=== PATIENT | male | born 1990 | race Caucasian/White ===

== ENCOUNTER 2019-09-30 13:40 | Emergency (ER) | payer MEDICAID, SELFPAY ==
[2019-09-30 13:42] VITALS: BP 130/82; PULSE 57; RESP 15; TEMP 37; O2SAT 100
--- NOTE | 2019-09-30 13:57 | ED.GENADUL_ITS ---
Discharge Plan Disposition Patient Disposition: HOME Condition: Improving Discharge Details Chief Complaint: Sorethroat Clinical Impression: Acute viral pharyngitis Primary Care Provider: Fay Bonilla ED Provider: Gokul Horton Home Meds and New Rx's Prescriptions: Continued methadone 10 MG/5 ML solution 155 mg PO DAILY Qty: 0 RF: 0 albuterol sulfate [ProAir HFA] 90 mcg/actuation HFA aerosol inhaler 1 - 2 puff Inhalation Q6H PRN Qty: 2 RF: 3 gabapentin 600 mg tablet 600 mg PO TID PRN (Reason: CHRONIC PAIN) Qty: 90 RF: 1 Discharge Instructions Instructions: Upper Respiratory Infection (ED) Additional Instructions: Small, frequent sips of fluids to maintain hydration. Tylenol and/or ibuprofen as needed for pain. Return to ER for drooling, worsening discomfort, shortness of breath, or any other acute concern. Medical Decision Making 28-year-old male presents with sore throat for 4 days. He is afebrile. Exam reveals an erythematous oropharynx. Rapid strep test obtained and negative. Consistent with a viral pharyngitis. Patient offered single dose dexamethasone for its anti-inflammatory properties. He will continue conservative management at home. Discussed with him return precautions to the ER. HPI General Mode of arrival: ambulatory . Date/Time Provider Initiated Documentation: 09/30/19 13:43 . Limitations to Documentation: no limitations . Information obtained by: patient . History of Present Illness 28 year old M presents to the emergency department with the chief complaint of Sore throat for 4 days, described as moderate, Quality is described as dull and constant, and is localized to the mouth. Patient reports no radiation. Patient started experiencing this day(s) and it has been constant. No relieving factors improve symptom(s), No exacerbating factors reported . Patient notes other (No drooling or voice change); denies fever/chills and shortness of breath. Patient did receive the following treatments prior to arrival, none Related Data Home Medications Medication Instructions Recorded Confirmed methadone 155 mg PO DAILY #0 tab-cap 06/26/18 09/30/19 albuterol sulfate 90 mcg/actuation 1 - 2 puff INHALATION Q6H PRN #2 12/25/18 09/30/19 aerosol inhaler inhaler gabapentin 600 mg tablet 600 mg PO TID PRN #90 tab-cap 09/11/19 09/30/19 Previous Rx's Medication Instructions Recorded albuterol sulfate 90 mcg/actuation 1 - 2 puff INHALATION Q6H PRN #2 12/25/18 aerosol inhaler inhaler gabapentin 600 mg tablet 600 mg PO TID PRN #90 tab-cap 09/11/19 Allergies Allergy/AdvReac Type Severity Reaction Status Date / Time No Known Allergies Allergy Unverified 09/30/19 13:49 General Stated Complaint: Sorethroat JENNIFER: 3 Review of Systems Narrative: 6 systems reviewed and otherwise negative. PFSH Social History Smoking/Tobacco Use Status: Current every day Alcohol Intake: current Drug use: Socially Substance use type: marijuana Do you feel safe at home: Yes Do you feel safe in your relationship?: Yes Exam Narrative Exam Narrative: GEN: awake, alert, oriented 3. Pleasant, well groomed, interactive. HEAD: Normocephalic, atraumatic ENT: Mucous membranes moist, oropharynx erythematous, right tonsillar swelling but no significant exudate, the uvula is midline., External ear exam unremarkable EYES: PERRL, EOMI NECK: Full ROM, no KHOA, no menigismus CHEST/RESP: Nontender, clear to auscultation bilateral, no wheeze/rhonchi/rales CARDIOVASCULAR: RRR, no murmur, rub reji. 2+ Rad pulse bilateral ABDOMEN: Soft, nontender, no mass. +Bowel sounds EXT: Full ROM, no edema, no rash Neuro: Grossly normal neurologic exam, conversant, interactive. Psych: Speech fluent, thoughts congruent, affect normal Course Vital Signs Vital signs: Vital Signs Temperature 37 C 09/30/19 13:42 Pulse 57 L 09/30/19 13:42 Respiratory Rate 15 09/30/19 13:42 Blood Pressure 130/82 09/30/19 13:42 Pulse Oximetry 100 09/30/19 13:42 Temperature 37 C 09/30/19 13:42 Temperature Source Temporal Artery Scan 09/30/19 13:42 Pulse 57 L 09/30/19 13:42 Respiratory Rate 15 09/30/19 13:42 Respiratory Effort Non-Labored 09/30/19 13:48 Blood Pressure 130/82 09/30/19 13:42 Blood Pressure Position Sitting 09/30/19 13:42 Pulse Oximetry 100 09/30/19 13:42 Oxygen Delivery Method Room Air 09/30/19 13:42 Oxygen Flow Rate 0 09/30/19 13:42 Pain Level 4 09/30/19 13:42
[2019-09-30] MEDS: Dexamethasone 4 MG TAB 8 MG PO (14:09)
== END 2019-09-30 14:15 | disposition home or self-care (01) ==
LOC: ER 14:15
PROVIDERS: Emergency Provider Emergency Medicine; PCP Family Medicine
DX: J02.9 Acute pharyngitis, unspecified (principal); F17.210 Nicotine dependence, cigarettes, uncomplicated
CPT/HCPCS: 87880; 99282; 87081; J8540

== ENCOUNTER 2022-01-13 17:43 | Outpatient (REF) | payer MEDICAID, SELFPAY ==
[2022-01-15 13:22] LABS: COVID-19 RT-PCR UVMMC Result Negative (Negative)
== END 2022-01-13 17:44 | disposition home or self-care (01) ==
LOC: LBN 17:43
PROVIDERS: PCP Family Medicine; Visit Provider Family Medicine
DX: R09.81 Nasal congestion (principal); Z20.822 Contact with and (suspected) exposure to COVID-19
CPT/HCPCS: U0003

== ENCOUNTER 2022-03-17 22:23 | Emergency (ER) | payer MEDICAID, SELFPAY ==
[2022-03-17 22:22] VITALS: BP 148/95; PULSE 78; RESP 18; TEMP 36.7; O2SAT 98
--- NOTE | 2022-03-17 22:24 | W.ED.GENAD ---
Discharge Plan Disposition Patient Disposition: STILL A PATIENT Discharge Details Chief Complaint: OD/Poison Primary Care Provider: Reggie Espinal ED Provider: David Francis Home Meds and New Rx's Prescriptions: No Action gabapentin 800 mg tablet 800 mg PO TID Qty: 90 5RF amoxicillin-pot clavulanate 875-125 mg tablet 1 tab PO BID Qty: 20 0RF methadone 10 MG/5 ML solution 155 mg PO DAILY Qty: 0 0RF Rx Instructions: BAART RX/ albuterol sulfate [ProAir HFA] 90 mcg/actuation HFA aerosol inhaler 1 - 2 puff Inhalation Q6H PRN Qty: 2 6RF Medical Decision Making 31-year-old gentleman presents reporting he has not taken his methadone since yesterday, thought he was injecting methadone but instead believes he injected approximately 3 mg of buprenorphine, now feels like he is going into withdrawal. He appears anxious, restless, slightly diaphoretic, reports vomiting prior to arrival. Plan is to obtain IV access, routine screening laboratory values, tox screen, alcohol level, etc. He denies this act as an attempt to self-harm. I would like to obtain a EKG to review his QT if appropriate then likely medicate with Zofran and a half dose of his methadone. Medical Records Medical records reviewed: Yes I reviewed the patient's medical records. HPI General Mode of arrival: EMS. Date/Time Provider Initiated Documentation: 03/17/22 22:24. Limitations to Documentation: no limitations. Information obtained by: patient and EMS. HPI Narrative: This is a 31-year-old gentleman, past medical history of depression, opiate abuse, smoker, reports methadone dependent at 890 mg daily, goes to the [facility] program but did not go today, presenting for opiate withdrawal. He states that his last dose of methadone was yesterday morning. Just prior to arrival he was shooting up what he thought was methadone but instead he believes it was approximately 3 mg of buprenorphine. He now reports feeling sweaty, nausea, vomiting, anxious, agitated, feeling like he is going through withdrawals. He denies recent illness or trauma. Denies any alcohol use or any other drug use. He states that he is scheduled to be seen at the [facility] program tomorrow morning. Apparently he was at home and after injecting the buprenorphine, his mother called EMS as there was concern for overdose. Patient denies any intentional overdose in an attempt to harm himself. No medications were given by EMS prior to arrival Related Data Home Medications Medication Instructions Recorded Confirmed methadone 10 mg/5 mL oral solution 155 mg PO DAILY #0 tab-cap 06/26/18 01/13/22 albuterol sulfate 90 mcg/actuation 1 - 2 puff INHALATION Q6H PRN #2 02/26/20 01/13/22 aerosol inhaler (ProAir HFA) inhaler gabapentin 800 mg tablet 800 mg PO TID #90 tab 12/01/21 01/13/22 amoxicillin 875 mg-potassium 1 tab PO BID #20 tab 01/13/22 01/13/22 clavulanate 125 mg tablet Previous Rx's Medication Instructions Recorded albuterol sulfate 90 mcg/actuation 1 - 2 puff INHALATION Q6H PRN #2 02/26/20 aerosol inhaler (ProAir HFA) inhaler gabapentin 800 mg tablet 800 mg PO TID #90 tab 12/01/21 amoxicillin 875 mg-potassium 1 tab PO BID #20 tab 01/13/22 clavulanate 125 mg tablet Allergies Allergy/AdvReac Type Severity Reaction Status Date / Time No Known Allergies Allergy Unverified 03/17/22 22:31 General JENNIFER: 3 Review of Systems Constitutional Constitutional: Denies fever(s), Denies headache(s) and Denies weakness ENT Ears, Nose, Mouth, and Throat: Denies headache(s) and Denies neck pain Cardiovascular Cardiovascular: Denies chest pain and Denies dyspnea Respiratory Respiratory: Denies cough and Denies dyspnea Gastrointestinal Gastrointestinal: Reports abdominal pain, Reports nausea and Reports vomiting Musculoskeletal Musculoskeletal: Denies back pain, Denies neck pain, Denies numbness and Denies tingling Integumentary/Breasts Skin/Breast: Denies rash Neurologic Neurologic: Denies headache(s), Denies numbness, Denies tingling and Denies weakness Psychiatric Psychiatric: Reports anxiety and Denies suicidal ideation PFSH All Active Problems Tachycardia (Acute) 12/2021, heart rate 150-patient made informed decision and declined evaluation Mouth pain (Acute) 12/2021 Leg pain, bilateral (Acute) 2020- chronic bilat leg pain s/p injury-on gabapentin Fracture of tibia (Acute) History of bone graft (Acute) Opioid abuse (Acute) followed by [facility] since 2011, on methadone Smoker (Acute) 10/2022-1 ppd, about 15 pk yr Idiopathic scoliosis (Acute) Wingspan/height difference; height 72/wingspan 73 Gastroesophageal reflux disease (Acute 04/03/14) gastroscopy 2011: negative [facility] [place] Depressive disorder (Acute) Chronic pain of left knee (Acute 01/13/16) : patellar tendonitis Surgical History H/O arthroscopic knee surgery Social History Smoking/Tobacco Use Status: Current every day Smoking risk assessment performed?: Yes Alcohol Intake: current Alcohol Intake frequency: 0-2 drinks per day Drug use: Socially Substance use type: marijuana Do you feel safe at home: Yes Do you feel safe in your relationship?: Yes Exam Const General: cooperative, comfortable, anxious and diaphoretic (Slightly) Orientation: alert, awake and oriented x3 HENMT Head: normal to inspection, normocephalic and atraumatic Mouth: moist mucous membranes abnormal (Slightly dry) Eyes General: appearance normal, both eyes and all related structures Conjunctivae: conjunctivae normal Neck Neck: normal visual inspection, full ROM, no meningeal signs, trachea midline, supple and nontender Resp Effort & Inspection: normal respiratory effort and able to speak in complete sentences Auscultation: clear to auscultation bilaterally Cardio Rate: regular rate Rhythm: regular rhythm GI Palpation: soft and nontender Back/Spine/Pelvis Back: No back tenderness Skin Rashes: no rashes Neuro General: patient alert, patient awake, patient oriented x3, moves all extremities and no focal motor deficits Cognition: normal cognition Speech: speech normal Gait: normal gait Motor: muscle tone normal throughout Sensory Exam: no sensory deficits noted Psych Appearance: grossly normal Mental Status: mental status grossly normal
--- NOTE | 2022-03-17 22:30 | RT.EKG_ITS ---
APPROVED REPORT Exam: Resting ECG Reason for Exam: OD Patient Location: E HR:74 bpm ECG Measurements Heart Rate 74 AXIS VT 166 P 52 QRSd 130 QRS 64 QT 557 T 43 QTc 617 Conclusion Sinus rhythm...normal P axis, V-rate 60- 99 Nonspecific intraventricular conduction delay...QRSd >115mS, not LBBB/RBBB ST elev, probable normal early repol pattern...ST elevation, age<55 Prolonged QT interval...QTc >488mS significant motion artifact limiting interpretation, no visible stemi
[2022-03-17] MEDS: Normal Saline 1,000 ML 1000 ML IV (22:47)
[2022-03-17 23:04] LABS: Abs Immature Grans 0.01 10^3/uL (0.0-0.06); Absolute Basophil Count 0.01 10^3/uL (0.0-0.2); Absolute Eosinophil Count 0.04 10^3/uL (0.0-0.7); Absolute Neutrophil Count 3.44 10^3/uL (1.2-6.7); Basophils % 0.2; Eosinophils % 0.6; HCT 34.8 % (40.0-50.0); HGB 12.3 g/dL (13.5-17.5); Immature Grans % 0.2; Lymphocytes % 37.9; MCH 29.1 pg (27.0-33.0); MCHC 35.3 % (32.0-36.0); MCV 82.3 fL (80-95); MPV 10.7 fL (8.0-11.0); Monocytes % 9.1; Platelet Count 135 10^3/uL (130-400); RBC 4.23 10^6/uL (4.36-5.78); RDW 14.2 % (11.8-14.1); RDW-SD 42.2 fL
[2022-03-17 23:15] LABS: ALT 25 U/L (16-63); AST 21 U/L (15-37); Albumin 3.5 g/dL (3.4-5.0); Alkaline Phosphatase 93 U/L (46-116); Anion Gap 11.3 mmol/L (3-11); BUN 13 mg/dL (7-18); Bilirubin, Total 0.5 mg/dL (0.2-1.0); CO2 22.7 mmol/L (21.0-32.0); Calcium 8.6 mg/dL (8.5-10.1); Chloride 102 mmol/L (98-107); Glucose 98 mg/dL (74-106); Sodium 136 mmol/L (136-145)
[2022-03-17 23:22] LABS: ETHANOL BLOOD < 3.0 mg/dL (<10)
[2022-03-17 23:23] LABS: Potassium 2.4 mmol/L (3.5-5.1)
[2022-03-17 23:38] LABS: Salicylate 4.6 mg/dL (<2.8)
[2022-03-17 23:39] LABS: Acetaminophen < 2 ug/mL (10-30)
[2022-03-17] MEDS: LORazepam 2 MG/ML VIAL 1 MG IVP (23:50)
[2022-03-17] MEDS: Potassium Chloride 20 MEQ TABCR 40 MEQ PO (23:52)
--- NOTE | 2022-03-17 23:54 | W.EDPROG ---
Date of service: 03/17/22 Time of Service: 23:30 Medical Decision Making Patient's labs unremarkable than K of 2.4. His ekg was difficult to interpret due to motion artifact as he would not lay still long enough for a good ekg but no stemi and in v4-v6 qtc appears to be less than 500. He is stable and states his methadone dose he missed is 190mg and family confirms with him. Discussed with him and will provide 90mg here to help with his symptoms and he will go to [facility] later today for further dosing and was advised to let them know of the dose he received here. He has capacity to make his own decisions and doesn't want to wait for a repeat K, he is tolerating po and has no n/v so feel this is reasonable given he was able to swallow oral potassium. Will start him on oral supplements and advised to have it rechecked within a week with his pcp, return precautions given Lab Data Lab results reviewed: Yes I reviewed the patient's lab results. ECG Data Attestation: I personally reviewed and interpreted this ECG (s) as follows: Prior ECG tracings: not available for review Interpretation: significant motion artifact limits interpretation but is sinus, rate of 74, no stemi Sign Out Sign Out Data: Sign Out Comment: Typically on methadone, did not get his dose this morning. Was injecting what he thought was methadone but instead was likely roughly 3 mg of Suboxone, now in withdrawal. Obtaining routine screening laboratory values, IV fluid to be given. Once EKG obtained can give half dose methadone, Zofran, and that he can [facility]. Patient denies any suicidal or homicidal ideations. Last updated by David Francis PA at 03/17/22 23:03 Discharge Plan Disposition Patient Disposition: STILL A PATIENT Condition: Stable Discharge Details Clinical Impression: Drug abuse, Hypokalemia Primary Care Provider: Reggie Espinal ED Provider: Brenton [place] Meds and New Rx's Prescriptions: New potassium chloride 20 mEq tablet extended release 20 meq PO BID Qty: 30 0RF Continued gabapentin 800 mg tablet 800 mg PO TID Qty: 90 5RF amoxicillin-pot clavulanate 875-125 mg tablet 1 tab PO BID Qty: 20 0RF methadone 10 MG/5 ML solution 155 mg PO DAILY Qty: 0 0RF Rx Instructions: BAART RX/ albuterol sulfate [ProAir HFA] 90 mcg/actuation HFA aerosol inhaler 1 - 2 puff Inhalation Q6H PRN Qty: 2 6RF Discharge Instructions Instructions: Hypokalemia (ED) Additional Instructions: follow up with [facility] today and advise them of the dose of 90mg methadone you received here at midnight your potassium was low, take the supplements prescribed to you and have it rechecked within a week with your primary care provider if you feel more ill, have difficulty breathing or persistent vomit return to the emergency department
[2022-03-18] MEDS: Methadone 10 MG TAB 90 MG PO (00:24)
== END 2022-03-18 00:37 | disposition still patient (30) ==
PROVIDERS: Physician Assistant; Emergency Provider Emergency Medicine; PCP Family Medicine
DX: F11.20 Opioid dependence, uncomplicated (principal); E87.6 Hypokalemia
CPT/HCPCS: 36415; 80053; 93005; 96361; 96374; 99284; 80320; 80329; 85025; 93010; J2060

== ENCOUNTER 2022-04-26 04:48 | Emergency (ER) | payer OTHER, SELFPAY ==
--- NOTE | 2022-04-26 04:45 | DI.RAD_ITS ---
Exam(s) XR CLAVICLE RT EXAM: XR CLAVICLE RT CLINICAL HISTORY: suspect right clavicle fracture TECHNIQUE: 2D digital imaging was performed of the right clavicle. Two images were obtained. AP and axial views were obtained. COMPARISON: No exams were available for comparison FINDINGS: BONES: There is an acute comminuted fracture of the midshaft of the right clavicle. There is moderat e overriding of the fracture fragments. The fracture is mildly angulated with the apex directed supe riorly. No bony destructive lesion is seen. JOINTS: No dislocation present. SOFT TISSUE: Normal IMPRESSION: Comminuted, overriding and angulated fracture of the midshaft of the right clavicle. DATA REPOSITORY: RADIATION DOSE DELIVERED:
[2022-04-26 04:53] VITALS: BP 108/81; PULSE 55; RESP 16; TEMP 36.2; O2SAT 100
--- NOTE | 2022-04-26 04:55 | ED.GENADUL_ITS ---
Discharge Plan Disposition Patient Disposition: HOME Condition: Good Discharge Details Clinical Impression: Closed fracture of right clavicle Primary Care Provider: Reggie Espinal ED Provider: Yrn Palumbo Home Meds and New Rx's Prescriptions: No Action gabapentin 800 mg tablet 800 mg PO TID Qty: 90 5RF methadone 10 MG/5 ML solution 155 mg PO DAILY Qty: 0 Rx Instructions: BAART RX/ albuterol sulfate [ProAir HFA] 90 mcg/actuation HFA aerosol inhaler 1 - 2 puff Inhalation Q6H PRN Qty: 2 6RF potassium chloride 20 mEq tablet extended release 20 meq PO BID Qty: 30 0RF Discharge Instructions Instructions: Clavicle Fracture (ED) Additional Instructions: At this time the fractured clavicle will unfortunately need surgical intervention. Thankfully it does not need it immediately. Please use the sling for comfort. The orthopedic office will contact you for prompt follow-up. Please take Tylenol and Motrin as needed for pain. If you notice any worsening of your symptoms, or any new symptoms such as vomiting, diarrhea, fever, chills, shortness of breath, chest pain, numbness, weakness, or fainting , please return immediately to the emergency department for reevaluation. Please follow up with your primary care provider as soon as possible for reassessment and reevaluation. As always, it was a pleasure participating in your medical care today. Referrals: Reggie Espinal MD [Primary Care Provider] - Medical Decision Making This is a 31-year-old male who presents today from the half-way for evaluation of right clavicle pain. Patient states that he fell out of the top bunk this evening and landed on his right clavicle. He denies hitting his head, or any pain in his shoulders, chest, head neck, back, abdomen. He denies any numbness tingling or weakness. No other complaints at this time. Pain is made worse with movement and palpation. Improved by nothing. Exam demonstrates a mild right clavicle deformity. patient is neurovascularly intact. No pain in the shoulder head neck chest or back. We will get an x-ray to further evaluate the clavicle fracture. Will monitor closely and reassess. 6:30 AM X-ray results show evidence of mild right clavicular fracture, there is 3.7 cm of overlap, and it is comminuted. The skin itself although minimally tented is easily movable over the fracture. There is no evidence of pinching, or cutaneous compromise whatsoever. It moves easily over the fracture. Did discuss the case with Dr. Sanchez, he does recommend surgery but states that it can be done on an outpatient basis. We will schedule close outpatient follow- up. Patient will be given a sling for home use. Patient remains neurovascularly intact on reassessment prior to discharge. I have extensively reviewed the treatment plan and discharge instructions with the patient. I have addressed all patient concerns at this time. The patient was made aware of what symptoms to monitor for that would warrant a return to the emergency department. Discussed the plan with the patient, they demonstrate verbal understanding and agreement with our assessment and plan at this time. The documentation in this chart was dictated using [employer] dictation software. Please excuse any dictation errors. Addendum created by Terence Millan MD on 04/26/2022 6:08 AM Eastern Time ([place] & [place]): 3.7 cm overlap of fragments Initial Report created on 04/26/2022 5:24 AM Eastern Time ([place] & [place]): PROCEDURE INFORMATION: Exam: XR Right Clavicle, Complete Exam date and time: 04/26/2022 5:08 AM Age: 31 years old Clinical indication: Injury or trauma; Blunt trauma (contusions or hematomas); Shoulder; Injury date: 04/26/22; Injury details: Fall from top bunk, suspect right clavicle FX TECHNIQUE: Imaging protocol: XR Right clavicle complete. Views: Any number of views. COMPARISON: No relevant prior studies available. FINDINGS: Bones/joints: Comminuted angulated and mildly depressed mid clavicular fracture. The visualized right acromioclavicular and glenohumeral joints are grossly intact Soft tissues: Swelling in the supraclavicular fossa IMPRESSION: Mid right clavicular fracture as noted Thank you for allowing us to participate in the care of your patient. Dictated and Authenticated by: Terence Millan MD 04/26/2022 5:24 AM Eastern Time ([place] & [place]) HPI General Date/Time Provider Initiated Documentation: 04/26/22 04:49 . HPI Narrative: This is a 31-year-old male who presents today from the half-way for evaluation of right clavicle pain. Patient states that he fell out of the top bunk this evening and landed on his right clavicle. He denies hitting his head, or any pain in his shoulders, chest, head neck, back, abdomen. He denies any numbness tingling or weakness. No other complaints at this time. Pain is made worse with movement and palpation. Improved by nothing. Related Data Home Medications Medication Instructions Recorded Confirmed methadone 10 mg/5 mL oral solution 155 mg PO DAILY #0 tab-caps 06/26/18 04/26/22 albuterol sulfate 90 mcg/actuation 1 - 2 puff inhalation Q6H PRN ##2 02/26/20 04/26/22 aerosol inhaler (ProAir HFA) gabapentin 800 mg tablet 800 mg PO TID #90 tabs 12/01/21 04/26/22 potassium chloride 20 mEq 20 meq PO BID #30 tabs 03/18/22 tablet,extended release Previous Rx's Medication Instructions Recorded albuterol sulfate 90 mcg/actuation 1 - 2 puff inhalation Q6H PRN ##2 02/26/20 aerosol inhaler (ProAir HFA) gabapentin 800 mg tablet 800 mg PO TID #90 tabs 12/01/21 potassium chloride 20 mEq 20 meq PO BID #30 tabs 03/18/22 tablet,extended release Allergies Allergy/AdvReac Type Severity Reaction Status Date / Time No Known Allergies Allergy Unverified 04/26/22 04:55 General Stated Complaint: Orthopedic JENNIFER: 4 Review of Systems All systems reviewed & are unremarkable except as noted in HPI and below PFSH All Active Problems (Updated 04/26/22 @ 05:50 by Yrn Palumbo DO) Closed fracture of right clavicle (Acute) Tachycardia (Acute) 12/2021, heart rate 150-patient made informed decision and declined evaluation Mouth pain (Acute) 12/2021 Leg pain, bilateral (Acute) 2020- chronic bilat leg pain s/p injury-on gabapentin Fracture of tibia (Acute) History of bone graft (Acute) Opioid abuse (Acute) followed by [facility] since 2011, on methadone Smoker (Acute) 10/2022-1 ppd, about 15 pk yr Idiopathic scoliosis (Acute) Wingspan/height difference; height 72/wingspan 73 Gastroesophageal reflux disease (Acute 04/03/14) [place]rosc[place] [facility] [place]ressive disorder (Acute) Chronic pain of left knee (Acute 01/13/16) : patellar tendonitis Surgical History H/O arthroscopic knee surgery Social History Smoking/Tobacco Use Status: Former Tobacco Use Smoking risk assessment performed?: Yes Alcohol Intake: former Drug use: Current Sobriety Substance use type: marijuana Details: pt is in group home; not allowed any cigarettes, alcohol or marijuana Do you feel safe at home: Yes Do you feel safe in your relationship?: Yes Exam Narrative Exam Narrative: 1.Const: Well-nourished, Well-developed, appearing stated age 2.Eyes: PERRL, no conjunctival injection, and symmetrical lids. 3.ENT: Atraumatic external nose and ears. Moist MM. Neck: Symmetric, trachea midline, No thyromegaly. 4.CVS: +S1/S2, No murmurs or gallops. Peripheral pulses 2+ and equal in all extremities. Brisk capillary refill in all extremities. 5.RESP: Unlabored respiratory effort. Clear to auscultation bilaterally. No wheezes rales or rhonchi 6.GI: Soft, Nontender/Nondistended, No hepatosplenomegaly. No guarding or rebound. 7.MSK: Normocephalic, no pain in the shoulders, no pain in the upper extremities. Patient does have mild deformity of the midshaft of the clavicle on the right. Radial pulse +2 bilaterally. Sensation and vascular exam normal distal to site of injury. 8.Skin: Warm, Dry. No rashes or lesions. 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 Sensation grossly intact, no focal ari rologic deficits. 10.Psych: (AAO) x3. Appropriate mood and affect Course Vital Signs Vital signs: Vital Signs Temperature 36.2 C L 04/26/22 04:53 Pulse 55 L 04/26/22 04:53 Respiratory Rate 16 04/26/22 04:53 Blood Pressure 108/81 04/26/22 04:53 Pulse Oximetry 100 04/26/22 04:53 Temperature 36.2 C L 04/26/22 04:53 Temperature Source Skin 04/26/22 04:53 Pulse 55 L 04/26/22 04:53 Respiratory Rate 16 04/26/22 04:53 Blood Pressure 108/81 04/26/22 04:53 Pulse Oximetry 100 04/26/22 04:53 Pain Level 7 04/26/22 04:53
[2022-04-26] MEDS: Ibuprofen 800 MG TAB PO (05:02)
--- NOTE | 2022-04-26 05:25 | DI.VRAD_ITS ---
Addendum created by Terence Millan MD on 04/26/2022 6:08:21 AM EDT: 3.7 cm overlap of fragments Initial report created on 04/26/2022 5:24:46 AM EDT: PROCEDURE INFORMATION: Exam: XR Right Clavicle, Complete Exam date and time: 04/26/2022 5:08 AM Age: 31 years old Clinical indication: Injury or trauma; Blunt trauma (contusions or hematomas); Shoulder; Injury date: 04/26/22; Injury details: Fall from top bunk, suspect right clavicle FX TECHNIQUE: Imaging protocol: XR Right clavicle complete. Views: Any number of views. COMPARISON: No relevant prior studies available. FINDINGS: Bones/joints: Comminuted angulated and mildly depressed mid clavicular fracture. The visualized right acromioclavicular and glenohumeral joints are grossly intact Soft tissues: Swelling in the supraclavicular fossa IMPRESSION: Mid right clavicular fracture as noted Dictated and Authenticated by: Terence Millan MD. Ordering:EMELIA Pool MD
== END 2022-04-26 06:32 | disposition home or self-care (01) ==
PROVIDERS: Emergency Provider Student in an Organized Health Care Education/Training Program; PCP Family Medicine
DX: S42.021A Displaced fracture of shaft of right clavicle, initial encounter for closed fracture (principal); W06.XXXA Fall from bed, initial encounter
CPT/HCPCS: 99283; 73000

== ENCOUNTER 2022-04-28 11:30 | Outpatient (CLI) | payer MEDICAID, SELFPAY ==
[2022-04-28 12:44] LABS: Source Nasal/Nares
[2022-04-28 16:34] LABS: COVID-19 PCR Negative (Negative)
== END 2022-04-28 11:31 | disposition home or self-care (01) ==
LOC: LBO 11:30
PROVIDERS: PCP Family Medicine; Referring Provider Family Medicine; Visit Provider Student in an Organized Health Care Education/Training Program
DX: Z20.822 Contact with and (suspected) exposure to COVID-19 (principal); Z01.818 Encounter for other preprocedural examination
CPT/HCPCS: 87635

== ENCOUNTER 2022-04-30 10:59 | Day surgery (SDC) | payer MEDICAID, SELFPAY ==
[2022-04-30] VITALS (8 sets, daily range): BP systolic 107–144; BP diastolic 63–113; PULSE 60–78; RESP 10–18; TEMP 36.3–36.9; O2SAT 93–100; BMI 19.1
[2022-04-30 10:03] LABS: Source Nasal/Nares
[2022-04-30 10:52] LABS: COVID-19 PCR Negative (Negative)
--- NOTE | 2022-04-30 11:39 | ANES.PREOP_ITS ---
General Info Date of Service Date Performed: 04/30/22 Height: 6 ft 1 in Weight: 65.6 kg Body Mass Index (BMI): 19.1 Surgical Procedure: Operation Date: 04/30/22 13:10 Proposed Procedure Side Surgeon p Shoulder ORIF Clavicle Right Richard Newman MD Meds Allergies and Home Medications Allergies Allergy/AdvReac Type Severity Reaction Status Date / Time No Known Allergies Allergy Unverified 04/30/22 11:09 Home Medication Medication Instructions Recorded methadone 10 mg/5 mL oral solution 190 mg PO DAILY #0 tab-caps 06/26/18 albuterol sulfate 90 mcg/actuation 1 - 2 puff inhalation Q6H PRN ##2 02/26/20 aerosol inhaler (ProAir HFA) potassium chloride 20 mEq 20 meq PO BID #30 tabs 03/18/22 tablet,extended release acetaminophen 500 mg tablet 500 mg PO TID PRN 04/28/22 gabapentin 800 mg tablet 800 mg PO TID 04/28/22 Current Visit Medications: Current Medications Generic Name Dose Route Start Last Admin Trade Name Freq PRN Reason Stop Dose Admin Ringer's Solution 1,000 mls @ 30 mls/hr 04/30/22 06:00 IV 05/27/22 23:59 INFUSION ANDREAS Cefazolin Sodium/Dextrose 2 gm in 50 mls @ 100 mls/hr 04/30/22 06:00 Ancef Duplex IVPB 04/30/22 23:59 PREOP ANDREAS IV Miscellaneous Supplies 1 each 04/30/22 06:00 Iv Access IV 05/27/22 23:59 DIRECTED ANDREAS Naproxen 250 - 500 mg 04/30/22 10:10 Naproxen 500 Mg Tab PO BID PRN PRN Oxycodone HCl 5 - 10 mg 04/30/22 10:10 Oxycodone 5 Mg Tab PO Q4H PRN PRN Sodium Chloride 0 ml 04/30/22 06:00 Normal Saline Flush 10 Ml Syr IV 05/27/22 23:59 PRN PRN Sodium Chloride 0 ml 04/30/22 06:00 Normal Saline 10 Ml Vial IJ 05/27/22 23:59 DIRECTED PRN Sterile Water 0 ml 04/30/22 06:00 Water,Injection,Sterile 10 Ml Vial IJ 05/27/22 23:59 DIRECTED PRN PFSH Active Problems Active Problems: Problem Status Onset Code Chronic pain of left knee 01/13/16 M25.562, G89.29 Depressive disorder F32.9 Gastroesophageal reflux disease 04/03/14 K21.9 Idiopathic scoliosis M41.20 Smoker F17.200 Opioid abuse F11.10 History of bone graft Z98.890 Fracture of tibia S82.209A Leg pain, bilateral M79.604, M79.605 Mouth pain K13.79 Tachycardia R00.0 Closed fracture of right clavicle 04/25/22 S42.001A Medical History Medical History Comments:: pt denies complications; pt admits to having one cigarette today at 9am and outside of corrections uses marijauana daily (abt March 28 last time); bilateral ankle monitoring cuffs Surgical History Surgical History (Updated 04/30/22 @ 11:08 by Angie Arredondo) H/O arthroscopic knee surgery Hx of wisdom tooth extraction Tobacco Smoking/Tobacco Use Status: Current every day Tobacco Type: cigarettes Smoking cigarettes per day: 10 Years smoked: 15 Alcohol Alcohol Intake: former Substance Use Substance use: Current Sobriety Substance use type: marijuana Details: pt is in residential; not allowed any cigarettes, alcohol or marijuana Vital Signs and Lab Results Vital Signs Most Recent Vital Signs in EMR: Most Recent Vital Signs Temp Pulse Resp BP Pulse Ox 36.5 C 69 16 115/68 97 04/30/22 11:10 04/30/22 11:10 04/30/22 11:10 04/30/22 11:10 04/30/22 11:10 Lab Results Blood Type / Crossmatch: No Data to Display Complete Blood Count: No Data to Display Complete Metabolic Panel: No Data to Display Liver Function Panel: No Data to Display Coagulation Panel: No Data to Display Cardiac Panel: No Data to Display Arterial Blood Gas: No Data to Display Venous Blood Gas: No Data to Display Pancreas Panel: No Data to Display Thyroid Panel: No Data to Display Infectious Disease: 2 Coronavirus (COVID-19)(PCR) Negative (Negative) 04/30/22 09:50 Coronavirus 2019 Source Nasal/Nares 04/30/22 09:50 Blood Cultures: 2 No Data to Display Toxicology Panel: No Data to Display Imaging and Studies Imaging and Studies Study information below may be from another EMR and interpreted by another provider. Please see original notes in EMR for more complete details. EKG Summary: Conclusion Sinus rhythm...normal P axis, V-rate 60- 99 Nonspecific intraventricular conduction delay...QRSd >115mS, not LBBB/RBBB ST elev, probable normal early repol pattern...ST elevation, age<55 Prolonged QT interval...QTc >488mS significant motion artifact limiting interpretation, no visible stemi Anesthesia Assessment and Plan Anesthesia History Personal History: No History of Anesthesia Complications Family History: Family History Unknown Exercise Tolerance Exercise Tolerance: Metabolic Equivalents>4 Pertinent Negatives Pertinent Negatives: No Symptoms of GERD, No Major Cardiovascular Symptoms or Complaints, No Major Pulmonary Symptoms or Complaints and No History of CVA/TIA Cardiac & Pulmonary Exam Cardiac Exam: Normal S1/S2 Heart Sounds Pulmonary Exam: Clear Bilateral Breath Sounds Implantable Cardiac Device Does patient have a Pacemaker or an ICD?: No Airway Exam Known Difficult Airway: No Mallampati Class: 3 Mouth Opening: Normal (> 3cm) Thyromental Distance: Greater than 3 cm Neck Range of Motion: Limited ROM Neck Circumference: Normal Teeth Condition: Generalized Poor Dentition and Loose or Chipped Airway Comments: Front teeth chipped almost completely 11 12; 13 ASA Classification ASA Score: ASA 2 Emergency Case?: No NPO Status NPO Status: NPO Clears >2 hours, Solids >8 hours Anesthesia Plan Resuscitation Status: Full Code Anesthesia Technique: General Anesthesia Airway Planned: Endotracheal Tube Pain Management: Surgeon and patient request nerve block Monitors Used: Standard Monitors
[2022-04-30] MEDS: Lactated Ringers 1,000 ML 30 ML IV (11:45)
--- NOTE | 2022-04-30 11:48 | W.ANESNERVE ---
Nerve Block Single Injection Procedure Date and Time Date Performed: 04/30/22 Procedure Start: 13:40 Location Where Procedure Performed Procedure Location: Day Surgery Unit Reason Performed: Postoperative Analgesia Requesting Provider: Richard Newman Timeout Performed Timeout Performed: Yes Monitoring Used ECG, Blood Pressure, SpO2 and See EMR for corresponding vital signs Sterility Sterility: Hand Hygiene, Surgical Cap, Surgical Mask, Sterile Gloves, Eye Protection and Chlorhexidine Sedation Given During Procedure Sedation Given (Indicate Dose Given): Versed IV Dose:: 2 mg Patient Mental Status Patient Mental Status: Awake Nerve Block 1st Nerve Block: Laterality: Right Block Type: Interscalene Needle / Catheter Used: 100mm SonoPlex II Local Anesthetic Bolus (Indicate Dose Given): Lidocaine used for local infiltration of skin, Injected in 3-5ml increments after negative blood aspiration and Ropivacaine 0.5% Dose:: 15 mL Additives (Indicate Dose Given): None Ultrasound: Sterile probe cover and gel used Ultrasound Image Saved?: Yes Nerve Stimulator: Not Used Paresthesia: None Procedure Tolerated: No Complications and Patient tolerated well Procedure Outcome: Successful Performed By: Lucie Hoyt 2nd Nerve Block: Laterality: Right Block Type: Superficial Cervical Plexus Needle / Catheter Used: 100mm SonoPlex II Local Anesthetic Bolus (Indicate Dose Given): None Additives (Indicate Dose Given): None Ultrasound: Sterile probe cover and gel used Ultrasound Image Saved?: Yes Nerve Stimulator: Not Used Paresthesia: None Procedure Tolerated: Patient tolerated well Procedure Outcome: Successful Performed By: Lucie Hoyt
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
[2022-04-30] MEDS: ceFAZolin 2 GM/50 ML BAG IVPB (14:09)
[2022-04-30] MEDS: Lidocaine 1% Multi-Dose W/EPI 1/100,000 50 ML VIAL (14:48)
[2022-04-30] MEDS: Bupivacaine 0.25% Pres-Free 10 ML VIAL (14:48)
--- NOTE | 2022-04-30 16:35 | PDOC.DSDIS_ITS ---
Discharge Plan Disposition Patient Disposition: HOME Condition: Stable Discharge Details Reason For Visit: Right clavicle fracture Attending Provider: Richard Newman Primary Care Provider: Reggie Espinal Home Meds and New Rx's Prescriptions: New oxycodone 5 mg tablet 5 - 10 mg PO Q4H MDD 30 mg PRN (Reason: moderate to severe pain) Qty: 18 0RF naproxen 250 mg tablet 250 - 500 mg PO BID PRNQty: 40 0RF Rx Instructions: take with a meal Continued methadone 10 MG/5 ML solution 190 mg PO DAILY Qty: 0 Rx Instructions: BAART RX/ albuterol sulfate [ProAir HFA] 90 mcg/actuation HFA aerosol inhaler 1 - 2 puff Inhalation Q6H PRN Qty: 2 6RF potassium chloride 20 mEq tablet extended release 20 meq PO BID Qty: 30 0RF acetaminophen 500 mg Tablet 500 mg PO TID PRN gabapentin 800 mg tablet 800 mg PO TID Discontinued ibuprofen 400 mg Tablet 400 mg PO TID PRN Discharge Instructions Additional Instructions: Surgery: Right clavicle open reduction internal fixation Activity: For 6 weeks, use sling whenever you are up and about or out of the home. Minimal weightbearing, carrying, or lifting with your right upper extremity. Prescriptions: Resume home medications Naproxen 250 mg take 1-2 every 12 hours with a meal as needed for moderate pain Oxycodone 5 mg take 1-2 every 4-6 hours as needed for severe pain You may use [id number] Tylenol (acetaminophen) as needed for mild pain. These pain medications may be taken all at once or in different combinations as needed. Also, recommend Colace (docusate) as a stool softener as surgery and pain medicine cause constipation. You may try tcad-tge-[id number] diphenhydramine (Benadryl) 25-50 mg nightly as a sleep aid Dressings: Leave dressing in place until follow-up. Keep clean and dry at all times. Follow-up: 10-[address] Newman Let us know right away if you develop any redness, drainage, fevers, chest pain, or trouble breathing. Do not drink alcohol or drive for at least 24 hours after anesthesia. Please call the office during business hours with any questions or concerns. Referrals: Richard Newman MD [ [facility] STAFF PHYSICIAN] - Discharge Orders Discharge Orders: Discharge Order (Routine); Ordered 04/30/22 Ordered By: Richard Newman DS: Diagnosis Discharge Diagnosis (1) Closed fracture of right clavicle: Status: Acute
--- NOTE | 2022-04-30 16:38 | ROE_ITS ---
Operative Note Operative Note DATE OF PROCEDURE: 04/30/22 PRE-OP DIAGNOSIS: Right displaced clavicle fracture PROCEDURE: Right clavicle open reduction internal fixation, CPT #66211 SURGEON: Richard Newman MANUFACTURING QUALITY TECHNICIAN: Daya Weiss ANESTHESIA TYPE: Local By Surgeon, General LMA/ETT and Primary Nerve Block Refer to Anesthesia Record ESTIMATED BLOOD LOSS: 10 COMPLICATIONS: None Patient was transported to: PACU Implants: Synthes 2.7mm VA LCP clavicle plate system LC1 plate with 1x cortex screws and 3x locking screws medially & laterally Indications: Please see complete medical record for details. Procedure Description: In the operating room, general anesthesia was induced. The patient was positioned supine on the operating room table. All bony prominences were well- padded. Preoperative antibiotics were administered. The clavicle was prepped and draped in the usual sterile fashion. The correct patient, procedure, and side of the procedure were all verified prior to incision. The planned incision was pre-injected with 40 cc of a 50:50 mixture of bupivacaine and lidocaine containing epinephrine. The fracture site was approached raising full-thickness flaps down to bone. The incision was extended medially laterally as necessary. Care was taken to preserve soft tissue attachments. The fracture ends were identified. Bone forceps were used to provisionally obtain reduction. Suture tape cerclage x2 was used to maintain reduction incorporating the segmental pieces medially and the combined medial pieces to the intact lateral clavicle. An appropriate precontoured superior plate was applied. It was compressed to bone with a cortex screw on each side followed by sequentially placing an additional 3 locking screws medially and laterally. The plate and fractures were all inspected and demonstrated excellent stability and fixation strength. AP, cephalic tilt, and [id number] fluoroscopy confirmed appropriate fracture reduction and hardware placement. The wound was copiously irrigated with normal saline. Deep and subcutaneous tissue was closed in a full-thickness watertight fashion with buried interrupted 2-0 Monocryl. Subcuticular layer was closed using running 3-0 Monocryl. Skin glue was applied over the incision followed by a Mepilex Band-Aid. The patient awoke from anesthesia without complication and was transferred to the recovery room in a stable condition.
--- NOTE | 2022-04-30 16:59 | W.ANESPOSTOP ---
Postoperative Evaluation Date, Time and Location Date Performed: 04/30/22 Time Performed: 15:59 Patient Location: Day Surgery Unit Vital Signs Most Recent Imported Vital Signs: Most Recent Vital Signs Temp Pulse Resp BP Pulse Ox 36.3 C L 63 18 133/93 H 99 04/30/22 16:57 04/30/22 16:57 04/30/22 16:57 04/30/22 16:57 04/30/22 16:57 Pain Score Most Recent Pain Score: Most Recent Pain Score Pain Level 0 04/30/22 16:57 Assessment Mental Status: Awake (Alert & Oriented to Patient Baseline) Airway and Respiratory Function: Patent airway with normal (patient baseline) respiratory exam Cardiovascular Function: Hemodynamically Stable Hydration Status: Adequately Hydrated Nausea & Vomiting: No Nausea or Vomiting Pain: Pt. Denies Any Pain Peripheral Nerve Block: Regional nerve block not resolved at time of post operative discharge
== END 2022-04-30 17:20 | disposition home or self-care (01) ==
PROVIDERS: PCP Family Medicine; Visit Provider Student in an Organized Health Care Education/Training Program
PROC: (CPT 23515; principal; 2022-04-30 13:00)
DX: S42.021A Displaced fracture of shaft of right clavicle, initial encounter for closed fracture (principal); X58.XXXA Exposure to other specified factors, initial encounter; F11.10 Opioid abuse, uncomplicated; F17.210 Nicotine dependence, cigarettes, uncomplicated; K21.9 Gastro-esophageal reflux disease without esophagitis; F32.A Depression, unspecified
CPT/HCPCS: 23515; 76942; 87635; 73000; J0690; J1100; J1885; J2250; J2405

== ENCOUNTER 2022-05-11 11:04 | Outpatient (CLI) | payer MEDICAID, SELFPAY ==
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
== END 2022-05-11 11:05 | disposition home or self-care (01) ==
LOC: DIORS 11:04
PROVIDERS: PCP Family Medicine; Visit Provider Physician Assistant Surgical
DX: S42.021D Displaced fracture of shaft of right clavicle, subsequent encounter for fracture with routine healing (principal); X58.XXXD Exposure to other specified factors, subsequent encounter
CPT/HCPCS: 73000

== ENCOUNTER 2022-06-12 00:13 | Inpatient (IN) | payer MEDICAID, SELFPAY ==
[2022-06-12] VITALS (126 sets, daily range): BP systolic 102–176; BP diastolic 57–138; PULSE 57–142; RESP 13–26; TEMP 36.6–37; O2SAT 90–100
--- NOTE | 2022-06-12 | DI.RAD_ITS ---
Exam(s) XR PORTABLE CHEST AP EXAM: XR PORTABLE CHEST AP CLINICAL HISTORY: pneumothorax. TECHNIQUE: 2D digital imaging was performed. COMPARISON: CR,XR XR PORTABLE CHEST AP from 06/12/2022 FINDINGS: Single AP portable view. Heart size is upper normal. The mediastinum is not widened. There is a thin left-sided chest tube in place and the left lung is re-expanded. There is less than 5 percent remaining left pneumothorax. No infiltrates. No contusions. No pleural effusions. No sh ift of midline structures. Dorsal fixation plate across right clavicular fracture again noted. Left clavicle intact. No scapular fracture. No obvious left rib fractures. Fracture of the right 3rd r ib noted, age indeterminate. IMPRESSION: Left lung re-expansion.Less than 5 percent remaining pneumothorax. DATA REPOSITORY: RADIATION DOSE DELIVERED: All CT scans at this facility use at least one of these dose optimization techniques: automated exposure control; mA and/or kV adjustment per patient size (includes targeted e xams where dose is matched to clinical indication); or iterative reconstruction.
--- NOTE | 2022-06-12 00:15 | RT.EKG_ITS ---
APPROVED REPORT Exam: Resting ECG Reason for Exam: chest pain Patient Location: E HR:100 bpm ECG Measurements Heart Rate 100 AXIS DC 176 P 50 QRSd 115 QRS 55 QT 389 T 17 QTc 502 Conclusion Sinus tachycardia...rate> 99 Nonspecific intraventricular conduction delay...QRSd >115mS, not LBBB/RBBB Prolonged QT interval...QTc >488mS I have reviewed and interpreted ECG and agree with software generated interpretation.
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
[2022-06-12] MEDS: MORPHine 4 MG/ML SYR IVP ×6 (00:50→22:39)
[2022-06-12] MEDS: Normal Saline 1,000 ML 1000 ML IV (00:50)
[2022-06-12] MEDS: HYDROmorphone 2 MG/ML VIAL 1 MG IVP (01:00)
[2022-06-12 01:13] LABS: Abs Immature Grans 0.05 10^3/uL (0.0-0.06); Absolute Basophil Count 0.02 10^3/uL (0.0-0.2); Absolute Eosinophil Count 0.01 10^3/uL (0.0-0.7); Absolute Monocyte Count 0.49 10^3/uL (0.1-0.8); Absolute Neutrophil Count 7.27 10^3/uL (1.2-6.7); Basophils % 0.2; Eosinophils % 0.1; HCT 42.9 % (40.0-50.0); HGB 15.3 g/dL (13.5-17.5); Immature Grans % 0.6; Lymphocytes % 10.3; MCH 28.6 pg (27.0-33.0); MCHC 35.7 % (32.0-36.0); MCV 80 fL (80-95); Monocytes % 5.6; Neutrophils % 83.2; RBC 5.35 10^6/uL (4.36-5.78); RDW 11.9 % (11.8-14.1); RDW-SD 34.5 fL; WBC 8.74 10^3/uL (4.4-10.8)
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
[2022-06-12] MEDS: Ketamine 500 MG/10 ML VIAL (01:23)
[2022-06-12 01:26] LABS: ALT 34 U/L (16-63); AST 29 U/L (15-37); Alkaline Phosphatase 122 U/L (46-116); Anion Gap 13.3 mmol/L (3-11); BUN 17 mg/dL (7-18); Bilirubin, Total 0.5 mg/dL (0.2-1.0); CO2 26.7 mmol/L (21.0-32.0); CREATININE 1.6 mg/dL (0.70-1.30); Calcium 9.2 mg/dL (8.5-10.1); Chloride 99 mmol/L (98-107); Estimated GFR 50.34 (mL/min/1.73m2); Glucose 92 mg/dL (74-106); Potassium 3.1 mmol/L (3.5-5.1); Sodium 139 mmol/L (136-145); Total Protein 9.2 g/dL (6.4-8.2)
[2022-06-12 01:28] LABS: Platelet Count 92 10^3/uL (130-400)
--- OUTSIDE RECORDS SUMMARY | 2022-06-12 01:44 | XMS_ITS | Encounter Summary ---
:1990 Author Organization [place] [address] Care Team Providers Name Role Phone Fay Bonilla MD Primary Care Provider Reason for Visit Reason Onset Date Comments Other 08/21/2012 returned call Encounter Details Date Type Department Care Team Description 08/21/2012 Telephone [place] [facility] Mary Gaviria Other (returned call) [place] [address] Social History Tobacco Use Types Packs/Day Years Used Date Current Every Day Smoker 0.5 Smokeless Tobacco: Never Used Alcohol Use Standard Drinks/Week Comments No 0 (1 standard drink = 0.6 oz pure alcoho l) Sex Assigned at Date Recorded Not on file documented as of this encounter Miscellaneous Notes Telephone Encounter - Mary Abdi - 08/21/2012 3:55 PM EDT Pt returned your call while you were with patient. He can be reached at home. Thank you documented in this encounter Plan of Treatment Not on filedocumented as of this encounter Visit Diagnoses Not on filedocumented in this encounter Care Teams Hop Weigher Relationship Specialty Start Date End Date Fay Bonilla MD PCP - General 08/21/[address] [place] [address] documented as of this encounter
--- OUTSIDE RECORDS SUMMARY | 2022-06-12 01:44 | XMS_ITS | Encounter Summary ---
:1990 Author Organization [facility] Address [address] [place] [address] Care Team Providers Name Role Phone Khris Lama MD Primary Care Provider Reason for Visit Reason Comments Knee Pain Left knee pain Encounter Details Date Type Department Care Team Description 02/24/2010 Office Visit [facility] Mustapha Hannon osteo arth Sports Medicine Burak Nieto MD NOS-l/leg (Primary Dx) Program - [address] [place] [phone] Social History Tobacco Use Types Packs/Day Years Used Date Never Assessed Sex Assigned at Date Recorded Not on file documented as of this encounter Last Filed Vital Signs Vital Sign Reading Time Taken Comments Blood Pressure - - Pulse - - Temperature - - Respiratory Rate - - Oxygen Saturation - - Inhaled Oxygen Concentration - - Weight 79.4 kg (175 lb) 02/24/2010 1312 EDT Height 185.4 cm (6' 1) 02/24/2010 1312 EDT Body Mass Index 23.09 02/24/2010 1312 EDT documented in this encounter Patient Instructions Patient InstructionsParIndiana kearney LPN - 02/24/2010 13:46 EDT Stop smoking. Blood work hg test to be done pre op. WHAT TO EXPECT AN OUTPATIENT SURGICAL PATIENT [facility]'s Outpatient Surgery program is a service offered to those patients in the community who require minor surgical treatment which can be safely completed in one day's time, therefore not requiring overnight hospitalization. The service permits the patient to have surgery and to go home the same day. In order to make your stay as short and as comfortable as possible, this instruction sheet has been prepared for your convenience. The instructions contained in this document are important to ensure a safe surgical procedure and early discharge home. Preparing at home for surgery Follow the eating or drinking guidelines given to you by your physician. Shower or bathe the night before and again on the morning of your surgery with an antibacterial soap, since this practice can decrease your risk of an infection. Wear casual, comfortable, loose clothing such as sweat suits, easy button shirts or blouses. Remove all makeup and nail faroese. Bring an eyeglass case or contact lens case if you wear corrective lenses. Please leave all valuables, money and jewelry at home. Remove all rings Please call your surgeon's office or pre-op services at [phone] with any questions. Notify yourdoctor if you become ill before surgery, or develop a blemish, cut, rash or abrasion on or around your Single patients under the age of 18 MUST have a parent or legal guardian in the hospital at ALL times on the day of surgery, from the time of admission until discharge either home or to an inpatient bed. Bring any special items needed (crutches, pillows for ride home). In order to coordinate your care, please ensure your ride arrives a half hour before your expected discharge time. Arrange for a responsible adult to go home with you and to stay with you overnight. When you arrive for surgery Please arrive at [facility] per the time specified by your physician's office. This will allow us adequate time to prepare you for your surgery. Your surgery will be scheduled either [facility] or on the [facility]. After registering in Admitting, you will be sent to the Surgical Admission area where you will be prepared for your surgery. You will change into a hospital gown or [facility]. Your health status will be updated and an IV (intravenous fluid) will be started. If an intravenous is needed on a child, it will be started in the operating room after the child is asleep. You will meet one of the anesthesia staff who will be with you during your surgery. They will ask you some questions and finalize your anesthesia plan of care. You will be moved into the operating room on a stretcher. A designated family waiting area at each [place] is staffed by a medical records receptionist who will take your family's name as they enter. Your surgeon will speak with them after your surgery. Please note that thereis limited waiting area and we recommend only one or two family members accompany the patient. After your surgery ??? recovery You will be transferred to the Post Anesthesia Care Unit (PACU). When having outpatient surgery, most of the time you can go home between 1-4 hours after your surgery. Total recovery time varies from procedure to procedure. If you require extended recovery time, you can expect to be moved to the Post Procedure Recovery Unit (PPR) until your physician and nurse have determined that it is safe for you to go home. If your physician determines that you require additional observation or a longer time to recover, you will be admitted and moved to an inpatient unit overnight. When this occurs, depending on the type of surgery you have, the hospital will bill your insurance as an outpatient subject to the benefits in your insurance plan. Adult parents or significant others are appropriate visitors in that PACU as visitation is limited to ensure safe quality care. Please try and make suitable arrangements for children under the age of 18 during the post operative waiting period for their safety and comfort. All patients must leave the hospital accompanied by a responsible adult mobile lounge driver or operator after anesthesia or sedation. For the first 24 hour period after receiving sedation or anesthesia, you should NOT make important decisions, drive, operate machinery, or drink alcohol. Note: In some cases you may be sent home but directed to follow up in the doctor's office within a day or two. If you live locally, this should not be a problem. However, if you live further away, you may be asked to make arrangements for motel/hotel accommodations in the [facility]. You can find lodging information on [email or web address] under the Patients and Visitors tab/Visitor's guide/Community Information/Hotel, Motel & Lodging. Instructions for Fasting Before Surgery It is very important that ALL surgical patients fast (no eating, no drinking) for a period of time before surgery. Children under the age of 12: ?? Stop solid food and milk 6 hours prior to surgery Stop breast milk 4 hours prior to surgery Stop clear liquids 3 hours prior to surgery Adults and children over the age of 12 having surgery BEFORE 12:00 noon: ?? Nothing to eat or drink after midnight prior to surgery Adults and children over the age of 12 having surgery AFTER 12:00 noon: ?? Stop solid food and milk products at midnight Stop clear liquids 4 hours prior to surgery Clear liquids include Water, apple or cranberry juice, popsicles, Jell-O, lucy miguel, Fat Free broth, black or sweetened coffee or tea. Following these instructions will help prevent nausea, vomiting, and aspiration (breathing in of stomach contents) during and after surgery. Your surgery may be cancelled or postponed if these guidelines are not followed. Medications and medical conditions can sometimes affect these guidelines. Take your medications as directed with small sips of water at any time prior to your procedure. (If a medication must be taken with something other than fat free liquids or sips of water, please refer to the Preoperative Center at for guidance.) If you have questions, please call the Pre-op Center at [facility] [phone] between the hours of 7:30am - 5:30pm Tuesday - Tuesday Patient Education items provided at today's visit: - Dr. Hannon things to do sheet with pertinent dates, times, and contact numbers. - Pre-op Physical Packet - Patient Worksheet for pre-op phone call - Pre-op Advice - Dept. Of Anesthesia Consent Form (copy) - Visitation Policy (re: H1N1 & Seasonal Influenza) - Surgery specific post-op information sheet Indiana Carson LPN 1:51 PM 3.30.10 documented in this encounter Progress Notes Indiana Carson LPN - 02/24/2010 1404 EDT Patient Education items provided at today's visit: - Dr. Hannon things to do sheet with pertinent dates, times, and contact numbers. - Pre-op Physical Packet - Patient Worksheet for pre-op phone call - Pre-op Advice - Dept. Of Anesthesia Consent Form (copy) - Visitation Policy (re: H1N1 & Seasonal Influenza) - Surgery specific post-op information sheet - ACL expectations sheet for CPM information Patient Education Topic: Pre-op Left Knee Scope Microfracture Lateral Femoral Condyle. Method: Handout and Verbal Taught to: Patient and Family Barriers: None Outcomes: verbalized understanding Signature: Indiana Carson LPN 2:04 PM 02/24/2010 Burak Hannon MD - 02/24/2010 5625 EDT SUBJECTIVE: He is a young gentleman who had injured his knee in 2006. He jumped over 3 foot embankment and landed, had a medial tibial plateau fracture, had been treated in a long leg hinged brace and nonweightbearing for about six weeks and gradually got back to activities. Since that period of time,his knee has become painful on the medial side of his knee, worse with activities, decreased with rest. He continues to have significant knee pain. He has swelling. PAST HISTORY: Good general medical health. REVIEW OF SYSTEMS: Looking at his review of systems, he has marked everything as negative with the exception of arthritis in his knee, shortness of breath, depression and tobacco use. PAST MEDICAL HISTORY: Good general medical health. He does smoke. FAMILY HISTORY: Grandmother with cancer. Her bowels and lungs. Grandfather had asthma, shortness of breath. He has not had any prior surgeries. SOCIAL HISTORY: He is on some medications, they are listed in the chart. OBJECTIVE: 1. Constitutional: He is well groomed. 2. Eyes: Reactive. 3. Respiratory: No labored breathing. 4. Psychiatric: Responsive to exam. 5. Skin: Normal skin color. 6. Neurologic: Sensation to soft touch is intact. 7. Cardiovascular: Brisk capillary refill. Musculoskeletal exam observation he has a small effusion. He has got some medial and lateral joint line tenderness significantly greater on the lateral side today.Palpation shows tenderness on the lateral side. He has some tenderness on his patella tendon and increased with resistance. Range of motionof the knee is 0 to full flexion equal to the other side. Strength is excellent with a mild antalgicgait. Malgorzata exam varus and valgus exams, PCL exam all symmetrically tested side to side with good solid endpoints. Review of the record was performed. X-rays were ordered today. I do not see any specific signs of any major arthritis in his knee. He does have maybe an evidence of a small medial tibial plateau fracture that was nondisplaced and has healed nicely. MRI deminstrates a lateral femoral condyle cyst and cartilage defect. He has a small medial cyst also ASSESSMENT AND PLAN: He has medial and lateral knee pain and mild patella tendonitis. The medial andlateal pain is potentially related to articular cartilage. MRI confirms injury to his articular cartilage. The procedure, risks, and benefits were explained and understood to have a knee scope and micro fracture of lateral femoral condyle vs debridement. He will take anti- inflammatories as needed, [id number] Tylenol and activities will be limited to no running. I will see him back right after his MRI and will make further treatment plans which could involve surgery or not. He will stop smoking pre op and will do so for 8 weeks. documented in this encounter Plan of Treatment Not on filedocumented as of this encounter Visit Diagnoses Diagnosis Localized osteoarthrosis not specified w hether primary or secondary, lower leg - Primary documented in this encounter Care Teams Mine Geologist Relationship Specialty Start Date End Date Khris Lama MD PCP - General 02/23/10 [address] [place] [address] documented as of this encounter
--- OUTSIDE RECORDS SUMMARY | 2022-06-12 01:44 | XMS_ITS | Encounter Summary ---
:1990 Author Organization [facility] Address [address] [place] [id number] Care Team Providers Name Role Phone Khris Lama MD Primary Care Provider Encounter Details Date Type Department Care Team Description 06/06/2012 Hospital Encounter [facility] MD [place] [address] [address] [facility] [address] [place] [address] Social History Tobacco Use Types Packs/Day Years Used Date Never Assessed Sex Assigned at Date Recorded Not on file documented as of this encounter Medications at Time of Discharge Medication Sig Dispensed Refills Start Date End Date citalopram (CELEXA) 10 mg Take 10 mg by mouth 0 tablet daily. meloxicam (MOBIC) 7.5 mg Take 1 Tab by mouth 30 Tab 2 tablet daily. nabumetone (RELAFEN) 500 Take 500 mg by mouth 0 mg tablet 2 times daily. documented as of this encounter Discharge Disposition Disposition Code Departure Means Destination Auto Discharge Home documented in this encounter Plan of Treatment Not on filedocumented as of this encounter Visit Diagnoses Not on filedocumented in this encounter Care Teams Manager Treasury Relationship Specialty Start Date End Date Khris Lama MD PCP - General 02/23/[address] [place] [address] documented as of this encounter
--- OUTSIDE RECORDS SUMMARY | 2022-06-12 01:44 | XMS_ITS | Encounter Summary ---
:1990 Author Organization [facility] Address [address] [place] [address] Care Team Providers Name Role Phone Khris Lama MD Primary Care Provider Encounter Details Date Type Department Care Team Description 12/15/2009 Orders Only [facility] [place], Medicine Program - T jin [address] [place], [place] [address] [address] [place] [address] Social History Tobacco Use Types Packs/Day Years Used Date Never Assessed Sex Assigned at Date Recorded Not on file documented as of this encounter Plan of Treatment Not on filedocumented as of this encounter Procedures Procedure Name Priority Date/Time Associated Diagnosis Comme nts MR EXTREMITY KNEE 12/15/2009 11:33 Result s for this WO CONTRAST EST procedure are i n the results section. documented in this encounter Results MR EXTREMITY KNEE WO CONTRAST (12/15/2009 11:33 EST) Anatomical Region Laterality Modality Other Specimen Narrative PIERRE MRI - 12/15/2009 16:42 EST MR EXTREMITY KNEE WO CONTRAST ??Dec 15, 2009 11:33:00 AM Signs and Symptoms/Comments: ??Left knee pain Technique: ??Routine multiplanar sagitta l, coronal, axial conventional MR images with long and short TR sequenc es of the left knee were obtained without contrast administration . Findings: The medial and lateral menisci are intac t as are its anterior and posterior root ligament attachments. The anterior and posterior cruciate liga ments are intact. The medial supporting structures of the knee are intact. ??The popliteus shows mild tendinosis at its p roximal femoral attachment. The lateral collateral complex is intact . ?? There is mild tendinosis of the proximal patellar tendon. The distal quadriceps tendon is intact. The posterior weight-bearing surface of the lateral femoral condyle shows focal irregularity and mild depres una of the subchondral bone plate with underlying subcortical curvil inear low signal focus. The overlying articular cartilage shows thic kening and heterogeneous decreased as well as chondral fraying an d mild chondral surface irregularity with a couple thin partial- thickness chondral fissures (sagittal image 7). This may reflect seq uela from remote osteochondral injury. No persistent high T2 signal osteochondral fracture defect or bone marrow edema is seen in this area.. Also noted is a curvilinear focus of int ramedullary low signal within the posterior portion of the patella. Th e overlying subchondral bone plate and articular cartilage appears in tact. No joint effusion is identified. Impression: 1. No meniscal tear or ligamentous disru ption is identified. 2. The posterior weight-bearing portion of the lateral femoral condyle shows features suggesting residu al sequela from remote osteochondral injury including chondral fraying and mild articular cartilage surface irregularity with a co uple thin partial-thickness chondral fissures in this area. See abov e description. This could be correlated clinically. 3. Popliteus shows mild tendinosis at it s proximal femoral attachment. 4. Mild proximal patellar tendinosis. 5. See above for details and additional findings. I have personally reviewed the images an d the above interpretation and agree with the findings. Procedure Note Elvis Benedict MD / Petros Benedict MD / Elvis Benedict MD - 12/15/2009 MR EXTREMITY KNEE WO CONTRAST Dec 15 11:33:00 AM Signs and Symptoms/Comments: Left knee p ain Technique: Routine multiplanar sagittal, coronal, axial conventional MR images with long and short TR sequenc es of the left knee were obtained without contrast administration . Findings: The medial and lateral menisci are intac t as are its anterior and posterior root ligament attachments. The anterior and posterior cruciate liga ments are intact. The medial supporting structures of the knee are intact. The popliteus shows mild tendinosis at its p roximal femoral attachment. The lateral collateral complex is intact . There is mild tendinosis of the proximal patellar tendon. The distal quadriceps tendon is intact. The posterior weight-bearing surface of the lateral femoral condyle shows focal irregularity and mild depres una of the subchondral bone plate with underlying subcortical curvil inear low signal focus. The overlying articular cartilage shows thic kening and heterogeneous decreased as well as chondral fraying an d mild chondral surface irregularity with a couple thin partial- thickness chondral fissures (sagittal image 7). This may reflect seq uela from remote osteochondral injury. No persistent high T2 signal osteochondral fracture defect or bone marrow edema is seen in this area.. Also noted is a curvilinear focus of int ramedullary low signal within the posterior portion of the patella. Th e overlying subchondral bone plate and articular cartilage appears in tact. No joint effusion is identified. Impression: 1. No meniscal tear or ligamentous disru ption is identified. 2. The posterior weight-bearing portion of the lateral femoral condyle shows features suggesting residu al sequela from remote osteochondral injury including chondral fraying and mild articular cartilage surface irregularity with a co uple thin partial-thickness chondral fissures in this area. See abov e description. This could be correlated clinically. 3. Popliteus shows mild tendinosis at it s proximal femoral attachment. 4. Mild proximal patellar tendinosis. 5. See above for details and additional findings. I have personally reviewed the images an d the above interpretation and agree with the findings. Performing Organization Address City/State/ZIP Code Phon e Number [facility] MRI [facility] MRI documented in this encounter Visit Diagnoses Not on filedocumented in this encounter Care Teams Lead Manufacturing Engineer Relationship Specialty Start Date End Date Khris Lama MD PCP - General 12/12/09 02/22/[address] [place] [address] documented as of this encounter
--- OUTSIDE RECORDS SUMMARY | 2022-06-12 01:44 | XMS_ITS | Encounter Summary ---
:1990 Author Organization [facility] Address [address] [place] [address] Care Team Providers Name Role Phone Khris Lama MD Primary Care Provider Encounter Details Date Type Department Care Team Description 01/13/2022 Lab Requisition [facility] Outr Resulting Lab, Pathology & Laboratory Provider [facility] [address] [place], [place] [id number] Social History Tobacco Use Types Packs/Day Years Used Date Never Assessed Sex Assigned at Date Recorded Not on file documented as of this encounter Plan of Treatment Not on filedocumented as of this encounter Procedures Procedure Name Priority Date/Time Associated Diagnosis Comme nts COVID-19 TEST [facility] Today 01/13/2022 10:50 LAB PCR EST COVID-19 TESTING Routine 01/13/2022 10:50 Results for this EST procedure are i n the results section. documented in this encounter Results COVID-19 TEST [facility] LAB PCR (01/13/2022 10:50 EST) Specimen Swab Performing Organization Address City/State/ZIP Code Phon e Number [facility] [address] [place] [address] SERVICES COVID-19 TESTING (01/13/2022 10:50 EST) COVID-19 rt-PCR Negative Negative [facility] [[email or web address]] MEDICAL Result Comment: [facility] This test has not been FDA c leared or approved. This test has been authorized by FDA under an EUA for use by authorized laboratories. This test has been authorized only for detection of nucleic acid fro SERVICES m 2018-nCoV, not for any oth er viruses or pathogens. This test is only authorized for the duration of the declaration that circumstances exist justifying the authorization of emergency use of in vitro d iagnostic tests for detectio n and/or diagnosis of 2019-nCoV under section 564(b)(1) of Act, 21 U.S.C ?? 360bbb-3(b) (1), unless the authorization is terminated or revoked sooner. Negative results do not prec lude 2019-nCoV infection and should not be used as the sole basis for treatment or other patient management decisions. Negative results must be combined with clinical observa tions, patient history, and epidemiological informatio n. Testing was performed using the [place] SARS-CoV-2 assay ([employer] on the [place] [address] System Performing Lab [place] [address] [facility] Lab [facility] SERVICES Specimen Swab Performing Organization Address City/State/ZIP Code Phon e Number [facility] [address] [place] [address] SERVICES documented in this encounter Visit Diagnoses Not on filedocumented in this encounter Care Teams Geospatial Developer Relationship Specialty Start Date End Date Khris Lama MD PCP - General 02/23/[address] [place] [address] documented as of this encounter
--- OUTSIDE RECORDS SUMMARY | 2022-06-12 01:44 | XMS_ITS | Encounter Summary ---
:1990 Author Organization [facility] Address [address] [place] [address] Care Team Providers Name Role Phone Khris Lama MD Primary Care Provider Reason for Visit Reason Comments Knee Pain left knee pain DOS 4.21.10 Encounter Details Date Type Department Care Team Description 04/30/2010 Office Visit [facility] Drewjostinbeck, Left knee pain Sports Medicine Burak Nieto MD (Primary Dx) Program - [address] [place] [phone] Social History Tobacco Use Types Packs/Day Years Used Date Never Assessed Sex Assigned at Date Recorded Not on file documented as of this encounter Last Filed Vital Signs Vital Sign Reading Time Taken Comments Blood Pressure - - Pulse - - Temperature - - Respiratory Rate - - Oxygen Saturation - - Inhaled Oxygen Concentration - - Weight 74.8 kg (165 lb) 04/30/2010 1421 EDT Height 185.4 cm (6' 1) 04/30/2010 1421 EDT Body Mass Index 21.77 04/30/2010 1421 EDT documented in this encounter Ordered Prescriptions Prescription Sig Dispensed Refills Start Date End Date oxaprozin (DAYPRO) 600 mg Take 1 Tab by mouth 30 Tab 2 0 04/30/2010 06/06/2012 tablet daily. documented in this encounter Progress Notes Tahir Sutherland MD - 09/28/2010 0856 EDT Patient was seen and examined by Dr. Burak Hannon MD. He agrees with assessment and plan as above. 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 S: Rio continues to have fairly intense pain in his left knee, localized to his anteromedial and anterolateral joint lines. His pain is worse with extension of the knee. Incisions have been clean dry and intact without any fevers. 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 He has been prolifically taking ibuprofen and aleve, but note that these medications aren't helping decrease his pain to any significant degree. O: NAD. L knee: Portal sites clean dry and intact. No erythema. Minimal swelling anteriorly. Pain at extremes of flexion and extension with ROM. Tenderness along anterior joint line and patellar tendon. A: L knee pain with synovitis and likely early osteoarthritis. Satisfactory course post-operatively. P: Physical therapy. Daypro, 2 refills. Recommended and provided information regarding glucosamine therapy. Return PRN. documented in this encounter Plan of Treatment Not on filedocumented as of this encounter Visit Diagnoses Diagnosis Left knee pain - Primary Pain in joint, lower leg documented in this encounter Care Teams Workforce Development Vice President Relationship Specialty Start Date End Date Khris Lama MD PCP - General 02/23/[address] [place] [address] documented as of this encounter
--- OUTSIDE RECORDS SUMMARY | 2022-06-12 01:44 | XMS_ITS | Encounter Summary ---
:1990 Author Organization [facility] Address [address] [place] [address] Care Team Providers Name Role Phone Khris Lama MD Primary Care Provider Reason for Visit Reason Onset Date Comments Pre-op Exam 02/24/2010 Left Knee Scope Micr ofracture Lateral Femoral Condyle DOS 4.21.10 Encounter Details Date Type Department Care Team Description 02/24/2010 Pre-Procedure Orders [facility] Katharine golden, Encounter Sports Medicine [facility] Program - [id number] [place] [address] Social History Tobacco Use Types Packs/Day Years Used Date Never Assessed Sex Assigned at Date Recorded Not on file documented as of this encounter Plan of Treatment Not on filedocumented as of this encounter Visit Diagnoses Not on filedocumented in this encounter Care Teams Database Administration Associate Relationship Specialty Start Date End Date Khris Lama MD PCP - General 02/23/10 [facility] [address] [place], [place] [id number] documented as of this encounter
--- OUTSIDE RECORDS SUMMARY | 2022-06-12 01:44 | XMS_ITS | Encounter Summary ---
:1990 Author Organization [facility] [place] [address] Care Team Providers Name Role Phone Fay Bonilla MD Primary Care Provider Encounter Details Date Type Department Care Team Description 08/21/2012 Telephone [place] [facility] [place] Mcgrath APRN [facility] [place] [address] [place] [phone] (Wo rk) Social History Tobacco Use Types Packs/Day Years Used Date Current Every Day Smoker 0.5 Smokeless Tobacco: Never Used Alcohol Use Standard Drinks/Week Comments No 0 (1 standard drink = 0.6 oz pure alcoho l) Sex Assigned at Date Recorded Not on file documented as of this encounter Miscellaneous Notes Telephone Encounter - Gloria Mcgrath APRN - 08/21/2012 2:18 PM EDT Attempted to call patient to discuss the results of his tests but no answer. Left message with call back number. documented in this encounter Plan of Treatment Not on filedocumented as of this encounter Visit Diagnoses Not on filedocumented in this encounter Care Teams Icing Machine Operator Relationship Specialty Start Date End Date Fay Bonilla MD PCP - General 08/21/[address] [place] [address] documented as of this encounter
--- OUTSIDE RECORDS SUMMARY | 2022-06-12 01:44 | XMS_ITS | Encounter Summary ---
:1990 Author Organization [facility] Address [address] [place] [address] Care Team Providers Name Role Phone Khris Lama MD Primary Care Provider Reason for Referral Consult, Test and Treat (Routine) - Closed Specialty Diagnoses / Procedures Referred By Contact Refer red To Contact Diagnoses Left knee pain Elvis Ching MD [address] [place] [address] Referral ID Status Reason Start Date Expiration Date Visits V isits Requested Authorized [id number] Closed Specialty 03/26/2010 1 1 Services Required Question Answer Reason for Request: Left knee pain Surgery (and Date): 03/18/10 (knee arthroscopy, s ynovectomy) Comments WBAT. Please work on ROM and strengtheni ng as tolerated. Reason for Visit Reason Comments Knee Pain left knee dos 03/18/10 arthos cope Encounter Details Date Type Department Care Team Description 03/26/2010 Office Visit [facility] Riddhi, Left knee pain Sports Medicine Burak Nieto MD (Primary Dx) Program - [address] [place] [address] [place] [phone] Social History Tobacco Use Types [...] - - Weight 74.8 kg (165 lb) 03/26/2010 1147 EDT Height 185.4 cm (6' 1) 03/26/2010 1147 EDT Body Mass Index 21.77 03/26/2010 1147 EDT documented in this encounter Patient Instructions Patient InstructionsThiagocamElvis - 03/26/2010 12:09 EDT Activity as tolerated. Wean off of narcotics. Use tylenol/alleve instead. Start physical therapy forrange of motion and strengthening. documented in this encounter Ordered Prescriptions Prescription Sig Dispensed Refills Start Date End Date oxycodone (ROXICODONE) 5 Take 1-2 Tabs by 30 Tab 0 03/2606/06/2012 mg immediate release mouth every 4 hours tablet as needed for Pain. documented in this encounter Progress Notes Elvis Ching - 04/02/2010 1456 EDT Sports Medicine [facility] [address] [place] [phone] PROGRESS/FOLLOWUP NOTE - 03/26/2010 REASON FOR VISIT: The patient is status post left knee arthroscopy and synovectomy. Date of surgery 03/18/2010. SUBJECTIVE: The patient presents today for followup approximately one week postop. He reports he still having a moderate amount of pain. He continues to take oxycodone on the order of 15 mg q.4h. Day of surgery he received a prescription for, 50, 5 mg tablets of oxycodone. He received a refill of 40 ta blets on 03/20 and a subsequent refill of 40 tablets on 03/24. The patient reports at this point in time that he is down to three tablets and is requesting another prescription. He denies fevers or chills. He reports he has not been involved in any physical therapy to this point in time. OBJECTIVE: On physical exam, the patient is in no apparent distress. He has an obvious large knee effusion. His surgical incisions are well healed with no erythema or drainage. Range of motion about his knee is from 5 to 45 degrees. ASSESSMENT AND PLAN: The patient is one week status post left knee arthroscopy and synovectomy with persistent pain and swelling. Plan at this time would be to have the patient begin physical therapy for range of motion and strengthening. The patient was counseled that he should try to wean himself off narcotics and use nonnarcotic analgesics instead. He is encouraged to take Aleve two tablets p.o. b.i.d. in addition to Tylenol 1000 mg p.o. q.6 h. The patient is given another prescription for oxycodone 5 mg, 30, and counseled that this would be his last prescription. Last, the patient is given a prescription for physical therapy and will begin therapy closer to his home in [facility]. Plan willbe to have the patient follow back up in this office in one month's time. The patient was in agreement with this plan. All his questions were answered. The patient was seen with Dr. Hannon. I saw and examined the patient with the resident/fellow. I agree with the findings and plan of care documented in the resident's/fellow's note. Electronically Signed by Burak Hannon MD 04/02/2010 14:56 Elvis Ching MD Burak Hannon MD - Elvis Ching MD - JPD Job ID: SM Doc ID: [id number] Ext Doc ID: [id number] cc: Khris Lama MD Elvis hough - 03/26/2010 1205 EDT This office note has been dictated. Sutures were removed. documented in this encounter Plan of Treatment Scheduled Referrals Name Type Priority Associated Diagnoses Order S chedule AMB CONSULT Outpatient Referral Routine Left knee pain Ordere d: PHYSICAL THERAPY 03/26/2010 documented as of this encounter Visit Diagnoses Diagnosis Left knee pain - Primary Pain in joint, lower leg documented in this encounter Care Teams Sales And Service Engineer Relationship Specialty Start Date End Date Khris Lama MD PCP - General 02/23/10 [address] [place] [address] documented as of this encounter
--- OUTSIDE RECORDS SUMMARY | 2022-06-12 01:44 | XMS_ITS | Encounter Summary ---
:1990 Author Organization [facility] Address [address] [place] [address] Care Team Providers Name Role Phone Khris Lama MD Primary Care Provider Reason for Visit Reason Comments Knee Pain left Encounter Details Date Type Department Care Team Description 06/06/2012 Office Visit [facility] Sports [place] Pal, Knee pain; Medicine Program - Ashlie abdi MD Wrist pain; [address] Back pain [place], [place] [address] [address] [place] [address] Social History Tobacco Use Types Packs/Day Years Used Date Never Assessed Sex Assigned at Date Recorded Not on file documented as of this encounter Last Filed Vital Signs Vital Sign Reading Time Taken Comments Blood Pressure - - Pulse - - Temperature - - Respiratory Rate - - Oxygen Saturation - - Inhaled Oxygen Concentration - - Weight 70.3 kg (155 lb) 06/06/2012 1505 EDT Height 185.4 cm (6' 1) 06/06/2012 1505 EDT Body Mass Index 20.45 06/06/2012 1505 EDT documented in this encounter Ordered Prescriptions Prescription Sig Dispensed Refills Start Date End Date meloxicam (MOBIC) 7.5 mg Take 1 Tab by mouth 30 Tab 2 tablet daily. documented in this encounter Discharge Disposition Disposition Code Departure Means Destination Auto Discharge documented in this encounter Progress Notes Emmy Pal MD - 06/06/2012 1604 EDT Addended by: EMMY PAL on: 06/06/2012 16:04 Modules accepted: Orders Emym Pal MD - 06/06/2012 1548 EDT SUBJECTIVE: Rio is an established patient to see me. He is coming in today with significant pain. He said that he has been seen many doctors, no one seems to listen to him. He has left knee pain, right knee pain, left ankle pain, left back pain, left mid back pain, right hand pain across the metacarpophalangeal joint, once in awhile left hand pain across the metacarpophalangeal joint. The pain is worse with activities, decreased with rest. He has been taking occasional anti-inflammatories without much help. He has noticed decreased breathing ability also. He does not describe any fevers in the past. REVIEW OF SYSTEMS: No other orthopaedic concerns. PAST MEDICAL HISTORY: Good general medical health. OBJECTIVE: Constitutional: No apparent distress. Cardiovascular: Brisk capillary refill. Psychiatric: Responsive to exam. Skin: Normal skin color. Musculoskeletal exam observation: He has got multiple tattoos. Palpation: He has got global tenderness; the knee hurts to global palpation on the left side. The right side his ankle hurts. His back hurts all to general light kind of touch. Strength, he walks with a normal gait. I checked his lung expansion and it was significantly less, by placing my hands on his chest and asking him to breathe, my thumbs barely moved apart. As far as his knee goes, there was no effusion. There is no joint line tenderness. He does not appear to have any increased skin warmth. His left ankle, his skin was intact. There was no increased warmth that I could see today. Hismotion appeared to be mostly normal. Right knee had normal skin temperature, no obvious areas of tenderness. His back was not tender to touch today; he had good flexion, extension and rotation of his spine. 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 I am worried about ankylosing spondylitis with decreased breathing capacity and multiple joints that are painful. I am going to get a set of labs, CBC, sed rate, rheumatoid factor and HLA-B27, see if any of those are positive. If those are positive, we will treat him from a rheumatologic point of view. I would like to start him on Mobic, see if this helps him as an antiinflammatory. I will see him back as needed and will call him by telephone. documented in this encounter Plan of Treatment Not on filedocumented as of this encounter Results HLA B27 (06/06/2012 16:53 EDT) Pathologist Sig nature HLA B27 HLA B27 not [facility] identifiedComment: Testing performed by Complement Dependent Cytotoxicity Technique (CDC) Specimen Blood specimen (specimen) Performing Organization Address City/[facility]/ZIP [facility] Phon e Number [facility] [address] [place] [address] SERVICES [facility] [address] [place] [address] RHEUMATOID FACTOR (06/06/2012 16:53 EDT) Pathologist Sig formerly [facility] Rheumatoid Factor <20 <20 IU/ml [facility] Specimen Blood specimen (specimen) Performing Organization Address City/[facility]/ZIP [facility] Phon e Number [facility] [address] [place] [address] SERVICES [facility] [address] [place] [address] SED. RATE:WESTERGREN (06/06/2012 16:53 EDT) Pathologist Sig nature Sed. Rate Westergren 1 0 - 15 mm/hr [facility] Specimen Blood specimen (specimen) Performing Organization Address City/[facility]/ZIP [facility] Phon e Number [facility] [address] [place] [address] SERVICES [facility] [address] [place] [address] (ABNORMAL) HEMAGRAM AND DIFFERENTIAL (06/06/2012 16:53 EDT) Pathologist Sig nature WBC 10.36 4.0 - 10.4 K/cmm [facility] RBC 5.58 4.36 - 5.78 M/cmm [facility] Hemoglobin 17.4 (H) 13.8 - 17.3 gm/dl [facility] HCT 48.7 39.5 - 50.2 % [facility] MCV 87 81 - 95 fl [facility] MCH 31.1 27.6 - 33.0 pg [facility] MCHC 35.6 32.8 - 36.4 gm/dl [facility] PLT 194 141 - 320 K/cmm [facility] RDW-CV 13.3 11.8 - 14.1 % [facility] Neutrophils 72.9 45.5 - 79.7 % [facility] Lymphocytes 20.7 15.0 - 46.8 % [facility] Monocytes 5.4 1.8 - 12.0 % [facility] Eosinophils 0.7 0.6 - 6.9 % [facility] Basophils 0.3 0.2 - 1.4 % [facility] ABS Neutrophils 7.55 2.20 - 8.85 K/cmm [facility] ABS Lymphs 2.15 1.09 - 3.30 K/cmm [facility] ABS Monocytes 0.55 0.1 - 0.8 K/cmm [facility] ABS Eosinophils 0.08 0.03 - 0.61 K/cmm [facility] ABS Basophils 0.03 0.01 - 0.11 K/cmm [facility] Type of Diff: Automated [facility] Specimen Blood specimen (specimen) Performing Organization Address City/State/[facility] Code Phon e Number [facility] [address] [place] [address] SERVICES [facility] [address] [place] [address] documented in this encounter Visit Diagnoses Diagnosis Knee pain Pain in joint, lower leg Wrist pain Pain in joint, forearm Back pain Backache, unspecified documented in this encounter Discontinued Medications Medication Sig Discontinue Reason Start Date End Date BUPRENORPHINE HCL/NALOXONE Place under the 06/06/2012 HCL (SUBOXONE SL) tongue daily. FLUOXETINE HCL (PROZAC Take 60 mg by 05/28 ORAL) mouth daily. hydrocodone-acetaminophen Take 1 Tab by 0 06/06/2012 (LORTAB;VICODIN) 5-500 mg mouth every 4 per tablet hours. 1-2 tabs. Takes 1 tab daily/pt MIRTAZAPINE (REMERON ORAL) Take 30 mg by 06/06/2012 mouth daily. Takes 3-4 times/week oxaprozin (DAYPRO) 600 mg Take 1 Tab by 04/30/2010 0 06/06/2012 tablet mouth daily. oxycodone (ROXICODONE) 5 Take by mouth. 1-2 03/24/2010 06/06/2012 mg immediate release po q 4-6 prn pain tablet oxycodone (ROXICODONE) 5 Take 1-2 Tabs by 03/26/2010 06/06/2012 mg immediate release mouth every 4 tablet hours as needed for Pain. TRAZODONE HCL (TRAZODONE Take by mouth ORAL) daily. documented as of this encounter Historical Medications This list may reflect changes made after this encounter. Medication Sig Dispensed Refills Start Date End Date citalopram (CELEXA) 10 mg Take 10 mg by mouth 0 tablet daily. nabumetone (RELAFEN) 500 Take 500 mg by mouth 0 mg tablet 2 times daily. added in this encounter Orders Lab Orders Without Results Count Last Ordered Date st Ordered Date ANTI NUCLEAR ANTIBODY 1 06/06/2012 documented in this encounter Care Teams Frontend Engineer Relationship Specialty Start Date End Date Khris Lama MD PCP - General 02/23/10 [address] [place] [address] documented as of this encounter
--- OUTSIDE RECORDS SUMMARY | 2022-06-12 01:44 | XMS_ITS | Encounter Summary ---
:1990 Author Organization [facility] Address [address] [place] [address] Care Team Providers Name Role Phone Khris Lama MD Primary Care Provider Encounter Details Date Type Department Care Team Description 03/18/2010 Hospital Encounter [facility] Cody Hannon Perioperative Services - R, [address] [address] [place], [place] [phone] Social History Tobacco Use Types Packs/Day Years Used Date Never Assessed Sex Assigned at Date Recorded Not on file documented as of this encounter Last Filed Vital Signs Vital Sign Reading Time Taken Comments Blood Pressure - - Pulse - - Temperature - - Respiratory Rate - - Oxygen Saturation - - Inhaled Oxygen Concentration - - Weight 74.8 kg (165 lb) 03/11/2010 1000 EDT Height 185.4 cm (6' 1) 03/11/2010 1000 EDT Body Mass Index 21.77 03/11/2010 1000 EDT documented in this encounter Medications at Time of Discharge Medication Sig Dispensed Refills Start Date End Date BUPRENORPHINE HCL/NALOXONE Place under the 0 06/06/2012 HCL (SUBOXONE SL) tongue daily. FLUOXETINE HCL (PROZAC Take 60 mg by mouth 0 06/06/2012 ORAL) daily. hydrocodone-acetaminophen Take 1 Tab by mouth 0 06/06/2012 (LORTAB;VICODIN) 5-500 mg every 4 hours. 1-2 per tablet tabs. Takes 1 tab daily/pt MIRTAZAPINE (REMERON ORAL) Take 30 mg by mouth 0 06/06/2012 daily. Takes 3-4 times/week TRAZODONE HCL (TRAZODONE Take by mouth 0 06/06/2012 ORAL) daily. documented as of this encounter Discharge Disposition Disposition Code Departure Means Destination Home or Self Care documented in this encounter Progress Notes Angelia Martin - 03/11/2010 0958 EDT [place] has been instructed as follows regarding medication administration for the day of the scheduled procedure. Date of Surgery: 03/18/10 Instructions for Taking Medications Day of Surgery Medication Last Dose Hold DOS Take DOS hydrocodone-acetaminophen (LORTAB;VICODIN) 5-500 mg per tablet Yes MIRTAZAPINE (REMERON ORAL) yes FLUOXETINE HCL (PROZAC ORAL) yes documented in this encounter H&P Notes Physician Pickett MD - 03/22/2010 0752 EDT documented in this encounter Procedure Notes Physician Pickett MD - 03/22/2010 0752 EDTAssociated Order(s): ORDERS - SCANNED; ORDERS - SCANNED documented in this encounter OR Notes OR PreOp - Physician Pickett MD - 03/22/2010 0754 EDT Anesthesia Procedure Notes - Physician Pickett MD - 03/22/2010 0752 EDT Anesthesia Preprocedure Evaluation - Physician Pickett MD - 03/22/2010 0752 EDT R PreOp - Physician Pickett MD - 03/22/2010 0752 EDT Anesthesia Procedure Notes - Physician Pickett MD - 03/18/2010 0853 EDT R Surgeon - Elvis Ching - 03/18/2010 0000 EDT OPERATIVE REPORT SERVICE DATE: 03/18/2010 SURGEON: Burak Hannon MD STEMHOLE BORER AND TOPPER: Elvis Ching MD 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 POSTOPERATIVE DIAGNOSIS: Left lateral femoral condyle cartilage thinning, synovitis. PROCEDURE: Left knee arthroscopy, synovectomy. ANESTHESIA: General. ESTIMATED BLOOD LOSS: Minimal. FLUIDS: 700 mL lactated Ringer's. URINE OUTPUT: Not recorded. SPECIMENS: None sent. CULTURES: None sent. DRAINS, PACKS, FOREIGN MATERIALS RETAINED: None. COMPLICATIONS: None. DISPOSITION: Stable to PACU. INDICATIONS: The patient is a 19-year-old male with left knee pain. He was diagnosed with a left femoral condyle OCD. The relative risks and benefits of surgical arthroscopy and possible microfracture were discussed with the patient and he opted to proceed with surgery. NARRATIVE: The patient was greeted in preoperative hold. All of his questions were answered. The patient was brought to the operating room. General anesthetic was administered by anesthesia staff. A well-padded thigh tourniquet was placed. One gram of IV cefazolin was administered by anesthesia staff.The patient was then prepped and draped in normal sterile fashion. Standard medial and lateral knee arthroscopy portals were created. Diagnostic knee arthroscopy was performed. In a standard fashion, medial gutter was evaluated and found to have no loose bodies, intact-appearing meniscocapsular junction. The lateral gutter was evaluated and found to have no loose bodies. Popliteus tendon was found derrick intact. The chondral surface of the patella was found to be intact. The patellar tracking within the trochlea was appropriate. There were no cartilage defects within the trochlea. The medial compartment was entered and there was noted to be a fissure on the medial tibial plateau consistent with thepatient's prior history of fracture. There was some articular cartilage softening, average grade 1, in the region of this fissure, which was approximately 1 cm in width. The femoral articular cartilagewas within normal limits. The medial meniscus was probed and found to be intact. The notch was subsequently evaluated and felt to be narrow; however, both the ACL and PCL were found to be intact. Therewas marked synovitis in the anterior knee. Lateral compartment was entered. The tibial articular cartilage was felt to be intact. The lateral meniscus was probed and no tears were found. The lateral femoral cartilage was found to have an area of softening on the order of grade 1 changes at approximately 45 degrees of flexion in a region that was 1 x 1.5 cm. There was also noted to be a dimple within this region. It was found to be approximately 3 mm deep. Because the articular cartilage was intact, it was felt that microfracture was not indicated at this time for the patient. Attention was turned to the synovitis within the region of the notch. A synovectomy was performed. The knee was subsequently copiously irrigated with normal saline. It was injected with 0.25% Marcaine with epinephrine following this irrigation. The portals were closed using Prolene suture, portal stitch. Wounds were then dressed using Adaptic, 4 x 4s, Webril and a ANGI stocking. At the conclusion of the case, all counts were correct. Dr Hannon was present and scrubbed for the entire case. Unless otherwise noted, there were no complications, no blood loss, no cultures obtained, no specimens removed, and no drains retained. Dictated by: Elvis Ching MD Burak Hannon MD 08 44 AM / ss Confirmation: [id number] Dictation ID: [id number] cc:Elvis Hannon MD documented in this encounter Miscellaneous Notes Scanned Note-Null - Physician Pickett MD - 03/22/2010 075 EDT canned Note-Null - Physician Pickett MD - 03/22/2010 075 EDT canned Note-Null - Physician Pickett MD - 03/22/2010 075 EDT canned Note-Null - Physician Pickett MD - 03/22/2010 075 EDT canned Note-Null - Physician Pickett MD - 03/22/2010 075 EDT lan of Care - Physician Pickett MD - 03/22/2010751 EDT rief Op Note - Physician Pickett MD - 03/22/2010751 EDT documented in this encounter Plan of Treatment Not on filedocumented as of this encounter Procedures Procedure Name Priority Date/Time Associated Diagnosis Comme nts ORDERS - SCANNED 03/22/2010 7:52 EDT Resu lts for this procedure are i n the results section. documented in this encounter Results ORDERS - SCANNED (03/22/2010 7:52 EDT) Specimen Narrative This result has an attachment that is no t available. Procedure Note Physician Pickett MD - 03/22/2010 7: 52 EDT documented in this encounter Visit Diagnoses Not on filedocumented in this encounter Historical Medications This list may reflect changes made after this encounter. Medication Sig Dispensed Refills Start Date End Date hydrocodone-acetaminophen Take 1 Tab by mouth 0 06/06/2012 (LORTAB;VICODIN) 5-500 mg every 4 hours. 1-2 per tablet tabs. Takes 1 tab daily/pt added in this encounter Care Teams Film Editor Relationship Specialty Start Date End Date Khris Lama MD PCP - General 02/23/10 [facility] [place] [address] documented as of this encounter
--- OUTSIDE RECORDS SUMMARY | 2022-06-12 01:44 | XMS_ITS | Encounter Summary ---
:1990 Author Organization [facility] Address [address] [place] [id number] Care Team Providers Name Role Phone Khris Lama MD Primary Care Provider Reason for Visit Reason Onset Date Comments Medications Refill 03/20/2010 s/p Left Knee Scope 03.18.10 Encounter Details Date Type Department Care Team Description 03/20/2010 Refill [facility] Zelalem Lancaster Refill (s/p Sports Medicine [facility] Left Knee Scope Program - [address] 03.18.10) [address] [place] [address] [place], [place] [id number] [place] [id number] Social History Tobacco Use Types Packs/Day Years Used Date Never Assessed Sex Assigned at Date Recorded Not on file documented as of this encounter Ordered Prescriptions Prescription Sig Dispensed Refills Start Date End Date oxycodone (ROXICODONE) Take 1 Tab by mouth. 40 Tab 0 03/24/2010 5 mg immediate release 1-2 tabs q 3-4 hours tablet PO PRN Pain - Emergency 5 day Prescription s/p Left knee surgery on 03/18/10. documented in this encounter Miscellaneous Notes Telephone Encounter - Indiana Carson, MARQUITA - 03/20/2010 6506 EDT Patient called requesting refill of oxycodone, states he is going to run out tomorrow. He is s/p Left Knee scope on 03.18.10. He was given #50 on 03/18/10 and as per the patient he was told to take 1-2 tabs q 3 hours when he called the on- call doctor last night with break through pain. [facility] us call in an emergency 5 day supply because patient called at 3:45 today and won't be able to get here before we close to pick-up the refill as he lives 2 [place]. Patient will be provided with prescription for #40 oxycodone. 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 Prescription will be faxed to pharmacy today at [phone] and hard copy mailed to them today at: [facility] [address] [place] [phone], attn: Argelia. Indiana Carson LPN 03.20.10 3:56 PM documented in this encounter Plan of Treatment Not on filedocumented as of this encounter Visit Diagnoses Not on filedocumented in this encounter Care Teams Housekeeping Attendant Relationship Specialty Start Date End Date Khris Lama MD PCP - General 02/23/[address] [place] [id number] documented as of this encounter
--- OUTSIDE RECORDS SUMMARY | 2022-06-12 01:44 | XMS_ITS | Encounter Summary ---
:1990 Author Organization [facility] Address [address] [place] [address] Care Team Providers Name Role Phone Khris Lama MD Primary Care Provider Encounter Details Date Type Department Care Team Description 02/18/2010 Abstract [facility] Burak Hannon, Left knee pain Orthopedics & Rehabilitation MD [address] [place] [address] [address] [place] [address] Social History Tobacco Use Types Packs/Day Years Used Date Never Assessed Sex Assigned at Date Recorded Not on file documented as of this encounter Plan of Treatment Not on filedocumented as of this encounter Visit Diagnoses Diagnosis Left knee pain Pain in joint, lower leg documented in this encounter Historical Medications This list may reflect changes made after this encounter. Medication Sig Dispensed Refills Start Date End Date FLUOXETINE HCL (PROZAC Take 60 mg by mouth 0 06/06/2012 ORAL) daily. TRAZODONE HCL (TRAZODONE Take by mouth 0 06/06/2012 ORAL) daily. BUPRENORPHINE HCL/NALOXONE Place under the 0 06/06/2012 HCL (SUBOXONE SL) tongue daily. MIRTAZAPINE (REMERON ORAL) Take 30 mg by mouth 0 06/06/2012 daily. Takes 3-4 times/week added in this encounter Care Teams Career Services Manager Relationship Specialty Start Date End Date Khris Lama MD PCP - General 12/12/09 02/22/[address] [place] [address] documented as of this encounter
--- OUTSIDE RECORDS SUMMARY | 2022-06-12 01:44 | XMS_ITS | Encounter Summary ---
:1990 Author Organization [facility] [place] [address] Care Team Providers Name Role Phone Larry Espinosa MD Primary Care Provider [phone] Encounter Details Date Type Department Care Team Description 08/17/2012 Surgery Gastroenterology at [facility] Ventura Aguiar, COLONOSCOPY FLEXIBLE, [facility] Susie grey MD WITH BX (WRVU 3.66) [place] [address] [facility] [phone] GASTROENTEROLOGY DEPT. [place], [place] [address] Social History Tobacco Use Types Packs/Day Years Used Date Current Every Day Smoker 0.5 Smokeless Tobacco: Never Used Tobacco Cessation: Ready to Quit: No Alcohol Use Standard Drinks/Week Comments No 0 (1 standard drink = 0.6 oz pure alcoho l) Sex Assigned at Date Recorded Not on file documented as of this encounter Last Filed Vital Signs Vital Sign Reading Time Taken Comments Blood Pressure 113/56 08/17/2012 4:42 PM EDT Pulse 42 08/17/2012 4:42 PM EDT Temperature 36.4 ??C (97.5 ??F) 08/17/2012 2:20 PM EDT Respiratory Rate 16 08/17/2012 4:42 PM EDT Oxygen Saturation 100% 08/17/2012 4:42 PM EDT Inhaled Oxygen Concentration - - Weight 64.4 kg (142 lb) 08/17/2012 2:20 PM EDT Height 185.4 cm (6' 1) 08/17/2012 2:20 PM EDT Body Mass Index 18.73 08/17/2012 2:20 PM EDT documented in this encounter Discharge Instructions Discharge InstructionsAngelina Minor RN - 08/17/2012 4:05 PM EDT If questions or concerns please call [phone], after 5 PM call [phone] and 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 You may have received medication before and/or during your procedure which effects judgement and reaction time. Do not drive, operate machinery, drink alcoholic beverages, or make important decisions for 24 hours. Be careful on stairs, as you may be unsteady on your feet. You may eat a regular diet as tolerated. Do not smoke if you are alone. IV site-- slight redness or tenderness is normal. You may use a warm compress. If tenderness and redness increases or foul drainage occurs please contact your M.D. Discharge instructions reviewed with patient who expresses understanding. Patient InstructionsVentura Aguiar MD - 08/17/2012 4:13 PM EDT Please see Recommendations in the Provation procedure report which is documented in the procedural note in E-DH. AttachmentsThe following attachments cannot be sent through Care Everywhere. COLONOSCOPY: WHAT TO EXPECT AT HOME (ARABIC)UPPER GI ENDOSCOPY: WHAT TO EXPECT AT HOME (ARABIC)documented in this encounter Medications at Time of Discharge Medication Sig Dispensed Refills Start Date End Date meloxicam (MOBIC) 7.5 mg Take 7.5 mg by mouth 0 tablet daily. zolpidem (AMBIEN) 5 mg Take 5 mg by mouth 0 tablet nightly as needed. omeprazole (PRILOSEC) 40 Take 1 capsule by 30 capsule 07/2908/14/2013 mg capsuleIndications: mouth daily. GERD (gastroesophageal reflux disease), Gastritis documented as of this encounter H&P Notes Ventura Aguiar MD - 08/17/2012 3:04 PM EDT Gastroenterology and Hepatology Pre-Procedure History and Physical Exam Procedure: EGD: /Colonoscopy Indication: Abdominal pain, change in bowel habits. See OPD notes. Patient Active Problem List Diagnoses Code ??? Lumbago 724.2 ??? Scoliosis 737.30D ??? Depression 311L ??? Insomnia 780.52A ??? Fractured tibia 823.80W EXAM: HEENT: Airway examined, oropharynx clear LUNGS: Clear to auscultation HEART: Regular rate and rhythm, normal S1, S2 ABDOMEN: Normal bowel sounds, soft, non tender, non distended, A/P Proceed with the planned endoscopic procedure. Risks and benefits of the procedure explained to the patient. Consent signed. documented in this encounter Miscellaneous Notes Miscellaneous - ProviderLorenzo - 08/18/2012 6:29 AM EDT Op Note - Ventura Aguiar MD - 08/17/2012 4:02 PM EDT [facility] Operative Note Patient Name: Chay Wheat : [id number] MR#: [id number] Case Date: 08/17/2012 Surgeon: Surgeon(s) and Role: * VENTURA AGUIAR MD - Primary Preoperative diagnosis: Diarrhea with up 4-5 loose to watery stools per day, weight loss~13 lbs since 02/2012. R/o colitis-GERD, LUQ abdominal pain chronic use of NSAIDs and ?gastritis, ?PUD. r/o eosinophilic esophagitis, H. Pylori Postoperative diagnosis: * No post-op diagnosis entered * Procedure(s): COLONOSCOPY, DIAGNOSTIC UPPER GI ENDOSCOPY Full procedure note is documented under the Procedure section of eDH. Miscellaneous - ProviderLorenzo - 08/17/2012 1:28 PM EDT documented in this encounter Plan of Treatment Not on filedocumented as of this encounter Procedures Procedure Name Priority Date/Time Associated Comments Diagnosis COLONOSCOPY Routine 08/18/2012 7:20 Diarrhea [facility] UPPER GASTROINTESTINAL Routine 08/18/2012 7:20 Diarrhea ENDOSCOPY,WITH BIOPSY AM EDT SINGLE OR MULTIPLE SURGICAL PATHOLOGY Routine 08/17/2012 4:31 Result s for this REPORT PM EDT procedure are i n the results section. CRYPTOSPORIDIUM OOCYST Routine 08/17/2012 4:07 Re sults for this ANTIGEN ([facility]/CGP/APD) PM EDT proce dure are in the results section. GIARDIA/CRYPTOSPORIDIUM Routine 08/17/2012 4:07 ANTIGENS PM EDT ([facility]/APD/[facility]) GIARDIA ANTIGEN Routine 08/17/2012 4:07 Results f or this ([facility]/CGP/APD/[place]) PM EDT procedure are in the results section. SPECIMEN TO PATHOLOGY Routine 08/17/2012 4:02 Res ults for this PM EDT procedure are i n the results section. SPECIMEN TO PATHOLOGY Routine 08/17/2012 4:02 Res ults for this PM EDT procedure are i n the results section. SPECIMEN TO PATHOLOGY Routine 08/17/2012 4:02 Res ults for this PM EDT procedure are i n the results section. COLONOSCOPY Routine 08/17/2012 3:02 Results for this PM EDT procedure are i n the results section. UPPER GASTROINTESTINAL 08/17/2012 3:02 Diarrhea ENDOSCOPY,WITH BIOPSY PM EDT SINGLE OR MULTIPLE (WRVU 2.49) COLONOSCOPY FLEXIBLE, 08/17/2012 3:02 Diarrhea WITH BX (WRVU 3.66) PM EDT UPPER GI ENDOSCOPY Routine 08/17/2012 3:02 Result s for this PM EDT procedure are i n the results section. documented in this encounter Results SURGICAL PATHOLOGY REPORT (08/17/2012 4:31 PM EDT) [facility] Method Time Signature Surgical CERNER Pathology ? [facility] Report ? Provider: ?? VENTURA AGUIAR ?Pt. Name: ?? CHAY SINGLETON ? Acc #: ?[id number] ?Pt. MRN: ?[id number] ? Col Date: ?? 2 ? /Sex: ?1990,(21 years),Male ? Rec Date: ?? 08/17/2012 ? LOC: ?4T ? SURGICAL PATHOLOGY ? ---Pathologic Diagnosis--- ? A - Random colon, biopsies: ? Colonic mucosa within normal limits. ? B - Duodenum, biopsies: ? Duodenal mucosa within normal limits. ? C - Stomach, biopsies: ? Body/fundic gland and antral mucosa within norm al limits. ? CR-0 ? 08/18/12 ? AAS ? 08/18/12 Verified by: ? Galileo Jay MD ? Pathologist ? (Electronic Si gnature) ? The attending pathologist whose signature appears o n this report has ? reviewed all diagnostic slides and has edited the luisa ss and/or ? microscopic portion of the report in rendering the fi nal pathologic ? diagnosis. ? ---Microscopic Description--- ? Slides reviewed, microscopic description not recorded . ? ---Gross Description--- ? A - Labeled/Fixative: Random Bx colon, formalin. ? Qty/Size/Weight: ?Multiple, ranging from 0.2 c m to 0.4 cm in ? greatest dimension. ? Tissue Description: ?? Soft, qiu tissues. ? Sections/Processing: ??(T2) ? B - Labeled/Fixative: Bx duodenum, formalin. ? Qty/Size/Weight: ?Four, ranging from 0.2 cm to 0.6 cm in ? greatest dimension. ? Tissue Description: ?? Soft, qiu tissues. ? Sections/Processing: ??(T1) ? C - Labeled/Fixative: Bx stomach, formalin. ? Qty/Size/Weight: ?Three, ranging from 0.2 cm t o 0.4 cm in ? greatest dimension. ? Tissue Description: ?? Soft, qiu tissues. ? Sections/Processing: ??(T1) ??bjm/SHB ? [facility] ? Provider: ?? VENTURA AGUIAR ?Pt. Name: ?? JAYNA PEARCE, CHAY Nieto ? Acc #: ?[id number] ?Pt. MRN: ?[id number] ? Col Date: ?? 2 ? /Sex: ?1990,(21 years),Male ? Rec Date: ?? 08/17/2012 ? LOC: ?4T ? SURGICAL PATHOLOGY ? ---Clinical Information--- ? Specimen Submitted: ? A - Random bx colon ? B - Bx duodenum ? C - Bx stomach ? Clinical History/Diagnosis: ? Chronic diarrhea; r/o microscopic colitis, villous at [facility] Specimen (Source) Anatomical Collection Method Collection Time Re ceived Time Location / / Volume Laterality 08/17/2012 4:31 PM EDT Ventura Aguiar MD PATHOLOGY/CYTOLOGY ORDERABLE S Performing Organization Address City/State/[place] [address] CERNER [facility] CRYPTOSPORIDIUM OOCYST ANTIGEN (08/17/2012 4:07 PM EDT) Patholo gist Method Time Signature Cryptosporidium Negative Negative CERNER Screen [facility] Specimen Anatomical Collection Method Collection Time Receive d Time (Source) Location / / Volume Laterality Stool specimen 08/17/2012 4:07 PM 012 5:20 (specimen) EDT PM EDT Resulting Agency Comment Spec In Lab Ventura Aguiar MD MICROBIOLOGY - GENERAL ORDER CHIQUITA Performing Organization Address City/State/ZIP Code Phon e Number [address] [facility] GI[facility] ANTIGEN (08/17/2012 4:07 PM EDT) Analysis Performed At Patho logist Time Signature Giardia Screen Negative Negative [facility] Comment: Examination for other intestina l parasites requires foreign travel history. Specimen Anatomical Collection Method Collection Time Receive d Time (Source) Location / / Volume Laterality Stool specimen 08/17/2012 4:07 PM 012 5:20 (specimen) EDT PM EDT Resulting Agency Comment Spec In Lab Ventura Aguiar MD MICROBIOLOGY - GENERAL ORDER CHIQUITA Performing Organization Address City/State/ZIP Code Phon e Number [address] [facility] Specimen to Pathology (surgical or derm) (08/17/2012 4:02 PM EDT) Specimen Anatomical Collection Method Collection Time Receive d Time (Source) Location / / Volume Laterality AP Specimen 08/17/2012 4:02 PM 2 4:02 EDT PM EDT Narrative CERNER MILLENNIUM - 08/17/2012 4:02 PM E DT Specimen requisition ordered. ??Separate Pathology report to follow Ventura Aguiar MD PATHOLOGY/CYTOLOGY ORDERABLE S Performing Organization Address City/[facility]/[place] [address] [facility]ERNER [facility]ILLEN[facility] Specimen to Pathology (surgical or derm) (08/17/2012 4:02 PM EDT) Specimen Anatomical Collection Method Collection Time Receive d Time (Source) Location / / Volume Laterality AP Specimen 08/17/2012 4:02 PM 2 4:02 EDT PM EDT Narrative CERNER MILLENNIUM - 08/17/2012 4:02 PM E DT Specimen requisition ordered. ??Separate Pathology report to follow Ventura Aguiar MD PATHOLOGY/CYTOLOGY ORDERABLE S Performing Organization Address City/State/[place] [address] [facility] Specimen to Pathology (surgical or derm) (08/17/2012 4:02 PM EDT) Specimen Anatomical Collection Method Collection Time Receive d Time (Source) Location / / Volume Laterality AP Specimen 08/17/2012 4:02 PM 2 4:02 EDT PM EDT Narrative CERNER MILLENNIUM - 08/17/2012 4:02 PM E DT Specimen requisition ordered. ??Separate Pathology report to follow Ventura Aguiar MD PATHOLOGY/CYTOLOGY ORDERABLE S Performing Organization Address City/[facility]/[place] [address] CERNER MILLENNIUM COLONOSCOPY (08/17/2012 3:02 PM EDT) Component Value Ref Test Analysis Performed At [facility] gist Range Method Time Signature COLONOSCOPY [facility]ATION Endoscopy Patient Name: Chay Wheat ? Procedure Date: 08/17/2012 3:02 PM ? Date of : 1990 ? Age: 21 ? Order #: [id number] ? Procedure: ? Colonoscopy Indications: ? Abdominal pain, Clinically ? significant diarrhea of unexp lained ? origin Providers: ? Ventura Aguiar MD, Patricia Oconnor , ? RN, Brandy Acuña, Anca Chan MD: ?Larry Espinosa MD, Gloria Montanez ? Alcides MANAGER OF COMMUNITY RELATIONS Medicines: ? Midazolam 6 mg IV, Fentanyl 300 ? micrograms IV, Diphenhydramin e 50 mg ? IV Complications: ? No immediate complications. Procedure: ? Pre-Anesthesia Assessment: ? - Prior to the procedure, a H istory ? and Physical was performed, a nd ? patient medications, allergie s and ? sensitivities have been revie wed. The ? patient's tolerance of previo us ? anesthesia has been reviewed. ? - The risks and benefits of t he ? procedure and the sedation op tions ? and risks were discussed with the ? patient. All questions were a nswered ? and informed consent was obta ined. ? - ASA Grade Assessment: II - A ? patient with mild systemic di sease. ? The procedure, indications, b enefits, ? risks and alternatives were e xplained ? to the patient. Specifically ? discussed were potential ? complications including, but not ? limited to, bleeding, perfora tion, ? infection, missing a cancer, and ? adverse medication reactions. The ? patient was placed in the lef t ? lateral decubitus position, a nd a ? digital rectal exam was perfo rmed. ? The New Lease 2011 was insert ed in ? the anus and under direct ? visualization, advanced to th e ? terminal ileum. Careful inspe ction ? was made as the colonoscope w as ? withdrawn. The patient tolera merna the ? procedure fairly well. The qu ality of ? the bowel preparation was abdirizak r. The ? total duration of the procedu re was ? 20 minutes. ? Findings: ? The perianal and digital rectal examinations were ? normal. The terminal ileum appeared normal. The ? entire examined colon appeared normal. Random ? biopsies were taken with a cold forceps from the ? entire colon for evaluation of microscopic colitis. ? The retroflexed view of the distal rectum and anal ? verge was normal and showed no anal or rectal ? abnormalities. ? Impression: ?- Preparation of the colon was abdirizak r. ? - The examined portion of the ileum ? was normal. ? - The entire examined colon i s normal. ? - The distal rectum and anal verge ? are normal on retroflexion vi ew. ? - Biopsies were taken with a cold ? forceps from the entire colon for ? evaluation of microscopic col itis. Recommendation: ?- Await pathology results. ? Ventura Gerson Aguiar MD 08/17/2012 3:38 PM ? Number of Addenda: 0 Note Initiated On: 08/17/2012 3:02 PM Specimen (Source) Anatomical Collection Method Collection Time Re ceived Time Location / / Volume Laterality 08/17/2012 3:02 PM EDT Larry Espinosa MD GENERAL SURGICAL ORDERABLES Performing Organization Address City/State/ZIP Code Phon e Number [facility] UPPER GI ENDOSCOPY (08/17/2012 3:02 PM EDT) [facility] Method Time Signature UPPER GI [facility] ENDOSCOPY Endoscopy Patient Name: Chay Wheat ? Procedure Date: 08/17/2012 3:02 PM ? Date of : 1990 ? Age: 21 ? Order #: [id number] ? Procedure: ? Upper GI endoscopy Indications: ? Epigastric abdominal pain Providers: ? Ventura Aguiar MD, Patricia Oconnor , ? RN, Brandy Acuña, Anca Chan MD: ?Larry Espinosa MD, Gloria Gaston. ? Alcides MANAGER OF COMMUNITY RELATIONS Medicines: ? Midazolam 1 mg IV, Fentanyl 50 ? micrograms IV Complications: ? No immediate complications. Procedure: ? Pre-Anesthesia Assessment: ? - Prior to the procedure, a H istory ? and Physical was performed, a nd ? patient medications, allergie s and ? sensitivities have been revie wed. The ? patient's tolerance of previo us ? anesthesia has been reviewed. ? - The risks and benefits of t he ? procedure and the sedation op tions ? and risks were discussed with the ? patient. All questions were a nswered ? and informed consent was obta ined. ? - ASA Grade Assessment: II - A ? patient with mild systemic di sease. ? The procedure, indications, b enefits, ? risks and alternatives were e xplained ? to the patient. Specifically ? discussed were potential ? complications including, but not ? limited to, bleeding, perfora tion, ? infection, missing a cancer, and ? adverse medication reactions. The New ? Lease 2011 was introduced thr ough the ? mouth, and advanced to the se cond ? part of duodenum. The patient ? tolerated the procedure well. The ? patient tolerated the procedu re well. ? Findings: ? Benign 1 cm inlet patch proximal esophagus. The ? examined esophagus was otherwise normal. Normal ? Z-line.The entire examined stomach was normal. ? Biopsies were taken with a cold forceps for ? histology. The duodenal bulb and 2nd part of the ? duodenum were normal. Biopsies were taken with a cold ? forceps for evaluation of celiac disease. ? Impression: ?- Benign inlet patch. Otherwise ? normal esophagus. ? - Normal stomach. This was bi opsied ? to r/o H. pylori. ? - Normal duodenal bulb and 2n d part ? of the duodenum. Biopsy was p erformed ? to exclude celiac disease. Recommendation: ?- Await pathology results. ? Ventura Aguiar MD 08/17/2012 4:11 PM ? Number of Addenda: 0 Note Initiated On: 08/17/2012 3:02 PM Specimen (Source) Anatomical Collection Method Collection Time Re ceived Time Location / / Volume Laterality 08/17/2012 3:02 PM EDT Larry Espinosa MD GENERAL SURGICAL ORDERABLES Performing Organization Address City/State/ZIP Code Phon e Number [facility] documented in this encounter Visit Diagnoses Diagnosis Diarrhea Diarrhea documented in this encounter Administered Medications Inactive Administered Medications - up to 3 most recent administrations Medication Order MAR Action Action Date Dose Rate Site diphenhydrAMINE (BENADRYL) Given 08/17/2012 3:20 PM EDT 25 mg injection ONCE PRN, Starting on Pat 08/17/12 at 1516, Until Pat 08/17/12 at 2016, Itching, Intra-Operative (Intra-Procedure), Routine Given 08/17/2012 3:16 PM EDT 25 mg fentaNYL 50mcg/mL injection Given 08/17/2012 3:38 PM EDT 50 mcg ONCE PRN, Starting on Pat 08/17/12 at 1509, Until Pat 08/17/12 at 2016, Pain, Intra-Operative (Intra-Procedure), Routine Given 08/17/2012 3:25 PM EDT 50 mcg Given 08/17/2012 3:20 PM EDT 50 mcg midazolam (VERSED) injection Given 08/17/2012 3:39 PM EDT 1 mg ONCE PRN, Starting on Pat 08/17/12 at 1509, Until Pat 08/17/12 at 2016, Sleep, Intra-Operative (Intra-Procedure), Routine Given 08/17/2012 3:25 PM EDT 1 mg Given 08/17/2012 3:21 PM EDT 1 mg documented in this encounter Active and Recently Administered Medications Times are shown in EDT. PRN Medication Order 08/15/2012 08/16/2012 08/17/2012 diphenhydrAMINE (BENADRYL) injection (CANCELED) 1516 (Given - Provider: Patricia Oconnor RN - Comment: med for sedation)1520 (Given - Provider: Patricia Oconnor RN - Comment: med for sedation) ONCE PRN, Starting Pat 08/17/12 at 1516, Until Pat 08/17/12 at 2016, Itching, Intra-Operative (Intra-Procedure), Routine fentaNYL 50mcg/mL injection (CANCELED) 1509 (Given - Provider: Patricia Oconnor RN - Comment: first dose of moderate sedation)1514 (Given - Provider: Patricia Oconnor RN - Comment: med ofr sedation)1516 (Given - Provider: Patricia Oconnor RN - Comment: med for sedation) ONCE PRN, Starting Pat 08/17/12 at 1509, Until Pat 08/17/12 at 2016, Pain, Intra- Operative (Intra-Procedure), Routine 152 0 (Given - Provider: Patricia Oconnor RN - Comment: med for sedation)1525 (Given - Provider: Patricia Oconnor RN - Comment: med for sedation)1538 (Given - Provider: Patricia Oconnor RN - Comment: med for egd) midazolam (VERSED) injection (CANCELED) 1509 (Given - Provider: Patricia Oconnor RN - Comment: first dose of moderate sedation)1514 (Given - Provider: Patricia Oconnor RN - Comment: med for sedation)1516 (Given - Provider: Patricia Oconnor RN - Comment: med for sedation) ONCE PRN, Starting Pat 08/17/12 at 1509, Until Pat 08/17/12 at 2016, Sleep, Intra- Operative (Intra-Procedure), Routine 152 1 (Given - Provider: Patricia Oconnor RN - Comment: med for sedation)1525 (Given - Provider: Patricia Oconnor RN - Comment: med for sedsation)1539 (Given - Provider: Patricia Oconnor RN - Comment: med for egd) documented in this encounter Care Teams Circuit Design Engineer Relationship Specialty Start Date End Date Larry Espinosa MD PCP - General 08/14/12 08/20/12 [address] [place] [address] documented as of this encounter
--- OUTSIDE RECORDS SUMMARY | 2022-06-12 01:44 | XMS_ITS | Encounter Summary ---
:1990 Author Organization [facility] [place] [address] Care Team Providers Name Role Phone Fay Bonilla MD Primary Care Provider Reason for Visit Reason Comments Skin Lesion Encounter Details Date Type Department Care Team Description 08/25/2012 Office Visit Dermatology Fernandez Whittaker, Dermatofibroma (Primary Dx); [address] [facility] Acne vulgaris [address] [place] [address] [place] [address] DERMATOLOGY [phone] [place] [address] Social History Tobacco Use Types Packs/Day Years Used Date Current Every Day Smoker 0.5 Smokeless Tobacco: Never Used Alcohol Use Standard Drinks/Week Comments No 0 (1 standard drink = 0.6 oz pure alcoho l) Sex Assigned at Date Recorded Not on file documented as of this encounter Progress Notes Fernandez Whittaker MD - 08/25/2012 3:10 PM EDT Dictated documented in this encounter Miscellaneous Notes Miscellaneous - Franki Norris - 08/30/2012 4:34 PM EDT documented in this encounter Plan of Treatment Not on filedocumented as of this encounter Visit Diagnoses Diagnosis Dermatofibroma - Primary Benign neoplasm of skin, site unspecifie d Acne vulgaris Other acne documented in this encounter Care Teams Professor Of Sport Management Relationship Specialty Start Date End Date Fay Bonilla MD PCP - General 08/21/12 [address] [place] [address] documented as of this encounter
--- OUTSIDE RECORDS SUMMARY | 2022-06-12 01:44 | XMS_ITS | Encounter Summary ---
:1990 Author Organization [facility] Address [address] [place] [address] Care Team Providers Name Role Phone Khris Lama MD Primary Care Provider Reason for Visit Reason Onset Date Comments Other 06/06/2012 Encounter Details Date Type Department Care Team Description 06/06/2012 Orders Only [facility] Sports King Hannon R, Knee pain; Medicine Program - Ashlie abdi MD Back pain [address] [place], [place] [address] [address] [place] [phone] Social History Tobacco Use Types Packs/Day Years Used Date Never Assessed Sex Assigned at Date Recorded Not on file documented as of this encounter Plan of Treatment Not on filedocumented as of this encounter Results ANTI NUCLEAR ANTIBODY (06/06/2012 16:53 EDT) Pathologist Sig nature Anti Nuclear Ab <40 0 - 40 Dils [facility] Specimen Blood specimen (specimen) Performing Organization Address City/State/ZIP Code Phon e Number [facility] [address] [place] [address] SERVICES [facility] [address] [place] [address] documented in this encounter Visit Diagnoses Diagnosis Knee pain Pain in joint, lower leg Back pain Backache, unspecified documented in this encounter Care Teams Roll Line Operator Relationship Specialty Start Date End Date Khris Lama MD PCP - General 02/23/10 [address] [place], [place] [id number] documented as of this encounter
--- OUTSIDE RECORDS SUMMARY | 2022-06-12 01:44 | XMS_ITS | Encounter Summary ---
:1990 Author Organization [facility] [place] [address] Care Team Providers Name Role Phone Larry Espinosa MD Primary Care Provider [phone] Encounter Details Date Type Department Care Team Description 08/17/2012 Hospital Encounter Gastroenterology at [facility] Baljit Franklin MD [facility] [address] [place] [address] Diarrhea [facility] Kan Jamison MD [facility] [place] [address] [place] [address] Ventura Aguiar MD [facility] DR [place] [address] [phone] Social History Tobacco Use Types Packs/Day Years [...] EDT If questions or concerns please call [phone], after 5 PM call [phone] and ask for the GI Doc ibm websphere commerce consultant. You may have received medication before and/or [...] Everywhere. COLONOSCOPY: WHAT TO EXPECT AT HOME (SYRIAC)UPPER GI ENDOSCOPY: WHAT TO EXPECT AT HOME (SYRIAC)documented in this encounter Medications at Time of Discharge Medication Sig Dispensed Refills Start Date End Date meloxicam (MOBIC) 7.5 mg Take 7.5 mg by mouth 0 tablet daily. zolpidem (AMBIEN) 5 mg Take 5 mg by mouth 0 tablet nightly as needed. omeprazole (PRILOSEC) 40 Take 1 capsule by 30 capsule 12 07/2908/14/2013 mg capsuleIndications: mouth daily. GERD (gastroesophageal [...] in this encounter Miscellaneous Notes Miscellaneous - Provider, Scanning - 08/18/2012 6:29 AM EDT Op Note - Ventura Aguiar MD - 08/17/2012 4:02 PM EDT [facility] Operative Note Patient Name: Chay Wheat : [id number] MR#: [id number] Case Date: 08/17/2012 Surgeon: Surgeon(s) and Role: [...] the Procedure section of eDH. Miscellaneous - Provider, Scanning - 08/17/2012 1:28 PM EDT documented in this encounter Plan of Treatment Not on filedocumented as of this encounter Procedures Procedure Name Priority Date/Time Associated Comments Diagnosis COLONOSCOPY Routine 08/18/2012 7:20 Diarrhea FLEXIBLE-WITH BX AM EDT ([facility]) UPPER GASTROINTESTINAL Routine 08/18/2012 7:20 Diarrhea ENDOSCOPY,WITH BIOPSY AM EDT SINGLE OR MULTIPLE SURGICAL PATHOLOGY Routine 08/17/2012 4:31 Result s for this REPORT PM EDT procedure are i n the results section. CRYPTOSPORIDIUM OOCYST Routine 08/17/2012 4:07 Re sults for this ANTIGEN ([facility]/CGP/APD) PM EDT proce dure are in the results section. GIARDIA/CRYPTOSPORIDIUM Routine 08/17/2012 4:07 ANTIGENS PM EDT ([facility]/CGP/APD/NL) GIARDIA ANTIGEN Routine 08/17/2012 4:07 Results f or this ([facility]/CGP/APD/[facility]) PM EDT procedure are in the results [...] SURGICAL PATHOLOGY REPORT (08/17/2012 4:31 PM EDT) [facility] Method Time Signature Surgical CERNER Pathology ? [facility] Report ? Provider: ?? VENTURA AGUIAR ?Pt. Name: ?? CHAY SINGLETON ? Acc #: ?[id number] ?Pt. MRN: ?[id number] ? Col Date: ?? 2 ? /Sex: [...] qiu tissues. ? Sections/Processing: ??(T1) ??bjm/SHB ? [facility] ? Provider: ?? VENTURA AGUIAR ?Pt. Name: ?? CHAY SINGLETON ? Acc #: ?[id number] ?Pt. MRN: ?[id number] ? Col Date: ?? 2 ? /Sex: ?1990,(21 years),Male ? Rec Date: ?? 08/17/2012 ? LOC: ?4T ? SURGICAL PATHOLOGY ? ---Clinical Information--- ? Specimen Submitted: ? A - Random bx colon ? B - Bx duodenum ? C - Bx stomach ? Clinical History/Diagnosis: ? Chronic diarrhea; r/o microscopic colitis, villous at rophy Specimen (Source) Anatomical Collection Method Collection Time Re ceived Time Location / / Volume Laterality 08/17/2012 4:31 PM EDT Ventura Aguiar MD PATHOLOGY/CYTOLOGY ORDERABLE S Performing Organization Address City/[facility]/[place] [address] CERNER MILLENNIUM CRYPTOSPORIDIUM OOCYST [...] - GENERAL ORDER CHIQUITA Performing Organization Address [facility] [place] [address] CERNER MILLENNIUM GIARDIA ANTIGEN (08/17/2012 4:07 PM EDT) Analysis Performed At Patho logist Time Signature Giardia Screen Negative Negative CERNER MILLENNIUM Comment: Examination for other intestina l parasites requires foreign travel history. Specimen Anatomical Collection Method Collection Time Receive d Time (Source) Location / / Volume Laterality Stool specimen 08/17/2012 4:07 PM 012 5:20 (specimen) EDT PM EDT Resulting Agency Comment Spec In Lab Ventura Aguiar MD MICROBIOLOGY - GENERAL ORDER CHIQUITA Performing Organization Address City/[facility]/[place] [address] CERNER MILLENNIUM Specimen to [...] Organization Address City/State/[place] [address] CERNER MILLENNIUM Specimen to [...] Organization Address City/State/[place] [address] CERNER MILLENNIUM Specimen to [...] MD PATHOLOGY/CYTOLOGY ORDERABLE S Performing Organization Address City/[facility]/[place] [address] CERNER MILLENNIUM COLONOSCOPY (08/17/2012 3:02 PM EDT) Component Value Ref Test Analysis Performed At [facility] Range Method Time Signature COLONOSCOPY [facility] PROVATION Endoscopy Patient Name: Chay Wheat ? Procedure Date: 08/17/2012 3:02 PM ? Date of : 1990 ? Age: 21 ? Order #: [id number] ? Procedure: ? Colonoscopy Indications: ? Abdominal pain, Clinically ? significant diarrhea of unexp lained ? origin Providers: ? Ventura Aguiar MD, Patricia Oconnor , ? RN, Brandy Acuña, Anca Chan MD: ?Larry Espinosa MD, Gloria Montanez ? Alcides TRAFFIC ROUTING ENGINEER Medicines: ? Midazolam 6 mg IV, Fentanyl [...] pathology results. ? Ventura Aguiar MD 08/17/2012 3:38 PM ? Number of Addenda: 0 Note Initiated On: 08/17/2012 3:02 PM Specimen (Source) Anatomical Collection Method Collection Time Re ceived Time Location / / Volume Laterality 08/17/2012 3:02 PM EDT Larry Espinosa MD GENERAL SURGICAL ORDERABLES Performing Organization Address City/State/ZIP Code Phon e Number [facility]ATION UPPER GI ENDOSCOPY (08/17/2012 3:02 PM EDT) [facility] gist Method Time Signature UPPER GI [facility] PR[facility]ATION ENDOSCOPY Endoscopy Patient Name: Chay Wheat ? Procedure Date: 08/17/2012 3:02 PM ? N: [id number] ? Date of : 1990 ? Age: 21 ? Order #: [id number] ? Procedure: ? Upper GI endoscopy Indications: ? Epigastric abdominal pain Providers: ? Ventura Aguiar MD, Patricia Oconnor , ? RN, Brandy Acuña, Anca Chan MD: ?Larry Espinosa MD, Gloria Montanez ? Alcides TRAFFIC ROUTING ENGINEER Medicines: ? Midazolam 1 mg IV, Fentanyl [...] adverse medication reactions. The New ? Lease 2012 was introduced thr yennygh the ? mouth, and advanced to the [...] in this encounter Visit Diagnoses Diagnosis Diarrhea documented in this encounter Active and Recently [...] egd) documented in this encounter Care Teams Deputy Sheriff Court Services Relationship Specialty Start Date End Date Larry Espinosa MD PCP - General 08/14/12 08/20/12 [address] [place] [address] documented as of this encounter
--- OUTSIDE RECORDS SUMMARY | 2022-06-12 01:44 | XMS_ITS | Clinical Summary ---
:1990 Author Organization [facility] Address [address] [place] [address] Care Team Providers Name Role Phone Khris Lama MD Primary Care Provider Allergies No known active allergies Medications Medication Sig Dispensed Refills Start Date End Date Status nabumetone (RELAFEN) Take 500 mg by 0 Active 500 mg tablet mouth 2 times daily. citalopram (CELEXA) 10 Take 10 mg by 0 Active mg tablet mouth daily. meloxicam (MOBIC) 7.5 Take 1 Tab by 30 Tab 2 06/06/2012 Active mg tablet mouth daily. Active Problems Problem Noted Date Left knee pain 11/28/2009 Surgical History Surgery Date Site/Laterality Comments KNEE SURGERY 03/18/10 left knee arthro scopy, synovectomy Social History Tobacco Use Types Packs/Day Years Used Date Never Assessed Sex Assigned at Date Recorded Not on file Last Filed Vital Signs Vital Sign Reading Time Taken Comments Blood Pressure - - Pulse - - Temperature - - Respiratory Rate - - Oxygen Saturation - - Inhaled Oxygen Concentration - - Weight 70.3 kg (155 lb) 06/06/2012 1505 EDT Height 185.4 cm (6' 1) 06/06/2012 1505 EDT Body Mass Index 20.45 06/06/2012 1505 EDT Plan of Treatment Not on file Insurance Payer Benefit Plan Subscriber ID Effective Phone Address Typ e / Group Dates MEDICAID ACO MEDICAID ACO [id number] 2019-Pres [phone] [address] [place] [address] [place], [place] [address] Advance Directives For more information, please contact: [phone] Documents on File Type Date Recorded Patient Box Hinge And Lock Attacher Explanati on Advance Directives and Living Will Care Teams Full Time Babysitter Relationship Specialty Start Date End Date Khris Lama MD PCP - General 02/23/[address] [place] [address]
--- OUTSIDE RECORDS SUMMARY | 2022-06-12 01:44 | XMS_ITS | Encounter Summary ---
:1990 Author Organization [facility] Address [address] [place] [address] Care Team Providers Name Role Phone Khris Lama MD Primary Care Provider Encounter Details Date Type Department Care Team Description 12/15/2009 Hospital Encounter [facility] Hannon MD [address] [place], [place] [address] [facility] [address] [place] [address] Social History Tobacco Use Types Packs/Day Years Used Date Never Assessed Sex Assigned at Date Recorded Not on file documented as of this encounter Discharge Disposition Disposition Code Departure Means Destination Home or Self Prison documented in this encounter Plan of Treatment Not on filedocumented as of this encounter Procedures Procedure Name Priority Date/Time Associated Diagnosis Comme nts ORBITS FOR FOREIGN 12/15/2009 10:43 Resul ts for this BODY EST procedure are i n the results section. documented in this encounter Results ORBITS FOR FOREIGN BODY (12/15/2009 10:43 EST) Anatomical Region Laterality Modality Other Specimen Narrative [facility] - 11/28 14:04 EST ORBITS FOR FOREIGN BODY ??Dec 15, 2009 1 0:43:00 AM Signs and Symptoms/Comments: ??left knee pain 4 views of the orbits reveal no metallic foreign bodies within the orbits to preclude MRI scanning. Procedure Note 12/15/2009 ORBITS FOR FOREIGN BODY Dec 15, 2009 10: 43:00 AM Signs and Symptoms/Comments: left knee p ain 4 views of the orbits reveal no metallic foreign bodies within the orbits to preclude MRI scanning. Performing Organization Address City/State/ZIP Code Phon e Number [facility] documented in this encounter Visit Diagnoses Not on filedocumented in this encounter Care Teams Optician Apprentice Relationship Specialty Start Date End Date Khris Lama MD PCP - General 12/12/09 02/22/[address] [place] [address] documented as of this encounter
--- OUTSIDE RECORDS SUMMARY | 2022-06-12 01:44 | XMS_ITS | Encounter Summary ---
:1990 Author Organization [facility] Address [address] [place] [address] Care Team Providers Name Role Phone Khris Lama MD Primary Care Provider Encounter Details Date Type Department Care Team Description 06/06/2012 Phlebotomy Only [facility] - Automotive TeacherSkylar; [facility] Outpatient Wrist pain; [address] [facility] [place] [address] Social History Tobacco Use Types Packs/Day Years Used Date Never Assessed Sex Assigned at Date Recorded Not on file documented as of this encounter Plan of Treatment Not on filedocumented as of this encounter Procedures Procedure Name Priority Date/Time Associated Comments Diagnosis HLA B27 SCREEN, DNA Routine 06/06/2012 16:53 Wrist pain Results for this EDT Knee pain procedure are in Back pain the results section. SED RATE Routine 06/06/2012 16:53 Knee pain Results for this EDT Wrist pain procedure are in Back pain the results section. COMPLETE BLOOD COUNT Routine 06/06/2012 16:53 Knee pain Results for this AND DIFFERENTIAL EDT Wrist pain procedure are in Back pain the results section. RHEUMATOID FACTOR Routine 06/06/2012 16:53 Wrist pain Results for this EDT Knee pain procedure are in Back pain the results section. ANTI NUCLEAR AB Routine 06/06/2012 16:53 Knee pain Results for this (VÍCTOR), IFA EDT Back pain procedure are i n the results section. documented in this encounter Results ANTI NUCLEAR ANTIBODY (06/06/2012 16:53 EDT) Pathologist Sig nature Anti Nuclear Ab <40 0 - 40 [place] [facility] Specimen Blood specimen (specimen) Performing Organization Address City/State/ZIP Code Phon e Number [facility] [address] [place] [address] [facility] [address] [place] [address] HLA B27 (06/06/2012 16:53 EDT) Pathologist Sig nature HLA B27 HLA B27 not [facility] identifiedComment: Testing performed by Complement Dependent Cytotoxicity Technique (CDC) Specimen Blood specimen (specimen) Performing Organization Address City/[facility] Phon e Number [facility] [address] [place] [address] [facility] [address] [place] [address] RHEUMATOID FACTOR (06/06/2012 16:53 EDT) Pathologist Sig nature Rheumatoid Factor <20 <20 IU/ml [facility] Specimen Blood specimen (specimen) Performing Organization Address [facility] Phon e Number [facility] [address] [place] [address] [facility] [address] [place] [address] SED. RATE:MILADERGREN (06/06/2012 16:53 EDT) Pathologist Sig nature Sed. Rate Westergren 1 0 - 15 mm/hr [facility] Specimen Blood specimen (specimen) Performing Organization Address [facility]/ZIP [facility] Phon e Number [facility] [address] [place] [address] [facility] [address] [place] [address] (ABNORMAL) HEMAGRAM AND DIFFERENTIAL (06/06/2012 16:53 EDT) Pathologist Sig nature WBC 10.36 4.0 - 10.4 K/cmm [facility] RBC 5.58 4.36 - 5.78 [...] Organization Address City/State/ZIP Code Phon e Number [facility] [address] [place] [address] [facility] [address] [place] [address] documented in this encounter Visit Diagnoses Diagnosis Knee pain Pain in joint, lower leg Wrist pain Pain in joint, forearm Back pain Backache, unspecified documented in this encounter Care Teams Bill Cutter Relationship Specialty Start Date End Date Khris Lama MD PCP - General 02/23/[address] [place] [id number] documented as of this encounter
--- OUTSIDE RECORDS SUMMARY | 2022-06-12 01:44 | XMS_ITS | Encounter Summary ---
:1990 Author Organization [facility] [place] [address] Care Team Providers Name Role Phone Larry Espinosa MD Primary Care Provider [phone] Reason for Visit Reason Comments GI Problem Encounter Details Date Type Department Care Team Description 08/14/2012 Office Visit Gastroenterology at [facility] Gloria Mcgrath, GI problem (Primary Dx); [facility] Susie Howell; [place] [address] [facility] Scoliosis; [phone] Twyla ovalle; [place], [place] GERD (gastroeso phageal reflux disease); [address] Gastritis; [phone] Diarrhea (Work) Social History Tobacco Use Types Packs/Day Years Used Date Current Every Day Smoker Smokeless Tobacco: Never Used Sex Assigned at Date Recorded Not on file documented as of this encounter Last Filed Vital Signs Vital Sign Reading Time Taken Comments Blood Pressure 124/76 08/14/2012 3:22 PM EDT Pulse 74 08/14/2012 3:22 PM EDT Temperature - - Respiratory Rate - - Oxygen Saturation - - Inhaled Oxygen Concentration - - Weight 64.4 kg (142 lb) 08/14/2012 3:22 PM EDT Height 185.4 cm (6' 1) 08/14/2012 3:22 PM EDT Body Mass Index 18.73 08/14/2012 3:22 PM EDT documented in this encounter Progress Notes Gloria Mcgrath APRN - 08/14/2012 2:03 PM EDT Subjective: Patient ID: Rio Wheat is a 21 y.o. man who presents for further evaluation of his gastrointestinal disorder at the request of Fatmata Bonilla. . HPI Comments: Mr. Wheat is a pleasant 21 year old man who presents for further evaluation of his abdominal pain that began around then end of April, which he initially attributed to pulling a muscle inhis stomach vs hernia, was examined by his PCP and symptoms resolved. About 3 weeks later, he noted left upper abdominal discomfort described as a burning sensation with intermittent radiation to right or left upper chest, intermittent nausea but no vomiting or hematemesis. On 07/27/2012, he presented to [facility] for evaluation of his abdominal and chest pain that had been present for a month and had worsen over the last two weeks. The week prior, he had been assessed Dr. Kamara at the [facility] who ordered a chest x-ray, labs and CT scan. He was also examined at [facility] for c/o LUQ discomfort. There was a question of pericarditis but EKG and echocardiogram were negative. Labs were normal, chest x-ray negative, CT scan of abdomen showed pericholecystic fluid but no biliary ductal dilatation and ultrasound of abdomen negative~no pericholecystic fluid, liver or gallbladderabnormality noted. Has unintentionally lost 25 lbs over the last 6 months per notes reviewed from Dr. Bonilla. Mr. Wheat reports that the LUQ pain has increased intensity and frequency over the last month, continues to describe it as burning sensation intermittently associated with a stabbing pain andradiation to upper chest. Nothing seems to make it better. Eating does not provide relief of symptoms nor does it worsen symptoms. Reports a good appetite and always hungry despite eating. Denies earlysatiety or post prandial fullness. Has been taking Pepcid AC for almost 1.5 years for his daily heartburn symptoms with relief. Also experiences belching, gas, and bloating on a daily basis that is sometimes relieved with defecation but most times it persists. Intermittent regurgitation that is worse with laying flat and acid taste. Reports awakening 2-3 times per night secondary to LUQ and lower abdominal discomfort. Denies fevers or chills but has been experiencing night sweats in the last few weeks. Denies dysphagia, odynphagia, ENT concerns, chest pain or vomiting. No foreign travel, recent antibiotics, or contact with sick individual. Nausea remains intermittent. Denies food allergies or intolerances and no h/o celiac disease. Admits that he has been taking Ibuprofen 800 mg every 4-6 hours for almost a year on and off but had been taking it consistently from 01/2012 until 2 months ago. Was prescribed Relafen and Mobic over the summer, which have been discontinued. He reports diarrhea that began almost 3-4 years ago but has increased in frequency over the last month. Normally would have 1-2 loose to soft brown stools but now reports 3-4 episodes of loose to watery diarrhea. Bowel movements have been associated with urgency, gas, bloating and abdominal cramping that is relieved with defecation. At times stools are explosive. Denies blood in stool or rectal bleeding. No incontinence and does not awaken during the night.with urge to move bowels or incontinence. Some clear to light yellow mucus. Unable to identify potential food triggers. Denies any food allergies or intolerances. No h/o celiac disease. Patient Active Problem List Diagnoses Code ??? Lumbago 724.2 ??? Scoliosis 737.30D ??? Depression 311L ??? Insomnia 780.52A ??? Fractured tibia 823.80W Allergies: NKDA Medications: Ambien 5 mg qhs prn Citalopram Hydrobromide (Celexa) 20 mg po qd Mobic 7.5 mg qd PMHx: Insomnia Left Knee pain 2009 Lumbago; low back pain H/o Fractured tibia~NOS-closed Scoliosis, idiopathic Depression Insomnia Opioid abuse~unspecified Surgical Hx: S/p arthroscopy of left knee Social Hx: Marital Status: single Occupation: unemployed Children: 1 girl Tobacco Use: 1/2 ppd; 4-5 year h/o smoking Alcohol Use: None Illicit Drugs: None; h/o drug abuse in past. FMHx: Mother (45): healthy Father: age at 33, unknown; quadriplegic s/p snowmobile accident. Paternal GM (60's): h/o colon cancer Sister (14): healthy Recent Tests: Review of Systems Constitutional: Positive for unexpected weight change. Unintentional weight loss of almost 25 lbs since 02/2012. HENT: Negative. Respiratory: Negative. Cardiovascular: Negative. Gastrointestinal: See HPI Musculoskeletal: Negative. Skin: Negative. Neurological: Negative. Hematological: Negative. Psychiatric/Behavioral: Negative. Vital Signs: BP124/76;P74;Wt 142 lbs;Ht 6'1 Objective: Physical Exam Vitals reviewed. Constitutional: He is oriented to person, place, and time. He appears well- developed and well-nourished. No distress. Slim Eyes: Conjunctivae and EOM are normal. Pupils are equal, round, and reactive to light. Right eye exhibits no discharge. Left eye exhibits no discharge. No scleral icterus. Neck: Normal range of motion. Neck supple. No JVD present. No tracheal deviation present. No thyromegaly present. Cardiovascular: Normal rate, regular rhythm, normal heart sounds and intact distal pulses. Exam reveals no gallop and no friction rub. No murmur heard. Pulmonary/Chest: Effort normal and breath sounds normal. No stridor. No respiratory distress. He hasno wheezes. He has no rales. He exhibits no tenderness. Abdominal: Soft. Bowel sounds are normal. He exhibits no distension and no mass. Tenderness is present. He has no rebound and no guarding. Mild epigastric tenderness on palpation. Lymphadenopathy: He has no cervical adenopathy. Neurological: He is alert and oriented to person, place, and time. No cranial nerve deficit. Skin: Skin is warm and dry. No rash noted. He is not diaphoretic. No erythema. No pallor. Psychiatric: He has a normal mood and affect. His behavior is normal. Judgment and thought content normal. Assessment and Plan: 21 year old man who presents for further evaluation of his abdominal pain and weight loss. Symptoms~LUQ and epigastric pain, intermittent nausea, belching, bloating and distention, waking up during thenight d/t pain and chronic use of NSAIDs are suggestive of an ulcer or gastritis. Regarding his diarrhea, ?IBS-D predominantly, ?crohn's or colitis. Discussed the pathophysiology of GERD, PUD, gastritis and diarrhea. The following plan was formulated. Plan: 1. Omeprazole 40 mg po on an empty stomach 30 minutes before breakfast. 2. EGD r/o gastritis, H. Pylori, eosinophilic esophagitis. Order placed. Await results for further management. 3. Colonoscopy r/o colitis, crohn's and order placed. Await results for further management. 4. Stool studies ordered. 5. FODMAP diet reviewed and copy provided. 6. GERD diet and lifestyle modifications reviewed. Copy provided. 7. Consider probiotic such as Align, Culturelle, or broad spectrum probiotic. Take one tablet per day and can take up to 12 weeks before effects noted. 8. Will call patient with results of his tests and consider follow up after testing. Patient understands and is agreeable to the above plan. Written instruction provided. I spent a total of 60 minutes face to face with this patient; 45 minutes were spent counseling the patient in the medical problems described above. Thank you for the referral, Gloria Mcgrath APRN Section of Gastroenterology and Hepatology [place] [id number] documented in this encounter Plan of Treatment Not on filedocumented as of this encounter Visit Diagnoses Diagnosis GI problem - Primary Other symptoms involving digestive syste m Lumbago Scoliosis Scoliosis (and kyphoscoliosis), idiopath ic Fractured tibia Closed fracture of unspecified part of t ibia GERD (gastroesophageal reflux disease) Esophageal reflux Gastritis Unspecified gastritis and gastroduodenit is without mention of hemorrhage Diarrhea documented in this encounter Care Teams Fashion Designer Relationship Specialty Start Date End Date Larry Espinosa MD PCP - General 08/14/12 08/20/[address] [place] [address] documented as of this encounter
[2022-06-12] MEDS: Omnipaque 350 MG/ML 100 ML BTL IJ (01:54)
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
[2022-06-12 02:27] LABS: Bilirubin Negative (Negative); Blood Negative (Negative); Clarity Sl Cloudy (Clear); Glucose Negative (Negative); Ketones Negative (Negative); Leukocyte Esterase Negative (Negative); Nitrite Negative (Negative)
[2022-06-12 02:31] LABS: Bacteria Rare HPF (Negative); C & S Indicated? No; Casts 0-2 Hyaline LPF (Negative); Crystals Negative HPF (Negative); Epithelial Cells Negative HPF (Negative); Mucus Negative (Negative); RBC Negative HPF (0-2); WBC Negative HPF (0-5)
[2022-06-12 02:42] LABS: Source Nasal/Nares
[2022-06-12] MEDS: Ketorolac 15 MG/ML VIAL IVP (02:45)
[2022-06-12] MEDS: ACETAMINOPHEN 1,000 MG/100 ML BTL 400 MG IVPB (02:57)
[2022-06-12] MEDS: Potassium Chloride 20 MEQ TABCR 40 MEQ PO (03:10)
[2022-06-12 03:37] LABS: COVID-19 PCR Negative (Negative)
[2022-06-12] MEDS: MORPHine 2 MG/ML SYR 4 MG IVP (05:58)
[2022-06-12] MEDS: Methadone Liquid 10 MG/ML 190 MG PO (09:07)
--- NOTE | 2022-06-12 09:22 | NUR.NOTE ---
RN orders scrambled eggs and branham for patient. Same arrives very quickly to patient's delight.Nursing Note:
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
[2022-06-12] MEDS: Normal Saline Flush 10 ML SYR IVP ×2 (13:16→16:35)
--- NOTE | 2022-06-12 16:59 | DI.VRAD_ITS ---
PROCEDURE INFORMATION: Exam: XR Chest Exam date and time: 06/12/2022 4:10 PM Age: 31 years old Clinical indication: Other: Left pneumo on watercele evaluate TECHNIQUE: Imaging protocol: Radiologic exam of the chest. Views: 1 view. COMPARISON: CT CHEST/ABD/PEL W 06/12/2022 1:49 AM FINDINGS: Tubes, catheters and devices: A small caliber chest tube remains in place via a left lateral approach. Lungs: Unremarkable. No consolidation. Pleural spaces: No significant sized residual pneumothorax is noted. Heart/Mediastinum: Unremarkable. No cardiomegaly. Bones/joints: Status post ORIF of the right clavicle. IMPRESSION: No residual pneumothorax is noted. A small caliber left pleural drainage catheter remains in place. Dictated and Authenticated by: Burak Zazueta MD. Ordering:OSMANY Smiley MD
[2022-06-13] MEDS: MORPHine 4 MG/ML SYR IVP ×5 (02:11→13:21)
[2022-06-13] MEDS: Normal Saline Flush 10 ML SYR IVP ×4 (02:12→13:22)
[2022-06-13 05:54] VITALS: BP 143/90; PULSE 51; RESP 16; TEMP 36.8; O2SAT 100
[2022-06-13 07:30] VITALS: BP 140/85; PULSE 47; RESP 18; TEMP 36.9; O2SAT 100
[2022-06-13] MEDS: Methadone Liquid 10 MG/ML 190 MG PO (07:54)
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
[2022-06-13 11:45] VITALS: TEMP 36.6
--- NOTE | 2022-06-13 12:00 | DI.RAD_ITS ---
Exam(s) XR PORTABLE CHEST AP EXAM: XR PORTABLE CHEST AP CLINICAL HISTORY: ches tube removal. TECHNIQUE: 2D digital imaging was performed. COMPARISON: CR,XR XR PORTABLE CHEST AP from 06/12/2022 FINDINGS: Single AP portable view. Heart size is upper normal. The mediastinum is not widened. Left hemidiaphragm is somewhat elevated. Left chest tube is been removed. There is no recurrence of pneumothorax. Left lung remains re-expanded. Both lungs are clear. No pleural effusions. Right clavicle plate again noted. Healing right 3rd rib fracture again evident. Also appears to be fractures of the right 7th and 8th ribs. IMPRESSION: Left lung remains re-expanded following removal of the chest tube. However, there is some elevation left hemidiaphragm noted. Right-sided rib fractures as described above. DATA REPOSITORY: RADIATION DOSE DELIVERED: All CT scans at this facility use at least one of these dose optimization techniques: automated exposure control; mA and/or kV adjustment per patient size (includes targeted e xams where dose is matched to clinical indication); or iterative reconstruction.
--- NOTE | 2022-06-13 12:41 | DI.VRAD_ITS ---
PROCEDURE INFORMATION: Exam: XR Chest Exam date and time: 06/13/2022 12:12 PM Age: 31 years old Clinical indication: Device placement; Other: S/P chest tube removal TECHNIQUE: Imaging protocol: Radiologic exam of the chest. Views: 1 view. COMPARISON: XR PORTABLE CHEST AP 06/12/2022 4:10 PM FINDINGS: Lungs: Ill-defined opacity seen along the periphery of the right lung. Suspected to represent atelectasis given short interval time of development. Pleural spaces: no pneumothorax. No sizable pleural effusion. Heart/Mediastinum: cardiomediastinal silhouette within normal limits. Bones/joints: redemonstrated right lateral 3rd rib fracture. Right clavicular hardware. IMPRESSION: Ill-defined opacity seen along the periphery of the right lung suspected to represent atelectasis given short interval time of development. Dictated and Authenticated by: Pravin Espinoza MD. Ordering:OSMANY Smiley MD
--- NOTE | 2022-06-13 16:17 | PDOC.CMDIS ---
- If Service Date Differs Date of service: 06/13/22 Time of Service: 13:00 LACE Index Scoring Tool - Questions: Length of Stay (in days): 2 Acuity (Admit via E.D.?): Yes E.D. Visits: 3 - Answers: Total Score: 8 Risk of Readmission: Low Risk Care Management Discharge Reason for Hospitalization: Closed traumatic fracture of ribs of left side with pneumothorax Discharge Plan: Rio is discharged home via private vehicle with family. Rio will follow discharge plan of care as prescribed. Pt will call [facility] on Tuesday to schedule a follow up appointment with his PCP. Patient/Family Education Needs: Review discharge instructions, limitations and plan to follow up with community providers. ask me three. Review how to contact the surgeon on-call for any new shortness of breath or difficulty breathing.
== END 2022-06-13 14:12 | disposition home or self-care (01) | DRG 200 ==
LOC: ER 02:32 → ICU 05:01 → MS 22:26
PROVIDERS: Admitting Provider Surgery; Emergency Provider Student in an Organized Health Care Education/Training Program; Visit Provider Surgery
DX: S22.42XA Multiple fractures of ribs, left side, initial encounter for closed fracture (principal); S27.0XXA Traumatic pneumothorax, initial encounter; F11.20 Opioid dependence, uncomplicated; E87.6 Hypokalemia; M76.52 Patellar tendinitis, left knee; F32.A Depression, unspecified; K21.9 Gastro-esophageal reflux disease without esophagitis; M41.20 Other idiopathic scoliosis, site unspecified; F17.210 Nicotine dependence, cigarettes, uncomplicated; G89.29 Other chronic pain; V49.88XA Car occupant (driver) (passenger) injured in other specified transport accidents, initial encounter; Z79.899 Other long term (current) drug therapy
CPT/HCPCS: 32551; 36415; 74177; 80053; 87635; 93005; 96361; 96365; 96366; 96375; 99285; 70450; 71045; 71260; 72125; 81003; 81015; 85025; 93010; G0378; J0131; J1885; J2270; J3490

== ENCOUNTER 2022-07-06 11:03 | Outpatient (CLI) | payer MEDICAID, SELFPAY ==
--- NOTE | 2022-07-06 10:30 | DI.RAD_ITS ---
Exam(s) XR CLAVICLE RT EXAM: XR CLAVICLE RT INDICATION: CLAVICLE FX F/U. COMPARISON: CR XR CLAVICLE RT from 05/11/2022 CR,XR XR PORTABLE CHEST AP from 06/13/2022 TECHNIQUE: 2D digital imaging was performed. Two views. FINDINGS: There has been no change in the hardware or fracture alignment. There is some increased healing of t he fracture when compared with the prior exam. A right lateral 3rd rib fracture is again noted. DATA REPOSITORY: RADIATION DOSE DELIVERED:
== END 2022-07-06 11:04 | disposition home or self-care (01) ==
LOC: DIORS 11:03
PROVIDERS: Visit Provider Student in an Organized Health Care Education/Training Program
DX: S42.021D Displaced fracture of shaft of right clavicle, subsequent encounter for fracture with routine healing (principal); X58.XXXD Exposure to other specified factors, subsequent encounter
CPT/HCPCS: 73000

== ENCOUNTER 2023-01-09 10:24 | Emergency (ER) | payer MEDICAID, SELFPAY ==
[2023-01-09] VITALS (21 sets, daily range): BP systolic 115–132; BP diastolic 66–87; PULSE 67–89; RESP 0–23; TEMP 36.7; O2SAT 96–100
--- NOTE | 2023-01-09 10:15 | DI.CT_ITS ---
Exam(s) CT HEAD WO EXAM: CT HEAD WO CLINICAL HISTORY: seizure, r/o mass lesion or trauma. TECHNIQUE: Imaging Protocol: Axial computed tomography images with coronal and sagittal reformatted images were created and reviewed COMPARISON: CT CT HEAD CERVICAL SPINE WO from 06/12/2022 FINDINGS: No new skull fractures identified. There is no fluid in the visualized paranasal sinuses. There is no evidence of intracranial hemorrhage, new mass effect, or shift of midline structures. Th ere are no extra-axial fluid collections. The ventricles are not enlarged or shifted and there is no blood within the ventricular system nor within the basal cisterns. Previously described abnormal area of encephalomalacia in the right frontal lobe-right anterior crani al fossa remains unchanged. No new areas of abnormal hypodensity. IMPRESSION: Unchanged area of abnormal hypodensity in the right frontal lobe-encephalomalacia. No new abnormal a reas in the brain. No evidence of intracranial hemorrhage, intra or extra-axial. RADIATION DOSE DELIVERED: 751.24mGy.cm Total DLP DATA REPOSITORY: All CT scans at this facility are submitted to the National Radiology Data Registry (NRDR) Dose Index Registry (DIR) with the [employer] (ACR). RADIATION OPTIMIZATION: All CT scans at this facility use at least one of these dose optimization te chniques: automated exposure control; mA and/or kV adjustment per patient size (includes targeted exa ms where dose is matched to clinical indication); or iterative reconstruction.
--- NOTE | 2023-01-09 10:15 | RT.EKG_ITS ---
APPROVED REPORT Exam: Resting ECG Reason for Exam: seizure Patient Location: E HR:76 bpm ECG Measurements Heart Rate 76 AXIS WI 172 P 48 QRSd 113 QRS 66 QT 393 T 42 QTc 443 Conclusion Sinus rhythm...normal P axis, V-rate 60- 99 ST elev, probable normal early repol pattern...ST elevation, age<55 Physician: no stemi, early repol
[2023-01-09] MEDS: Normal Saline 1,000 ML 1000 ML IV (10:30)
[2023-01-09 10:42] LABS: Absolute Eosinophil Count 0.01 10^3/uL (0.0-0.7); Absolute Lymphocyte Count 1.09 10^3/uL (1.2-3.4); Absolute Monocyte Count 0.24 10^3/uL (0.1-0.8); Absolute Neutrophil Count 2.06 10^3/uL (1.2-6.7); Eosinophils % 0.3; HCT 40.9 % (40.0-50.0); HGB 14.1 g/dL (13.5-17.5); Lymphocytes % 32.1; MCH 28.1 pg (27.0-33.0); MCHC 34.5 % (32.0-36.0); MCV 82 fL (80-95); MPV 11.1 fL (8.0-11.0); Monocytes % 7.1; Neutrophils % 60.5; RBC 5.01 10^6/uL (4.36-5.78); RDW 13.6 % (11.8-14.1); RDW-SD 40.3 fL
[2023-01-09 11:02] LABS: ALT 24 U/L (16-63); AST 26 U/L (15-37); Albumin 3.7 g/dL (3.4-5.0); Alkaline Phosphatase 113 U/L (46-116); BUN 10 mg/dL (7-18); Bilirubin, Total 0.6 mg/dL (0.2-1.0); Chloride 103 mmol/L (98-107); ETHANOL BLOOD 4.3 mg/dL (<10); Estimated GFR 101.92 (mL/min/1.73m2); Glucose 110 mg/dL (74-106); Potassium 3.8 mmol/L (3.5-5.1); Sodium 140 mmol/L (136-145); Total Protein 8.7 g/dL (6.4-8.2); Troponin I < 50 ng/L (<or=60)
[2023-01-09 11:04] LABS: *AMPHETAMINES SCREEN URINE Negative (Negative); *BARBITURATES SCREEN URINE Negative (Negative); *BENZODIAZEPINES SCREEN URINE Negative (Negative); Cannabinoids THC Positive (Negative); Cocaine Screen,Urine Positive (Negative); METHADONE URINE SCREEN Positive (Negative); OPIATES URINE SCREEN Negative (Negative)
[2023-01-09 11:05] LABS: Tricyclic Antidepressants Negative (Negative)
[2023-01-09 11:07] LABS: Diff Comment Diff Reviewed; Platelet Count 91 10^3/uL (130-400); RBC Morphology Normal
--- NOTE | 2023-01-09 11:17 | ED.GENADUL_ITS ---
Discharge Plan Disposition Patient Disposition: Home Condition: Good Discharge Details Clinical Impression: Seizure Primary Care Provider: Wallace Max ED Provider: Yrn Palumbo Home Meds and New Rx's Prescriptions: New levetiracetam [Keppra] 500 mg tablet 500 mg PO BID 90 Days Qty: 180 0RF Continued gabapentin 800 mg tablet 800 mg PO TID Qty: 270 3RF albuterol sulfate [ProAir HFA] 90 mcg/actuation HFA aerosol inhaler 1 - 2 puff Inhalation Q6H PRN Qty: 2 6RF methadone 10 MG/5 ML solution 190 mg PO DAILY Qty: 0 Rx Instructions: BAART RX/ acetaminophen 500 mg Tablet 500 mg PO TID PRN naproxen 250 mg tablet 250 - 500 mg PO BID PRNQty: 40 0RF Rx Instructions: take with a meal Discharge Instructions Instructions: Recurrent Seizures in Adults (ED) Additional Instructions: At this time your symptoms may have been secondary to a seizure. You do have a chronic lesion in your brain that is stable and unchanged which certainly may preclude you to potential seizures. We did contact neurology and discussed the case with [facility] neurology. They recommend that you take Keppra, 500 mg twice daily. We will place a referral for outpatient neurology follow-up with our neurologist here at [facility], as well as placed a referral with your primary care provider for assessment for discussion of MRI. You should not drive, operate machinery, climb heights (such as a ladder), swim, or bathe alone or do anything else which could be dangerous if you would have another seizure. Please abide by this for the next 6 months or until cleared by a physician. If you notice any worsening of your symptoms, or any new symptoms such as vomiting, diarrhea, fever, chills, shortness of breath, chest pain, numbness, weakness, or fainting , please return immediately to the emergency department for reevaluation. Please follow up with your primary care provider as soon as possible for reassessment and reevaluation. As always, it was a pleasure participating in your medical care today. Referrals: Wallace Max, MP [Primary Care Provider] - Marika Vivas MD [ [facility] STAFF PHYSICIAN] - Medical Decision Making 32-year-old male with a past medical history of methadone use, notable alcohol use, presents today for evaluation of potential seizure-like episode. Patient presents via EMS. Per patient and EMS the patient was sitting in a chair when he had a jerking like episode where he became unresponsive for about 2 to 5 minutes. He was foaming at the mouth per family's report. He had about a 2 to 4-minute postictal phase, but when EMS arrived he was ANO x3, acting normally with normal vital signs normal blood sugar. Patient does take gabapentin, and methadone, does drink alcohol and drank a sixpack last night with a few twisted teas which she states is his normal baseline. He is unsure if he has had a seizure in the past but thinks he may have had one a few years ago with no further work-up. He denies any complaints of headache. He denies any make duration during the episode. He denies any tongue biting. He is missing his top teeth though. He has no headache, chest pain, limb pain or shortness of breath otherwise. He denies any other drug use. No other complaints at this time. No other modifying factors. Exam demonstrates a well-appearing male, no signs of tongue biting lesions, bowel or bladder incontinence, neurologic deficit, meningeal signs, or other abnormality. No signs of trauma. Uncertain as to what the exact cause of the patient's symptoms was. May have been an episode of syncope, it certainly could be drug or alcohol related as well. We will get a CT scan of the head to rule out acute process, rehydrate, check labs for electrolyte abnormalities, monitor closely and reassess. Of note EKG is stable and unremarkable at this time. 12:[address] scan has returned, there is a delineated low-attenuation lesion in the right frontal region. This is stable and consistent with encephalomalacia from a previous etiology. No acute changes otherwise. Laboratory work-up is unremarkable aside for evidence of a positive cocaine on the patient's UDS, positive methadone and positive THC. Alcohol level has normalized. On reassessment, patient continues to look well. Normal neurologic exam on reassessment. No signs of focal neurologic deficits. I did reach out to [facility] and discussed the case with Dr. Garcia of neurology. He does recommend starting the patient on Keppra, loading with 1000 mg now, transitioning to 500 twice daily outpatient, and having neurology follow-up and outpatient MRI as well. We will place neurology referral. Recommend close PCP follow-up which we will place a referral for also. Patient otherwise appears stable for discharge at this time. Discussed seizure safety precautions. I have extensively reviewed the treatment plan and discharge instructions with the patient. I have addressed all patient concerns at this time. The patient was made aware of what symptoms to monitor for that would warrant a return to the emergency department. Discussed the plan with the patient, they demonstrate verbal understanding and agreement with our assessment and plan at this time. The documentation in this chart was dictated using [employer] dictation software. Please excuse any dictation errors. FINDINGS: Brain: Again demonstrated is well delineated low-attenuation in the right frontal region. This was present in May. Findings consistent with encephalomalacia.. No acute intracranial hemorrhage.. There is no new area edema or mass effect Cerebral ventricles: No ventriculomegaly. Paranasal sinuses: Visualized sinuses are unremarkable. No fluid levels. Mastoid air cells: Visualized mastoid air cells are well aerated. Bones/joints: Unremarkable. No acute fracture. Soft tissues: Unremarkable. IMPRESSION: 1. Again demonstrated is well delineated low-attenuation in the right frontal region. This was present in May. Findings consistent with encephalomalacia.. 2. There is no new area edema or mass effect.. 3. No acute intracranial hemorrhage.. HPI General Date/Time Provider Initiated Documentation: 01/09/23 10:26 . HPI Narrative: 32-year-old male with a past medical history of methadone use, notable alcohol use, presents today for evaluation of potential seizure-like episode. Patient presents via EMS. Per patient and EMS the patient was sitting in a chair when he had a jerking like episode where he became unresponsive for about 2 to 5 minutes. He was foaming at the mouth per family's report. He had about a 2 to 4-minute postictal phase, but when EMS arrived he was ANO x3, acting normally with normal vital signs normal blood sugar. Patient does take gabapentin, and methadone, does drink alcohol and drank a sixpack last night with a few twisted teas which she states is his normal baseline. He is unsure if he has had a seizure in the past but thinks he may have had one a few years ago with no further work-up. He denies any complaints of headache. He denies any make duration during the episode. He denies any tongue biting. He is missing his top teeth though. He has no headache, chest pain, limb pain or shortness of breath otherwise. He denies any other drug use. No other complaints at this time. No other modifying factors. Related Data Home Medications Medication Instructions Recorded Confirmed methadone 10 mg/5 mL oral solution 190 mg PO DAILY #0 tab-caps 06/26/18 12/06/22 acetaminophen 500 mg tablet 500 mg PO TID PRN 04/28/22 12/06/22 naproxen 250 mg tablet 250 - 500 mg PO BID PRN #40 tabs 04/30/22 12/06/22 albuterol sulfate 90 mcg/actuation 1 - 2 puff inhalation Q6H PRN ##2 12/06/22 12/06/22 aerosol inhaler (ProAir HFA) gabapentin 800 mg tablet 800 mg PO TID #270 tabs 12/06/22 12/06/22 levetiracetam 500 mg tablet 500 mg PO BID 90 days #180 tabs 01/09/23 (Keppra) Previous Rx's Medication Instructions Recorded naproxen 250 mg tablet 250 - 500 mg PO BID PRN #40 tabs 04/30/22 albuterol sulfate 90 mcg/actuation 1 - 2 puff inhalation Q6H PRN ##2 12/06/22 aerosol inhaler (ProAir HFA) gabapentin 800 mg tablet 800 mg PO TID #270 tabs 12/06/22 levetiracetam 500 mg tablet 500 mg PO BID 90 days #180 tabs 01/09/23 (Keppra) Allergies Allergy/AdvReac Type Severity Reaction Status Date / Time No Known Allergies Allergy Unverified 12/06/22 12:54 General Stated Complaint: Seizure JENNIFER: 2 Review of Systems All systems reviewed & are unremarkable except as noted in HPI and below PFSH All Active Problems (Updated 01/09/23 @ 11:39 by Yrn Palumbo DO) Seizure (Acute) Chronic pain of left knee (Acute 01/13/16) : patellar tendonitis Depressive disorder (Acute) Gastroesophageal reflux disease (Acute 04/03/14) gastroscopy 2011: negative [facility] Idiopathic scoliosis (Acute) Wingspan/height difference; height 72/wingspan 73 Smoker (Acute) 10/2022-1 ppd, about 15 pk yr Opioid abuse (Acute) followed by [facility] since 2011, on methadone History of bone graft (Acute) Fracture of tibia (Acute) Leg pain, bilateral (Acute) 2020- chronic bilat leg pain s/p injury-on gabapentin Mouth pain (Acute) 12/2021 Tachycardia (Acute) 12/2021, heart rate 150-patient made informed decision and declined evaluation Medical History Closed right clavicular fracture Closed traumatic fracture of ribs of left side with pneumothorax Surgical History H/O arthroscopic knee surgery Hx of wisdom tooth extraction Social History Smoking/Tobacco Use Status: Current every day Tobacco Type: cigarettes Years smoked: 15 Smoking risk assessment performed?: Yes Alcohol Intake: current Alcohol Intake frequency: a few times a week Alcohol type: beer Drug use: Occasionally Substance use type: marijuana and crack/cocaine Current gender identity: male Do you feel safe at home: Yes Do you feel safe in your relationship?: Yes Exam Narrative Exam Narrative: 1.Const: Well-nourished, Well-developed, appearing stated age 2.Eyes: PERRL, no conjunctival injection, and symmetrical lids. 3.ENT: Atraumatic external nose and ears. Moist MM. Neck: Symmetric, trachea midline, No thyromegaly. There is no evidence of raccoon eyes, herbert sign, CSF rhinorrhea, mastoid tenderness, cranial crepitus, hemotympanum, exophthalmos, or hyphema. Patient demonstrates intact dentition with no signs of tooth avulsion or fracture, no signs of jaw deformity, no evidence of a LeFort's fracture, with an intact palate, nose and orbital region. He is missing his upper teeth. No evidence of tongue biting lesions. There is no evidence of a nasal septal hematoma. No proptosis. Jaw closes symmetrically. Airway is clear. 4.CVS: +S1/S2, No murmurs or gallops. Peripheral pulses 2+ and equal in all extremities. Brisk capillary refill in all extremities. 5.RESP: Unlabored respiratory effort. Clear to auscultation bilaterally. No wheezes rales or rhonchi 6.GI: Soft, Nontender/Nondistended, No hepatosplenomegaly. No guarding or rebound. 7.MSK: Normocephalic/Atraumatic, Extremities w/o deformity or ttp No cyanosis or clubbing, Normal movement of all extremities. No evidence of musculoskeletal trauma. No muscular or bony tenderness. 8.Skin: Warm, Dry. No rashes or lesions. 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 Sensation grossly intact, no focal neurologic deficits. All 6 cardinal planes of vision are fully intact. No evidence of rotatory or vertical nystagmus. The patient demonstrated a normal zkryei-pldt-ymodjo, good dexterity. There was no evidence of dysdiadochokinesia. Patient was able to ambulate without difficulty. There was no wide-based gait. Romberg testing was normal. Klfg-sh-moph testing was normal. Sensation was intact bilaterally as well as muscle strength bilaterally for all extremities. Patient was able to verbalize butter cup with no slurring, or miss pronunciation. 10.Psych: (AAO) x3. Appropriate mood and affect Course Vital Signs Vital signs: Vital Signs Temperature 36.7 C 01/09/23 10:22 Pulse 87 01/09/23 10:22 Respiratory Rate 17 01/09/23 10:22 Blood Pressure 119/70 01/09/23 10:22 Pulse Oximetry 99 01/09/23 10:22 Temperature 36.7 C 01/09/23 10:22 Temperature Source Temporal Artery Scan 01/09/23 10:22 Pulse 83 01/09/23 10:30 Pulse 83 01/09/23 10:31 Respiratory Rate 14 01/09/23 10:31 Respiratory Effort Normal 01/09/23 10:30 Respiratory Pattern Normal 01/09/23 10:30 Blood Pressure 124/73 01/09/23 10:30 Blood Pressure Mean 83 01/09/23 10:30 Blood Pressure Position Sitting 01/09/23 10:22 Pulse Oximetry 99 01/09/23 10:31 Oxygen Delivery Method Room Air 01/09/23 10:22 Oxygen Flow Rate 0 01/09/23 10:22 Pain Level 0 01/09/23 10:22 Comment Chronic leg and collar bone discomfort from remote fx 01/09/23 10:22 Lab/Test Results Lab/Test Results: Laboratory Tests Range/Units 01/09/23 01/09/23 01/09/23 10:35 10:35 10:45 WBC (4.4-10.8) 10^3/uL 3.40 L RBC (4.36-5.78) 10^6/uL 5.01 Hgb (13.5-17.5) g/dL 14.1 Hct (40.0-50.0) % 40.9 MCV (80-95) fL 82 MCH (27.0-33.0) pg 28.1 MCHC (32.0-36.0) % 34.5 RDW (11.8-14.1) % 13.6 Plt Count (130-400) 10^3/uL 91 L MPV (8.0-11.0) fL 11.1 H Immature Gran % 0.0 Neutrophils % 60.5 Lymphocytes % 32.1 Monocytes % 7.1 Eosinophils % 0.3 Basophils % 0.0 Nucleated RBC % (0.0-0.3) % 0.0 Absolute Neutrophils (1.2-6.7) 10^3/uL 2.06 Absolute Lymphocytes (1.2-3.4) 10^3/uL 1.09 L Absolute Monocytes (0.1-0.8) 10^3/uL 0.24 Absolute Eosinophils (0.0-0.7) 10^3/uL 0.01 Absolute Basophils (0.0-0.2) 10^3/uL 0.00 RBC Morphology Normal Sodium (136-145) mmol/L 140 Potassium (3.5-5.1) mmol/L 3.8 Chloride (98-107) mmol/L 103 Carbon Dioxide (21.0-32.0) mmol/L 28.0 Anion Gap (3-11) mmol/L 9.0 BUN (7-18) mg/dL 10 Creatinine (0.70-1.30) mg/dL 1.0 Est GFR (CKD-EPI 2020) (mL/min/1.73m2) 101.92 Glucose (74-106) mg/dL 110 H Calcium (8.5-10.1) mg/dL 9.0 Total Bilirubin (0.2-1.0) mg/dL 0.6 AST (15-37) U/L 26 ALT (16-63) U/L 24 Alkaline Phosphatase (46-116) U/L 113 Troponin I (<or=60) ng/L < 50 Total Protein (6.4-8.2) g/dL 8.7 H Albumin (3.4-5.0) g/dL 3.7 Urine Opiates Screen (Negative) Negative Urine Methadone Screen (Negative) Positive A Ur Barbiturates Screen (Negative) Negative Ur Tricyclics Screen (Negative) Negative Ur Amphetamines Screen (Negative) Negative U Benzodiazepines Scrn (Negative) Negative Urine Cocaine Screen (Negative) Positive A Ur THC Screen (Negative) Positive A Ethyl Alcohol (<10) mg/dL 4.3 PAWSS Have you Been Recently Intoxicated or Drunk Within the Last 30 days?: Yes Have you Ever Experienced Previous Episodes of Alcohol Withdrawal?: No Have you ever Experienced Withdrawal Seizures?: No Have you ever Experienced Delirium Tremens(DT)s?: No Have you ever undergone Alcohol Rehabilitation Treatment (i.e, inpt ot outpatient treatment programs)?: No Have you ever Experienced Blackouts?: No Have you ever Combined Alcohol with other Downers within the last 90 days?: No Have you ever Combined Alcohol with any other Substance of Abuse during the last 90 days?: No Positive Blood Alcohol level on Presentation? [PCS.BAL]: No Evidence of Increased Autonomic Activity (i.e. HR>120, tremor, sweating, agitation, nausea)?: No Result: 1
--- NOTE | 2023-01-09 11:29 | DI.VRAD_ITS ---
PROCEDURE INFORMATION: Exam: CT Head Without Contrast Exam date and time: 01/09/2023 11:14 AM Age: 32 years old Clinical indication: Other: Seizure, R/O mass lesion or trauma TECHNIQUE: Imaging protocol: Computed tomography of the head without contrast. Radiation optimization: All CT scans at this facility use at least one of these dose optimization techniques: automated exposure control; mA and/or kV adjustment per patient size (includes targeted exams where dose is matched to clinical indication); or iterative reconstruction. COMPARISON: CT HEAD CERVICAL SPINE WO 06/12/2022 1:43 AM FINDINGS: Brain: Again demonstrated is well delineated low-attenuation in the right frontal region. This was present in May. Findings consistent with encephalomalacia.. No acute intracranial hemorrhage.. There is no new area edema or mass effect Cerebral ventricles: No ventriculomegaly. Paranasal sinuses: Visualized sinuses are unremarkable. No fluid levels. Mastoid air cells: Visualized mastoid air cells are well aerated. Bones/joints: Unremarkable. No acute fracture. Soft tissues: Unremarkable. IMPRESSION: 1. Again demonstrated is well delineated low-attenuation in the right frontal region. This was present in May. Findings consistent with encephalomalacia.. 2. There is no new area edema or mass effect.. 3. No acute intracranial hemorrhage.. Dictated and Authenticated by: Donovan Holman MD. Ordering:EMELIA Pool MD
[2023-01-09] MEDS: levETIRAcetam 1,000 MG in Normal Saline 100 ML 400 MG IVPB (12:26)
--- NOTE | 2023-01-09 12:29 | NUR.NOTE ---
Referral made per Dr. Palumbo to PCP for follow up appt from ER and MRI scheduling. Referral also made to Neurology for next avail. Put the referral in the care manger's box for follow up assistance.Nursing Note:
[2023-01-09] MEDS: Ondansetron O.D.T. 4 MG TABEF (12:56)
== END 2023-01-09 13:37 | disposition home or self-care (01) ==
PROVIDERS: Emergency Provider Student in an Organized Health Care Education/Training Program; PCP Nurse Practitioner Family
DX: R56.9 Unspecified convulsions (principal)
CPT/HCPCS: 36415; 80053; 80307; 93005; 96361; 96365; 99284; 70450; 80320; 84484; 85025; 93010; 99285; J1953

== ENCOUNTER 2023-02-08 02:43 | Outpatient (CLI) | payer MEDICAID, SELFPAY ==
--- NOTE | 2023-02-11 23:26 | PDOC.EEG ---
Neurology EEG EEG: [facility] Department of Neurology LONG-TERM AMBULATORY EEG REPORT Date of Recordin02/08/23 at 10:36:05 to 02/10/23 at 15:39:44 Interpreting Physician: Dr. Marika Vivas PCP/Referring Provider: Wallace Hoyt NP Reason for study: Rio Wheat is a 32 year-old who had a first seizure. Current Medications: Home Medications Medication Instructions Recorded Confirmed Type methadone 10 mg/5 mL oral solution 190 mg PO DAILY #0 tab-caps 06/26/18 02/01/23 History acetaminophen 500 mg tablet 500 mg PO TID PRN 04/28/22 02/01/23 History naproxen 250 mg tablet 250 - 500 mg PO BID PRN #40 tabs 04/30/22 02/01/23 Rx albuterol sulfate 90 mcg/actuation 1 - 2 puff inhalation Q6H PRN ##2 12/06/22 02/01/23 Rx aerosol inhaler (ProAir HFA) gabapentin 800 mg tablet 800 mg PO TID #270 tabs 12/06/22 02/01/23 Rx sucralfate 1 gram tablet (Carafate) 1 g PO BID #60 tabs 01/09/23 02/01/23 Rx levetiracetam 500 mg tablet 500 mg PO BID 90 days #180 tabs 01/18/23 02/01/23 Rx (Keppra) METHODS: An 18-channel digitized electroencephalogram was recorded in the ambulatory setting with video. The 10/20 international system of electrode placement was used and bipolar and referential electrode montages were recorded. In addition to EEG the patient was monitored for EKG and by video. Activation procedures of photic stimulation and hyperventilation were performed if applicable. The duration of the recording was ~53 hours. DESCRIPTION OF EEG: Waking background activity: During maximal wakefulness a 9-Hz posterior background rhythm was present which was well-modulated, symmetrical, reactive to eye opening, and of moderate voltage. Faster frequencies were present in the bilateral anterior head regions. There was a normal anterior-posterior voltage gradient. Drowsy and sleeping background activity: During drowsiness, there was attenuation of the posterior dominant background rhythm and vertex waves. Normal stage II and III sleep was present with symmetrical sleep spindles, K-complexes, and vertex waves with slowing of the background rhythm to delta/theta frequencies. REM sleep manifested by rapid lateral eye movements and faster background rhythms was recorded. Arousal was unremarkable. Interictal abnormalities: none. Ictal findings: No events recorded. Activating Procedures: Photic stimulation was performed which produced a symmetrical posterior driving response at various flash frequencies. Hyperventilation was performed with moderate effort and produced no physiological slowing of the background. EKG: EKG revealed normal sinus rhythm/sinus bradycardia. INTERPRETATION: This long-term EEG is normal during the awake and sleep states as well as during the activation procedures. PRIOR EEG: none CLINICAL CORRELATION: No focal regions of cerebral dysfunction or epileptiform activity was present. Epilepsy remains a clinical diagnosis and a normal EEG does not rule out epilepsy. Clinical correlation is advised. Marika Vivas MD
== END 2023-02-08 02:44 | disposition home or self-care (01) ==
LOC: RT 02:43
PROVIDERS: PCP Nurse Practitioner Family; Visit Provider Psychiatry & Neurology Neurology
DX: R68.89 Other general symptoms and signs (principal); R56.9 Unspecified convulsions
CPT/HCPCS: 95714

== ENCOUNTER 2023-02-11 00:13 | Outpatient (CLI) | payer MEDICAID, SELFPAY ==
--- NOTE | 2023-02-11 07:00 | DI.RAD_ITS ---
Exam(s) XR EYE FOREIGN BODY EXAM: XR EYE FOREIGN BODY INDICATION: ?metal in eyes, PRE MRI CLEARANCE,SEIZURE. COMPARISON: No exams were available for comparison TECHNIQUE: 2D digital imaging was performed. FINDINGS: No radiopaque foreign bodies are identified. IMPRESSION: No radiopaque foreign bodies are seen in the orbits. DATA REPOSITORY: RADIATION DOSE DELIVERED:
== END 2023-02-11 00:33 ==
LOC: DI 00:13
PROVIDERS: PCP Nurse Practitioner Family; Visit Provider Psychiatry & Neurology Neurology
DX: Z01.818 Encounter for other preprocedural examination (principal); R56.9 Unspecified convulsions; R90.89 Other abnormal findings on diagnostic imaging of central nervous system
CPT/HCPCS: 70030

== ENCOUNTER 2023-02-15 01:29 | Outpatient (CLI) | payer MEDICAID, SELFPAY ==
--- NOTE | 2023-02-15 07:15 | DI.MRI_ITS ---
Exam(s) MR BRAIN WO EXAM: MR BRAIN WO CLINICAL HISTORY: R frontal abnormality,seizure,r56.9 TECHNIQUE: Multiplanar multisequence MRI of the brain was performed. COMPARISON: CT CT HEAD WO from 01/09/2023 FINDINGS: VENTRICLES AND EXTRA AXIAL SPACES: Normal in size and morphology for the patient's age. MIDLINE SHIFT: None. CEREBRAL PARENCHYMA: No focus of restricted diffusion to suggest acute infarct. No space-occupying le una identified. The temporal lobes appear symmetric. There is an area of encephalomalacia involving the right frontal lobe which appears stable. HEMORRHAGE: None. BRAINSTEM/CEREBELLUM: Normal. CALVARIUM: Normal. VISUALIZED PARANASAL SINUSES/MASTOIDS:Clear. [place]: Normal flow void. [place]: Unremarkable. OTHER FINDINGS: None. IMPRESSION: 1. Stable right frontal lobe encephalomalacia. 2. No acute abnormality. No evidence of an acute infarct or intracranial mass. DATA REPOSITORY:
== END 2023-02-15 01:49 ==
LOC: DI 01:29
PROVIDERS: PCP Nurse Practitioner Family; Visit Provider Psychiatry & Neurology Neurology
DX: R56.9 Unspecified convulsions (principal); G93.89 Other specified disorders of brain
CPT/HCPCS: 70551

== ENCOUNTER 2023-04-07 18:40 | Inpatient (IN) | payer MEDICAID, SELFPAY ==
[2023-04-07] VITALS (68 sets, daily range): BP systolic 99–157; BP diastolic 59–110; PULSE 65–105; RESP 0–27; TEMP 36.7–36.9; O2SAT 98–100
--- NOTE | 2023-04-07 18:30 | RT.EKG_ITS ---
APPROVED REPORT Exam: Resting ECG Reason for Exam: unresponsive Patient Location: E HR:94 bpm ECG Measurements Heart Rate 94 AXIS KS 141 P 81 QRSd 114 QRS 86 QT 453 T -13 QTc 566 Conclusion Sinus rhythm...normal P axis, V-rate 60- 99 Prolonged QT interval...QTc >488mS. Sinus. Normal axis. No STEMI. I have reviewed and interpreted ECG and agree with software generated interpretation.
--- NOTE | 2023-04-07 18:30 | DI.RAD_ITS ---
Exam(s) XR PORTABLE CHEST AP EXAM: XR PORTABLE CHEST AP CLINICAL HISTORY: ETT placement. TECHNIQUE: 2D digital imaging was performed. COMPARISON: Chest x-ray May 2022. FINDINGS: Single AP portable view. Patient is intubated. Distal tip of the endotracheal tube is in good position above the arthur. Heart size is upper normal. The mediastinum is not widened. Lungs are clear. No infiltrates nor obvious pleural effusions. No pneumothorax. No fractures. Fusion plate across healed fracture midshaft right clavicle noted. IMPRESSION: No acute pulmonary findings on this single AP portable view of the chest. ETT is in good position. DATA REPOSITORY: RADIATION DOSE DELIVERED:
--- NOTE | 2023-04-07 18:36 | W.ED.GENAD ---
Discharge Plan Disposition Patient Disposition: Admit to [facility] Condition: Serious Discharge Details Clinical Impression: Drug overdose, Seizure Admit Date/Time: 04/07/23 22:08 Admit Provider: Tyler Vega Attending Provider: Tyler Vega Primary Care Provider: Wallace Max ED Provider: Flash Martinez Discharge Data Discharge Date/Time-TO BE ENTERED AT DEPARTURE: 04/07/23 23:02 Discharge Physician: Tyler Holder Medical Decision Making <Cami Arteaga DO - Last Filed: 04/13/23 01:26> Dr. Arteaga 1910 -- 32-year-old male with history of seizures, polysubstance abuse and GERD presents from home for multiple seizures over the last few days with a reported 40-minute seizure on scene for which patient was given multiple doses of Versed, Ativan, ketamine and fentanyl. He was noted to have gurgling respirations and intubated on scene for airway protection. He was reported to be snorting fentanyl and cocaine today. EMS had requested a paralytic just prior to arrival to the ED due to patient agitation and movement. On arrival to the ED patient appears more calm. He then started to move around and a 50 mg dose of propofol IV was given. A portable chest x-ray confirmed appropriate placement of the ET tube. He has no obvious evidence of trauma on exam. PERRLA. He is moving all extremities. For patient cooperation and to prevent removal of the tube as he was writhing around, an additional 50 mg dose of propofol IV was administered in addition to propofol drip. We were able to then obtain a stat EKG and his QTc is prolonged at 566. In combination with methadone concern for potential arrhythmia so propofol drip stopped. We will start fentanyl and Versed drip. As there was report of a fall, will refer for CT head through pelvis imaging. ABG obtained which notes a pH of 7.4, PCO2 41, PO2 83. 2g Keppra IV and 1g Fosphenytoin IV ordered for seizure prophylaxis. 1929 --patient has been quite agitated and difficult to achieve sedation. He does not appear to be responding to max doses of fentanyl and Versed drip in addition to push bolus doses of both. He was given a bolus dose of ketamine IV and will start a ketamine drip and stop the fentanyl drip. 1999 --continual difficulty achieving sedation. Increasing versed and ketamine to max dosage. 50mg Mayra IV dose given to achieve sedation in order to obtain imaging. May consider mayra drip. Mother updated in waiting room. She reports the patient does have a history of seizures but she reports he was told he did not need seizure medication. Case endorsed to Dr. Martinez to follow-up on imaging and final disposition. Dr. Martinez 21: 57 patient currently sedated on ketamine and midazolam. Had received rocuronium bolus prior to start of shift. Has not required any more paralytic. Patient to be admitted to ICU Medical Records Medical records reviewed: Yes I reviewed the patient's medical records. Imaging Data Radiologic Study: Radiologist's impression: XR Chest Exam date and time: 04/07/2023 6:47 PM Age: 32 years old Clinical indication: Device placement; Ett placement (vent status) TECHNIQUE: Imaging protocol: Radiologic exam of the chest. Views: 1 view. COMPARISON: CR XR PORTABLE CHEST AP 06/13/2022 12:12 PM FINDINGS: Tubes, catheters and devices: Endotracheal tube is in good position with the tip 3.9 cm above the arthur. Lungs: Unremarkable. No consolidation. Pleural spaces: Unremarkable. No pleural effusion. No pneumothorax. Heart/Mediastinum: Unremarkable. No cardiomegaly. Bones/joints: Orthopedic plate remains in the right clavicle. IMPRESSION: Appropriate position of endotracheal tube ECG Data Attestation: I personally reviewed and interpreted this ECG (s) as follows: Interpretation: Rate of 94, sinus, normal axis, T wave inversion in lead II, 3, V3. Prolonged QTc at 566. No STEMI. <Flash Martinez MD - Last Filed: 04/07/23 22:00> 1911 -- 32-year-old male with history of seizures, polysubstance abuse and GERD presents from home for multiple seizures over the last few days with a reported 40-minute seizure on scene for which patient was given multiple doses of Versed, Ativan, ketamine and fentanyl. He was noted to have gurgling respirations and intubated on scene for airway protection. He was reported to be snorting fentanyl and cocaine today. EMS had requested a paralytic just prior to arrival to the ED due to patient agitation and movement. On arrival to the ED patient appears more calm. He then started to move around and a 50 mg dose of propofol IV was given. A portable chest x-ray confirmed appropriate placement of the ET tube. He has no obvious evidence of trauma on exam. PERRLA. He is moving all extremities. For patient cooperation and to prevent removal of the tube as he was writhing around, an additional 50 mg dose of propofol IV was administered in addition to propofol drip. We were able to then obtain a stat EKG and his QTc is prolonged at 566. In combination with methadone concern for potential arrhythmia so propofol drip stopped. We will start fentanyl and Versed drip. As there was report of a fall, will refer for CT head through pelvis imaging. ABG obtained which notes a pH of 7.4, PCO2 41, PO2 83. 2g Keppra IV and 1g Fosphenytoin IV ordered for seizure prophylaxis. 1929 --patient has been quite agitated and difficult to achieve sedation. He does not appear to be responding to max doses of fentanyl and Versed drip in addition to push bolus doses of both. He was given a bolus dose of ketamine IV and will start a ketamine drip and stop the fentanyl drip. 1999 --continual difficulty achieving sedation. Increasing versed and ketamine to max dosage. 50mg Mayra IV dose given. May consider mayra drip. Mother updated in waiting room. She reports the patient does have a history of seizures but she reports he was told he did not need seizure medication. Case endorsed to Dr. Martinez to follow-up on imaging and final disposition. 21: 57 patient currently sedated on ketamine and midazolam. Had received rocuronium bolus prior to start of shift. Has not required any more paralytic. Patient to be admitted to ICU HPI <Cami Arteaga DO - Last Filed: 04/13/23 01:26> General Mode of arrival: ambulatory. Date/Time Provider Initiated Documentation: 04/07/23 18:43. Limitations to Documentation: altered mental status. Information obtained by: EMS. HPI Narrative: Patient is a 32-year-old male with a history of seizures, polysubstance abuse, GERD, smoker who presents per EMS for report of multiple seizures given multiple doses of Versed, Ativan, ketamine and fentanyl with seizure activity continued for more than 40 minutes on scene and intubated for airway protection. It was reported that patient snorted cocaine and heroin today. Girlfriend on scene reported that patient has had 3 seizures in the last 2 days and 2 seizures today. EMS reported that there was one seizure where patient had a fall to the ground. They reported that patient was unresponsive on arrival and unable to provide any history. Related Data Home Medications Medication Instructions Recorded Confirmed methadone 10 mg/5 mL oral solution 190 mg PO DAILY #0 tab-caps 06/26/18 04/12/23 acetaminophen 500 mg tablet 500 mg PO TID PRN 04/28/22 04/12/23 albuterol sulfate 90 mcg/actuation 1 - 2 puff inhalation Q6H PRN ##2 12/06/22 04/12/23 aerosol inhaler (ProAir HFA) gabapentin 800 mg tablet 800 mg PO TID #270 tabs 12/06/22 04/12/23 Previous Rx's Medication Instructions Recorded albuterol sulfate 90 mcg/actuation 1 - 2 puff inhalation Q6H PRN ##2 12/06/22 aerosol inhaler (ProAir HFA) gabapentin 800 mg tablet 800 mg PO TID #270 tabs 12/06/22 Allergies Allergy/AdvReac Type Severity Reaction Status Date / Time No Known Allergies Allergy Unverified 03/14/23 08:08 General Stated Complaint: Seizure JENNIFER: 1 Review of Systems <Cami Arteaga DO - Last Filed: 04/13/23 01:26> Unobtainable due to mental status [facility] <Cami Arteaga DO - Last Filed: 04/13/23 01:26> All Active Problems Chronic pain of left knee (Acute 01/13/16) -2015: patellar tendonitis Depressive disorder (Acute) Gastroesophageal reflux disease (Acute 04/03/14) gastrosc[place] 2011: [place] [facility] [place]iopathic scoliosis (Acute) Wingspan/height difference; height 72/wingspan 73 Smoker (Acute) 10/2022-1 ppd, about 15 pk yr Opioid abuse (Chronic) followed by [facility] since 2011, on methadone History of bone graft (Acute) Fracture of tibia (Acute) Leg pain, bilateral (Acute) 2020- chronic bilat leg pain s/p injury-on gabapentin Mouth pain (Acute) 12/2021 Tachycardia (Acute) 12/2021, heart rate 150-patient made informed decision and declined evaluation Abnormal brain MRI (Acute) Seizure (Acute) Aspiration pneumonia (Acute) Anemia (Chronic) Thrombocytopenia (Chronic) Encephalomalacia (Acute) Aspiration into airway (Acute) Discharge planning issues (Acute) Fever (Acute) Medical History Closed right clavicular fracture Closed traumatic fracture of ribs of left side with pneumothorax Surgical History H/O arthroscopic knee surgery Hx of wisdom tooth extraction Social History Smoking/Tobacco Use Status: Current every day Tobacco Type: cigarettes Years smoked: 15 Smoking risk assessment performed?: Yes Alcohol Intake: current Alcohol Intake frequency: a few times a week Alcohol type: beer Drug use: Occasionally Substance use type: marijuana and crack/cocaine Current gender identity: male Do you feel safe at home: Yes Do you feel safe in your relationship?: Yes Exam <Cami Arteaga DO - Last Filed: 04/13/23 01:26> Const General: patient mechanically ventilated Nutritional Appearance: thin HENMT Head: normal to inspection Ears: external ears normal Face and sinus: normal facial exam Eyes General: appearance normal, both eyes and all related structures Pupils: PERRL Neck Neck: normal visual inspection and No submandibular swelling Chest Chest: normal inspection of the chest Resp Effort & Inspection: normal respiratory effort Auscultation: clear to auscultation bilaterally Cardio Rate: regular rate Rhythm: regular rhythm GI Inspection: normal to inspection, no abdominal wall ecchymosis and non-distended Palpation: soft, not firm and not rigid Auscultation: hypoactive bowel sounds Male General Exam: Yes normal external exam Back/Spine/Pelvis Thoracic/Lumbar Spine: thoracic and lumbar spine normal to inspection Skin General skin exam: no rashes or lesions noted Neuro General: moves all extremities (noted while attempting to achieve sedation) Extrem General: normal to inspection and no edema Psych Appearance: grossly normal Sign Out <DO Jonny Jimenez Last Filed: 04/13/23 01:26> Sign Out Data: Sign Out Comment: Multiple seizures yesterday and today. Intubated per EMS for airway protection. Difficult to achieve sedation. Currently on Versed and ketamine drips. Able to achieve brief sedation with bolus dose of rocuronium. Follow-up on imaging and final disposition. May consider rocuronium drip if needed. Propofol drip discontinued due to prolonged QT on EKG and risk of arrhythmia as patient is on methadone. Last updated by Cami Arteaga DO at 04/07/23 20:30
--- NOTE | 2023-04-07 18:45 | DI.CT_ITS ---
Exam(s) CT HEAD CERVICAL SPINE WO EXAM: CT HEAD CERVICAL SPINE WO CLINICAL HISTORY: status epilepticus, fall, r/o fracture. TECHNIQUE: Imaging Protocol: Axial computed tomography images with coronal and sagittal reformatted images were created and reviewed COMPARISON: CT CT HEAD WO from 01/09/2023 FINDINGS: Head CT Ventricles and Extra axial spaces: Normal in size and morphology for the patient's age. Hemorrhage: None. Cerebral parenchyma: Right frontal encephalomalacia again noted. No new abnormality. Midline shift: None. Brainstem/Cerebellum: Normal. Calvarium: Normal. Visualized Paranasal sinuses/Mastoids: Minimal ethmoid mucosal thickening. Some fluid/mucous in the nasal cavity. Cervical Spine CT BONES: Vertebral body heights are maintained. Alignment is normal. There is no evidence of acute frac ture. Degenerative disc changes and facet degenerative changes are seen . SOFT TISSUES: No paraspinal hematoma. Endotracheal and nasogastric tubes noted.. No pneumothorax is seen at the lung apices. IMPRESSION: Head CT: Stable area of right frontal encephalomalacia. No acute abnormality. C-spine CT: Degenerative changes, no acute abnormality. RADIATION DOSE DELIVERED: 1,443.74mGy.cm Total DLP DATA REPOSITORY: All CT scans at this facility are submitted to the National Radiology Data Registry (NRDR) Dose Index Registry (DIR) with the [employer] (ACR). RADIATION OPTIMIZATION: All CT scans at this facility use at least one of these dose optimization te chniques: automated exposure control; mA and/or kV adjustment per patient size (includes targeted exa ms where dose is matched to clinical indication); or iterative reconstruction.
--- NOTE | 2023-04-07 18:45 | DI.CT_ITS ---
Exam(s) CT CHEST PE ABD PELVIS W CT THORACIC LUMBAR SPINE REC EXAM: CT CHEST PE ABD PELVIS W CLINICAL HISTORY: status epilepticus, unresponsive. TECHNIQUE: Imaging Protocol: Axial computed tomography images with coronal and sagittal reformatted images were created and reviewed CONTRAST MATERIAL: Intravenous: Omnipaque 350 Contrast volume:100 ml Oral: / no COMPARISON: CT CT CHEST/ABD/PEL W from 06/12/2022 CR XR CLAVICLE RT from 07/06/[address] THORACIC LUMBAR SPINE REC from 04/07/2023 CR,XR XR PORTABLE CHEST AP from 04/07/2023 FINDINGS: CHEST: Endotracheal tube with tip in upper trachea. Nasogastric tube projects in stomach. Tracheobronchial tree: Patent where visualized. Pulmonary parenchyma: Patchy mild infiltrates in the right upper and left lower lobes. No consolidati on or dominant measurable mass. Pleura: No effusion or pneumothorax. Lymph nodes: Within normal limits. Aorta: Thoracic portion non-dilated. Heart: Normal size. No pericardial effusion. Bones: Fixation plate in left clavicle. Fracture peers nonunited.. No lytic or blastic lesions.No com pression fractures. ABDOMEN: Liver: Normal density. Area of low density seen anteriorly in the left lobe of the liver near the fal ciform ligament. This is not seen on the previous exam. This could represent a focal liver contusion in the setting of trauma. No perihepatic fluid.. Gallbladder and biliary tract: No radiodense calculus or dilation. Pancreas: Normal density, no abnormal calcifications or inflammatory process. Spleen: Normal. Kidneys: Normal size, contour and axis. No radiodense stones or obstructive uropathy. No suspicious m asses seen. Adrenal glands: No masses seen. Aorta: Abdominal portion non-dilated. Lymph nodes: Within normal limits. Soft tissues: Unremarkable. PELVIS: Bladder: Lemus catheter in bladder, unremarkable. Bowel: Limited evaluation due to lack of intra-abdominal fat and lack of oral contrast. No obstructi on or bowel wall thickening. Peritoneal cavity: No ascites, collection or mesenteric inflammatory response. Bones: Unremarkable for age.. No lumbar spine or pelvic fractures. Reproductive organs: Within normal limits. IMPRESSION: Mild patchy infiltrates right upper and left lower lobes. No evidence of pneumothorax, pleural perica rdial effusion. No thoracic spine or rib fracture. Low-density area anterior left lobe of the liver. This could represent a liver contusion. Mass could also be considered. No abnormality was seen in this location on the previous exam. A follow-up MRI is recommended. RADIATION DOSE DELIVERED: 1015.4 mGy.cm Total DLP DATA REPOSITORY: All CT scans at this facility are submitted to the National Radiology Data Registry (NRDR) Dose Index Registry (DIR) with the [employer] (ACR). RADIATION OPTIMIZATION: All CT scans at this facility use at least one of these dose optimization te chniques: automated exposure control; mA and/or kV adjustment per patient size (includes targeted exa ms where dose is matched to clinical indication); or iterative reconstruction.
[2023-04-07] MEDS: PROPOFOL 1,000 MG/100 ML BTL 10 MG (19:00)
[2023-04-07 19:05] LABS: BE 1 mmol/L (-2-3); HCO3 25 mmol/L (22-26); pCO2 41 mmHg (35-45); pO2 83 mmHg (80-105); sO2 97 % (95-98); tCO2 23 mmol/L (23-27)
[2023-04-07 19:07] LABS: Site Right Radial
[2023-04-07 19:08] LABS: FIO2 24 %
--- NOTE | 2023-04-07 19:10 | DI.VRAD_ITS ---
PROCEDURE INFORMATION: Exam: XR Chest Exam date and time: 04/07/2023 6:47 PM Age: 32 years old Clinical indication: Device placement; Ett placement (vent status) TECHNIQUE: Imaging protocol: Radiologic exam of the chest. Views: 1 view. COMPARISON: CR XR PORTABLE CHEST AP 06/13/2022 12:12 PM FINDINGS: Tubes, catheters and devices: Endotracheal tube is in good position with the tip 3.9 cm above the arthur. Lungs: Unremarkable. No consolidation. Pleural spaces: Unremarkable. No pleural effusion. No pneumothorax. Heart/Mediastinum: Unremarkable. No cardiomegaly. Bones/joints: Orthopedic plate remains in the right clavicle. IMPRESSION: Appropriate position of endotracheal tube Dictated and Authenticated by: Tristan Merchant MD. Ordering:SHELBY Almanza MD
[2023-04-07] MEDS: Normal Saline 1,000 ML 1000 ML IV (19:30)
[2023-04-07 19:34] LABS: Abs Immature Grans 0.03 10^3/uL (0.0-0.06); Absolute Basophil Count 0.01 10^3/uL (0.0-0.2); Absolute Lymphocyte Count 0.83 10^3/uL (1.2-3.4); Absolute Monocyte Count 0.45 10^3/uL (0.1-0.8); Absolute Neutrophil Count 3.81 10^3/uL (1.2-6.7); Basophils % 0.2; HCT 35.7 % (40.0-50.0); HGB 12.6 g/dL (13.5-17.5); Immature Grans % 0.6; Lymphocytes % 16.2; MCH 28.1 pg (27.0-33.0); MCHC 35.3 % (32.0-36.0); MCV 80 fL (80-95); Monocytes % 8.8; Neutrophils % 74.2; Platelet Count 115 10^3/uL (130-400); RBC 4.48 10^6/uL (4.36-5.78); RDW 13.6 % (11.8-14.1); RDW-SD 39.2 fL; WBC 5.13 10^3/uL (4.4-10.8)
[2023-04-07] MEDS: Midazolam 10 MG/2 ML VIAL NS (19:34)
[2023-04-07 19:42] LABS: INR 1.1 (0.9-1.1); PTT Activated 24.8 sec (21.5-31.9); Prothrombin Time 10.7 sec (9.3-11.0)
[2023-04-07] MEDS: levETIRAcetam 2,000 MG in Normal Saline 100 ML 400 MG IVPB (19:42)
[2023-04-07 19:46] LABS: Salicylate 4.2 mg/dL (<2.8)
[2023-04-07 19:47] LABS: Acetaminophen < 2 ug/mL (10-30)
[2023-04-07 19:48] LABS: ETHANOL BLOOD < 3.0 mg/dL (<10)
[2023-04-07 19:55] LABS: ALT 42 U/L (16-63); AST 53 U/L (15-37); Albumin 3.6 g/dL (3.4-5.0); Alkaline Phosphatase 75 U/L (46-116); Anion Gap 7.6 mmol/L (3-11); BUN 23 mg/dL (7-18); Bilirubin, Total 0.7 mg/dL (0.2-1.0); CO2 25.4 mmol/L (21.0-32.0); Calcium 8.4 mg/dL (8.5-10.1); Chloride 107 mmol/L (98-107); Estimated GFR 101.92 (mL/min/1.73m2); Glucose 112 mg/dL (74-106); Magnesium 2.4 mg/dL (1.8-2.4); Potassium 3.2 mmol/L (3.5-5.1); Sodium 140 mmol/L (136-145); Total Protein 8.2 g/dL (6.4-8.2); Troponin I < 50 ng/L (<or=60)
[2023-04-07] MEDS: Rocuronium 50 MG/5 ML SYR 100 MG IVP (20:00)
[2023-04-07] MEDS: Omnipaque 350 MG/ML 100 ML BTL IJ (20:37)
[2023-04-07] MEDS: Normal Saline - Diluent 50 ML VIAL IJ (20:37)
[2023-04-07] MEDS: Normal Saline Flush 10 ML SYR IVP (20:37)
[2023-04-07] MEDS: MIDAZOLAM 50 MG in Normal Saline 90 ML 16 MG IV (20:58)
--- NOTE | 2023-04-07 21:01 | DI.VRAD_ITS ---
PROCEDURE INFORMATION: Exam: CT Head Without Contrast Exam date and time: 04/07/2023 8:38 PM Age: 32 years old Clinical indication: Injury or trauma; Other: Status epilepticus, fall, R/O fracture TECHNIQUE: Imaging protocol: Computed tomography of the head without contrast. COMPARISON: MR BRAIN WO 02/15/2023 11:43 AM FINDINGS: Brain: Areas of gliosis and volume loss again seen in right frontal lobe which appear chronic and unchanged compared to prior MRI from February 15, 2023. Cerebrum is otherwise unremarkable. Nevarez-white matter differentiation is intact and otherwise unremarkable. No mass lesion is seen. No mass effect or midline shift. Thalamus is unremarkable. Cerebellum is unremarkable. No posterior fossa mass lesion or mass effect. No pathologic edema. No evidence of cerebellar hemorrhage. Brainstem is unremarkable. No evidence of pontine hemorrhage. No mass effect on the brainstem. Cerebral ventricles: No ventriculomegaly. Paranasal sinuses: Visualized sinuses are unremarkable. No fluid levels. Mastoid air cells: Visualized mastoid air cells are well aerated. Bones/joints: Unremarkable. No acute fracture. Soft tissues: Unremarkable. IMPRESSION: 1. No evidence of acute pathology. 2. Areas of gliosis and volume loss again seen in right frontal lobe which appear chronic and unchanged compared to prior MRI from February 15, 2023. PROCEDURE INFORMATION: Exam: CT Cervical Spine Without Contrast Exam date and time: 04/07/2023 8:38 PM Age: 32 years old Clinical indication: Injury or trauma; Other: Status epilepticus, fall, R/O fracture TECHNIQUE: Imaging protocol: Computed tomography of the cervical spine without contrast. COMPARISON: CT HEAD CERVICAL SPINE WO 06/12/2022 1:43 AM FINDINGS: Bones/joints: Degenerative disc disease with osteophytosis at C3-C4, C4-C5, and C5-C6. 4 mm diffuse posterior bulge is seen at C5-C6 with moderate canal stenosis. No fracture or dislocation. Lungs: Lung apices are normal. Soft tissues: Unremarkable. IMPRESSION: 1. No fracture or dislocation. 2. 4 mm diffuse posterior bulge is seen at C5-C6 with moderate canal stenosis. This finding appears chronic. Dictated and Authenticated by: Jessenia Cooper MD. Ordering:SHELBY Almanza MD
--- NOTE | 2023-04-07 21:20 | DI.VRAD_ITS ---
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 No evidence of acute fracture. Initial report created on 04/07/2023 9:19:47 PM EDT: PROCEDURE INFORMATION: Exam: CTA Chest With Contrast CTA Abdomen With Contrast Exam date and time: 04/07/2023 8:41 PM Age: 32 years old Clinical indication: Other: Status epilepticus, unresponsive TECHNIQUE: Imaging protocol: Computed tomographic angiography of the chest with contrast. Computed tomographic angiography of the abdomen with contrast. 3D rendering (Not supervised by radiologist): MIP and/or 3D reconstructed images were created by the technologist. Radiation optimization: All CT scans at this facility use at least one of these dose optimization techniques: automated exposure control; mA and/or kV adjustment per patient size (includes targeted exams where dose is matched to clinical indication); or iterative reconstruction. Contrast material: OMNI 350; Contrast volume: 100 ml; Contrast route: INTRAVENOUS (IV); COMPARISON: CT CHEST/ABD/PEL W 06/12/2022 1:49 AM FINDINGS: Tubes, catheters and devices: ET tube in place with tip in upper trachea. Nasogastric tube in place with tip in the stomach and in good position. VASCULATURE: Pulmonary arteries: No evidence of pulmonary embolism. Aorta: Aorta is unremarkable. No evidence of dissection. No evidence of aneurysm. Celiac trunk and mesenteric arteries: No occlusion or significant stenosis. Renal arteries: No occlusion or significant stenosis. CHEST: Lungs: Small areas of patchy parenchymal disease is seen in posterior segments of left lower lobe and right upper lobe. Pleural spaces: Unremarkable. No pneumothorax. No pleural effusion. Heart: Unremarkable. No cardiomegaly. No pericardial effusion. ABDOMEN AND PELVIS: Liver: Approximately 2.7 x 2.2 cm ill-defined hypodense mass lesion is seen in left lobe of liver adjacent to falciform ligament. Gallbladder and bile ducts: Unremarkable. No calcified stones. No ductal dilation. Pancreas: Unremarkable. No mass. No ductal dilation. Spleen: Unremarkable. No splenomegaly. Adrenal glands: Unremarkable. No mass. Kidneys and ureters: Unremarkable. No solid mass. No hydronephrosis. Stomach and bowel: Fluid-filled cecum and ascending colon. No areas of wall thickening in the large bowel. No evidence of large bowel obstruction. No pericolonic inflammatory changes to suggest acute diverticulitis. No wall thickening in the small bowel. No evidence of small bowel obstruction. Intraperitoneal space: Unremarkable. No free air. No significant fluid collection. Urinary bladder: Lemus balloon within urinary bladder. Lymph nodes: Unremarkable. No enlarged lymph nodes. Bones/joints: Unremarkable. No acute fracture. Soft tissues: Unremarkable. IMPRESSION: 1. Small areas of patchy parenchymal disease is seen in posterior segments of left lower lobe and right upper lobe. Findings are consistent with patchy early infiltrates. 2. No evidence of pulmonary embolism. No evidence of aortic dissection or aneurysm. 3. Approximately 2.7 x 2.2 cm ill-defined hypodense mass lesion is seen in left lobe of liver adjacent to falciform ligament. This finding is new compared to prior study of June 12, 2022.In a low-risk patient, further evaluation with non-emergent liver MRI is recommended. In a high-risk patient, further evaluation with non-emergent liver MRI or biopsy is recommended. If biopsy is pursued, core biopsy is preferred over fine-needle aspiration. (Reference: Agnes) 4. Fluid-filled cecum and ascending colon. No bowel wall thickening. No evidence of obstruction. REFERENCES: Agnes LORENZO, et al. Management of Incidental Liver Lesions on CT: A White Paper of the ACR Incidental Findings Committee. J Am Hua Radiol. 2017;14(11):8068-0727. Dictated and Authenticated by: Jessenia Cooper MD. Ordering:SHELBY Almanza MD
--- NOTE | 2023-04-07 21:20 | NUR.NOTE ---
Nursing Note: Patient arrived to the ED @ 18:33. Pt intubated in the field for seizure activity. Patient used cocaine all day per EMS. Recieved 40mg Versed, 6mg ativan, 215 ketamine, 250 fentanyl prior to arrival. EMS intubated pt with versed and succ. Pt arrived with 18G R arm and 20g L arm. Patient was mildly agitated upon arrival. Propofol drip was started at 1900 and this was stopped after the results of the EKG due to contraindication of affecting QT intervals. Fentanyl drip was initiated as well. MD gave verbal order for 2mg versed. This did not affect the patient and he only got more agitated. at 1920 4 mg versed was given with no change in agitation. at 1933 8 mg of versed was given and this also showed no change and pt remained agitated. At 1943 pt recieved 120mg IVP ketmaine. This produced minimal change in agitation. Fentanul drip was stopped at 1944 due to lack of efficacy. At 1999 50mg of rocuronium was administered and this proved effective. at 2014 patient was taken to Diagnostic imaging with two RNs, RT and and LIV. Patient remained safe and free of injury during this time. MD and RN continuing to monitor patient.
[2023-04-07] MEDS: Ketamine 500 MG/10 ML VIAL 120 MG IVP (21:37)
[2023-04-07] MEDS: Ketamine 50 MG/5 ML SYRINGE 200 MG IV ×2 (21:37→22:48)
[2023-04-07 21:40] LABS: Bilirubin Negative (Negative); Blood Small (Negative); Clarity Sl Cloudy (Clear); Glucose Negative (Negative); Ketones Negative (Negative); Leukocyte Esterase Negative (Negative); Nitrite Negative (Negative); Specific Gravity >= 1.030 (1.005-1.025); Urobilinogen 0.2 mg/dL (Up to 0.2); pH 5.5 (5-8)
[2023-04-07] MEDS: fentaNYL 1,000 MCG/20 ML VIAL 1000 MCG (21:41)
--- NOTE | 2023-04-07 21:41 | DI.VRAD_ITS ---
PROCEDURE INFORMATION: Exam: CT Thoracic Spine Without Contrast Exam date and time: 04/07/2023 8:41 PM Age: 32 years old Clinical indication: Other: Status epilepticus, R/O FX TECHNIQUE: Imaging protocol: Computed tomography of the thoracic spine without contrast. Radiation optimization: All CT scans at this facility use at least one of these dose optimization techniques: automated exposure control; mA and/or kV adjustment per patient size (includes targeted exams where dose is matched to clinical indication); or iterative reconstruction. COMPARISON: CT HEAD CERVICAL SPINE WO 04/07/2023 8:38 PM FINDINGS: Bones/joints: Vertebral body heights are within normal limits. No evidence of compression fracture. No evidence of acute fracture. No disc protrusion or extrusion. Soft tissues: Unremarkable. IMPRESSION: Vertebral body heights are within normal limits. No evidence of compression fracture. No evidence of acute fracture. PROCEDURE INFORMATION: Exam: CT Lumbar Spine Without Contrast Exam date and time: 04/07/2023 8:41 PM Age: 32 years old Clinical indication: Other: Status epilepticus, R/O FX TECHNIQUE: Imaging protocol: Computed tomography of the lumbar spine without contrast. Radiation optimization: All CT scans at this facility use at least one of these dose optimization techniques: automated exposure control; mA and/or kV adjustment per patient size (includes targeted exams where dose is matched to clinical indication); or iterative reconstruction. COMPARISON: CT CHEST/ABD/PEL W 06/12/2022 1:49 AM FINDINGS: Bones/joints: Vertebral body heights are within normal limits. No evidence of compression fracture. No evidence of acute fracture. No disc protrusion or extrusion. L1-L2: No significant disc bulge or herniation. No severe spinal canal stenosis. No significant neural foraminal narrowing. L2-L3: No significant disc bulge or herniation. No severe spinal canal stenosis. No significant neural foraminal narrowing. L3-L4: No significant disc bulge or herniation. No severe spinal canal stenosis. No significant neural foraminal narrowing. L4-L5: No significant disc bulge or herniation. No severe spinal canal stenosis. No significant neural foraminal narrowing. L5-S1: No significant disc bulge or herniation. No severe spinal canal stenosis. No significant neural foraminal narrowing. Soft tissues: Unremarkable. IMPRESSION: Vertebral body heights are within normal limits. No evidence of compression fracture. No evidence of acute fracture. Dictated and Authenticated by: Jessenia Cooper MD. Ordering:SHELBY Almanza MD
[2023-04-07 21:44] LABS: Bacteria Rare HPF (Negative); Crystals Negative HPF (Negative); Epithelial Cells Negative HPF (Negative); Mucus Negative (Negative); WBC Negative HPF (0-5)
[2023-04-07 21:45] LABS: C & S Indicated? No; Casts 3-5 Hyaline LPF (Negative)
[2023-04-07 21:50] LABS: *AMPHETAMINES SCREEN URINE Negative (Negative); *BARBITURATES SCREEN URINE Negative (Negative); *BENZODIAZEPINES SCREEN URINE Positive (Negative); Cannabinoids THC Positive (Negative); Cocaine Screen,Urine Positive (Negative); METHADONE URINE SCREEN Positive (Negative); OPIATES URINE SCREEN Negative (Negative)
[2023-04-07 21:51] LABS: Tricyclic Antidepressants Negative (Negative)
--- NOTE | 2023-04-07 21:59 | HPE_ITS ---
Date of service: 04/07/23 Time of Service: 21:59 Assessment and Plan Assessment and plan (1) Acute hypoxemic respiratory failure: Start date: 04/07/23 Status: Acute Assessment and plan: Acute respiratory failure in a 32-year-old gentleman with polysubstance abuse on chronic high-dose methadone and Neurontin who was intubated at the scene because of gurgling respirations and overdose having recently snorted cocaine and fentanyl by history. He was stabilized in the ED and did have possible aspiration pneumonia which will be covered with clindamycin IV. He was requiring increased sedation because of seizures and agitation. Labs were stabilizing. Patient is a full code. Long-term assessment of polysubstance abuse and drug abuse will be a challenge. (2) Drug overdose: Start date: 04/07/23 Status: Acute Assessment and plan: Report was that patient was snorting cocaine with fentanyl and prior to his exacerbation of seizure disorder and respiratory failure at the scene. He now has airway protection and is intubated with mechanical ventilation. (3) Seizure: Start date: 04/07/23 Status: Acute Assessment and plan: Patient was having acute seizures recurrently days prior to admission and reviewing outpatient medication list he is not actively on a Keppra though this has been prescribed recently. Compliance may be an issue and drug abuse c ertainly complicates his seizure disorder. (4) Aspiration pneumonia: Start date: 04/07/23 Status: Acute Assessment and plan: Imaging reveals possible aspiration with patient started on clindamycin and this could be changed to Unasyn with review in the morning by day hospitalist and data processing auditor. Physical findings of minimal on exam of acute pneumonic process. He is oxygenating well. (5) Opioid abuse: Status: Chronic Assessment and plan: Patient is chronically on methadone and obviously continues to use street drugs by history. Long-term prognosis poor if he continues this behavior. Once stabilized patient should increase outpatient therapy and counseling. History of Present Illness History of Present Illness Chief Complaint: Respiratory arrest and seizure with multi drug overdose Narrative: This is a 32-year-old male patient who chronically has high-dose methadone 100 mg daily with high-dose gabapentin at 800 mg 3 times daily and history of seizure disorder who is still having polysubstance abuse and was brought in from home after multiple seizures over the last few days with reported 40-minute seizure on the scene when EMS picked up patient before admission. He was given multiple doses of Versed, Ativan, ketamine and fentanyl and was having gurgling respirations with respiratory failure at the scene prompting intubation. He was not breathing normally andneeded airway protection. He had no obvious acute trauma though he had multiple abrasions over his extremities from his seizures over the days. In the ED propofol was stopped because of QT prolongation and eventually he was stabilized on a Versed and ketamine infusion after 1 dose of MEGAN 50 mg with fentanyl infusion stopped also because of QT prolongation. QTc was prolonged up to 566. Patient's heart rhythm was regular and stable at transfer to the ICU. Extensive imaging revealed no acute injuries from his seizures and trauma. He was loaded with Cerebyx and Keppra. Patient was stable when brought to the ICU and is a full code. Patient was not able to offer further history. Review of Systems Narrative: Review of systems unobtainable with patient sedated and intubated. [facility] All Active Problems (Updated 04/08/23 @ 07:03 by Tyler Vega) Acute hypoxemic respiratory failure (Acute) Aspiration pneumonia (Acute) Chronic pain of left knee (Acute 01/13/16) : patellar tendonitis Depressive disorder (Acute) Gastroesophageal reflux disease (Acute 04/03/14) gastroscopy 2011: negative [facility] Idiopathic scoliosis (Acute) Wingspan/height difference; height 72/wingspan 73 Smoker (Acute) 10/2022-1 ppd, about 15 pk yr Opioid abuse (Chronic) followed by [facility] since 2011, on methadone History of bone graft (Acute) Fracture of tibia (Acute) Leg pain, bilateral (Acute) 2020- chronic bilat leg pain s/p injury-on gabapentin Mouth pain (Acute) 12/2021 Tachycardia (Acute) 12/2021, heart rate 150-patient made informed decision and declined evaluation Abnormal brain MRI (Acute) Drug overdose (Acute) Seizure (Acute) Medical History Closed right clavicular fracture Closed traumatic fracture of ribs of left side with pneumothorax Surgical History H/O arthroscopic knee surgery Hx of wisdom tooth extraction Social History Smoking/Tobacco Use Status: Current every day Tobacco Type: cigarettes Years smoked: 15 Smoking risk assessment performed?: Yes Alcohol Intake: current Alcohol Intake frequency: a few times a week Alcohol type: beer Drug use: Occasionally Substance use type: marijuana and crack/cocaine Current gender identity: male Do you feel safe at home: Yes Do you feel safe in your relationship?: Yes Meds Allergies and Home Medications Allergies Allergy/AdvReac Type Severity Reaction Status Date / Time No Known Allergies Allergy Unverified 03/14/23 08:08 Home Medications Medication Instructions Recorded Confirmed Type methadone 10 mg/5 mL oral solution 190 mg PO DAILY #0 tab-caps 06/26/18 03/14/23 History acetaminophen 500 mg tablet 500 mg PO TID PRN 04/28/22 03/14/23 History albuterol sulfate 90 mcg/actuation 1 - 2 puff inhalation Q6H PRN ##2 12/06/22 03/14/23 Rx aerosol inhaler (ProAir HFA) gabapentin 800 mg tablet 800 mg PO TID #270 tabs 12/06/22 03/14/23 Rx Exam Narrative Exam Narrative: General: Patient appears older than stated age, tall and thin, sedated and intubated but appears comfortable without seizure activity being paralyzed with rocuronium and now on Versed and ketamine drip. He appears traumatized over most of his body. HEENT, normocephalic, slightly traumatic face with abrasions which are superficial without swelling or bruising, eyes when opened head pupils equal and reactive to light symmetrically and normal size, extraocular movement appears to be grossly intact by head movement and sclera anicteric. Oropharynx with moist Koza and patient intubated. Neck: Supple without JVD. Back: Scoliotic by history. Lungs: Fair aeration and clear with ventilated inspiration, no focalizing rales or rhonchi. No increased expiratory phase or expiratory wheeze. Heart: Regular rate and rhythm but distant heart sounds and no murmurs or gallop appreciated. Abdomen: Scaphoid contour, soft and nontender to palpation with no palpable hepatosplenomegaly. Genitalia/rectal: External genitalia appear normal with Lemus catheter in place, rectal deferred. Skin: Normal color with extensive tattoos especially over left upper extremity, multiple abrasions which are variable ages over extremities with some bruising without induration over extremities and specifically an abrasion over his left second MCP dorsal knuckle without deformity of hand. Skin is warm and dry. Neuro: Patient is paralyzed. Current nerves II to XII not testable but appear grossly intact by history and what is testable. Patient did have seizure activity upon presentation without tremor presently being paralyzed. Psych: Sedated and paralyzed for intubation and mechanical ventilation. Mood, affect, thought processes and memory not testable. Results Imaging Imaging Studies: Exam: CT Head Without Contrast Exam date and time: 04/07/2023 8:38 PM Age: 32 years old Clinical indication: Injury or trauma; Other: Status epilepticus, fall, R/O fracture TECHNIQUE: Imaging protocol: Computed tomography of the head without contrast. COMPARISON: MR BRAIN WO 02/15/2023 11:43 AM FINDINGS: Brain: Areas of gliosis and volume loss again seen in right frontal lobe which appear chronic and unchanged compared to prior MRI from February 15, 2023. Cerebrum is otherwise unremarkable. Nevarez-white matter differentiation is intact and otherwise unremarkable. No mass lesion is seen. No mass effect or midline shift. Thalamus is unremarkable. Cerebellum is unremarkable. No posterior fossa mass lesion or mass effect. No pathologic edema. No evidence of cerebellar hemorrhage. Brainstem is unremarkable. No evidence of pontine hemorrhage. No mass effect on the brainstem. Cerebral ventricles: No ventriculomegaly. Paranasal sinuses: Visualized sinuses are unremarkable. No fluid levels. Mastoid air cells: Visualized mastoid air cells are well aerated. Bones/joints: Unremarkable. No acute fracture. Soft tissues: Unremarkable. IMPRESSION: 1. ? No evidence of acute pathology. 2. ? Areas of gliosis and volume loss again seen in right frontal lobe which appear chronic and unchanged compared to prior MRI from February 15, 2023. PROCEDURE INFORMATION: Exam: CT Cervical Spine Without Contrast Exam date and time: 04/07/2023 8:38 PM Age: 32 years old Clinical indication: Injury or trauma; Other: Status epilepticus, fall, R/O fracture TECHNIQUE: Imaging protocol: Computed tomography of the cervical spine without contrast. COMPARISON: CT HEAD CERVICAL SPINE WO 06/12/2022 1:43 AM FINDINGS: Bones/joints: Degenerative disc disease with osteophytosis at C3-C4, C4-C5, and C5-C6. 4 mm diffuse posterior bulge is seen at C5-C6 with moderate canal stenosis. No fracture or dislocation. Lungs: Lung apices are normal. Soft tissues: Unremarkable. IMPRESSION: 1. ? No fracture or dislocation. 2. ? 4 mm diffuse posterior bulge is seen at C5-C6 with moderate canal stenosis. This finding appears chronic. Exam(s) Addendum created by Jessenia Cooper MD on 04/07/2023 9:37:18 PM EDT: ADDENDUM:? Internal fixation plates and screws are seen in right clavicle with surgical nonunion. No evidence of acute fracture. Initial report created on 04/07/2023 9:19:47 PM EDT: PROCEDURE INFORMATION: Exam: CTA Chest With Contrast CTA Abdomen With Contrast Exam date and time: 04/07/2023 8:41 PM Age: 32 years old Clinical indication: Other: Status epilepticus, unresponsive TECHNIQUE: Imaging protocol: Computed tomographic angiography of the chest with contrast. Computed tomographic angiography of the abdomen with contrast. 3D rendering (Not supervised by radiologist): MIP and/or 3D reconstructed images were created by the technologist. Radiation optimization: All CT scans at this facility use at least one of these dose optimization techniques: automated exposure control; mA and/or kV adjustment per patient size (includes targeted exams where dose is matched to clinical indication); or iterative reconstruction. Contrast material: OMNI 350; Contrast volume: 100 ml; Contrast route: INTRAVENOUS (IV);? COMPARISON: CT CHEST/ABD/PEL W 06/12/2022 1:49 AM FINDINGS: Tubes, catheters and devices: ET tube in place with tip in upper trachea. Nasogastric tube in place with tip in the stomach and in good position. VASCULATURE: Pulmonary arteries: No evidence of pulmonary embolism. Aorta: Aorta is unremarkable. No evidence of dissection. No evidence of aneurysm. Celiac trunk and mesenteric arteries: No occlusion or significant stenosis. Renal arteries: No occlusion or significant stenosis. CHEST: Lungs: Small areas of patchy parenchymal disease is seen in posterior segments of left lower lobe and right upper lobe. Pleural spaces: Unremarkable. No pneumothorax. No pleural effusion. Heart: Unremarkable. No cardiomegaly. No pericardial effusion. ABDOMEN AND PELVIS: Liver: Approximately 2.7 x 2.2 cm ill-defined hypodense mass lesion is seen in left lobe of liver adjacent to falciform ligament. Gallbladder and bile ducts: Unremarkable. No calcified stones. No ductal dilation. Pancreas: Unremarkable. No mass. No ductal dilation. Spleen: Unremarkable. No splenomegaly. Adrenal glands: Unremarkable. No mass. Kidneys and ureters: Unremarkable. No solid mass. No hydronephrosis. Stomach and bowel: Fluid-filled cecum and ascending colon. No areas of wall thickening in the large bowel. No evidence of large bowel obstruction. No pericolonic inflammatory changes to suggest acute diverticulitis. No wall thickening in the small bowel. No evidence of small bowel obstruction. Intraperitoneal space: Unremarkable. No free air. No significant fluid collection. Urinary bladder: Lemus balloon within urinary bladder. Lymph nodes: Unremarkable. No enlarged lymph nodes. Bones/joints: Unremarkable. No acute fracture. Soft tissues: Unremarkable. IMPRESSION: 1. ? Small areas of patchy parenchymal disease is seen in posterior segments of left lower lobe and right upper lobe. Findings are consistent with patchy early infiltrates. 2. ? No evidence of pulmonary embolism.? No evidence of aortic dissection or aneurysm. 3. ? Approximately 2.7 x 2.2 cm ill-defined hypodense mass lesion is seen in left lobe of liver adjacent to falciform ligament. This finding is new compared to prior study of June 12, 2022.In a low-risk patient, further evaluation with non-emergent liver MRI is recommended. In a high-risk patient, further evaluation with non-emergent liver MRI or biopsy is recommended. If biopsy is pursued, core biopsy is preferred over fine-needle aspiration. (Reference: [place]) 4. ? Fluid-filled cecum and ascending colon.? No bowel wall thickening. No evidence of obstruction. Exam: CT Thoracic Spine Without Contrast Exam date and time: 04/07/2023 8:41 PM Age: 32 years old Clinical indication: Other: Status epilepticus, R/O FX TECHNIQUE: Imaging protocol: Computed tomography of the thoracic spine without contrast. Radiation optimization: All CT scans at this facility use at least one of these dose optimization techniques: automated exposure control; mA and/or kV adjustment per patient size (includes targeted exams where dose is matched to clinical indication); or iterative reconstruction. COMPARISON: CT HEAD CERVICAL SPINE WO 04/07/2023 8:38 PM FINDINGS: Bones/joints: Vertebral body heights are within normal limits. No evidence of compression fracture. No evidence of acute fracture. No disc protrusion or extrusion. Soft tissues: Unremarkable. IMPRESSION: Vertebral body heights are within normal limits. No evidence of compression fracture. No evidence of acute fracture. PROCEDURE INFORMATION: Exam: CT Lumbar Spine Without Contrast Exam date and time: 04/07/2023 8:41 PM Age: 32 years old Clinical indication: Other: Status epilepticus, R/O FX TECHNIQUE: Imaging protocol: Computed tomography of the lumbar spine without contrast. Radiation optimization: All CT scans at this facility use at least one of these dose optimization techniques: automated exposure control; mA and/or kV adjustment per patient size (includes targeted exams where dose is matched to clinical indication); or iterative reconstruction. COMPARISON: CT CHEST/ABD/PEL W 06/12/2022 1:49 AM FINDINGS: Bones/joints: Vertebral body heights are within normal limits. No evidence of compression fracture. No evidence of acute fracture. No disc protrusion or extrusion. L1-L2: No significant disc bulge or herniation. No severe spinal canal stenosis. No significant neural foraminal narrowing. L2-L3: No significant disc bulge or herniation. No severe spinal canal stenosis. No significant neural foraminal narrowing. L3-L4: No significant disc bulge or herniation. No severe spinal canal stenosis. No significant neural foraminal narrowing. L4-L5: No significant disc bulge or herniation. No severe spinal canal stenosis. No significant neural foraminal narrowing. L5-S1: No significant disc bulge or herniation. No severe spinal canal stenosis. No significant neural foraminal narrowing. Soft tissues: Unremarkable. IMPRESSION: Vertebral body heights are within normal limits. No evidence of compression fracture. No evidence of acute fracture. Labs 04/07/23 18:20 04/07/23 18:20 Labs: Laboratory Results - last 24 hr 04/07/23 04/07/23 04/07/23 18:20 18:20 18:20 WBC 5.13 RBC 4.48 Hgb 12.6 L Hct 35.7 L MCV 80 MCH 28.1 MCHC 35.3 RDW 13.6 Plt Count 115 L MPV 12.0 H Immature Gran % 0.6 Neutrophils % 74.2 Lymphocytes % 16.2 Monocytes % 8.8 Eosinophils % 0.0 Basophils % 0.2 Nucleated RBC % 0.0 Absolute Neutrophils 3.81 Absolute Lymphocytes 0.83 L Absolute Monocytes 0.45 Absolute Eosinophils 0.00 Absolute Basophils 0.01 PT 10.7 INR 1.1 APTT 24.8 ABG Sample Site ABG pH ABG pCO2 ABG pO2 ABG HCO3 ABG Total CO2 ABG O2 Saturation ABG Base Excess Oxygen Liter Flow FiO2 Sodium 140 Potassium 3.2 L Chloride 107 Carbon Dioxide 25.4 Anion Gap 7.6 BUN 23 H Creatinine 1.0 Est GFR (CKD-EPI 2020) 101.92 Glucose 112 H Calcium 8.4 L Magnesium 2.4 Total Bilirubin 0.7 AST 53 H ALT 42 Alkaline Phosphatase 75 Troponin I < 50 Total Protein 8.2 Albumin 3.6 Urine Color Urine Clarity Urine pH Ur Specific [place] Urine Protein Urine Ketones Urine Blood Urine Nitrite Urine Bilirubin Urine Urobilinogen Ur Leukocyte Esterase Urine RBC Urine WBC Ur Epithelial Cells Urine Crystals Urine Bacteria Urine Casts Urine Mucus Ur Culture Indicated? Urine Glucose Salicylates Urine Opiates Screen Urine Methadone Screen Acetaminophen Ur Barbiturates Screen Ur Tricyclics Screen Ur Amphetamines Screen U Benzodiazepines Scrn Urine Cocaine Screen Ur THC Screen Ethyl Alcohol 04/07/23 04/07/23 04/07/23 18:20 18:20 19:03 WBC RBC Hgb Hct MCV MCH MCHC RDW Plt Count MPV Immature Gran % Neutrophils % Lymphocytes % Monocytes % Eosinophils % Basophils % Nucleated RBC % Absolute Neutrophils Absolute Lymphocytes Absolute Monocytes Absolute Eosinophils Absolute Basophils PT INR APTT ABG Sample Site Right Radial ABG pH 7.40 ABG pCO2 41 ABG pO2 83 ABG HCO3 25 ABG Total CO2 23 ABG O2 Saturation 97 ABG Base Excess 1 Oxygen Liter Flow VT470/R12/P5 FiO2 24 Sodium Potassium Chloride Carbon Dioxide Anion Gap BUN Creatinine Est GFR (CKD-EPI 2020) Glucose Calcium Magnesium Total Bilirubin AST ALT Alkaline Phosphatase Troponin I Total Protein Albumin Urine Color Urine Clarity Urine pH Ur Specific [place] Urine Protein Urine Ketones Urine Blood Urine Nitrite Urine Bilirubin Urine Urobilinogen Ur Leukocyte Esterase Urine RBC Urine WBC Ur Epithelial Cells Urine Crystals Urine Bacteria Urine Casts Urine Mucus Ur Culture Indicated? Urine Glucose Salicylates 4.2 Urine Opiates Screen Urine Methadone Screen Acetaminophen < 2 Ur Barbiturates Screen Ur Tricyclics Screen Ur Amphetamines Screen U Benzodiazepines Scrn Urine Cocaine Screen Ur THC Screen Ethyl Alcohol < 3.0 04/07/23 04/07/23 20:55 20:55 WBC RBC Hgb Hct MCV MCH MCHC RDW Plt Count MPV Immature Gran % Neutrophils % Lymphocytes % Monocytes % Eosinophils % Basophils % Nucleated RBC % Absolute Neutrophils Absolute Lymphocytes Absolute Monocytes Absolute Eosinophils Absolute Basophils PT INR APTT ABG Sample Site ABG pH ABG pCO2 ABG pO2 ABG HCO3 ABG Total CO2 ABG O2 Saturation ABG Base Excess Oxygen Liter Flow FiO2 Sodium Potassium Chloride Carbon Dioxide Anion Gap BUN Creatinine Est GFR (CKD-EPI 2020) Glucose Calcium Magnesium Total Bilirubin AST ALT Alkaline Phosphatase Troponin I Total Protein Albumin Urine Color Yellow Urine Clarity Sl Cloudy Urine pH 5.5 Ur Specific [place] >= 1.030 H Urine Protein 100 H Urine Ketones Negative Urine Blood Small H Urine Nitrite Negative Urine Bilirubin Negative Urine Urobilinogen 0.2 Ur Leukocyte Esterase Negative Urine RBC 10-20 H Urine WBC Negative Ur Epithelial Cells Negative Urine Crystals Negative Urine Bacteria Rare Urine Casts 3-5 Hyaline Urine Mucus Negative Ur Culture Indicated? No Urine Glucose Negative Salicylates Urine Opiates Screen Negative Urine Methadone Screen Positive A Acetaminophen Ur Barbiturates Screen Negative Ur Tricyclics Screen Negative Ur Amphetamines Screen Negative U Benzodiazepines Scrn Positive A Urine Cocaine Screen Positive A Ur THC Screen Positive A Ethyl Alcohol Last Vital Signs Temp 36.9 C 04/07/23 18:37 Pulse 99 H 04/07/23 18:37 Resp 12 04/07/23 21:47 BP 132/82 04/07/23 19:10 Pulse Ox 98 04/07/23 19:10 Time Spent Time spent with Patient: >75 minutes Time was spent: preparing to see the patient(eg.review tests), obtaining and/or reviewing separately otained hiistory, ordering medications,tests, procedures, referring, communicating with other health veterinarian laboratory animal care, indepentently interpreting results and care coordination
[2023-04-07] MEDS: POTASSIUM CHLORIDE/0.9% NACL 1,000 ML 125 MEQ IV (23:30)
[2023-04-08] VITALS (50 sets, daily range): BP systolic 107–158; BP diastolic 51–99; PULSE 66–93; RESP 12–34; TEMP 36.8–38.3; O2SAT 87–100
[2023-04-08] MEDS: Heparin 5,000 UNITS/ML VIAL 5000 UNITS SC ×4 (00:04→23:31)
[2023-04-08] MEDS: CLINDAMYCIN 600 MG/50 ML BAG 100 MG IVPB (00:05)
[2023-04-08] MEDS: MIDAZOLAM 50 MG in Normal Saline 90 ML 12 MG IV (01:16)
[2023-04-08 07:03] LABS: HCT 34.5 % (40.0-50.0); HGB 12.2 g/dL (13.5-17.5); MCH 28.9 pg (27.0-33.0); MCHC 35.4 % (32.0-36.0); MCV 82 fL (80-95); MPV 13.2 fL (8.0-11.0); RBC 4.22 10^6/uL (4.36-5.78); RDW 14.4 % (11.8-14.1); RDW-SD 42.1 fL; WBC 5.99 10^3/uL (4.4-10.8)
[2023-04-08] MEDS: Normal Saline Flush 10 ML SYR IVP ×3 (07:09→20:14)
--- NOTE | 2023-04-08 07:14 | PDOC.ANES ---
Date of service: 04/07/23 Time of Service: 23:05 Anesthesia Note Report Anesthesia Note: Paged by hospitalist to discuss sedation of patient on high dose Ketamine. Reviewed medication administration chart and noted patient to be on Ketamine 2.5 mg/kg/hr. Verbalized to hospitalist that was highest dose of ED protocol and suggested use of other infusions to include Propofol and Precedex. Hospitalist declined my offer to come to bedside to assess and offer suggestions on sedation management.
[2023-04-08] MEDS: POTASSIUM CHLORIDE/0.9% NACL 1,000 ML 125 MEQ IV (07:30)
[2023-04-08 07:31] LABS: Lab Add On Test DONE
[2023-04-08 07:39] LABS: Platelet Count 97 10^3/uL (130-400)
--- NOTE | 2023-04-08 08:00 | W.PULMCC ---
General Date of Service Date of service: 04/08/23 Time of Service: 08:00 Reason for Admission to ICU: Seizure Drug Overdose Obtundation Assessment and Plan Assessment and plan (1) Acute hypoxemic respiratory failure: Status: Acute (2) Agitation: Status: Acute (3) Anemia: Status: Chronic (4) Thrombocytopenia: Status: Chronic (5) Hypokalemia: Status: Acute (6) Aspiration into airway: Status: Acute (7) Drug overdose: Status: Acute (8) Encephalomalacia: Status: Acute (9) Hypocalcemia: Status: Acute (10) Elevated creatine kinase: Status: Acute (11) Seizure: Status: Acute Assessment and plan: This is a 32 yo with history of multisubstance use disorder, right frontal lobe encephalomalacia and seizure on Keppra as an outpatient who was intubated for airway protection in the setting of drug overdose and seizure. He received an atypical sedation regimen overnight but I was able to stop all medications and extubate him this morning. I recommend continuing Keppra IV 1g bid until neurology weighs in. Recommendations Pulmonary: Hypoxic respiratory failure - s/p mechanical ventilation - extubated this morning - supplemental O2 for sats >90% Cardiac: Prolonged QTc - continue to monitor Renal: Elevated CPK - in setting of seizure and overdose with agitation Hypokalemia - replace to 4.0 I&O: Intake & Output 04/05/23 04/06/23 04/07/23 04/08/23 23:59 23:59 23:59 23:59 Intake Total 1506.124 / 1506.124 337.505 / 337.505 Output Total 600 / 600 1125 / 1125 Balance 906.124 / 906.124 -787.495 / -787.495 Weight 60 kg 60 kg Daily Fluid Goal:: even GI Nutrition: Ok for diet today Infectious Disease: Aspiration - recommend Unasyn/Augmentin for 3 days Hematologic: Thrombocytopenia - outpatient evaluation - continue to monitor Anemia - outpatient evalutaiton - conitnue to monitor Neurologic: Seizure - s/p 2g Keppra load - Keppra 1g bid for now - recommend neurology consultation - Keppra level ordered Encephalomalacia - chronic, sees neurology as outpt Drug overdose - extubated and stable Endocrine: No acute concerns Lines: Pantoja PIV ETT - removed this morning Prophylaxis: heparin Code Status: Resuscitation Status Full Code Subjective Critical and life-threatening events over the past 24 hours: This is a 32 yo with known right frontol lobe encephalomalacia and is followed by Dr. Vivas who has him on Keppra 500mg bid.He has had a recent EEG which was normal and his MR Brain recently done shows stability of the encephalomalacia area. Per report, he has multiple seizures in the setting of cocaine and fentanyl use. He required sedation and intubation for agitation per documentation, not for status epilepticus. He was discontinued from propofol for prolonged QTc, although any sedation will prolong the QTC by way of decreasing heart rate. He was also given exceedingly large doses of ketamine for 'sedation' and multiple doses of paralytics for 'agitation'. The details of all of this are not overly clear. Neurology was not called overnight. This morning he did fine on an SBT briefly and was following commands and was calm, so I extubated him. Exam Narrative Exam Narrative: Gen: NAD, intubated and sedated, thin HENT: PERRL, dried blood on cheek Chest: No respiratory distress, normal appearance of chest, clear to auscultation bilaterally, no crackles or wheezes, normal inspiratory effort Heart: regular rate and rhythym, no murmurs, rubs or gallops Abdomen: Non-distended, soft, non tender Extremities: No clubbing, edema, cyanosis, rashes Neuro: intubated and sedated Psych: intubated and sedated Most Recent VS/Results Last Vital Signs Temp 37.2 C 04/08/23 07:10 Pulse 74 04/08/23 07:00 Resp 20 04/08/23 07:10 BP 128/76 04/08/23 07:00 Pulse Ox 98 04/08/23 07:26 Laboratory Results - last 24 hr 04/07/23 04/07/23 04/07/23 18:20 18:20 18:20 WBC 5.13 RBC 4.48 Hgb 12.6 L Hct 35.7 L MCV 80 MCH 28.1 MCHC 35.3 RDW 13.6 Plt Count 115 L MPV 12.0 H Immature Gran % 0.6 Neutrophils % 74.2 Lymphocytes % 16.2 Monocytes % 8.8 Eosinophils % 0.0 Basophils % 0.2 Nucleated RBC % 0.0 Absolute Neutrophils 3.81 Absolute Lymphocytes 0.83 L Absolute Monocytes 0.45 Absolute Eosinophils 0.00 Absolute Basophils 0.01 PT 10.7 INR 1.1 APTT 24.8 ABG Sample Site ABG pH ABG pCO2 ABG pO2 ABG HCO3 ABG Total CO2 ABG O2 Saturation ABG Base Excess Oxygen Liter Flow FiO2 Sodium 140 Potassium 3.2 L Chloride 107 Carbon Dioxide 25.4 Anion Gap 7.6 BUN 23 H Creatinine 1.0 Est GFR (CKD-EPI 2020) 101.92 Glucose 112 H Calcium 8.4 L Magnesium 2.4 Total Bilirubin 0.7 AST 53 H ALT 42 Alkaline Phosphatase 75 Troponin I < 50 Total Protein 8.2 Albumin 3.6 Urine Color Urine Clarity Urine pH Ur Specific [place] Urine Protein Urine Ketones Urine Blood Urine Nitrite Urine Bilirubin Urine Urobilinogen Ur Leukocyte Esterase Urine RBC Urine WBC Ur Epithelial Cells Urine Crystals Urine Bacteria Urine Casts Urine Mucus Ur Culture Indicated? Urine Glucose Salicylates Urine Opiates Screen Urine Methadone Screen Acetaminophen Ur Barbiturates Screen Ur Tricyclics Screen Ur Amphetamines Screen U Benzodiazepines Scrn Urine Cocaine Screen Ur THC Screen Ethyl Alcohol Add-On Test Request 04/07/23 04/07/23 04/07/23 18:20 18:20 19:03 WBC RBC Hgb Hct MCV MCH MCHC RDW Plt Count MPV Immature Gran % Neutrophils % Lymphocytes % Monocytes % Eosinophils % Basophils % Nucleated RBC % Absolute Neutrophils Absolute Lymphocytes Absolute Monocytes Absolute Eosinophils Absolute Basophils PT INR APTT ABG Sample Site Right Radial ABG pH 7.40 ABG pCO2 41 ABG pO2 83 ABG HCO3 25 ABG Total CO2 23 ABG O2 Saturation 97 ABG Base Excess 1 Oxygen Liter Flow VT470/R12/P5 FiO2 24 Sodium Potassium Chloride Carbon Dioxide Anion Gap BUN Creatinine Est GFR (CKD-EPI 2020) Glucose Calcium Magnesium Total Bilirubin AST ALT Alkaline Phosphatase Troponin I Total Protein Albumin Urine Color Urine Clarity Urine pH Ur Specific [place] Urine Protein Urine Ketones Urine Blood Urine Nitrite Urine Bilirubin Urine Urobilinogen Ur Leukocyte Esterase Urine RBC Urine WBC Ur Epithelial Cells Urine Crystals Urine Bacteria Urine Casts Urine Mucus Ur Culture Indicated? Urine Glucose Salicylates 4.2 Urine Opiates Screen Urine Methadone Screen Acetaminophen < 2 Ur Barbiturates Screen Ur Tricyclics Screen Ur Amphetamines Screen U Benzodiazepines Scrn Urine Cocaine Screen Ur THC Screen Ethyl Alcohol < 3.0 Add-On Test Request 04/07/23 04/07/23 04/08/23 20:55 20:55 05:44 WBC RBC Hgb Hct MCV MCH MCHC RDW Plt Count MPV Immature Gran % Neutrophils % Lymphocytes % Monocytes % Eosinophils % Basophils % Nucleated RBC % Absolute Neutrophils Absolute Lymphocytes Absolute Monocytes Absolute Eosinophils Absolute Basophils PT INR APTT ABG Sample Site ABG pH ABG pCO2 ABG pO2 ABG HCO3 ABG Total CO2 ABG O2 Saturation ABG Base Excess Oxygen Liter Flow FiO2 Sodium Cancelled Potassium Cancelled Chloride Cancelled Carbon Dioxide Cancelled Anion Gap Cancelled BUN Cancelled Creatinine Cancelled Est GFR (CKD-EPI 2020) Cancelled Glucose Cancelled Calcium Cancelled Magnesium Total Bilirubin Cancelled AST Cancelled ALT Cancelled Alkaline Phosphatase Cancelled Troponin I Total Protein Cancelled Albumin Cancelled Urine Color Yellow Urine Clarity Sl Cloudy Urine pH 5.5 Ur Specific [place] >= 1.030 H Urine Protein 100 H Urine Ketones Negative Urine Blood Small H Urine Nitrite Negative Urine Bilirubin Negative Urine Urobilinogen 0.2 Ur Leukocyte Esterase Negative Urine RBC 10-20 H Urine WBC Negative Ur Epithelial Cells Negative Urine Crystals Negative Urine Bacteria Rare Urine Casts 3-5 Hyaline Urine Mucus Negative Ur Culture Indicated? No Urine Glucose Negative Salicylates Urine Opiates Screen Negative Urine Methadone Screen Positive A Acetaminophen Ur Barbiturates Screen Negative Ur Tricyclics Screen Negative Ur Amphetamines Screen Negative U Benzodiazepines Scrn Positive A Urine Cocaine Screen Positive A Ur THC Screen Positive A Ethyl Alcohol Add-On Test Request 04/08/23 04/08/23 05:44 07:30 WBC 5.99 RBC 4.22 L Hgb 12.2 L Hct 34.5 L MCV 82 MCH 28.9 MCHC 35.4 RDW 14.4 H Plt Count 97 L MPV 13.2 H Immature Gran % Neutrophils % Lymphocytes % Monocytes % Eosinophils % Basophils % Nucleated RBC % Absolute Neutrophils Absolute Lymphocytes Absolute Monocytes Absolute Eosinophils Absolute Basophils PT INR APTT ABG Sample Site ABG pH ABG pCO2 ABG pO2 ABG HCO3 ABG Total CO2 ABG O2 Saturation ABG Base Excess Oxygen Liter Flow FiO2 Sodium Potassium Chloride Carbon Dioxide Anion Gap BUN Creatinine Est GFR (CKD-EPI 2020) Glucose Calcium Magnesium Total Bilirubin AST ALT Alkaline Phosphatase Troponin I Total Protein Albumin Urine Color Urine Clarity Urine pH Ur Specific [place] Urine Protein Urine Ketones Urine Blood Urine Nitrite Urine Bilirubin Urine Urobilinogen Ur Leukocyte Esterase Urine RBC Urine WBC Ur Epithelial Cells Urine Crystals Urine Bacteria Urine Casts Urine Mucus Ur Culture Indicated? Urine Glucose Salicylates Urine Opiates Screen Urine Methadone Screen Acetaminophen Ur Barbiturates Screen Ur Tricyclics Screen Ur Amphetamines Screen U Benzodiazepines Scrn Urine Cocaine Screen Ur THC Screen Ethyl Alcohol Add-On Test Request DONE Review of Systems Unobtainable due to endotracheal tube Time spent with patient Time spent in Critical Care: 45 Time spent in Critical care included: Chart review, Documenting critically ill care, Time at immediate bedside and Discussing critically ill care with other medical staff Multi-Disciplinary Checklist Lines/Tubes CENTRAL LINE: no ARTERIAL LINE: no PANTOJA: yes, Pantoja Day#: 1 Note: can be discontinued today ENDOTRACHEAL TUBE: yes, Endotracheal Tube Day#: 0 (extubated this morning) Sedation: yes, Sedation Vacation: yes Head of Bed@30 degrees: yes Spontaneous Breathing Trial: yes ICU Maintenance GLUCOSE 140-180mg/dL: yes NUTRITION AT GOAL: no, Reason/Intervention: recommend diet today if safe PRESSURE ULCER: no RESTRAINTS: yes, Reviewed Necessity: Yes ANTIBIOTICS(if yes, consider Stewardship): Yes Social Issues FAMILY UPDATED: no, Reason/Intervention: defer to hospitalist team GOALS/DISPOSITION/DIRECTOR OF CRITICAL CARE: yes CODE STATUS: Full Prophylaxis DVT PROPHYLAXIS: yes GI PROPHYLAXIS: no
[2023-04-08 08:35] LABS: Lab Add On Test DONE
--- NOTE | 2023-04-08 08:45 | PDOC.CMIN ---
Date of service: 04/08/23 Time of Service: 08:46 Care Management Initial Assmt Initial Assessment REASON FOR HOSPITALIZATION:: Acute hypoxemic respiratory failure, Drug overdose, Seizure, Aspiration pneumonia PREVIOUS FUNCTIONAL STATUS/SOCIAL/FAMILY SUPPORTS:: Rio lives in [place] with his Mother Hilaria. He is independent at baseline and connected with [facility]. Hilaria provides his transportation. CURRENT FUNCTIONAL STATUS:: Rio is lying in bed when CM met with him. He is awake and engages in conversation, minimally. ADVANCE DIRECTIVES:: None on file. Has patient been provided with info about the portal/API?: Yes Did the patient sign up for the portal?: No CODE STATUS:: Full Code INSURANCE COVERAGE / FINANCIAL ISSUES:: Medicaid CURRENT HOME/COMMUNITY SERVICES/EQUIPMENT:: [facility], on [employer] PRIMARY CARE PHYSICIAN:: [facility] POTENTIAL DISCHARGE NEEDS:: increase outpatient therapy and counseling. PATIENT/FAMILY EDUCATION NEEDS:: Review discharge instructions, limitations and plan to follow up with community providers. Discuss ask me three and goals of self care. ANTICIPATED BARRIERS TO DISCHARGE:: None identified TRANSPORTATION:: Via private vehicle with Mother PLAN:: Anticipate, Rio will discharge home with close community follow up and resumption of [facility] services. CM will provide patient with a last dose letter. He will transport via private vehicle with family when medically ready. CM will continue to support pt and his discharge planning needs. PFSH All Active Problems (Updated 04/08/23 @ 11:03 by Yahaira Royal MD) Discharge planning issues (Acute) DVT prophylaxis (Acute) Aspiration into airway (Acute) Elevated creatine kinase (Acute) Hypocalcemia (Acute) Encephalomalacia (Acute) Hypokalemia (Acute) Thrombocytopenia (Chronic) Anemia (Chronic) Acute hypoxemic respiratory failure (Acute) Aspiration pneumonia (Acute) Chronic pain of left knee (Acute 01/13/16) -2015: patellar tendonitis Depressive disorder (Acute) Gastroesophageal reflux disease (Acute 04/03/14) gastroscopy 2011: [place] [facility] [place] Idiopathic scoliosis (Acute) Wingspan/height difference; height 72/wingspan 73 Smoker (Acute) 10/2022-1 ppd, about 15 pk yr Opioid abuse (Chronic) followed by [facility] clinic since 2011, on methadone History of bone graft (Acute) Fracture of tibia (Acute) Leg pain, bilateral (Acute) 2020- chronic bilat leg pain s/p injury-on gabapentin Mouth pain (Acute) 12/2021 Tachycardia (Acute) 12/2021, heart rate 150-patient made informed decision and declined evaluation Abnormal brain MRI (Acute) Drug overdose (Acute) Seizure (Acute) Medical History Closed right clavicular fracture Closed traumatic fracture of ribs of left side with pneumothorax Surgical History H/O arthroscopic knee surgery Hx of wisdom tooth extraction Social History Smoking/Tobacco Use Status: Current every day Tobacco Type: cigarettes Years smoked: 15 Smoking risk assessment performed?: Yes Alcohol Intake: current Alcohol Intake frequency: a few times a week Alcohol type: beer Drug use: Occasionally Substance use type: marijuana and crack/cocaine Current gender identity: male Do you feel safe at home: Yes Do you feel safe in your relationship?: Yes
[2023-04-08 08:49] LABS: ALT 37 U/L (16-63); AST 40 U/L (15-37); Albumin 3.1 g/dL (3.4-5.0); Alkaline Phosphatase 67 U/L (46-116); BUN 17 mg/dL (7-18); Bilirubin, Total 0.5 mg/dL (0.2-1.0); CREATININE 0.9 mg/dL (0.70-1.30); Calcium 7.6 mg/dL (8.5-10.1); Chloride 110 mmol/L (98-107); Estimated GFR 115.65 (mL/min/1.73m2); Glucose 103 mg/dL (74-106); Potassium 3.8 mmol/L (3.5-5.1); Sodium 144 mmol/L (136-145); Total Protein 7.4 g/dL (6.4-8.2)
[2023-04-08 08:51] LABS: Creatine Kinase 722 U/L (39-308)
[2023-04-08] MEDS: levETIRAcetam 1,000 MG in Normal Saline 100 ML 400 MG IVPB ×2 (08:55→20:14)
[2023-04-08] MEDS: AMPICILLIN/SULBACTAM 1.5 GM in Normal Saline 50 ML IVPB ×3 (09:03→23:29)
--- NOTE | 2023-04-08 10:15 | W.PM.PROGNOT ---
Date of Service Date of service: 04/08/23 Time of Service: 10:15 Assessment and Plan Assessment and plan (1) Seizure: Status: Acute Assessment and plan: Extubated. Somnolent now: either postictal or due to sedation wearing off. Breakthrough seizure in a patient with h/o seizure in setting of drug use previously. He was evaluated by Dr Vivas in February who at the time had recommended that keppra be stopped, but resumed if seizures recurred, which we did. Discussed with Dr Vivas: due to h/o encephalomalacia on prior MRI, she was considering an MRA of the brain/neck as outpatient if seizures recurred. We will obtain this. Keep in ICU for now. (2) Acute hypoxemic respiratory failure: Status: Acute Assessment and plan: Multifactorial: due to aspiration event as well as sedation. Extubated. On 2L of O2 by NC. Wean as tolerated. Treat PNA. NPO until speech therapy eval. (3) Aspiration pneumonia: Status: Acute Assessment and plan: Continue unasyn (4) QT prolongation: Status: Resolved Assessment and plan: Resolved. In setting of methadone use. (5) Opioid abuse: Status: Chronic Assessment and plan: Hold methadone due to QTc prolongation and mental status. (6) Agitation: Status: Resolved Assessment and plan: Monitor behaviors in the ICU. (7) Anemia: Status: Chronic Assessment and plan: Check anemia studies. (8) Thrombocytopenia: Status: Chronic Assessment and plan: Monitor while on chemical DVT ppx. Checking anemia studies. (9) Hypocalcemia: Status: Acute Assessment and plan: Replete (10) Elevated creatine kinase: Status: Acute Assessment and plan: Cr preserved. Will trend. Will hydrate intravenously. (11) Aspiration into airway: Status: Acute Assessment and plan: As above - on unasyn. Monitor respiratory status. (12) DVT prophylaxis: Status: Acute Assessment and plan: Sc heparin (13) Discharge planning issues: Status: Acute Assessment and plan: Full code Keep in ICU. Discussed with Dr Cornejo. Total Critical Care Time 40 minutes. Subjective Subjective Interval history since last seen: Extubated this morning. No seizure events. The patient is somnolent, but arousable on my visit. He shakes his head no to when I ask him if he is in pain. He knows he is in the hospital. He is not answering my other questions. Exam Narrative Exam Narrative: General: Somnolent male who wake up to verbal stimuli and follows commands, but falls right back to sleep HEENT: EOMI, MMM, crusted blood-tinged secreations on right cheek Heart: RRR, no m r/g Lungs: CTAB Abdomen: soft, nontender, nondistended Extremities: no edema BLEs, restraints to B ankles (not tied to the bed) Objective Last Vital Signs Temp 37.2 C 04/08/23 07:10 Pulse 74 04/08/23 07:00 Resp 20 04/08/23 07:10 BP 128/76 04/08/23 07:00 Pulse Ox 98 04/08/23 08:31 Laboratory Results - last 24 hr 04/07/23 04/07/23 04/07/23 18:20 18:20 18:20 WBC 5.13 RBC 4.48 Hgb 12.6 L Hct 35.7 L MCV 80 MCH 28.1 MCHC 35.3 RDW 13.6 Plt Count 115 L MPV 12.0 H Immature Gran % 0.6 Neutrophils % 74.2 Lymphocytes % 16.2 Monocytes % 8.8 Eosinophils % 0.0 Basophils % 0.2 Nucleated RBC % 0.0 Absolute Neutrophils 3.81 Absolute Lymphocytes 0.83 L Absolute Monocytes 0.45 Absolute Eosinophils 0.00 Absolute Basophils 0.01 PT 10.7 INR 1.1 APTT 24.8 ABG Sample Site ABG pH ABG pCO2 ABG pO2 ABG HCO3 ABG Total CO2 ABG O2 Saturation ABG Base Excess Oxygen Liter Flow FiO2 Sodium 140 Potassium 3.2 L Chloride 107 Carbon Dioxide 25.4 Anion Gap 7.6 BUN 23 H Creatinine 1.0 Est GFR (CKD-EPI 2020) 101.92 Glucose 112 H Calcium 8.4 L Magnesium 2.4 Total Bilirubin 0.7 AST 53 H ALT 42 Alkaline Phosphatase 75 Creatine Kinase Troponin I < 50 Total Protein 8.2 Albumin 3.6 Urine Color Urine Clarity Urine pH Ur Specific [place] Urine Protein Urine Ketones Urine Blood Urine Nitrite Urine Bilirubin Urine Urobilinogen Ur Leukocyte Esterase Urine RBC Urine WBC Ur Epithelial Cells Urine Crystals Urine Bacteria Urine Casts Urine Mucus Ur Culture Indicated? Urine Glucose Salicylates Urine Opiates Screen Urine Methadone Screen Acetaminophen Ur Barbiturates Screen Ur Tricyclics Screen Ur Amphetamines Screen U Benzodiazepines Scrn Urine Cocaine Screen Ur THC Screen Ethyl Alcohol Add-On Test Request 04/07/23 04/07/23 04/07/23 18:20 18:20 18:37 WBC RBC Hgb Hct MCV MCH MCHC RDW Plt Count MPV Immature Gran % Neutrophils % Lymphocytes % Monocytes % Eosinophils % Basophils % Nucleated RBC % Absolute Neutrophils Absolute Lymphocytes Absolute Monocytes Absolute Eosinophils Absolute Basophils PT INR APTT ABG Sample Site Cancelled ABG pH Cancelled ABG pCO2 Cancelled ABG pO2 Cancelled ABG HCO3 Cancelled ABG Total CO2 Cancelled ABG O2 Saturation Cancelled ABG Base Excess Cancelled Oxygen Liter Flow Cancelled FiO2 Cancelled Sodium Potassium Chloride Carbon Dioxide Anion Gap BUN Creatinine Est GFR (CKD-EPI 2020) Glucose Calcium Magnesium Total Bilirubin AST ALT Alkaline Phosphatase Creatine Kinase Troponin I Total Protein Albumin Urine Color Urine Clarity Urine pH Ur Specific [place] Urine Protein Urine Ketones Urine Blood Urine Nitrite Urine Bilirubin Urine Urobilinogen Ur Leukocyte Esterase Urine RBC Urine WBC Ur Epithelial Cells Urine Crystals Urine Bacteria Urine Casts Urine Mucus Ur Culture Indicated? Urine Glucose Salicylates 4.2 Urine Opiates Screen Urine Methadone Screen Acetaminophen < 2 Ur Barbiturates Screen Ur Tricyclics Screen Ur Amphetamines Screen U Benzodiazepines Scrn Urine Cocaine Screen Ur THC Screen Ethyl Alcohol < 3.0 Add-On Test Request 04/07/23 04/07/23 04/07/23 19:03 20:55 20:55 WBC RBC Hgb Hct MCV MCH MCHC RDW Plt Count MPV Immature Gran % Neutrophils % Lymphocytes % Monocytes % Eosinophils % Basophils % Nucleated RBC % Absolute Neutrophils Absolute Lymphocytes Absolute Monocytes Absolute Eosinophils Absolute Basophils PT INR APTT ABG Sample Site Right Radial ABG pH 7.40 ABG pCO2 41 ABG pO2 83 ABG HCO3 25 ABG Total CO2 23 ABG O2 Saturation 97 ABG Base Excess 1 Oxygen Liter Flow VT470/R12/P5 FiO2 24 Sodium Potassium Chloride Carbon Dioxide Anion Gap BUN Creatinine Est GFR (CKD-EPI 2020) Glucose Calcium Magnesium Total Bilirubin AST ALT Alkaline Phosphatase Creatine Kinase Troponin I Total Protein Albumin Urine Color Yellow Urine Clarity Sl Cloudy Urine pH 5.5 Ur Specific [place] >= 1.030 H Urine Protein 100 H Urine Ketones Negative Urine Blood Small H Urine Nitrite Negative Urine Bilirubin Negative Urine Urobilinogen 0.2 Ur Leukocyte Esterase Negative Urine RBC 10-20 H Urine WBC Negative Ur Epithelial Cells Negative Urine Crystals Negative Urine Bacteria Rare Urine Casts 3-5 Hyaline Urine Mucus Negative Ur Culture Indicated? No Urine Glucose Negative Salicylates Urine Opiates Screen Negative Urine Methadone Screen Positive A Acetaminophen Ur Barbiturates Screen Negative Ur Tricyclics Screen Negative Ur Amphetamines Screen Negative U Benzodiazepines Scrn Positive A Urine Cocaine Screen Positive A Ur THC Screen Positive A Ethyl Alcohol Add-On Test Request 04/08/23 04/08/23 04/08/23 05:44 05:44 07:30 WBC 5.99 RBC 4.22 L Hgb 12.2 L Hct 34.5 L MCV 82 MCH 28.9 MCHC 35.4 RDW 14.4 H Plt Count 97 L MPV 13.2 H Immature Gran % Neutrophils % Lymphocytes % Monocytes % Eosinophils % Basophils % Nucleated RBC % Absolute Neutrophils Absolute Lymphocytes Absolute Monocytes Absolute Eosinophils Absolute Basophils PT INR APTT ABG Sample Site ABG pH ABG pCO2 ABG pO2 ABG HCO3 ABG Total CO2 ABG O2 Saturation ABG Base Excess Oxygen Liter Flow FiO2 Sodium Cancelled Potassium Cancelled Chloride Cancelled Carbon Dioxide Cancelled Anion Gap Cancelled BUN Cancelled Creatinine Cancelled Est GFR (CKD-EPI 2020) Cancelled Glucose Cancelled Calcium Cancelled Magnesium Total Bilirubin Cancelled AST Cancelled ALT Cancelled Alkaline Phosphatase Cancelled Creatine Kinase Troponin I Total Protein Cancelled Albumin Cancelled Urine Color Urine Clarity Urine pH Ur Specific [place] Urine Protein Urine Ketones Urine Blood Urine Nitrite Urine Bilirubin Urine Urobilinogen Ur Leukocyte Esterase Urine RBC Urine WBC Ur Epithelial Cells Urine Crystals Urine Bacteria Urine Casts Urine Mucus Ur Culture Indicated? Urine Glucose Salicylates Urine Opiates Screen Urine Methadone Screen Acetaminophen Ur Barbiturates Screen Ur Tricyclics Screen Ur Amphetamines Screen U Benzodiazepines Scrn Urine Cocaine Screen Ur THC Screen Ethyl Alcohol Add-On Test Request DONE 04/08/23 04/08/23 04/08/23 08:05 08:15 08:34 WBC RBC Hgb Hct MCV MCH MCHC RDW Plt Count MPV Immature Gran % Neutrophils % Lymphocytes % Monocytes % Eosinophils % Basophils % Nucleated RBC % Absolute Neutrophils Absolute Lymphocytes Absolute Monocytes Absolute Eosinophils Absolute Basophils PT INR APTT ABG Sample Site ABG pH ABG pCO2 ABG pO2 ABG HCO3 ABG Total CO2 ABG O2 Saturation ABG Base Excess Oxygen Liter Flow FiO2 Sodium 144 Potassium 3.8 Chloride 110 H Carbon Dioxide 25.0 Anion Gap 9.0 BUN 17 Creatinine 0.9 Est GFR (CKD-EPI 2020) 115.65 Glucose 103 Calcium 7.6 L Magnesium Total Bilirubin 0.5 AST 40 H ALT 37 Alkaline Phosphatase 67 Creatine Kinase 722 H Troponin I Total Protein 7.4 Albumin 3.1 L Urine Color Urine Clarity Urine pH Ur Specific [place] Urine Protein Urine Ketones Urine Blood Urine Nitrite Urine Bilirubin Urine Urobilinogen Ur Leukocyte Esterase Urine RBC Urine WBC Ur Epithelial Cells Urine Crystals Urine Bacteria Urine Casts Urine Mucus Ur Culture Indicated? Urine Glucose Salicylates Urine Opiates Screen Urine Methadone Screen Acetaminophen Ur Barbiturates Screen Ur Tricyclics Screen Ur Amphetamines Screen U Benzodiazepines Scrn Urine Cocaine Screen Ur THC Screen Ethyl Alcohol Add-On Test Request DONE Time Spent with Patient Time Spent with Patient: 35-49 minutes Time was spent: preparing to see the patient(eg.review tests), obtaining and/or reviewing separately otained hiistory, ordering medications,tests, procedures, referring, communicating with other health direct care provider, indepentently interpreting results, counseling the patient and care coordination
[2023-04-08] MEDS: Pantoprazole 40 MG VIAL IVP (11:45)
--- NOTE | 2023-04-08 12:02 | DI.MRI_ITS ---
Exam(s) MR ANGIO BRAIN WO CLINICAL HISTORY: recurrent seizures, ?scarring on MRI. TECHNIQUE: 3D [id number] study was performed without contrast. COMPARISON: MRI brain 15 February 2023 FINDINGS: Carotid Arteries: Petrous: Normal. Cavernous: Normal. Cerebral: Normal. Middle Cerebral Arteries: Right: No aneurysm or significant stenosis. Left: No aneurysm or significant stenosis. Anterior Cerebral Arteries: Right: No aneurysm or significant stenosis. Left: No aneurysm or significant stenosis. Posterior cerebral arteries: Right: No aneurysm or significant stenosis Left: No aneurysm or significant stenosis Vertebral Arteries: Right: No aneurysm or significant stenosis. No dissection. Left: No aneurysm or significant stenosis. No dissection.. Basilar Artery: No aneurysm or significant stenosis. Small Vessels: No evidence of beading. IMPRESSION: Normal MRA examination of the [place]. DATA REPOSITORY:
--- NOTE | 2023-04-08 12:35 | DI.MRI_ITS ---
Exam(s) MR ANGIO NECK WO EXAM: MR ANGIO NECK WO CLINICAL HISTORY: recurrent seizures, brain lesions on MRI. TECHNIQUE: 2D and 3D [id number] MRA of the Neck was performed. COMPARISON: No exams were available for comparison FINDINGS: Common Carotid: Right: No dissection, occlusion or significant stenosis. Left: No dissection, occlusion or significant stenosis. External Carotid: Right: No evidence of occlusion or significant stenosis. Left: No evidence of occlusion or significant stenosis. Internal Carotid: Right: No dissection, occlusion or significant stenosis. Left: No dissection, occlusion or significant stenosis. Vertebral Artery: Right: No dissection, occlusion or significant stenosis. Left: No dissection, occlusion or significant stenosis. The visualized paraspinal soft tissues are unremarkable. IMPRESSION: No evidence of dissection, occlusion or significant stenosis. DATA REPOSITORY:
[2023-04-08] MEDS: Lactated Ringers 1,000 ML 100 ML IV ×2 (13:25→23:25)
[2023-04-08] MEDS: Calcium Gluconate 4.65 MEQ/10 ML VIAL 4.65 MG IVP (13:26)
[2023-04-08 15:03] LABS: Bilirubin Small (Negative); Blood Large (Negative); Clarity Cloudy (Clear); Glucose Negative (Negative); Ketones >=160 mg/dL (Negative); Leukocyte Esterase Negative (Negative); Nitrite Negative (Negative); Specific Gravity >= 1.030 (1.005-1.025); Urobilinogen 0.2 mg/dL (Up to 0.2); pH 5.5 (5-8)
[2023-04-08] MEDS: ACETAMINOPHEN 1,000 MG/100 ML BTL 400 MG IVPB (15:11)
[2023-04-08 15:17] LABS: Epithelial Cells Rare HPF (Negative); WBC 0-2 HPF (0-5)
[2023-04-08 15:18] LABS: Bacteria Rare HPF (Negative); C & S Indicated? C&S Done As Ordered; Casts 0-2 Hyaline LPF (Negative); Crystals Moderate Uric Acid HPF (Negative); Mucus Trace (Negative); Other Cells Few Yeast (Negative)
[2023-04-08 15:23] LABS: Lab Add On Test DONE
[2023-04-08 16:07] LABS: COVID-19 PCR Negative (Negative); Influenza A PCR Negative (Negative); Influenza B PCR Negative (Negative); RSV PCR Negative (Negative); Source Nasopharynx
--- NOTE | 2023-04-08 17:21 | SP_ITS ---
Date of service: 04/08/23 Time of Service: 16:45 Subjective Clinical (Bedside) Swallow Evaluation Speech Language Pathology Patient referred for Clinical Swallow Evaluation from Dr Royal given recent extubation placed for airway protection in setting of drug related seizures. Precautions: Standard, Full Code SUBJECTIVE: Patient received awake, alert, appears pained, endorses pain in legs but unable to assign value. Patient is kicking legs and his trunk is jerking around frequently in attempt to reduce pain and become more comfortable, appears able to calm movements a little when distracted by conversation or other tasks. Agreeable to evaluation, able to answer questions but does not spontaneously express wants/needs. HPI Pt is a 32 year old male with history of multisubstance use disorder, R frontal lobe encephalomalacia, and seizures on Keppra as an outpatient who was intubated for airway protection in setting of drug overdose and seizure. He was intubated at the scene because of gurgling respirations and overdose having recently snorted cocaine and fentanyl by history.? He was stabilized in the ED and did have possible aspiration pneumonia which will be covered with clindamycin IV.? He was requiring increased sedation because of seizures and agitation.?He was extubated by pulmonology this morning. Patient has been NPO awaiting PUMP ERECTOR HELPER evaluation today. ? IMPRESSIONS & PLAN: Suspect mild increased risk of aspiration at this time, patient's frequent significant extraneous movements appear quite distracting for him and likely make it difficult to coordinate respiration and swallowing. Only mild s/sx such as throat clear infrequently throughout evaluation likely in setting of impulsive drinking, patient drinking 2 full glasses of water with PUMP ERECTOR HELPER present without evidence desaturation or respiratory distress. He has no upper teeth and prefers minimally chewable food at this time which I think is for the best anyways given the above concerns with swallow/respiratory coordination. It is reasonable to expect that as his medical status, comfort, and extraneous movements improve he may be able to advance to baseline diet. Further PUMP ERECTOR HELPER services: inpatient / patient to be followed while on unit ? Instrumentation: N/A RECOMMENDATIONS: ? LEVEL OF SUPERVISION: 1:1 supervision for cueing and to monitor respiratory symptoms. If patient is able to demonstrate consistent independent use of safe swallow strategies, line of sight/distant supervision may be used. Diet Texture Modification(s): IDDSI Level(s) SOLIDS 5-Minced & Moist Solids LIQUIDS 0-Thin Liquids with risk management as outlined Medication Intake: Whole with 4-Extremely Thick Liquids/Puree RISK MANAGEMENT: HOB upright as tolerated; upright for all PO intake. Encourage physical mobility as tolerated. Oral hygiene q4h/every 4 hours vs before/after PO intake, whichever occurs sooner using friction with toothbrush on all oral structures as tolerated PO intake only when awake/alert Strategies/Adaptations/Assistive Equipment: Reduce auditory and/or visual distractions when eating Provide verbal and/or visual cues to use recommended strategies: Small sips and bites when eating One sip at a time Slow rate of intake Posture/Positioning Needs: Maintain upright position at least 30 minutes after meals PFSH All Active Problems?(Updated 04/08/23 @ 07:03 by Tyler Vega) Acute hypoxemic respiratory failure (Acute) Aspiration pneumonia (Acute) Chronic pain of left knee (Acute 01/13/16) -2015: patellar tendonitis Depressive disorder (Acute) Gastroesophageal reflux disease (Acute 04/03/14) gastroscopy 2011: negative? [facility] [place] Idiopathic scoliosis (Acute) Wingspan/height difference; height 72/wingspan 73 Smoker (Acute) 10/2022-1 ppd, about 15 pk yrOpioid abuse (Chronic) followed by [facility] since 2011, on methadoneHistory of bone graft (Acute) Fracture of tibia (Acute) Leg pain, bilateral (Acute) 2020- chronic bilat leg pain s/p injury-on gabapentinMouth pain (Acute) 12/2021Tachycardia (Acute) 12/2021, heart rate 150-patient made informed decision and declined evaluationAbnormal brain MRI (Acute) Drug overdose (Acute) Seizure (Acute) Medical History? Closed right clavicular fracture Closed traumatic fracture of ribs of left side with pneumothorax Surgical History? H/O arthroscopic knee surgery Hx of wisdom tooth extraction OBJECTIVE: Sp02: initially 84-90%, RT replaced sensory and improved immediately to upper 90's even throughout PO trials. Respiratory: room air, appears to tolerate well Language & Speech: Limited spontaneous verbal expression/fluency, naming, repetition, auditory comprehension appear intact. Responds with short/fast responses, mild reduced articulatory precision likely in setting of pain/agitation. Mental Status: Recall of current events intact, impaired Oral Motor Exam: ? Dentition ? Partially edentulous ? With partial dentures not present this date ? Oral Mucosa ?Dry ? Good oral care ? CN V - Trigeminal ? WFL ? CN VII ? Labial/Facial ? WFL ? CN IX ? Palate ? WFL ? CN X ? Laryngeal ?Vocal quality ? WFL ? Volitional cough ? Sharp & strong ? CN XII ? Lingual ? Symmetry, coordination intact, appears with reduced strength against lateral resistance imposed from L side ? Volitional Swallow ? Robust laryngeal elevation ? PO TRIALS Food items tested: ?? Ice: 5 ice chips IDDSI 0: Single and consecutive/large volume sips IDDSI 4: x5 bites Patient refuses further solid trials due to no dentures present. Oral phase: Difficulty chewing Pharyngeal phase: Cough after swallow - mild/intermittent vs throat clearing. Particularly with large volume/consecutive sips thin liquid. Provided education to: Patient, Nursing Topics Addressed: overt s/sx to monitor for re: potential aspiration of food / liquids, recommendations for improved oral care, relationship between respiratory function changes and deglutition, Rationale for recommendations as outlined belo Outcome: Patient Needs review/reinforcement Goals: Patient will tolerate safest/least restrictive diet without s/sx aspiration. Patient/caregiver will be independent with aspiration precautions, diet modifications, and safe swallowing strategies. PUMP ERECTOR HELPER CPT Code: 52045 Clinical Swallowing Evaluation Time spent: 25 minutes Coding Diagnoses
[2023-04-08] MEDS: Methadone Liquid 10 MG/ML 90 MG PO (17:37)
[2023-04-09] VITALS (37 sets, daily range): BP systolic 110–179; BP diastolic 63–114; PULSE 60–95; RESP 13–32; TEMP 37–38.6; O2SAT 85–100
--- NOTE | 2023-04-09 | DI.RAD_ITS ---
Exam(s) XR PORTABLE CHEST AP EXAM: XR PORTABLE CHEST AP CLINICAL HISTORY: Persistent fever TECHNIQUE: 2D digital imaging was performed. COMPARISON: CT CT CHEST PE ABD PELVIS W from 04/07/2023 FINDINGS: Leads overlie the chest. LUNGS: Clear. No pleural abnormality seen. HEART: Normal size. AORTA: Normal diameter. BONES: Fixation plate again noted in right clavicle. Soft tissues: Unremarkable. IMPRESSION: No acute findings. DATA REPOSITORY: RADIATION DOSE DELIVERED:
[2023-04-09] MEDS: cloNIDine 0.1 MG TAB 0.2 MG PO (02:48)
[2023-04-09 06:13] LABS: Abs Immature Grans 0.02 10^3/uL (0.0-0.06); Absolute Basophil Count 0.01 10^3/uL (0.0-0.2); Absolute Eosinophil Count 0.03 10^3/uL (0.0-0.7); Absolute Lymphocyte Count 0.91 10^3/uL (1.2-3.4); Absolute Monocyte Count 0.31 10^3/uL (0.1-0.8); Absolute Neutrophil Count 3.35 10^3/uL (1.2-6.7); Basophils % 0.2; Eosinophils % 0.6; Immature Grans % 0.4; Lymphocytes % 19.7; MCH 28.6 pg (27.0-33.0); MCHC 35.3 % (32.0-36.0); MCV 81 fL (80-95); MPV 11.7 fL (8.0-11.0); Monocytes % 6.7; Neutrophils % 72.4; Platelet Count 105 10^3/uL (130-400); RDW 14.5 % (11.8-14.1); RDW-SD 41.8 fL; WBC 4.63 10^3/uL (4.4-10.8)
[2023-04-09 06:30] LABS: Anion Gap 9.6 mmol/L (3-11); BUN 7 mg/dL (7-18); CO2 23.4 mmol/L (21.0-32.0); CREATININE 0.8 mg/dL (0.70-1.30); Chloride 106 mmol/L (98-107); Estimated GFR 119.84 (mL/min/1.73m2); Glucose 154 mg/dL (74-106); Magnesium 1.8 mg/dL (1.8-2.4); Potassium 3.1 mmol/L (3.5-5.1); Sodium 139 mmol/L (136-145)
[2023-04-09 06:44] LABS: Iron 71 ug/dL (65-175); Total Iron Binding Capacity 149 ug/dL (250-450); Transferrin Sat 48 % (20-55)
[2023-04-09 06:47] LABS: Creatine Kinase 497 U/L (39-308)
[2023-04-09 07:29] LABS: Ferritin 258 ng/mL (26-388); Vitamin B12 335 pg/mL (193-986)
[2023-04-09] MEDS: Methadone Liquid 10 MG/ML 190 MG PO (08:02)
[2023-04-09] MEDS: levETIRAcetam 500 MG TAB 1000 MG PO ×2 (08:33→20:49)
[2023-04-09] MEDS: Calcium Carbonate 1.5 GM TAB PO ×2 (08:33→20:49)
[2023-04-09] MEDS: Potassium Chloride 20 MEQ TABCR 40 MEQ PO (08:33)
[2023-04-09] MEDS: Cyanocobalamin 1000 MCG/ML VIAL IM/SC (08:36)
[2023-04-09] MEDS: Heparin 5,000 UNITS/ML VIAL 5000 UNITS SC ×2 (08:39→16:25)
[2023-04-09] MEDS: AMPICILLIN/SULBACTAM 1.5 GM in Normal Saline 50 ML IVPB ×2 (09:15→16:25)
[2023-04-09] MEDS: Gabapentin 400 MG CAP 800 MG PO ×3 (09:26→20:49)
--- NOTE | 2023-04-09 13:53 | NUR.NOTE ---
RN cleans shower of stool and urine. Environmental services will sanitize.Nursing Note:
--- NOTE | 2023-04-09 18:52 | W.PM.PROGNOT ---
Date of Service Date of service: 04/09/23 Time of Service: 10:45 Assessment and Plan Assessment and plan (1) Seizure: Status: Acute Assessment and plan: Continue keppra. MRA wnl. Continue monitoring for seizures. (2) Acute hypoxemic respiratory failure: Status: Resolved Assessment and plan: Multifactorial: due to aspiration event as well as sedation. Extubated and on room air now. Continue to treat PNA with unasyn. (3) Aspiration pneumonia: Status: Acute Assessment and plan: Continue unasyn (4) QT prolongation: Status: Resolved Assessment and plan: Resolved. In setting of methadone use. (5) Opioid abuse: Status: Chronic Assessment and plan: Methadone resumed. (6) Agitation: Status: Resolved Assessment and plan: Monitor behaviors (7) Anemia: Status: Chronic Assessment and plan: Evidence of B12 deficiency. Replete. (8) Thrombocytopenia: Status: Chronic Assessment and plan: Monitor while on chemical DVT ppx. Replete B12 (9) Hypocalcemia: Status: Acute Assessment and plan: Replete (10) Elevated creatine kinase: Status: Acute Assessment and plan: CPK better. D/c IVF. (11) Aspiration into airway: Status: Acute Assessment and plan: As above - on unasyn. Monitor respiratory status. Repeat CXR given a fever. (12) DVT prophylaxis: Status: Acute Assessment and plan: Sc heparin (13) Discharge planning issues: Status: Acute Assessment and plan: Full code Continues to require hospitalization. Subjective Subjective Interval history since last seen: Doing much better this morning as far as the level of alertness. Received his verified dose of methadone and became somnolent, though still arousable and answering questions, though promptly falling back asleep. He denied pain, dizziness, chest pain, shortness of breath, nausea. Febrile to 38.5 this morning. Exam Narrative Exam Narrative: General: Somnolent male who is arousable HEENT: EOMI, MMM Heart: RRR, no m r/g Lungs: CTAB Abdomen: soft, nontender, nondistended Extremities: no edema BLEs Objective Last Vital Signs Temp 37.7 C H 04/09/23 14:08 Pulse 73 04/09/23 14:08 Resp 16 04/09/23 14:08 BP 126/74 04/09/23 14:08 Pulse Ox 100 04/09/23 14:08 Laboratory Results - last 24 hr 04/09/23 04/09/23 04/09/23 05:40 05:40 05:40 WBC RBC Hgb Hct MCV MCH MCHC RDW Plt Count MPV Immature Gran % Neutrophils % Lymphocytes % Monocytes % Eosinophils % Basophils % Nucleated RBC % Absolute Neutrophils Absolute Lymphocytes Absolute Monocytes Absolute Eosinophils Absolute Basophils Sodium 139 Potassium 3.1 L Chloride 106 Carbon Dioxide 23.4 Anion Gap 9.6 BUN 7 Creatinine 0.8 Est GFR (CKD-EPI 2020) 119.84 Glucose 154 H Calcium 8.0 L Magnesium 1.8 Iron 71 TIBC 149 L Transferrin % Sat 48 Ferritin 258 Creatine Kinase 497 H Vitamin B12 335 Folate 9.0 04/09/23 05:40 WBC 4.63 RBC 4.20 L Hgb 12.0 L Hct 34.0 L MCV 81 MCH 28.6 MCHC 35.3 RDW 14.5 H Plt Count 105 L MPV 11.7 H Immature Gran % 0.4 Neutrophils % 72.4 Lymphocytes % 19.7 Monocytes % 6.7 Eosinophils % 0.6 Basophils % 0.2 Nucleated RBC % 0.0 Absolute Neutrophils 3.35 Absolute Lymphocytes 0.91 L Absolute Monocytes 0.31 Absolute Eosinophils 0.03 Absolute Basophils 0.01 Sodium Potassium Chloride Carbon Dioxide Anion Gap BUN Creatinine Est GFR (CKD-EPI 2020) Glucose Calcium Magnesium Iron TIBC Transferrin % Sat Ferritin Creatine Kinase Vitamin B12 Folate PAWSS Have you Been Recently Intoxicated or Drunk Within the Last 30 days?: Yes Result: 1 Time Spent with Patient Time Spent with Patient: 25-34 minutes Time was spent: preparing to see the patient(eg.review tests), obtaining and/or reviewing separately otained hiistory, ordering medications,tests, procedures, referring, communicating with other health home care companion, indepentently interpreting results, counseling the patient and care coordination
--- NOTE | 2023-04-09 19:33 | DI.VRAD_ITS ---
PROCEDURE INFORMATION: Exam: XR Chest Exam date and time: 04/09/2023 7:01 PM Age: 32 years old Clinical indication: Patient HX: Persistent fever TECHNIQUE: Imaging protocol: Radiologic exam of the chest. Views: 1 view. COMPARISON: CR XR PORTABLE CHEST AP 04/07/2023 6:47 PM FINDINGS: Lungs: Unremarkable. No consolidation. Pleural spaces: Unremarkable. No pleural effusion. No pneumothorax. Heart/Mediastinum: Unremarkable. No cardiomegaly. Bones/joints: Status post ORIF right clavicle. IMPRESSION: No evidence for acute abnormality in the chest. Dictated and Authenticated by: Patricia Caal MD. Ordering:BAYLEE Syed MD
[2023-04-09] MEDS: ACETAMINOPHEN 1,000 MG/100 ML BTL 400 MG IVPB (21:15)
[2023-04-10] VITALS (28 sets, daily range): BP systolic 114–169; BP diastolic 59–96; PULSE 44–89; RESP 10–39; TEMP 37.5–38.3; O2SAT 97–100
[2023-04-10] MEDS: AMPICILLIN/SULBACTAM 1.5 GM in Normal Saline 50 ML IVPB ×3 (00:11→15:26)
[2023-04-10] MEDS: Heparin 5,000 UNITS/ML VIAL 5000 UNITS SC ×3 (00:12→15:25)
[2023-04-10] MEDS: Normal Saline Flush 10 ML SYR IVP (01:06)
[2023-04-10] MEDS: cloNIDine 0.1 MG TAB 0.2 MG PO ×2 (01:44→15:25)
[2023-04-10 05:51] LABS: Abs Immature Grans 0.01 10^3/uL (0.0-0.06); Absolute Basophil Count 0.01 10^3/uL (0.0-0.2); Absolute Eosinophil Count 0.02 10^3/uL (0.0-0.7); Absolute Lymphocyte Count 1.05 10^3/uL (1.2-3.4); Absolute Monocyte Count 0.31 10^3/uL (0.1-0.8); Basophils % 0.3; Eosinophils % 0.6; HCT 37.4 % (40.0-50.0); HGB 13.2 g/dL (13.5-17.5); Immature Grans % 0.3; Lymphocytes % 29.7; MCH 28.6 pg (27.0-33.0); MCHC 35.3 % (32.0-36.0); MCV 81 fL (80-95); MPV 11.1 fL (8.0-11.0); Monocytes % 8.8; Neutrophils % 60.3; Platelet Count 153 10^3/uL (130-400); RBC 4.62 10^6/uL (4.36-5.78); RDW 14.3 % (11.8-14.1); RDW-SD 41.7 fL; WBC 3.54 10^3/uL (4.4-10.8)
[2023-04-10 05:53] LABS: Absolute Neutrophil Count 2.13 10^3/uL (1.2-6.7)
[2023-04-10 06:04] LABS: Anion Gap 8.7 mmol/L (3-11); BUN 8 mg/dL (7-18); CO2 24.3 mmol/L (21.0-32.0); CREATININE 0.7 mg/dL (0.70-1.30); Calcium 8.5 mg/dL (8.5-10.1); Chloride 108 mmol/L (98-107); Estimated GFR 124.77 (mL/min/1.73m2); Glucose 113 mg/dL (74-106); Magnesium 1.9 mg/dL (1.8-2.4); Potassium 3.9 mmol/L (3.5-5.1); Sodium 141 mmol/L (136-145)
[2023-04-10] MEDS: Gabapentin 400 MG CAP 800 MG PO ×2 (06:10→13:56)
[2023-04-10 07:29] LABS: Lab Add On Test COMPLETE
[2023-04-10] MEDS: Methadone Liquid 10 MG/ML 190 MG PO (07:42)
[2023-04-10] MEDS: levETIRAcetam 500 MG TAB 1000 MG PO (07:45)
[2023-04-10] MEDS: Calcium Carbonate 1.5 GM TAB PO (07:45)
[2023-04-10] MEDS: Acetaminophen 325 MG TAB 650 MG PO (07:48)
[2023-04-10] MEDS: Cyanocobalamin 500 MCG TAB 1000 MCG PO (08:14)
[2023-04-10 08:19] LABS: Procalcitonin 0.4 ng/mL
[2023-04-10] MEDS: guaiFENesin 600 MG TABCR PO (09:29)
--- NOTE | 2023-04-10 13:49 | W.PM.PROGNOT ---
Date of Service Date of service: 04/10/23 Time of Service: 10:00 Assessment and Plan Assessment and plan (1) Seizure: Status: Acute Assessment and plan: Continue keppra. MRA brain/neck wnl. Continue monitoring for seizures, but can transfer out of the ICU. (2) Fever: Status: Acute Assessment and plan: Sources: aspiration pneumonitis/pneumonia, dental infection, atelectasis, w/d from opioids. Continue empiric abx, treatment with methadone, encourage IS. Procalcitonin is 0.4. CXR 04/09: no acute findings. Blood cultures NGTD. (3) Acute hypoxemic respiratory failure: Status: Resolved Assessment and plan: Multifactorial: due to aspiration event as well as sedation. Extubated and on room air now. Continue to treat PNA with unasyn. (4) Aspiration into airway: Status: Acute Assessment and plan: As above - on unasyn. Monitor respiratory status. Repeat CXR given a fever. (5) Aspiration pneumonia: Status: Acute Assessment and plan: Continue unasyn (6) QT prolongation: Status: Resolved Assessment and plan: Resolved. In setting of methadone use. (7) Opioid abuse: Status: Chronic Assessment and plan: Methadone resumed. (8) Agitation: Status: Resolved Assessment and plan: Monitor behaviors (9) Anemia: Status: Chronic Assessment and plan: Evidence of B12 deficiency. Replete. (10) Thrombocytopenia: Status: Chronic Assessment and plan: Monitor while on chemical DVT ppx. Replete B12 (11) Hypocalcemia: Status: Resolved Assessment and plan: Recheck in am (12) Elevated creatine kinase: Status: Resolved Assessment and plan: Doing well off of IVF. (13) DVT prophylaxis: Status: Acute Assessment and plan: Sc heparin (14) Discharge planning issues: Status: Acute Assessment and plan: Full code Transfer out of the ICU. Continues to require hospitalization. Subjective Subjective Interval history since last seen: [place] states that both of his legs are aching below his knees - this is normal for him. We discussed re his B12 deficiency and how that can sometimes cause neuropathy. He denies a headache, chest pain, shortness of breath, nausea. He has had good appetite. He is very awake today. He was febrile to 38.3 this morning. He does endorse that his teeth are bothering him. Exam Narrative Exam Narrative: General: male who is awake, A&Ox3, NAD, appropriately interactive HEENT: EOMI, MMM Heart: RRR, no m r/g Lungs: CTAB Abdomen: soft, nontender, nondistended Extremities: no edema BLEs Objective Last Vital Signs Temp 37.5 C 04/10/23 12:51 Pulse 74 04/10/23 08:01 Resp 16 04/10/23 12:00 BP 169/85 H 04/10/23 08:01 Pulse Ox 100 04/10/23 08:02 Laboratory Results - last 24 hr 04/10/23 04/10/23 04/10/23 05:25 05:25 05:25 WBC 3.54 L RBC 4.62 Hgb 13.2 L Hct 37.4 L MCV 81 MCH 28.6 MCHC 35.3 RDW 14.3 H Plt Count 153 MPV 11.1 H Immature Gran % 0.3 Neutrophils % 60.3 Lymphocytes % 29.7 Monocytes % 8.8 Eosinophils % 0.6 Basophils % 0.3 Nucleated RBC % 0.0 Absolute Neutrophils 2.13 Absolute Lymphocytes 1.05 L Absolute Monocytes 0.31 Absolute Eosinophils 0.02 Absolute Basophils 0.01 Sodium 141 Potassium 3.9 Chloride 108 H Carbon Dioxide 24.3 Anion Gap 8.7 BUN 8 Creatinine 0.7 Est GFR (CKD-EPI 2020) 124.77 Glucose 113 H Calcium 8.5 Magnesium 1.9 Procalcitonin Add-On Test Request COMPLETE 04/10/23 05:25 WBC RBC Hgb Hct MCV MCH MCHC RDW Plt Count MPV Immature Gran % Neutrophils % Lymphocytes % Monocytes % Eosinophils % Basophils % Nucleated RBC % Absolute Neutrophils Absolute Lymphocytes Absolute Monocytes Absolute Eosinophils Absolute Basophils Sodium Potassium Chloride Carbon Dioxide Anion Gap BUN Creatinine Est GFR (CKD-EPI 2020) Glucose Calcium Magnesium Procalcitonin 0.4 Add-On Test Request PAWSS Have you Been Recently Intoxicated or Drunk Within the Last 30 days?: Yes Result: 1 Time Spent with Patient Time Spent with Patient: 25-34 minutes Time was spent: preparing to see the patient(eg.review tests), obtaining and/or reviewing separately otained hiistory, ordering medications,tests, procedures, referring, communicating with other health geriatric personal care aide, indepentently interpreting results, counseling the patient and care coordination
[2023-04-10] MEDS: Normal Saline 500 ML 10 ML IV (13:56)
[2023-04-10] MEDS: Nicotine 21 MG/24 HR PATCH TD (15:26)
--- NOTE | 2023-04-10 20:39 | DSE_ITS ---
Date of service: 04/10/23 Time of Service: 20:39 DS: Diagnosis Discharge Diagnosis (1) Seizure: Status: Acute (2) Fever: Status: Acute (3) Acute hypoxemic respiratory failure: Status: Resolved (4) Aspiration into airway: Status: Acute (5) Aspiration pneumonia: Status: Acute (6) QT prolongation: Status: Resolved (7) Opioid abuse: Status: Chronic (8) Agitation: Status: Resolved (9) Anemia: Status: Chronic (10) Thrombocytopenia: Status: Chronic (11) Hypocalcemia: Status: Resolved (12) Elevated creatine kinase: Status: Resolved (13) DVT prophylaxis: Status: Acute (14) Discharge planning issues: Status: Acute Discharge Plan Disposition Patient Disposition: Against Medical Advice Condition: Fair Discharge Details Reason For Visit: Respiratory Arrest,Drug Overdose,Seizure Disorder Admit Date/Time: 04/07/23 22:08 Admit Provider: Tyler Vega Attending Provider: Tyler Vega Primary Care Provider: Wallace Max Hospital Course Hospital Course: 38 male with h/o polysubstance abuse, seizure disorder possibly related to substance abuse -- admitted with seizure and acute respiratory failure prompting intubation. Due to concern for aspiration pneumonia he was also started on antibiotics -- at first Clindamycin, then switched over to Unasyn. He was also loaded with Keppra. Patient was extubated on hospital day 2. Antibiotics and Keppra were continued, and his usual outpatient dose of Methadone was resumed. Patient continued febrile through hospital day 3 -- and then left AMA. Home Meds and New Rx's Prescriptions: No Action gabapentin 800 mg tablet 800 mg PO TID Qty: 270 3RF albuterol sulfate [ProAir HFA] 90 mcg/actuation HFA aerosol inhaler 1 - 2 puff Inhalation Q6H PRN Qty: 2 6RF methadone 10 MG/5 ML solution 190 mg PO DAILY Qty: 0 Rx Instructions: BAART RX/ acetaminophen 500 mg Tablet 500 mg PO TID PRN Patient Comments: Patient stated that he is not taking Discharge Data Discharge Date/Time-TO BE ENTERED AT DEPARTURE: 04/10/23 19:26 Discharge Comment: md ALTHEA paged, pt leaving DS: Summary Time Spent with Patient providing and/or coordinating discharge services: Less than 30 minutes Status at Discharge Functional status at discharge: independent ambulation Overall status at discharge: patient is not back to baseline Mental Status: mental status grossly normal Speech and Movement: speech and movement normal Mood: congruent mood Affect: normal affect Exam Psych Mental Status: mental status grossly normal Speech and Movement: speech and movement normal Mood: congruent mood Affect: normal affect DS: Data Vitals/I&O Vitals and I&O: Vital Signs Temperature 37.5 C 04/10/23 15:51 Temperature Source Temporal Artery Scan 04/10/23 15:51 Pulse 65 04/10/23 15:40 Pulse 63 04/10/23 14:01 Respiratory Rate 10 L 04/10/23 14:01 Respiratory Effort Normal, Non-Labored 04/10/23 12:15 Respiratory Depth Normal 04/10/23 12:15 Respiratory Pattern Normal 04/10/23 12:15 Blood Pressure 124/93 H 04/10/23 15:40 Blood Pressure Mean 100 04/10/23 15:40 Blood Pressure Position Left Lateral 04/10/23 12:15 Pulse Oximetry 98 04/10/23 15:51 Respiratory End-tidal CO2 50 04/08/23 06:23 Oxygen Delivery Method Room Air 04/10/23 15:51 Oxygen Flow Rate 0 04/10/23 15:51 Fraction of Inspired Oxygen (FIO2) 24 04/08/23 07:10 Pain Level 5 04/10/23 12:52 Intake & Output 04/09/23 04/10/23 04/10/23 23:59 11:59 23:59 Intake Total 1870 / 4230 1620 / 2340 720 / 2340 Output Total 2600 / 4380 2730 / 3630 900 / 3630 Balance -730 / -150 -1110 / -1290 -180 / -1290 Intake: IV 150 / 1190 100 / 100 Oral 1720 / 3040 1520 / 2240 720 / 2240 Output: Urine 2600 / 4380 2030 / 2930 900 / 2930 Stool 700 / 700 Other: Urine Color Pale Yellow Pale Yellow Yellow Urine Appearance Clear Clear Clear Cloudy Urine Odor Normal None None Comment using urinal to void using urinal to void but spilled at times in bed Stool Occult Blood Negative Stool Size Large Moderate Stool Characteristics Soft Liquid Formed Brown Voiding Methods Urinal Bedside Commode Urinal Data Completed and Pending Labs on day of discharge: Labs from last 24 hours 05/14/23 05/14/23 05/14/23 05:25 05:25 05:25 WBC 3.54 L RBC 4.62 Hgb 13.2 L Hct 37.4 L MCV 81 MCH 28.6 MCHC 35.3 RDW 14.3 H Plt Count 153 MPV 11.1 H Immature Gran % 0.3 Neutrophils % 60.3 Lymphocytes % 29.7 Monocytes % 8.8 Eosinophils % 0.6 Basophils % 0.3 Nucleated RBC % 0.0 Absolute Neutrophils 2.13 Absolute Lymphocytes 1.05 L Absolute Monocytes 0.31 Absolute Eosinophils 0.02 Absolute Basophils 0.01 Sodium Potassium Chloride Carbon Dioxide Anion Gap BUN Creatinine Est GFR (CKD-EPI 2020) Glucose Calcium Magnesium Procalcitonin 0.4 Add-On Test Request COMPLETE 04/10/23 05:25 WBC RBC Hgb Hct MCV MCH MCHC RDW Plt Count MPV Immature Gran % Neutrophils % Lymphocytes % Monocytes % Eosinophils % Basophils % Nucleated RBC % Absolute Neutrophils Absolute Lymphocytes Absolute Monocytes Absolute Eosinophils Absolute Basophils Sodium 141 Potassium 3.9 Chloride 108 H Carbon Dioxide 24.3 Anion Gap 8.7 BUN 8 Creatinine 0.7 Est GFR (CKD-EPI 2020) 124.77 Glucose 113 H Calcium 8.5 Magnesium 1.9 Procalcitonin Add-On Test Request Preliminary micro results at discharge 04/08/23 14:35 Blood Culture - Preliminary Blood NO GROWTH 48 HOURS 04/09/23 05:40 Blood Culture - Preliminary Blood NO GROWTH 24 HOURS PFSH All Active Problems (Updated 04/10/23 @ 14:26 by Yahaira Royal MD) Fever (Acute) Discharge planning issues (Acute) DVT prophylaxis (Acute) Aspiration into airway (Acute) Encephalomalacia (Acute) Hypokalemia (Acute) Thrombocytopenia (Chronic) Anemia (Chronic) Aspiration pneumonia (Acute) Chronic pain of left knee (Acute 01/13/16) : patellar tendonitis Depressive disorder (Acute) Gastroesophageal reflux disease (Acute 04/03/14) [place]rosc[place] 2011[place] [facility] [place]iopathic scoliosis (Acute) Wingspan/height difference; height 72/wingspan 73 Smoker (Acute) 10/2022-1 ppd, about 15 pk yr Opioid abuse (Chronic) followed by [facility] since 2011, on methadone History of bone graft (Acute) Fracture of tibia (Acute) Leg pain, bilateral (Acute) 2020- chronic bilat leg pain s/p injury-on gabapentin Mouth pain (Acute) 12/2021 Tachycardia (Acute) 12/2021, heart rate 150-patient made informed decision and declined evaluation Abnormal brain MRI (Acute) Drug overdose (Acute) Seizure (Acute) Medical History Closed right clavicular fracture Closed traumatic fracture of ribs of left side with pneumothorax Surgical History H/O arthroscopic knee surgery Hx of wisdom tooth extraction Social History Smoking/Tobacco Use Status: Current every day Tobacco Type: cigarettes Years smoked: 15 Smoking risk assessment performed?: Yes Alcohol Intake: current Alcohol Intake frequency: a few times a week Alcohol type: beer Drug use: Occasionally Substance use type: marijuana and crack/cocaine Current gender identity: male Do you feel safe at home: Yes Do you feel safe in your relationship?: Yes Time Spent with Patient Time Spent with Patient: <45 minutes Time was spent: other
--- NOTE | 2023-04-10 22:36 | NUR.NOTE ---
Pt request AMA prior to 3pm. signs ama but then agrees to stay. more restless when at 1900 a man and woman come into room to visit. PT reports these are friends. friends pull curtain closed, RN enters room to see pt pulling sheet over hea. RN removes sheet - pt is holding something in rt hand. RN asked pt to show RN. vape PEN given to RN. RN explains that pt has nicotine patch already at 21g and additional nicotine may be dangerous. PT states he is ready to leave and jut needs a CIg now. Pt signs new ALTHEA, paged and pt leaves
[2023-04-11 10:45] LABS: HBs Antibody, Qual Positive (See Note); HBs Antibody, Quant 382.9 mIU/mL (See Note); Hepatitis B Core Antibody Negative (Negative); Hepatitis B surface Ag Negative (Negative); Hepatitis C Ab w Rflx HCV PCR Reactive (Negative)
[2023-04-11 11:43] LABS: HIV-1/2 Ag & Ab Screen Reactive (Negative)
[2023-04-11 12:56] LABS: Levetiracetam <2.0 mcg/mL
[2023-04-13 12:53] LABS: HCV RNA Qualitative Detected (Undetected)
[2023-04-18 10:49] LABS: HIV 1 Ab Diff Positive (Negative)
[2023-04-18 10:50] LABS: HIV 1 Band(s) See Comments; HIV 2 Ab Diff Negative (Negative)
== END 2023-04-10 19:26 | disposition left against medical advice (07) | DRG 208 ==
LOC: ER 22:00 → ICU 22:52
PROVIDERS: Internal Medicine; Physician Assistant; Admitting Provider Family Medicine; Emergency Provider Emergency Medicine; PCP Nurse Practitioner Family; Visit Provider Family Medicine
DX: J69.0 Pneumonitis due to inhalation of food and vomit (principal); J96.01 Acute respiratory failure with hypoxia; F11.20 Opioid dependence, uncomplicated; F19.10 Other psychoactive substance abuse, uncomplicated; G93.89 Other specified disorders of brain; M76.52 Patellar tendinitis, left knee; G40.909 Epilepsy, unspecified, not intractable, without status epilepticus; W19.XXXA Unspecified fall, initial encounter; G89.29 Other chronic pain; M41.20 Other idiopathic scoliosis, site unspecified; F12.90 Cannabis use, unspecified, uncomplicated; F14.90 Cocaine use, unspecified, uncomplicated; K21.9 Gastro-esophageal reflux disease without esophagitis; T40.411A Poisoning by fentanyl or fentanyl analogs, accidental (unintentional), initial encounter; T40.5X1A Poisoning by cocaine, accidental (unintentional), initial encounter; S80.812A Abrasion, left lower leg, initial encounter; F32.A Depression, unspecified; F17.210 Nicotine dependence, cigarettes, uncomplicated; S80.811A Abrasion, right lower leg, initial encounter; S40.812A Abrasion of left upper arm, initial encounter; S40.811A Abrasion of right upper arm, initial encounter; R94.31 Abnormal electrocardiogram [ECG] [EKG]; D69.6 Thrombocytopenia, unspecified; D64.9 Anemia, unspecified; E83.51 Hypocalcemia; R45.1 Restlessness and agitation; E87.6 Hypokalemia; R78.89 Finding of other specified substances, not normally found in blood; E53.8 Deficiency of other specified B group vitamins; S00.81XA Abrasion of other part of head, initial encounter
CPT/HCPCS: 36415; 70544; 70547; 71275; 74177; 80048; 80053; 80307; 82550; 82805; 84145; 85027; 86701; 86702; 86704; 86706; 86803; 87040; 87340; 87389; 87522; 87635; 87637; 92610; 93005; 96360; 96361; 96365; 96367; 96368; 96375; 96376; 99285; 36600; 70450; 71045; 72125; 80177; 80320; 80329; 81003; 81015; 82607; 82728; 82746; 83540; 83550; 83735; 84484; 85025; 85610; 85730; 87086; 93010; 94667; 99223; 99232; 99291; J0131; J0295; J0612; J1644; J1953; J3010; J3420; J3490

== ENCOUNTER 2023-06-12 11:00 | Emergency (ER) | payer MEDICAID, SELFPAY ==
[2023-06-12 11:53] VITALS: BP 108/66; PULSE 87; RESP 18; TEMP 36.7; O2SAT 98
--- NOTE | 2023-06-12 13:00 | DI.RAD_ITS ---
Exam(s) XR WRIST LT COMPLETE EXAM: XR WRIST LT COMPLETE CLINICAL HISTORY: trauma. TECHNIQUE: 2D digital imaging was performed. COMPARISON: No exams were available for comparison FINDINGS: 3 views No evidence of fracture nor dislocation. No significant ulnar variance. Scaphoid and scapholunate d istance normal. No osseous lesions nor erosions. Bone density normal. No degenerative changes. IMPRESSION: No significant osseous findings in the wrist. DATA REPOSITORY: RADIATION DOSE DELIVERED:
--- NOTE | 2023-06-12 13:00 | DI.RAD_ITS ---
Exam(s) XR HAND LT COMPLETE EXAM: XR HAND LT COMPLETE CLINICAL HISTORY: trauma. TECHNIQUE: 2D digital imaging was performed. COMPARISON: No exams were available for comparison FINDINGS: 3 views There is soft tissue swelling over the dorsal aspect of the hand. No obvious fracture evident. No r adiopaque foreign body. Bone density normal. No osseous lesions. No erosions. IMPRESSION: Soft tissue swelling but no fractures evident. No radiopaque foreign body. DATA REPOSITORY: RADIATION DOSE DELIVERED:
[2023-06-12] MEDS: Ketorolac 10 MG TAB PO (13:12)
--- NOTE | 2023-06-12 13:36 | ED.GENADUL_ITS ---
Discharge Plan Disposition Patient Disposition: Home Discharge Details Clinical Impression: Sprain and strain of left hand Primary Care Provider: Wallace Max ED Provider: Kin Mcelroy Home Meds and New Rx's Prescriptions: Continued gabapentin 800 mg tablet 1,200 mg PO TID Qty: 90 3RF albuterol sulfate [ProAir HFA] 90 mcg/actuation HFA aerosol inhaler 1 - 2 puff Inhalation Q6H PRN Qty: 2 6RF methadone 10 MG/5 ML solution 190 mg PO DAILY Qty: 0 Rx Instructions: BAART RX/ Discontinued doxycycline hyclate 100 mg tablet 200 mg PO ONCE Qty: 2 0RF acetaminophen 500 mg Tablet 500 mg PO TID PRN Patient Comments: Patient stated that he is not taking Discharge Instructions Instructions: Hand Sprain (ED), R.I.C.E. Treatment (ED) Additional Instructions: At this time your x-ray imaging was negative so I suspect contusion versus sprain. Please continue to use your normally prescribed medication along with [id number] medication as needed for your discomfort. You may apply ice as instructed on the handouts and if not improving please follow-up with your primary care provider for reassessment Referrals: Wallace Max, [employer] [Primary Care Provider] - (As needed for reassessment or if not improving) Medical Decision Making Patient presenting to the emergency department for chief complaint of left wrist injury. Patient states that he put pressure on his knuckles and hand yesterday and his wrist gave out when trying to stand up causing pain and discomfort. Patient denies any other injury or trauma and denies any other complaints. Physical exam shows erythema to the second and third knuckles, diffuse swelling to the dorsal hand and tenderness to the ulnar aspect of the wrist. I have high suspicion of blunt trauma injury to the hand but patient denies this. We will perform radiological imaging for evaluation of potential acute fracture. Pending results will give ketorolac Reviewed radiological imaging and I see no acute signs of fracture or dislocation. Patient's hand wrapped in an Ed wrap and recommended ice along with [id number] pain medication. Patient to follow-up with primary care provider return for new or worsening symptoms. After discussion of diagnosis and plan of care patient has no further needs, questions, or concerns and states clear understanding to return to the emergency department for any worsening symptoms. This documentation was generated using Dragon dictation system, please disregard any oddities of phrase or misspellings. Imaging Data Radiologic Study: Attestation: I personally reviewed and interpreted this imaging study as follows: Imaging: X-Ray My impression: Left hand and wrist. Soft tissue edema without acute fracture or dislocation HPI General Mode of arrival: ambulatory . Date/Time Provider Initiated Documentation: 06/12/23 12:08 . Limitations to Documentation: no limitations . Information obtained by: patient and RN notes reviewed . History of Present Illness 32 year old M presents to the emergency department with the chief complaint of Left hand injury, described as moderate, Quality is described as sharp, and is localized to the left and upper extremity. Patient reports no radiation. Patient started experiencing this day(s) (1) and it has been constant. No relieving factors improve symptom(s), Movement worsens symptoms . Patient notes no other symptoms.. Patient did receive the following treatments prior to arrival, none Related Data Home Medications Medication Instructions Recorded Confirmed methadone 10 mg/5 mL oral solution 190 mg PO DAILY #0 tab-caps 06/26/18 05/02/23 albuterol sulfate 90 mcg/actuation 1 - 2 puff inhalation Q6H PRN ##2 12/06/22 05/02/23 aerosol inhaler (ProAir HFA) gabapentin 800 mg tablet 1,200 mg PO TID #90 tabs 04/26/23 04/26/23 Previous Rx's Medication Instructions Recorded albuterol sulfate 90 mcg/actuation 1 - 2 puff inhalation Q6H PRN ##2 12/06/22 aerosol inhaler (ProAir HFA) gabapentin 800 mg tablet 1,200 mg PO TID #90 tabs 04/26/23 Allergies Allergy/AdvReac Type Severity Reaction Status Date / Time No Known Allergies Allergy Unverified 04/26/23 15:58 General Stated Complaint: Orthopedic JENNIFER: 4 Review of Systems Constitutional Constitutional: Denies chills and Denies fever(s) Cardiovascular Cardiovascular: Denies chest pain and Denies dyspnea Respiratory Respiratory: Denies dyspnea Gastrointestinal Gastrointestinal: Denies abdominal pain Musculoskeletal Musculoskeletal: Reports as per HPI, Reports arthralgias, Reports joint swelling, Reports limited range of motion and Denies tingling Neurologic Neurologic: Denies sensory deficit, Denies tingling and Denies paresthesias PFSH All Active Problems (Updated 06/12/23 @ 13:45 by Kin Mcelroy NP) Chronic pain of left knee (Acute 01/13/16) : patellar tendonitis Depressive disorder (Acute) Gastroesophageal reflux disease (Acute 04/03/14) [place] 2012[place] [facility] [place]iopathic scoliosis (Acute) Wingspan/height difference; height 72/wingspan 73 Smoker (Acute) 10/2022-1 ppd, about 15 pk yr Opioid abuse (Chronic) followed by [facility] since 2011, on methadone History of bone graft (Acute) Fracture of tibia (Acute) Leg pain, bilateral (Acute) 2020- chronic bilat leg pain s/p injury-on gabapentin Mouth pain (Acute) 12/2021 Tachycardia (Acute) 12/2021, heart rate 150-patient made informed decision and declined evaluation Abnormal brain MRI (Acute) Seizure (Acute) Aspiration pneumonia (Acute) Anemia (Chronic) Thrombocytopenia (Chronic) Encephalomalacia (Acute) Aspiration into airway (Acute) Discharge planning issues (Acute) Fever (Acute) Hepatitis C (Chronic) HIV antibody positive (Acute) Sprain and strain of left hand (Acute) Medical History Closed right clavicular fracture Closed traumatic fracture of ribs of left side with pneumothorax Surgical History H/O arthroscopic knee surgery Hx of wisdom tooth extraction Social History Smoking/Tobacco Use Status: Current every day Tobacco Type: cigarettes Years smoked: 15 Smoking risk assessment performed?: Yes Alcohol Intake: current Alcohol Intake frequency: a few times a week Alcohol type: beer Drug use: Occasionally Substance use type: marijuana and crack/cocaine Current gender identity: male Do you feel safe at home: Yes Do you feel safe in your relationship?: Yes Exam Const General: cooperative, no acute distress and not ill appearing Orientation: alert, awake and oriented x3 HENMT Mouth: moist mucous membranes Resp Effort & Inspection: normal respiratory effort, able to speak in complete sentences and no respiratory distress Cardio Rate: regular rate Rhythm: regular rhythm Pulses: normal peripheral pulses Skin General skin exam: no rashes or lesions noted Neuro General: patient alert, patient awake, patient oriented x3, moves all extremities and no focal motor deficits Sensory Exam: no sensory deficits noted Extrem General: normal exam except as noted Left upper extremity: wrist Details: tenderness Location: of the distal ulna and of the dorsal wrist; not of the anatomic snuffbox and normal ROM and hand Details: normal capillary refill, neurosensory exam normal, tenderness Location: of the dorsal hand, abnormal ROM of finger Details: pain with active ROM and pain with passive ROM; able to flex and able to extend and swelling Location: of the dorsal hand and of the palm Course Vital Signs Vital signs: Vital Signs Temperature 36.7 C 06/12/23 11:53 Pulse 87 06/12/23 11:53 Respiratory Rate 18 06/12/23 11:53 Blood Pressure 108/66 06/12/23 11:53 Pulse Oximetry 98 06/12/23 11:53 Temperature 36.7 C 06/12/23 11:53 Temperature Source Oral 06/12/23 11:53 Pulse 87 06/12/23 11:53 Respiratory Rate 18 06/12/23 11:53 Blood Pressure 108/66 06/12/23 11:53 Blood Pressure Position Standing 06/12/23 11:53 Pulse Oximetry 98 06/12/23 11:53 Oxygen Delivery Method Room Air 06/12/23 11:53 Oxygen Flow Rate 0 06/12/23 11:53 Pain Level 5 06/12/23 11:53
--- NOTE | 2023-06-12 13:46 | DI.VRAD_ITS ---
PROCEDURE INFORMATION: Exam: XR Left Hand Exam date and time: 06/12/2023 1:23 PM Age: 32 years old Clinical indication: Injury or trauma; Fall; Blunt trauma (contusions or hematomas); Hand; Left TECHNIQUE: Imaging protocol: Radiologic exam of the left hand. Views: 3 or more views. PA, oblique and lateral images. COMPARISON: No relevant prior studies available. FINDINGS: Bones/joints: The bones are well mineralized. The joint spaces are preserved. Examination negative for fracture or dislocation. No periostitis or osteolysis. Soft tissues: [id number] dorsal soft tissue edema. No soft tissue gas. IMPRESSION: Nonspecific soft tissue edema without osseous abnormality. Dictated and Authenticated by: Artem Rosales MD. Ordering:ANAMARIA Sanderson MD
--- NOTE | 2023-06-12 13:47 | DI.VRAD_ITS ---
PROCEDURE INFORMATION: Exam: XR Left Wrist Exam date and time: 06/12/2023 1:24 PM Age: 32 years old Clinical indication: Injury or trauma; Fall; Blunt trauma (contusions or hematomas); Wrist; Left TECHNIQUE: Imaging protocol: Radiologic exam of the left wrist. Views: 3 or more views. PA, oblique and lateral images. COMPARISON: CR XR HAND LT COMPLETE 06/12/2023 1:23 PM FINDINGS: Bones/joints: The bones are well mineralized. The joint spaces are preserved. Examination negative for fracture, dislocation periostitis or osteolysis. Soft tissues: Small amount of soft tissue edema. Most of the edema is overlying the hand. IMPRESSION: Soft tissue edema without evidence of fracture or dislocation Dictated and Authenticated by: Artem Rosales MD. Ordering:ANAMARIA Sanderson MD
== END 2023-06-12 13:52 | disposition home or self-care (01) ==
PROVIDERS: Emergency Provider Nurse Practitioner Family; PCP Nurse Practitioner Family
DX: S63.92XA Sprain of unspecified part of left wrist and hand, initial encounter (principal); X58.XXXA Exposure to other specified factors, initial encounter
CPT/HCPCS: 99284; 73110; 73130; 99283

== ENCOUNTER 2024-03-14 10:20 | Outpatient (CLI) | payer MEDICAID, SELFPAY ==
[2024-03-14 10:31] LABS: Abs Immature Grans 0.02 10^3/uL (0.0-0.06); Absolute Basophil Count 0.03 10^3/uL (0.0-0.2); Absolute Monocyte Count 0.43 10^3/uL (0.1-0.8); Absolute Neutrophil Count 4.08 10^3/uL (1.2-6.7); Basophils % 0.5; Eosinophils % 1.7; HCT 44.2 % (40.0-50.0); HGB 15.6 g/dL (13.5-17.5); Immature Grans % 0.3; Lymphocytes % 23.1; MCHC 35.3 % (32.0-36.0); MCV 88 fL (80-95); Monocytes % 7.1; Neutrophils % 67.3; Platelet Count 226 10^3/uL (130-400); RBC 5.03 10^6/uL (4.36-5.78); RDW 12.9 % (11.8-14.1); RDW-SD 41.5 fL; WBC 6.06 10^3/uL (4.4-10.8)
[2024-03-15 12:56] LABS: HCV RNA Qualitative Undetected (Undetected); HIV 1 RNA Qualitative Detected copies/mL (Undetected); HIV 1 RNA Quantitative 24 copies/mL (Undetected)
[2024-03-15 15:54] LABS: 4/8 Ratio 0.84 (>=0.90); Absolute CD3 888 Cells/uL (840-2669); Absolute CD8 468 Cells/uL (154-1097); CD3 71 % (56-84); CD4 31 % (31-64); CD8 38 % (9-39)
== END 2024-03-14 10:21 | disposition home or self-care (01) ==
LOC: LBO 10:21
PROVIDERS: PCP Nurse Practitioner Family; Visit Provider Internal Medicine Infectious Disease
DX: B20 Human immunodeficiency virus [HIV] disease (principal)
CPT/HCPCS: 36415; 87522; 87536; 85025; 86359; 86360

== ENCOUNTER 2024-10-19 10:04 | Outpatient (CLI) | payer MEDICAID, SELFPAY ==
--- NOTE | 2024-10-19 10:00 | RT.EKG_ITS ---
APPROVED REPORT Exam: Resting ECG Reason for Exam: HIGH RISK MEDICATION Patient Location: O HR:63 bpm ECG Measurements Heart Rate 63 AXIS MI 148 P 24 QRSd 98 QRS 76 QT 417 T 68 QTc 427 Conclusion Sinus rhythm...normal P axis, V-rate 50- 99 RSR' in V1 or V2, probably normal variant...small R' only Probable left ventricular hypertrophy...multiple LVH criteria
== END 2024-10-19 10:05 | disposition home or self-care (01) ==
PROVIDERS: PCP Nurse Practitioner Family; Visit Provider Family Medicine
DX: Z79.899 Other long term (current) drug therapy (principal)
CPT/HCPCS: 93005; 93010

== ENCOUNTER 2025-01-17 10:55 | Emergency (ER) | payer MEDICAID, SELFPAY ==
[2025-01-17 11:02] VITALS: BP 107/74; PULSE 85; RESP 16; TEMP 37.7; O2SAT 94
--- NOTE | 2025-01-17 11:15 | DI.RAD_ITS ---
Exam(s) XR CHEST 2V PA LATERAL EXAM: XR CHEST 2V PA LATERAL CLINICAL HISTORY: chest pain TECHNIQUE: 2D digital imaging was performed of the chest. Two images were obtained. PA and lateral views were obtained. COMPARISON: CR,XR XR PORTABLE CHEST AP from 04/09/2023 FINDINGS: MEDIASTINUM: Normal. HEART: Normal. PULMONARY VASCULATURE: Normal. LUNGS: There is an infiltrate in the right upper lobe. The left lung is clear. PLEURAL SPACE: No pleural effusion or pneumothorax. BONE:Within normal limits for the patient's age. There is again seen a sideplate on the right clavic le. OTHER FINDINGS:Normal. IMPRESSION: Right upper lobe pneumonia. A follow-up chest x-ray is recommended to document complete resolution o f the findings. DATA REPOSITORY: RADIATION DOSE DELIVERED:
[2025-01-17 12:17] LABS: COVID-19 PCR Negative (Negative); Influenza A PCR Positive (Negative); Influenza B PCR Negative (Negative); RSV PCR Negative (Negative)
[2025-01-17 12:19] LABS: Source Nasopharynx
--- NOTE | 2025-01-17 12:58 | ED.GENADUL_ITS ---
Discharge Plan Disposition Patient Disposition: Eloped Condition: Serious Discharge Details Clinical Impression: Pneumonia, Influenza A, Seizure Primary Care Provider: Wallace Max ED Provider: Camden Hernandez Home Meds and New Rx's Prescriptions: New amoxicillin 500 mg capsule 1,000 mg PO TID Qty: 28 0RF sulfamethoxazole-trimethoprim [Bactrim] 400-80 mg tablet 1 tab PO TID 21 Days Qty: 63 0RF Continued methadone 10 MG/5 ML solution 95 - 115 mg PO BID Qty: 0 Patient Comments: 115mg every morning - 95mg in the afternoon Rx Instructions: BAART RX/ albuterol sulfate 90 mcg/actuation HFA aerosol inhaler 1 - 2 puff Inhalation Q6H PRN Qty: 2 6RF Patient Comments: needs new rx famotidine 40 mg tablet 40 mg PO DAILY Qty: 90 0RF Patient Comments: needs new rx gabapentin 800 mg tablet 1,200 mg PO QID Rx Instructions: 0.5 tab po qd x TID for 1 week, 1 tab po TID for 1 week, then 1.5 mg po TID Biktarvy 50-200-25 mg tablet 1 tab PO DAILY Discharge Instructions Instructions: Pneumonia, Adult ED, Flu, Adult ED, Seizures, Adult ED Additional Instructions: Please drink plenty of fluid to stay hydrated and allow for plenty of rest. The last CD4 count that we have in the medical record is from February 2024 and was low at 392. Repeat CD4 test is pending today in addition to CBC, LDH, and viral load. You have elected to leave prior to the results of these tests. Please be sure to follow-up with your infectious disease specialist and primary care physician as soon as possible and let them know that these test were performed today and pending at time of discharge. Please take the full course of antibiotics as prescribed. You were given your initial dose here in the emergency department. Your next dose should be this evening. No operating heavy machinery or driving a motor vehicle until cleared to do so by your neurologist or primary care physician. Please follow-up with your primary care physician. Return to the emergency department immediately for any worsening or new concerning symptoms. Referrals: Wallace Max, RESEARCH & ANALYTICS MANAGER [Primary Care Provider] - HPI General Mode of arrival: ambulatory . Date/Time Provider Initiated Documentation: 01/17/25 11:19 . Limitations to Documentation: no limitations . Information obtained by: patient . HPI Narrative: HISTORY OF PRESENT ILLNESS The patient is a 34-year-old male with multiple medical problems presenting with respiratory symptoms over the past few days. He reports sharp right-sided pain attributed to a seizure two nights ago (approximately 48 hours ago). He has been coughing up bloody mucus for 3-4 days, with body aches but no fever, vomiting, or diarrhea. He felt slightly nauseous recently. He smokes half a pack of cigarettes daily but has abstained for the past few days. He occasionally consumes alcohol. Current medications include methadone and gabapentin. He has a history of seizures, more frequent since surgery, and is on gabapentin for control. The recent seizure occurred in bed, with injury to the roof of his mouth but no urinary incontinence or trauma from a fall. Related Data Home Medications ?Medication ?Instructions ?Recorded ?Confirmed methadone 10 mg/5 mL oral solution 95 - 115 mg PO BID #0 tab-caps 06/26/18 01/17/25 albuterol sulfate 90 mcg/actuation 1 - 2 puff inhalation Q6H PRN ##2 01/04/25 01/17/25 aerosol inhaler famotidine 40 mg tablet 40 mg PO DAILY #90 tabs 01/04/25 01/17/25 amoxicillin 500 mg capsule 1,000 mg (2 x 500 mg) PO TID #28 01/17/25 caps bictegravir 50 mg-emtricitabine 1 tab PO DAILY 01/17/25 01/17/25 200 mg-tenofovir alafenam 25 mg tablet (Biktarvy) gabapentin 800 mg tablet 1,200 mg PO QID 01/17/25 01/17/25 sulfamethoxazole 400 1 tab PO TID 21 days #63 tabs 01/17/25 mg-trimethoprim 80 mg tablet (Bactrim) Previous Rx's ?Medication ?Instructions ?Recorded albuterol sulfate 90 mcg/actuation 1 - 2 puff inhalation Q6H PRN ##2 01/04/25 aerosol inhaler famotidine 40 mg tablet 40 mg PO DAILY #90 tabs 01/04/25 amoxicillin 500 mg capsule 1,000 mg (2 x 500 mg) PO TID #28 01/17/25 caps sulfamethoxazole 400 1 tab PO TID 21 days #63 tabs 02/20/25 mg-trimethoprim 80 mg tablet (Bactrim) Allergies Allergy/AdvReac Type Severity Reaction Status Date / Time No Known Allergies Allergy Unverified 01/17/25 11:10 General Stated Complaint: RespSymp JENNIFER: 3 Review of Systems Narrative: REVIEW OF SYSTEMS Negative for fever, vomiting, or diarrhea. Positive for nausea and body aches. Exam Narrative Exam Narrative: PHYSICAL EXAM General Appearance: Normal. Vital signs: Temperature noted to be 37.7 C. Hemodynamically stable. HEENT: Within normal limits. Respiratory: Within normal limits. Clear to auscultation bilaterally. Cardiovascular: regular rate and rhythm. No murmur, rubs, or gallops. Skin: Warm and dry, no rash. Neurological: Normal. No seizure activity. Full strength throughout. Course Vital Signs Vital signs: Vital Signs Temperature 37.7 C H 01/17/25 11:02 Pulse 85 01/17/25 11:02 Respiratory Rate 16 01/17/25 11:02 Blood Pressure 107/74 01/17/25 11:02 Pulse Oximetry 94 01/17/25 11:02 Temperature 37.7 C H 01/17/25 11:02 Temperature Source Oral 01/17/25 11:02 Pulse 85 01/17/25 11:02 Respiratory Rate 16 01/17/25 11:02 Respiratory Effort Short of Breath 01/17/25 11:26 Respiratory Depth Normal 01/17/25 11:26 Blood Pressure 107/74 01/17/25 11:02 Blood Pressure Position Sitting 01/17/25 11:02 Pulse Oximetry 94 01/17/25 11:02 Oxygen Delivery Method Room Air 01/17/25 11:02 Oxygen Flow Rate 0 01/17/25 11:02 Pain Level 7 01/17/25 11:02 Lab/Test Results Lab/Test Results: Laboratory Tests Range/Units 01/17/25 11:29 COVID-19 Source Nasopharynx SARS-CoV-2 (PCR) (Negative) Negative Influenza Type A (PCR) (Negative) Positive A Influenza Type B (PCR) (Negative) Negative RSV (PCR) (Negative) Negative Medical Decision Making ASSESSMENT AND PLAN Initial Assessment: 34-year-old male with respiratory symptoms, sharp right- sided pain, and possible recent seizure. Differential Diagnosis: - Right upper lobe pneumonia: Sharp right-sided pain, worsened by coughing, and coughing up bloody mucus for 3-4 days. Chest x-ray shows right upper lobe infiltrate. Treat with antibiotics, first dose today, rest prescribed. Take Tylenol and ibuprofen for fever and discomfort. Follow-up chest x-ray after antibiotics. - Influenza: Tested positive for influenza. Given smoking history and focal infiltrate, prescribe antibiotics for potential superimposed bacterial infection. - Seizure: Reported possible seizure two nights ago (approximately 48 hours ago), with mouth injury and soreness. History of seizures, on gabapentin. No significant injury or urination during episode. Follow up with neurologist. - HIV: History of HIV, compliant with antiviral medication. Recent CD4 count normal, but chart review showed CD4 count of 392 on 03/14/2024. Consider pneumocystis pneumonia, initiate Bactrim in addition to amoxicillin. ED Course: - Additional history obtained: history of HIV, compliant with antiviral medication. - Recent normal CD4 count reported by patient. - Chart review: low CD4 count of 392 on 03/14/2024. - Consider potential pneumocystis pneumonia. -Plan to initiate treatment with Bactrim in addition to amoxicillin. Plan to check CD4 count, viral load, LDH, and CBC today. Plan was discussed with the patient who is agreeable. Patient then eloped from the emergency department prior to nurse drawing blood and administering medication. I contacted the patient's PCP office and spoke with nurse, discussed ED presentation course including elopement and recommended close follow-up as soon as possible for further diagnostic workup and treatment. I called the patient and left a message on his voicemail encouraging him to return as soon as possible. I did send prescription to his pharmacy for Bactrim and amoxicillin. Final Assessment: Patient presents with right upper lobe pneumonia, influenza, possible recent seizure, and history of HIV. Recommended treatment with antibiotics and Bactrim. Patient eloped prior to completion of diagnostic workup and treatment. Follow-up with primary care and neurologist needed. Clinical Impression: - Right upper lobe pneumonia - Influenza - Seizure - HIV Disposition: -Eloped MDM Components Evaluation: - Number of Differential Diagnoses or Management Options: Right upper lobe pneumonia, influenza, seizure, HIV - Amount and Complexity of Data Reviewed: Chest x-ray, flu and COVID testing, patient history, chart review of CD4 count - Risk of Complication and Morbidity or Mortality: High due to history of HIV, potential pneumocystis pneumonia, and recent seizure. This document was written with the assistance of TONI Ornelas. The patient consented to its use. Quality:SDOH Health Related Social Needs: No Data to Display PFSH All Active Problems Seizure (Acute) Influenza A (Acute) Pneumonia (Acute) HIV antibody positive (Acute) Hepatitis C (Chronic) Fever (Acute) Discharge planning issues (Acute) Aspiration into airway (Acute) Encephalomalacia (Acute) Thrombocytopenia (Chronic) Anemia (Chronic) Aspiration pneumonia (Acute) Seizure (Acute) Abnormal brain MRI (Acute) Tachycardia (Acute) 12/2021, heart rate 150-patient made informed decision and declined evaluation Mouth pain (Acute) 12/2021 Leg pain, bilateral (Acute) 2020- chronic bilat leg pain s/p injury-on gabapentin Fracture of tibia (Acute) History of bone graft (Acute) Opioid abuse (Chronic) followed by [facility] clinic since 2011, on methadone Smoker (Acute) 10/2022-1 ppd, about 15 pk yr Idiopathic scoliosis (Acute) Wingspan/height difference; height 72/wingspan 73 Gastroesophageal reflux disease (Acute 04/03/14) gastroscopy 2012: [place] [facility] [place] Depressive disorder (Acute) Chronic pain of left knee (Acute 01/13/16) : patellar tendonitis Medical History Closed right clavicular fracture Closed traumatic fracture of ribs of left side with pneumothorax Surgical History Hx of wisdom tooth extraction H/O arthroscopic knee surgery Social History Smoking/Tobacco Use Status: Current every day Tobacco Type: cigarettes Years smoked: 15 Smoking risk assessment performed?: Yes Alcohol Intake: current Alcohol Intake frequency: a few times a week Alcohol type: beer Drug use: Occasionally Substance use type: marijuana and crack/cocaine Housing: house Current gender identity: male Do you feel safe at home: Yes Do you feel safe in your relationship?: Yes Additional Social history: living with mother PAWSS Have you Been Recently Intoxicated or Drunk Within the Last 30 days?: No Have you Ever Experienced Previous Episodes of Alcohol Withdrawal?: No Have you ever Experienced Withdrawal Seizures?: No Have you ever Experienced Delirium Tremens(DT)s?: No Have you ever undergone Alcohol Rehabilitation Treatment (i.e, inpt ot outpatient treatment programs)?: No Have you ever Experienced Blackouts?: No Have you ever Combined Alcohol with other Downers within the last 90 days?: No Have you ever Combined Alcohol with any other Substance of Abuse during the last 90 days?: No Positive Blood Alcohol level on Presentation? [PCS.BAL]: No Evidence of Increased Autonomic Activity (i.e. HR>120, tremor, sweating, agitation, nausea)?: No Result: 0
[2025-01-17] MEDS: Amoxicillin 500 MG CAP 1000 MG PO (13:07)
== END 2025-01-17 13:31 | disposition left against medical advice (07) ==
PROVIDERS: Emergency Provider Student in an Organized Health Care Education/Training Program; PCP Nurse Practitioner Family
DX: J10.00 Influenza due to other identified influenza virus with unspecified type of pneumonia (principal); G40.909 Epilepsy, unspecified, not intractable, without status epilepticus; F17.210 Nicotine dependence, cigarettes, uncomplicated; Z53.29 Procedure and treatment not carried out because of patient's decision for other reasons
CPT/HCPCS: 87426; 87536; 87637; 99284; 71046; 83615; 85025; 86359; 86360

== ENCOUNTER 2025-01-18 09:19 | Outpatient (CLI) | payer MEDICAID, SELFPAY ==
[2025-01-18 12:31] LABS: Abs Immature Grans 0.07 10^3/uL (0.0-0.06); Absolute Basophil Count 0.03 10^3/uL (0.0-0.2); Absolute Eosinophil Count 0.15 10^3/uL (0.0-0.7); Absolute Lymphocyte Count 1.64 10^3/uL (1.2-3.4); Absolute Monocyte Count 1.48 10^3/uL (0.1-0.8); Absolute Neutrophil Count 7.12 10^3/uL (1.2-6.7); Basophils % 0.3 %; Eosinophils % 1.4 %; HCT 40.9 % (40.0-50.0); HGB 14.5 g/dL (13.5-17.5); Immature Grans % 0.7 %; Lymphocytes % 15.6 %; MCH 30.1 pg (27.0-33.0); MCHC 35.5 % (32.0-36.0); MCV 85 fL (80-95); MPV 11.4 fL (8.0-11.0); Monocytes % 14.1 %; Neutrophils % 67.9 %; Platelet Count 281 10^3/uL (130-400); RBC 4.81 10^6/uL (4.36-5.78); RDW 11.6 % (11.8-14.1); RDW-SD 35.8 fL; WBC 10.49 10^3/uL (4.4-10.8)
[2025-01-18 12:39] LABS: LDH 273 U/L (85-227)
[2025-01-21 13:04] LABS: HIV 1 RNA Qualitative Detected Copys/mL (Undetected); HIV 1 RNA Quantitative 39 Copys/mL (Undetected)
[2025-01-21 14:34] LABS: 4/8 Ratio 0.59 (>=0.90); Absolute CD3 1133 Cells/uL (840-2669); Absolute CD8 687 Cells/uL (154-1097); CD3 73 % (56-84); CD4 26 % (31-64); CD8 44 % (9-39)
== END 2025-01-18 09:20 | disposition home or self-care (01) ==
LOC: LOS 09:20
PROVIDERS: PCP Nurse Practitioner Family; Referring Provider Nurse Practitioner Family; Visit Provider Nurse Practitioner Family
DX: Z21 Asymptomatic human immunodeficiency virus [HIV] infection status (principal); J45.20 Mild intermittent asthma, uncomplicated; J10.1 Influenza due to other identified influenza virus with other respiratory manifestations; J18.9 Pneumonia, unspecified organism
CPT/HCPCS: 36415; 87536; 83615; 85025; 86359; 86360

== ENCOUNTER 2025-05-25 17:03 | Emergency (ER) | payer MEDICAID, SELFPAY ==
[2025-05-25 17:07] VITALS: BP 128/80; PULSE 88; RESP 20; TEMP 36.7; O2SAT 97
--- NOTE | 2025-05-25 17:17 | ED.GENADUL_ITS ---
Discharge Plan Disposition Patient Disposition: Home Discharge Details Clinical Impression: Cellulitis Primary Care Provider: Wlalace Max ED Provider: Shira Braun Home Meds and New Rx's Prescriptions: New doxycycline hyclate 100 mg tablet 100 mg PO BID Qty: 12 0RF No Action albuterol sulfate 90 mcg/actuation HFA aerosol inhaler 1 - 2 puff Inhalation Q6H PRN Qty: 2 6RF Patient Comments: needs new rx methadone 10 MG/5 ML solution 95 - 115 mg PO BID Qty: 0 Patient Comments: 115mg every morning - 95mg in the afternoon Rx Instructions: BAART RX/ gabapentin 800 mg tablet 1,200 mg PO QID Qty: 135 3RF Rx Instructions: 0.5 tab po qd x TID for 1 week, 1 tab po TID for 1 week, then 1.5 mg po TID famotidine 40 mg tablet 40 mg PO DAILY Qty: 90 0RF Patient Comments: needs new rx Biktarvy 50-200-25 mg tablet 1 tab PO DAILY Discharge Instructions Instructions: Cellulitis (Skin Infection), Adult ED Additional Instructions: Please call your primary care provider on Tuesday for reassessment if your skin infection is not looking significantly better Please keep your leg clean and dry. Wash daily antibacterial soap and water. Use warm compresses for 10 to 15 minutes at a time every hour or 2 during the day. Elevate above heart level to help with discomfort. You are being prescribed an antibiotic called doxycycline. Please take the full course as prescribed. Please note that the doxycycline you are being prescribed may cause a photosensitivity reaction. I recommend that you protect yourself from sun with long sleeves and SPF 50. Avoid being out in the sun during the hours of 11 AM to 3 PM Return to care if you notice any signs of worsening infection such as worsening redness/swelling after 48 hours of antibiotics, fever/chills, general feeling of unwellness, numbness/color change in the foot or leg, or if you are very worried and need to be rechecked again immediately HPI General Date/Time Provider Initiated Documentation: 05/25/25 17:04 . HPI Narrative: Rio is a 34-year-old male who presents to the emergency department today for evaluation of area of right calf redness/swelling/tenderness. He first noticed a tender spot 1.5 days ago, no preceding trauma, initially improving but now worsening. No overlying skin tears/lesions. Pain is localized to the calf/area of erythema, no distal swelling/numbness/tingling. Denies history of MRSA, however does have history of IV drug use several years ago. Denies systemic symptoms such as fever/chills, general malaise, change in p.o. intake, change in bowel or bladder function. Denies significant past medical history. Has been managing lesion with showers and ice pack. No other similar lesions on body. Related Data Home Medications ?Medication ?Instructions ?Recorded ?Confirmed methadone 10 mg/5 mL oral solution 95 - 115 mg PO BID #0 tab-caps 06/26/18 05/25/25 bictegravir 50 mg-emtricitabine 1 tab PO DAILY 5 05/25/25 200 mg-tenofovir alafenam 25 mg tablet (Biktarvy) albuterol sulfate 90 mcg/actuation 1 - 2 puff inhalati on Q6H PRN ##2 01/18/25 05/25/25 aerosol inhaler famotidine 40 mg tablet 40 mg PO DAILY #90 tabs 04/2805/25/25 gabapentin 800 mg tablet 1,200 mg (1.5 x 800 mg) PO Q ID 05/08/25 05/25/25 #135 tabs doxycycline hyclate 100 mg tablet 100 mg PO BID #12 ta bs 05/25/25 Previous Rx's ?Medication ?Instructions ?Recorded albuterol sulfate 90 mcg/actuation 1 - 2 puff inhalati on Q6H PRN ##2 01/18/25 aerosol inhaler famotidine 40 mg tablet 40 mg PO DAILY #90 tabs 04/28 12/22 gabapentin 800 mg tablet 1,200 mg (1.5 x 800 mg) PO Q ID 05/08/25 #135 tabs doxycycline hyclate 100 mg tablet 100 mg PO BID #12 ta bs 05/25/25 Allergies Allergy/AdvReac Type Severity Reaction Status Date / Time No Known Allergies Allergy Verified 05/25/25 17:12 General Stated Complaint: Cellulitis JENNIFER: 4 Exam Narrative Exam Narrative: General Appearance: Normal. Rio is alert and oriented, no acute distress. Vital signs: Within normal limits, no tachycardia or fevers noted. Skin: Erythema on right calf, warm to touch. No skin tears or areas of fluctuance/induration. Psychiatric: Normal. Course Vital Signs Vital signs: Vital Signs Temperature 36.7 C 05/25/25 17:07 Pulse 88 05/25/25 17:07 Respiratory Rate 20 05/25/25 17:07 Blood Pressure 128/80 05/25/25 17:07 Pulse Oximetry 97 05/25/25 17:07 Temperature 36.7 C 05/25/25 17:07 Temperature Source Oral 05/25/25 17:07 Pulse 88 05/25/25 17:07 Respiratory Rate 20 05/25/25 17:07 Blood Pressure 128/80 05/25/25 17:07 Blood Pressure Position Sitting 05/25/25 17:07 Pulse Oximetry 97 05/25/25 17:07 Oxygen Delivery Method Room Air 05/25/25 17:07 Oxygen Flow Rate 0 05/25/25 17:07 Pain Level 4 05/25/25 17:07 Medical Decision Making Initial Assessment: 34-year-old male with right calf lesion, erythema, and warmth, consistent with localized skin infection. No recent injury. History of fracture to this ankle in the remote past. No fever, chills, systemic symptoms. Does have a history of IV drug use, concerning for possible MRSA colonization. Differential Diagnosis: - Skin infection, no abscess noted: Erythema and warmth on right calf. Plan: Start antibiotics, elevate leg, apply warm compress, monitor for improvement. - DVT: Unlikely due to lack of distal swelling, numbness, tingling, or other consistent symptoms. Plan: No red flags indicating need for ultrasound evaluation at this time. - No red flags concerning for sepsis/extension of infection requiring labs or diagnostic imaging at this time. ED Course: - RN outlined area of erythema with surgical marker for monitor - Initiated antibiotics; doxycycline given for MRSA coverage. If this fails, recommend addition of Keflex for staph and strep coverage - Advised leg elevation and warm compress 4-5 times daily. - Discussed OTC pain relievers (Tylenol, ibuprofen). - Took picture of lesion for chart. Final Assessment: Right ankle lesion, erythema, and warmth, consistent with skin infection. Started antibiotics, advised leg elevation and warm compress. No signs of DVT. Clinical Impression: - Skin infection Disposition: - Discharge: Home, symptoms consistent with skin infection, no systemic involvement or DVT. - Follow-Up: Reviewed discharge instruction with patient, including symptomatic management, importance of follow-up with PCP if symptoms do not significantly improve, and red flags indicate need for return to emergency care. Contact PCP if no improvement after 48 hours of antibiotics or if symptoms worsen. Follow up with PCP in next few days. Patient Education: Importance of leg elevation, warm compress application, monitoring for symptom improvement. Contact PCP if symptoms worsen or do not improve after 48 hours of antibiotics. Patient consented to the use of [facility] All Active Problems (Updated 05/25/25 @ 17:27 by Shira Elizalde) Cellulitis (Acute) HIV (human immunodeficiency virus infection) (Acute) HIV antibody positive (Acute) Hepatitis C (Chronic) Fever (Acute) Discharge planning issues (Acute) Aspiration into airway (Acute) Encephalomalacia (Acute) Thrombocytopenia (Chronic) Anemia (Chronic) Aspiration pneumonia (Acute) Seizure (Acute) Abnormal brain MRI (Acute) Tachycardia (Acute) 12/2021, heart rate 150-patient made informed decision and declined evaluation Mouth pain (Acute) 12/2021 Leg pain, bilateral (Acute) 2020- chronic bilat leg pain s/p injury-on gabapentin Fracture of tibia (Acute) History of bone graft (Acute) Opioid abuse (Chronic) followed by [facility] clinic since 2011, on methadone Smoker (Acute) 10/2022-1 ppd, about 15 pk yr Idiopathic scoliosis (Acute) Wingspan/height difference; height 72/wingspan 73 Gastroesophageal reflux disease (Acute 04/03/14) gastroscopy 2011: [place] [facility] [place] Depressive disorder (Acute) Chronic pain of left knee (Acute 01/13/16) : patellar tendonitis Medical History (Updated 05/25/25 @ 17:27 by Shira Elizalde) Closed right clavicular fracture Closed traumatic fracture of ribs of left side with pneumothorax Surgical History Hx of wisdom tooth extraction H/O arthroscopic knee surgery Social History Smoking/Tobacco Use Status: Current every day Tobacco Type: cigarettes Years smoked: 15 Smoking risk assessment performed?: Yes Alcohol Intake: current Alcohol Intake frequency: a few times a week Alcohol type: beer Drug use: Occasionally Substance use type: marijuana and crack/cocaine Details: On methadone. Housing: house Current gender identity: male Do you feel safe at home: Yes Do you feel safe in your relationship?: Yes Additional Social history: living with mother
[2025-05-25] MEDS: Doxycycline Hyclate 100 MG, 2 CAPS/BTL PO (17:31)
== END 2025-05-25 17:45 | disposition home or self-care (01) ==
PROVIDERS: Emergency Provider Nurse Practitioner Family; PCP Nurse Practitioner Family
DX: L03.115 Cellulitis of right lower limb (principal)
CPT/HCPCS: 99283

== ENCOUNTER 2025-11-04 05:11 | Emergency (ER) | payer MEDICAID, SELFPAY ==
[2025-11-04] VITALS (83 sets, daily range): BP systolic 95–170; BP diastolic 53–105; PULSE 67–107; RESP 12–26; TEMP 36.9; O2SAT 94–100
--- NOTE | 2025-11-04 05:30 | RT.EKG_ITS ---
APPROVED REPORT Exam: Resting ECG Reason for Exam: seizure Patient Location: E HR:78 bpm ECG Measurements Heart Rate 78 AXIS AK 149 P 80 QRSd 115 QRS 79 QT 427 T 56 QTc 487 Conclusion Sinus rhythm...normal P axis, V-rate 60- 99 Incomplete right bundle branch block...QRSd >112, terminal axis(90,270) Probable left ventricular hypertrophy...multiple LVH criteria no ST segment or T wave abnormalities to suggest occlusive NV
[2025-11-04] MEDS: LORazepam 2 MG/ML VIAL ×2 (05:32→05:36)
[2025-11-04 05:44] LABS: BE (Venous) -1 mmol/L (-2-3); HCO3 (Venous) 25 mmol/L (23-28); O2 Sat (Venous) 61 %; TCO2 (Venous) 23 mmol/L (24-29); pCO2 (Venous) 51 mmHg (41-51); pO2 (Venous) 34 mmHg
[2025-11-04] MEDS: diazePAM 10 MG/2 ML SYR IM ×2 (05:45→05:50)
[2025-11-04 05:59] LABS: PTT Activated 21.0 sec (20.6-30.2)
[2025-11-04] MEDS: Midazolam 10 MG/2 ML VIAL NS ×2 (06:00→07:10)
[2025-11-04 06:10] LABS: INR 1.0 (0.9-1.1); Prothrombin Time 10.3 sec (9.1-11.1)
[2025-11-04] MEDS: Midazolam 2 MG/2 ML VIAL 30 MG IM ×2 (06:12→06:18)
[2025-11-04 06:14] LABS: Magnesium 2.0 mg/dL (1.6-2.6)
[2025-11-04 06:21] LABS: Creatine Kinase 180 U/L (46-171)
[2025-11-04] MEDS: Ketamine 500 MG/5 ML VIAL 100 MG IM (06:21)
[2025-11-04 06:22] LABS: ALT 156 U/L (10-49); AST 105 U/L (<34); Albumin 4.5 g/dL (3.2-5.0); Alkaline Phosphatase 91 U/L (46-116); Anion Gap 13.3 mmol/L (3-11); BUN 11 mg/dL (9-23); Bilirubin, Total 0.50 mg/dL (0.2-1.2); CO2 23.7 mmol/L (20.0-31.0); Calcium 9.2 mg/dL (8.3-10.6); Chloride 110 mmol/L (98-107); Glucose 76 mg/dL (74-106); Potassium 3.7 mmol/L (3.5-5.1); Sodium 147 mmol/L (136-145); Total Protein 8.4 g/dL (5.7-8.2)
[2025-11-04 06:25] LABS: TSH (W/Ref FT4) 0.70 uIU/mL (0.55-4.78)
--- NOTE | 2025-11-04 06:30 | DI.RAD_ITS ---
Exam(s) XR PORTABLE CHEST AP POST LINE EXAM: XR PORTABLE CHEST AP POST LINE CLINICAL HISTORY: Tube Placement TECHNIQUE: 2D digital imaging was performed. COMPARISON: CR XR CHEST 2V PA LATERAL from 01/17/2025 FINDINGS: Endotracheal tube with tip located above the level of the clavicles. LUNGS: Expiratory changes. Pulmonary mild pulmonary vascular prominence which could be secondary to expiratory changes versus vigorous hydration. No pleural abnormality seen. HEART: Normal size. AORTA: Normal diameter. BONES: Fixation plate in right clavicle. Soft tissues: Unremarkable. IMPRESSION: Endotracheal tube located above the level of the clavicular heads and should be advanced 3-4 cm. Pulmonary vascular congestion The preliminary [facility] report was reviewed. DATA REPOSITORY: RADIATION DOSE DELIVERED:
--- NOTE | 2025-11-04 06:41 | ED.GENADUL_ITS ---
Discharge Plan Discharge Details Chief Complaint: ColdExpose Clinical Impression: Seizure, Status epilepticus, Alcohol intoxication Primary Care Provider: Wallace Max ED Provider: Galina Hoffmann Home Meds and New Rx's Prescriptions: No Action albuterol sulfate 90 mcg/actuation HFA aerosol inhaler 1 - 2 puff Inhalation Q6H PRN Qty: 2 6RF Patient Comments: needs new rx methadone 10 MG/5 ML solution 95 - 115 mg PO BID Qty: 0 Patient Comments: 115mg every morning - 95mg in the afternoon Rx Instructions: [facility] RX/ gabapentin 800 mg tablet 1,200 mg PO QID Qty: 135 3RF Rx Instructions: 0.5 tab po qd x TID for 1 week, 1 tab po TID for 1 week, then 1.5 mg po TID famotidine 40 mg tablet 40 mg PO DAILY Qty: 90 0RF Patient Comments: needs new rx doxycycline hyclate 100 mg tablet 100 mg PO BID Qty: 12 0RF Biktarvy 50-200-25 mg tablet 1 tab PO DAILY HPI General Mode of arrival: ambulatory . Date/Time Provider Initiated Documentation: 11/04/25 05:13 . Limitations to Documentation: altered mental status . Information obtained by: old records reviewed . HPI Narrative: 35yo M hx HIV, substance abuse, seizures, BIBA after being found asleep outside. Tympanic temp for EMS 92. On arrival pt altered, smells of ETOH, unable to provide any history. Does state I feel like shit. Related Data Home Medications ?Medication ?Instructions ?Recorded ?Confirmed methadone 10 mg/5 mL oral solution 95 - 115 mg PO BID #0 tab-caps 06/26/18 05/25/25 bictegravir 50 mg-emtricitabine 1 tab PO DAILY 5 05/25/25 200 mg-tenofovir alafenam 25 mg tablet (Biktarvy) albuterol sulfate 90 mcg/actuation 1 - 2 puff inhalati on Q6H PRN ##2 01/18/25 05/25/25 aerosol inhaler doxycycline hyclate 100 mg tablet 100 mg PO BID #12 ta bs 05/25/25 famotidine 40 mg tablet 40 mg PO DAILY #90 tabs 08/28 02/19 gabapentin 800 mg tablet 1,200 mg (1.5 x 800 mg) PO Q ID 09/09/25 #135 tabs Previous Rx's ?Medication ?Instructions ?Recorded albuterol sulfate 90 mcg/actuation 1 - 2 puff inhalati on Q6H PRN ##2 01/18/25 aerosol inhaler doxycycline hyclate 100 mg tablet 100 mg PO BID #12 ta bs 05/25/25 famotidine 40 mg tablet 40 mg PO DAILY #90 tabs 08/28 02/19 gabapentin 800 mg tablet 1,200 mg (1.5 x 800 mg) PO Q ID 09/09/25 #135 tabs Allergies Allergy/AdvReac Type Severity Reaction Status Date / Time No Known Allergies Allergy Verified 05/25/25 17:12 General Stated Complaint: ColdExpose JENNIFER: 2 Review of Systems Unobtainable due to mental status Exam Narrative Exam Narrative: General: Alert, agitated, smells of alcohol Head: Normocephalic, atraumatic Neck: Trachea midline, ?Neck supple. ENT: ?MMM.? No oropharygeal lesions or exudate. Cardiac: ?RRR, no murmurs appreciated Resp: No respiratory distress. CTAB. Abd: ?Soft, non-distended, nontender Extremities: ?No deformities.? No peripheral edema. Neuro: ? GCS 13 (E4 V4 M5)? PERRL.? EOMI.? No gaze deviation or nystagmus. Slurred speech. Motor- 5/5 strength symmetric bilateral upper and lower extremeties Sensation- ?Localizes to pain all 4 extremities Course Vital Signs Vital signs: Vital Signs Temperature 36.9 C 11/04/25 05:12 Respiratory Rate 24 11/04/25 05:12 Temperature 36.9 C 11/04/25 05:12 Temperature Source Rectal 11/04/25 05:12 Respiratory Rate 24 11/04/25 05:12 Oxygen Delivery Method Room Air 11/04/25 05:12 Oxygen Flow Rate 0 11/04/25 05:12 Lab/Test Results Lab/Test Results: Laboratory Tests Range/Units 11/04/25 11/04/25 11/04/25 05:30 05:30 05:30 WBC Cancelled RBC Cancelled Hgb Cancelled Hct Cancelled MCV Cancelled MCH Cancelled MCHC Cancelled RDW Cancelled Plt Count Cancelled MPV Cancelled Immature Gran % Cancelled Neutrophils % Cancelled Band Neutrophils % Cancelled Lymphocytes % Cancelled Atypical Lymphs % Cancelled Monocytes % Cancelled Eosinophils % Cancelled Basophils % Cancelled Metamyelocytes % Cancelled Myelocytes % Cancelled Promyelocytes % Cancelled Other Cells % Cancelled Nucleated RBC % Cancelled Absolute Neutrophils Cancelled Absolute Lymphocytes Cancelled Absolute Monocytes Cancelled Absolute Eosinophils Cancelled Absolute Basophils Cancelled RBC Morphology Cancelled Polychromasia Cancelled Hypochromasia Cancelled Poikilocytosis Cancelled Basophilic Stippling Cancelled Anisocytosis Cancelled Microcytosis Cancelled Macrocytosis Cancelled Spherocytes Cancelled Tear Drop Cells Cancelled Ovalocytes Cancelled Stomatocytes Cancelled [place] Bodies Cancelled [place] Cells/Echinocytes Cancelled Acanthocytes (Spur) Cancelled Schistocytes Cancelled PT (9.1-11.1) sec 10.3 INR (0.9-1.1) 1.0 APTT (20.6-30.2) sec 21.0 VBG pH (7.31-7.41) 7.30 L VBG pCO2 (41-51) mmHg 51 VBG pO2 mmHg 34 VBG HCO3 (23-28) mmol/L 25 VBG Total CO2 (24-29) mmol/L 23 L VBG O2 Saturation % 61 VBG Base Excess (-2-3) mmol/L -1 VBG Lactate (<or=2.0) mmol/L 4.7 H* Sodium Cancelled 147 H Potassium Cancelled 3.7 Chloride Cancelled Carbon Dioxide Anion Gap BUN Creatinine Est GFR (CKD-EPI 2020) Glucose Calcium Magnesium (1.6-2.6) mg/dL Total Bilirubin AST ALT Alkaline Phosphatase Creatine Kinase (46-171) U/L Total Protein Albumin TSH (0.55-4.78) uIU/mL Ethyl Alcohol (<3) mg/dL Range/Units 11/04/25 11/04/25 11/04/25 05:30 05:30 05:30 WBC RBC Hgb Hct MCV MCH MCHC RDW Plt Count MPV Immature Gran % Neutrophils % Band Neutrophils % Lymphocytes % Atypical Lymphs % Monocytes % Eosinophils % Basophils % Metamyelocytes % Myelocytes % Promyelocytes % Other Cells % Nucleated RBC % Absolute Neutrophils Absolute Lymphocytes Absolute Monocytes Absolute Eosinophils Absolute Basophils RBC Morphology Polychromasia Hypochromasia Poikilocytosis Basophilic Stippling Anisocytosis Microcytosis Macrocytosis Spherocytes Tear Drop Cells Ovalocytes Stomatocytes [place] Bodies [place] Cells/Echinocytes Acanthocytes (Spur) Schistocytes PT (9.1-11.1) sec INR (0.9-1.1) APTT (20.6-30.2) sec VBG pH (7.31-7.41) VBG pCO2 (41-51) mmHg VBG pO2 mmHg VBG HCO3 (23-28) mmol/L VBG Total CO2 (24-29) mmol/L VBG O2 Saturation % VBG Base Excess (-2-3) mmol/L VBG Lactate (<or=2.0) mmol/L Sodium Potassium Chloride 110 H Carbon Dioxide Cancelled 23.7 Anion Gap Cancelled 13.3 H BUN Cancelled Creatinine Est GFR (CKD-EPI 2020) Glucose Calcium Magnesium (1.6-2.6) mg/dL Total Bilirubin AST ALT Alkaline Phosphatase Creatine Kinase (46-171) U/L Total Protein Albumin TSH (0.55-4.78) uIU/mL Ethyl Alcohol (<3) mg/dL Range/Units 11/04/25 11/04/25 11/04/25 05:30 05:30 05:30 WBC RBC Hgb Hct MCV MCH MCHC RDW Plt Count MPV Immature Gran % Neutrophils % Band Neutrophils % Lymphocytes % Atypical Lymphs % Monocytes % Eosinophils % Basophils % Metamyelocytes % Myelocytes % Promyelocytes % Other Cells % Nucleated RBC % Absolute Neutrophils Absolute Lymphocytes Absolute Monocytes Absolute Eosinophils Absolute Basophils RBC Morphology Polychromasia Hypochromasia Poikilocytosis Basophilic Stippling Anisocytosis Microcytosis Macrocytosis Spherocytes Tear Drop Cells Ovalocytes Stomatocytes [place] Bodies Mar[place] Cells/Echinocytes Acanthocytes (Spur) Schistocytes PT (9.1-11.1) sec INR (0.9-1.1) APTT (20.6-30.2) sec VBG pH (7.31-7.41) VBG pCO2 (41-51) mmHg VBG pO2 mmHg VBG HCO3 (23-28) mmol/L VBG Total CO2 (24-29) mmol/L VBG O2 Saturation % VBG Base Excess (-2-3) mmol/L VBG Lactate (<or=2.0) mmol/L Sodium Potassium Chloride Carbon Dioxide Anion Gap BUN 11 Creatinine Cancelled 0.76 Est GFR (CKD-EPI 2020) Cancelled 116.00 Glucose Cancelled Calcium Magnesium (1.6-2.6) mg/dL Total Bilirubin AST ALT Alkaline Phosphatase Creatine Kinase (46-171) U/L Total Protein Albumin TSH (0.55-4.78) uIU/mL Ethyl Alcohol (<3) mg/dL Range/Units 11/04/25 11/04/25 11/04/25 05:30 05:30 05:30 WBC RBC Hgb Hct MCV MCH MCHC RDW Plt Count MPV Immature Gran % Neutrophils % Band Neutrophils % Lymphocytes % Atypical Lymphs % Monocytes % Eosinophils % Basophils % Metamyelocytes % Myelocytes % Promyelocytes % Other Cells % Nucleated RBC % Absolute Neutrophils Absolute Lymphocytes Absolute Monocytes Absolute Eosinophils Absolute Basophils RBC Morphology Polychromasia Hypochromasia Poikilocytosis Basophilic Stippling Anisocytosis Microcytosis Macrocytosis Spherocytes Tear Drop Cells Ovalocytes Stomatocytes [place] Bodies Marck Cells/Echinocytes Acanthocytes (Spur) Schistocytes PT (9.1-11.1) sec INR (0.9-1.1) APTT (20.6-30.2) sec VBG pH (7.31-7.41) VBG pCO2 (41-51) mmHg VBG pO2 mmHg VBG HCO3 (23-28) mmol/L VBG Total CO2 (24-29) mmol/L VBG O2 Saturation % VBG Base Excess (-2-3) mmol/L VBG Lactate (<or=2.0) mmol/L Sodium Potassium Chloride Carbon Dioxide Anion Gap BUN Creatinine Est GFR (CKD-EPI 2020) Glucose 76 Calcium Cancelled 9.2 Magnesium (1.6-2.6) mg/dL 2.0 Total Bilirubin Cancelled 0.50 AST Cancelled ALT Alkaline Phosphatase Creatine Kinase (46-171) U/L Total Protein Albumin TSH (0.55-4.78) uIU/mL Ethyl Alcohol (<3) mg/dL Range/Units 11/04/25 11/04/25 11/04/25 05:30 05:30 05:30 WBC RBC Hgb Hct MCV MCH MCHC RDW Plt Count MPV Immature Gran % Neutrophils % Band Neutrophils % Lymphocytes % Atypical Lymphs % Monocytes % Eosinophils % Basophils % Metamyelocytes % Myelocytes % Promyelocytes % Other Cells % Nucleated RBC % Absolute Neutrophils Absolute Lymphocytes Absolute Monocytes Absolute Eosinophils Absolute Basophils RBC Morphology Polychromasia Hypochromasia Poikilocytosis Basophilic Stippling Anisocytosis Microcytosis Macrocytosis Spherocytes Tear Drop Cells Ovalocytes Stomatocytes [place] Bodies Marck Cells/Echinocytes Acanthocytes (Spur) Schistocytes PT (9.1-11.1) sec INR (0.9-1.1) APTT (20.6-30.2) sec VBG pH (7.31-7.41) VBG pCO2 (41-51) mmHg VBG pO2 mmHg VBG HCO3 (23-28) mmol/L VBG Total CO2 (24-29) mmol/L VBG O2 Saturation % VBG Base Excess (-2-3) mmol/L VBG Lactate (<or=2.0) mmol/L Sodium Potassium Chloride Carbon Dioxide Anion Gap BUN Creatinine Est GFR (CKD-EPI 2020) Glucose Calcium Magnesium (1.6-2.6) mg/dL Total Bilirubin AST 105 H ALT Cancelled 156 H Alkaline Phosphatase Cancelled 91 Creatine Kinase (46-171) U/L 180 H Total Protein Cancelled Albumin TSH (0.55-4.78) uIU/mL Ethyl Alcohol (<3) mg/dL Range/Units 11/04/25 11/04/25 11/04/25 05:30 05:30 05:40 WBC RBC Hgb Hct MCV MCH MCHC RDW Plt Count MPV Immature Gran % Neutrophils % Band Neutrophils % Lymphocytes % Atypical Lymphs % Monocytes % Eosinophils % Basophils % Metamyelocytes % Myelocytes % Promyelocytes % Other Cells % Nucleated RBC % Absolute Neutrophils Absolute Lymphocytes Absolute Monocytes Absolute Eosinophils Absolute Basophils RBC Morphology Polychromasia Hypochromasia Poikilocytosis Basophilic Stippling Anisocytosis Microcytosis Macrocytosis Spherocytes Tear Drop Cells Ovalocytes Stomatocytes [place] Bodies Marck Cells/Echinocytes Acanthocytes (Spur) Schistocytes PT (9.1-11.1) sec INR (0.9-1.1) APTT (20.6-30.2) sec VBG pH (7.31-7.41) Cancelled VBG pCO2 (41-51) mmHg Cancelled VBG pO2 mmHg Cancelled VBG HCO3 (23-28) mmol/L Cancelled VBG Total CO2 (24-29) mmol/L Cancelled VBG O2 Saturation % Cancelled VBG Base Excess (-2-3) mmol/L Cancelled VBG Lactate (<or=2.0) mmol/L Cancelled Sodium Potassium Chloride Carbon Dioxide Anion Gap BUN Creatinine Est GFR (CKD-EPI 2020) Glucose Calcium Magnesium (1.6-2.6) mg/dL Total Bilirubin AST ALT Alkaline Phosphatase Creatine Kinase (46-171) U/L Total Protein 8.4 H Albumin Cancelled 4.5 TSH (0.55-4.78) uIU/mL 0.70 Ethyl Alcohol (<3) mg/dL 86.9 H Procedure Airway Management Date of Procedure: 11/04/25 Time of Procedure: 06:37 Patient Consented: Emergent Case Indication: Other (altered mental status, agitation, requiring sedation to facilitate medical workup and intubation for airway protection ) Provider that performed the procedure: Glaina Hoffmann Mallampati Class: Unable to Assess Sedation administered by provider performing procedure: Yes. Induction setup: Pt. Ramped, Head of Bed Elevated, Apneic Oxygenation, Bag Valve Mask Ventilation (bagged for 2 minutes prior to intubation) and Rapid Sequence Induction Airway Type: Intubation Grade: Pre Treatment Medication(indicate dose given): Other (1 amp bicarb) Paralytic(indicate dose given): Succinylcholine (120) Post Induction Medication Management(indicate dose given): Versed IV (mg/hour) (0.2) and Propofol (mcg/kg/min) (20) Gastric Tube: Placed by Other Person Procedure Complications: None Procedure Outcome: Successful Central Line Placement Date of Procedure: 11/04/25 Time of Procedure: 07:20 Provider that performed the procedure: Galina Hoffmann Indication: Central venous access and Emergent access Patient Consented: Emergent Case Sterility: Sterile Sedation administered by provider performing procedure: Yes Pre Procedure Medication: Ketamine (100) and Midazolam (30) Laterality: Right Insertion Site: Femoral Central Line Type: Triple Lumen Catheter Insertion Procedure: Vessel accessed with catheter over needle, catheter advanced, Guidewire placed with ease, Dermatotomy (skin allison) made with scalpel, Dilator placed without resistance, Introducer/Catheter placed without resistance, Guidewire removed and Claves placed, blood withdrawn, ports flushed and clamped Number of Attempts(see previous attempts in note section): 1 Post Procedure: good blood return, all ports aspirated, flushed, capped and sutured in place with 2-0 silk Dressing: Tegaderm applied and BioPatch applied Procedure Tolerated: No Complications and Patient tolerated well Procedure Outcome: Successful Medical Decision Making 35yo M hx HIV, substance abuse, seizures, BIBA after being found asleep outside. Tympanic temp for EMS 92. On arrival pt altered, smells of ETOH, unable to provide any history. GCS 13. Does state I feel like shit. On arrival rectal temp 98.5, HR 100's and sinus on the monitor with O2 sat >95%. Immediately after arrival to the room pt had a 90 second generalized seizure after which he was persistently agitated and non-compliant with care. Seizure self terminated and he was subsequently agitated; given 2mg IM ativan just after seizure ended followed by an additional 2mg IM for agitation. 2g keppra ordered. Fingerstick blood glucose in 70's. As he became more awake he required hands- on restraint by all staff members present in the ED; received a total of 20mg diazapem, 80mg midazalam, and 100mg of ketamine for sedation over the course of 45 minutes. No recurrent seizures during this period. Labs were drawn and ultimately PIV access was obtained in his right foot (difficult access, multiple attempts). During this time GCS varied from 11-13; sometimes nonsensical words but intermittently coherent speech. His HR was in 90's-110's during this; BP not able to be obtained but radial pulses were normal. After adequately sedated BP obtainable with initial BP 130's/70's. He was then intubated with 120 of succinylcholine with one amp of bicarb for acidosis prior to intubation.; intubation uncomplicated. Post intubation CXR reviewed at bedside and ETT advanced 3cm. Started on midazalom gtt for sedation as well as possible status epilepticus and 2nd IV access obtained; inadequate sedation with midazalom alone and so started on propfol gtt and taken emergently to CT. Will start keppra after more access is able to be obtained. Medical records reviewed; patient has been on keppra on the past,unknown if he currently is taking. Most recent available neurology visit note 03/14/23 states: Mr. Wheat returns in f/up for single seizure, Dec 2022. This seizure occurred in the setting of cocaine use which is the most likely etiology. And thus, he would not necessarily be put at increased risk for future seizures and would not need an anti-seizure medications. However, initial work-up also significant for an abnormal brain as confirmed on MRI imaging. Given bilateral findings, suspect likely congenital etiology, though we discussed further work-up with MRA head/neck, cardiac monitoring. He declined further work-up at this time. He will stop levetiracetam at this time given normal EEG and etiology likely due to cocaine. Labs reviewed as below, CBC with mild leukocytosis and no anemia,CMP with mild hyernatremia and hypercholoremia as well as mildly elevated AST & ALT,, Mg normal, CK borderline elevated at 180, coags normal, VBG with metabolic acidosis pH 7.3 and lactate 4.7 consistent with seizure, troponin normal, TSH normal. Ammonia pending. ETOH 87. CT head independently reviewed; no large bleed or mass on view (does have abnormality to right frontal); radiology read below with enceophaopmalacia and no acute findings. Upon return to room, central line placed in right femoral vein. With more access will now get CTs with contrast to evaluate broadly as no history able to be obtained from patient. EKG NSR, appropriate intervals, no ST segment or T wave abnormalities to suggest occlusive FL. Will need to use caution with propofol given hx QT prolongation in the past. Overall presentation concerning for status with unknown period of AMS, witnessed seizure in the ED, and no clear return to baseline though complicated by ETOH on board and possibly other substances. CT not suggestive of HIV associated disease. Must consider ETOH withdrawal though overall clinical picture not consistent with this. Unlikely meningitis, encephalitis; will defer decision on LP to teleneuro and oncoming physician. Will be signed out to oncoming physician; plan to followup teleneurology reccs regarding further workup and care, as well as CT tyson-scan reads. IMPRESSION: Encephalomalacia change in the right frontal region. No acute intracranial abnormality Lab Data Lab results reviewed: Yes I reviewed the patient's lab results. Labs: Laboratory Tests Range/Units 11/04/25 11/04/25 11/04/25 05:30 05:30 05:30 WBC Cancelled RBC Cancelled Hgb Cancelled Hct Cancelled MCV Cancelled MCH Cancelled MCHC Cancelled RDW Cancelled Plt Count Cancelled MPV Cancelled Immature Gran % Cancelled Neutrophils % Cancelled Band Neutrophils % Cancelled Lymphocytes % Cancelled Atypical Lymphs % Cancelled Monocytes % Cancelled Eosinophils % Cancelled Basophils % Cancelled Metamyelocytes % Cancelled Myelocytes % Cancelled Promyelocytes % Cancelled Other Cells % Cancelled Nucleated RBC % Cancelled Absolute Neutrophils Cancelled Absolute Lymphocytes Cancelled Absolute Monocytes Cancelled Absolute Eosinophils Cancelled Absolute Basophils Cancelled RBC Morphology Cancelled Polychromasia Cancelled Hypochromasia Cancelled Poikilocytosis Cancelled Basophilic Stippling Cancelled Anisocytosis Cancelled Microcytosis Cancelled Macrocytosis Cancelled Spherocytes Cancelled Tear Drop Cells Cancelled Ovalocytes Cancelled Stomatocytes Cancelled [place] Bodies Cancelled Marck Cells/Echinocytes Cancelled Acanthocytes (Spur) Cancelled Schistocytes Cancelled PT (9.1-11.1) sec 10.3 INR (0.9-1.1) 1.0 APTT (20.6-30.2) sec 21.0 VBG pH (7.31-7.41) 7.30 L VBG pCO2 (41-51) mmHg 51 VBG pO2 mmHg 34 VBG HCO3 (23-28) mmol/L 25 VBG Total CO2 (24-29) mmol/L 23 L VBG O2 Saturation % 61 VBG Base Excess (-2-3) mmol/L -1 VBG Lactate (<or=2.0) mmol/L 4.7 H* Sodium Cancelled 147 H Potassium Cancelled 3.7 Chloride Cancelled Carbon Dioxide Anion Gap BUN Creatinine Est GFR (CKD-EPI 2020) Glucose Calcium Magnesium (1.6-2.6) mg/dL Total Bilirubin AST ALT Alkaline Phosphatase Creatine Kinase (46-171) U/L Troponin I (<54) ng/L Total Protein Albumin TSH (0.55-4.78) uIU/mL Ethyl Alcohol (<3) mg/dL Range/Units 11/04/25 11/04/25 11/04/25 05:30 05:30 05:30 WBC RBC Hgb Hct MCV MCH MCHC RDW Plt Count MPV Immature Gran % Neutrophils % Band Neutrophils % Lymphocytes % Atypical Lymphs % Monocytes % Eosinophils % Basophils % Metamyelocytes % Myelocytes % Promyelocytes % Other Cells % Nucleated RBC % Absolute Neutrophils Absolute Lymphocytes Absolute Monocytes Absolute Eosinophils Absolute Basophils RBC Morphology Polychromasia Hypochromasia Poikilocytosis Basophilic Stippling Anisocytosis Microcytosis Macrocytosis Spherocytes Tear Drop Cells Ovalocytes Stomatocytes [place] Bodies Marck Cells/Echinocytes Acanthocytes (Spur) Schistocytes PT (9.1-11.1) sec INR (0.9-1.1) APTT (20.6-30.2) sec VBG pH (7.31-7.41) VBG pCO2 (41-51) mmHg VBG pO2 mmHg VBG HCO3 (23-28) mmol/L VBG Total CO2 (24-29) mmol/L VBG O2 Saturation % VBG Base Excess (-2-3) mmol/L VBG Lactate (<or=2.0) mmol/L Sodium Potassium Chloride 110 H Carbon Dioxide Cancelled 23.7 Anion Gap Cancelled 13.3 H BUN Cancelled Creatinine Est GFR (CKD-EPI 2020) Glucose Calcium Magnesium (1.6-2.6) mg/dL Total Bilirubin AST ALT Alkaline Phosphatase Creatine Kinase (46-171) U/L Troponin I (<54) ng/L Total Protein Albumin TSH (0.55-4.78) uIU/mL Ethyl Alcohol (<3) mg/dL Range/Units 11/04/25 11/04/25 11/04/25 05:30 05:30 05:30 WBC RBC Hgb Hct MCV MCH MCHC RDW Plt Count MPV Immature Gran % Neutrophils % Band Neutrophils % Lymphocytes % Atypical Lymphs % Monocytes % Eosinophils % Basophils % Metamyelocytes % Myelocytes % Promyelocytes % Other Cells % Nucleated RBC % Absolute Neutrophils Absolute Lymphocytes Absolute Monocytes Absolute Eosinophils Absolute Basophils RBC Morphology Polychromasia Hypochromasia Poikilocytosis Basophilic Stippling Anisocytosis Microcytosis Macrocytosis Spherocytes Tear Drop Cells Ovalocytes Stomatocytes [place] Bodies [place] Cells/Echinocytes Acanthocytes (Spur) Schistocytes PT (9.1-11.1) sec INR (0.9-1.1) APTT (20.6-30.2) sec VBG pH (7.31-7.41) VBG pCO2 (41-51) mmHg VBG pO2 mmHg VBG HCO3 (23-28) mmol/L VBG Total CO2 (24-29) mmol/L VBG O2 Saturation % VBG Base Excess (-2-3) mmol/L VBG Lactate (<or=2.0) mmol/L Sodium Potassium Chloride Carbon Dioxide Anion Gap BUN 11 Creatinine Cancelled 0.76 Est GFR (CKD-EPI 2020) Cancelled 116.00 Glucose Cancelled Calcium Magnesium (1.6-2.6) mg/dL Total Bilirubin AST ALT Alkaline Phosphatase Creatine Kinase (46-171) U/L Troponin I (<54) ng/L Total Protein Albumin TSH (0.55-4.78) uIU/mL Ethyl Alcohol (<3) mg/dL Range/Units 11/04/25 11/04/25 11/04/25 05:30 05:30 05:30 WBC RBC Hgb Hct MCV MCH MCHC RDW Plt Count MPV Immature Gran % Neutrophils % Band Neutrophils % Lymphocytes % Atypical Lymphs % Monocytes % Eosinophils % Basophils % Metamyelocytes % Myelocytes % Promyelocytes % Other Cells % Nucleated RBC % Absolute Neutrophils Absolute Lymphocytes Absolute Monocytes Absolute Eosinophils Absolute Basophils RBC Morphology Polychromasia Hypochromasia Poikilocytosis Basophilic Stippling Anisocytosis Microcytosis Macrocytosis Spherocytes Tear Drop Cells Ovalocytes Stomatocytes [place] Bodies Marck Cells/Echinocytes Acanthocytes (Spur) Schistocytes PT (9.1-11.1) sec INR (0.9-1.1) APTT (20.6-30.2) sec VBG pH (7.31-7.41) VBG pCO2 (41-51) mmHg VBG pO2 mmHg VBG HCO3 (23-28) mmol/L VBG Total CO2 (24-29) mmol/L VBG O2 Saturation % VBG Base Excess (-2-3) mmol/L VBG Lactate (<or=2.0) mmol/L Sodium Potassium Chloride Carbon Dioxide Anion Gap BUN Creatinine Est GFR (CKD-EPI 2020) Glucose 76 Calcium Cancelled 9.2 Magnesium (1.6-2.6) mg/dL 2.0 Total Bilirubin Cancelled 0.50 AST Cancelled ALT Alkaline Phosphatase Creatine Kinase (46-171) U/L Troponin I (<54) ng/L Total Protein Albumin TSH (0.55-4.78) uIU/mL Ethyl Alcohol (<3) mg/dL Range/Units 12/07/2211/04/25 11/04/25 05:30 05:30 05:30 WBC RBC Hgb Hct MCV MCH MCHC RDW Plt Count MPV Immature Gran % Neutrophils % Band Neutrophils % Lymphocytes % Atypical Lymphs % Monocytes % Eosinophils % Basophils % Metamyelocytes % Myelocytes % Promyelocytes % Other Cells % Nucleated RBC % Absolute Neutrophils Absolute Lymphocytes Absolute Monocytes Absolute Eosinophils Absolute Basophils RBC Morphology Polychromasia Hypochromasia Poikilocytosis Basophilic Stippling Anisocytosis Microcytosis Macrocytosis Spherocytes Tear Drop Cells Ovalocytes Stomatocytes [place] Bodies [place] Cells/Echinocytes Acanthocytes (Spur) Schistocytes PT (9.1-11.1) sec INR (0.9-1.1) APTT (20.6-30.2) sec VBG pH (7.31-7.41) VBG pCO2 (41-51) mmHg VBG pO2 mmHg VBG HCO3 (23-28) mmol/L VBG Total CO2 (24-29) mmol/L VBG O2 Saturation % VBG Base Excess (-2-3) mmol/L VBG Lactate (<or=2.0) mmol/L Sodium Potassium Chloride Carbon Dioxide Anion Gap BUN Creatinine Est GFR (CKD-EPI 2020) Glucose Calcium Magnesium (1.6-2.6) mg/dL Total Bilirubin AST 105 H ALT Cancelled 156 H Alkaline Phosphatase Cancelled 91 Creatine Kinase (46-171) U/L 180 H Troponin I (<54) ng/L < 3 Total Protein Cancelled Albumin TSH (0.55-4.78) uIU/mL Ethyl Alcohol (<3) mg/dL Range/Units 11/04/25 11/04/25 11/04/25 05:30 05:30 05:40 WBC RBC Hgb Hct MCV MCH MCHC RDW Plt Count MPV Immature Gran % Neutrophils % Band Neutrophils % Lymphocytes % Atypical Lymphs % Monocytes % Eosinophils % Basophils % Metamyelocytes % Myelocytes % Promyelocytes % Other Cells % Nucleated RBC % Absolute Neutrophils Absolute Lymphocytes Absolute Monocytes Absolute Eosinophils Absolute Basophils RBC Morphology Polychromasia Hypochromasia Poikilocytosis Basophilic Stippling Anisocytosis Microcytosis Macrocytosis Spherocytes Tear Drop Cells Ovalocytes Stomatocytes [place] Bodies Marck Cells/Echinocytes Acanthocytes (Spur) Schistocytes PT (9.1-11.1) sec INR (0.9-1.1) APTT (20.6-30.2) sec VBG pH (7.31-7.41) Cancelled VBG pCO2 (41-51) mmHg Cancelled VBG pO2 mmHg Cancelled VBG HCO3 (23-28) mmol/L Cancelled VBG Total CO2 (24-29) mmol/L Cancelled VBG O2 Saturation % Cancelled VBG Base Excess (-2-3) mmol/L Cancelled VBG Lactate (<or=2.0) mmol/L Cancelled Sodium Potassium Chloride Carbon Dioxide Anion Gap BUN Creatinine Est GFR (CKD-EPI 2020) Glucose Calcium Magnesium (1.6-2.6) mg/dL Total Bilirubin AST ALT Alkaline Phosphatase Creatine Kinase (46-171) U/L Troponin I (<54) ng/L Total Protein 8.4 H Albumin Cancelled 4.5 TSH (0.55-4.78) uIU/mL 0.70 Ethyl Alcohol (<3) mg/dL 86.9 H Range/Units 11/04/25 11/04/25 06:33 07:56 WBC 10.97 H RBC 4.87 Hgb 15.1 Hct 41.9 MCV 86 MCH 31.0 MCHC 36.0 RDW 12.3 Plt Count 146 MPV 11.5 H Immature Gran % 0.5 Neutrophils % 75.7 Band Neutrophils % Lymphocytes % 15.8 Atypical Lymphs % Monocytes % 7.4 Eosinophils % 0.3 Basophils % 0.3 Metamyelocytes % Myelocytes % Promyelocytes % Other Cells % Nucleated RBC % 0.0 Absolute Neutrophils 8.30 H Absolute Lymphocytes 1.73 Absolute Monocytes 0.81 H Absolute Eosinophils 0.03 Absolute Basophils 0.03 RBC Morphology Polychromasia Hypochromasia Poikilocytosis Basophilic Stippling Anisocytosis Microcytosis Macrocytosis Spherocytes Tear Drop Cells Ovalocytes Stomatocytes [place] Bodies [place] Cells/Echinocytes Acanthocytes (Spur) Schistocytes PT (9.1-11.1) sec INR (0.9-1.1) APTT (20.6-30.2) sec VBG pH (7.31-7.41) 7.32 VBG pCO2 (41-51) mmHg 55 H VBG pO2 mmHg 55 VBG HCO3 (23-28) mmol/L 28 VBG Total CO2 (24-29) mmol/L 25 VBG O2 Saturation % 87 VBG Base Excess (-2-3) mmol/L 2 VBG Lactate (<or=2.0) mmol/L Sodium Potassium Chloride Carbon Dioxide Anion Gap BUN Creatinine Est GFR (CKD-EPI 2020) Glucose Calcium Magnesium (1.6-2.6) mg/dL Total Bilirubin AST ALT Alkaline Phosphatase Creatine Kinase (46-171) U/L Troponin I (<54) ng/L Total Protein Albumin TSH (0.55-4.78) uIU/mL Ethyl Alcohol (<3) mg/dL Critical Care Time Critical Care Time Critical Care Time: Yes Total Critical Care Time: 72 Attestation: Due to a high probability of clinically significant, life threatening deterioration, the patient required my highest level of preparedness to intervene emergently and I personally spent this critical care time directly and personally managing the patient. This critical care time included obtaining a history; examining the patient; pulse oximetry; ordering and review of studies; arranging urgent treatment with development of a management plan; evaluation of patient's response to treatment; frequent reassessment; and, discussions with other providers. This critical care time was performed to assess and manage the high probability of imminent, life-threatening deterioration that could result in multi-organ failure. It was exclusive of separately billable procedures and treating other patients PFSH All Active Problems (Updated 11/04/25 @ 08:14 by Galina Hoffmann MD) Alcohol intoxication (Acute) Status epilepticus (Acute) Seizure (Acute) HIV (human immunodeficiency virus infection) (Acute) HIV antibody positive (Acute) Hepatitis C (Chronic) Fever (Acute) Discharge planning issues (Acute) Aspiration into airway (Acute) Encephalomalacia (Acute) Thrombocytopenia (Chronic) Anemia (Chronic) Aspiration pneumonia (Acute) Seizure (Acute) Abnormal brain MRI (Acute) Tachycardia (Acute) 12/2021, heart rate 150-patient made informed decision and declined evaluation Mouth pain (Acute) 12/2021 Leg pain, bilateral (Acute) 2020- chronic bilat leg pain s/p injury-on gabapentin Fracture of tibia (Acute) History of bone graft (Acute) Opioid abuse (Chronic) followed by [facility] since 2011, on methadone Smoker (Acute) 10/2022-1 ppd, about 15 pk yr Idiopathic scoliosis (Acute) Wingspan/height difference; height 72/wingspan 73 Gastroesophageal reflux disease (Acute 04/03/14) gastroscopy 2011: negative [facility] Depressive disorder (Acute) Chronic pain of left knee (Acute 01/13/16) : patellar tendonitis Medical History (Updated 11/04/25 @ 08:14 by Galina Hoffmann MD) Closed right clavicular fracture Closed traumatic fracture of ribs of left side with pneumothorax Surgical History Hx of wisdom tooth extraction H/O arthroscopic knee surgery Social History Smoking/Tobacco Use Status: Current every day Tobacco Type: cigarettes Years smoked: 15 Smoking risk assessment performed?: Yes Alcohol Intake: current Alcohol Intake frequency: a few times a week Alcohol type: beer Drug use: Occasionally Substance use type: marijuana and crack/cocaine Details: On methadone. Housing: house Current gender identity: male Do you feel safe at home: Yes Do you feel safe in your relationship?: Yes Additional Social history: living with mother
[2025-11-04 06:50] LABS: Troponin I < 3 ng/L (<54)
[2025-11-04 06:53] LABS: Abs Immature Grans 0.06 10^3/uL (0.0-0.06); HCT 41.9 % (40.0-50.0); HGB 15.1 g/dL (13.5-17.5); Immature Grans % 0.5 %; MCH 31.0 pg (27.0-33.0); MCHC 36.0 % (32.0-36.0); MCV 86 fL (80-95); MPV 11.5 fL (8.0-11.0); Platelet Count 146 10^3/uL (130-400); RBC 4.87 10^6/uL (4.36-5.78); RDW 12.3 % (11.8-14.1); RDW-SD 38.7 fL; WBC 10.97 10^3/uL (4.4-10.8)
[2025-11-04] MEDS: MIDAZOLAM 50 MG in Normal Saline 90 ML IV_INF ×2 (06:55→10:21)
[2025-11-04] MEDS: PROPOFOL 1,000 MG/100 ML BTL 21 MG IV_INF ×2 (07:00→10:20)
--- NOTE | 2025-11-04 07:27 | DI.CT_ITS ---
Exam(s) CT LUMBAR SPINE WO EXAM: CT LUMBAR SPINE WO CLINICAL HISTORY: seizure. TECHNIQUE: Imaging Protocol: Axial computed tomography images with coronal and sagittal reformatted images were created and reviewed COMPARISON: CT CT THORACIC LUMBAR SPINE REC from 04/07/2023 FINDINGS: Bones: The last intervertebral disc space is designated the L5/S1 level for the numbering purpose of this examination. There is no evidence of acute fracture. There is slight loss of central disc height at the superior endplate of L5 which appears chronic. Alignment is satisfactory. No fracture is seen. There is no gross evidence of disc herniations. There are mild degenerative changes. Soft Tissues: The paraspinal soft tissues are unremarkable. Stool is noted in the rectum. There is a Lemus catheter in the bladder. IMPRESSION: No acute abnormality. The preliminary [facility] report was reviewed. RADIATION DOSE DELIVERED: 787.18mGy.cm Total DLP DATA REPOSITORY: All CT scans at this facility are submitted to the National Radiology Data Registry (NRDR) Dose Index Registry (DIR) with the [employer] (ACR). RADIATION OPTIMIZATION: All CT scans at this facility use at least one of these dose optimization techniques: automated exposure control; mA and/or kV adjustment per patient size (includes targeted exams where dose is matched to clinical indication); or iterative reconstruction.
--- NOTE | 2025-11-04 07:27 | DI.CT_ITS ---
Exam(s) CT HEAD - STROKE PROTOCOL EXAM: CT HEAD - STROKE PROTOCOL CLINICAL HISTORY: seizure. TECHNIQUE: Imaging Protocol: Axial computed tomography images with coronal and sagittal reformatted images were created and reviewed COMPARISON: CT CT HEAD CERVICAL SPINE WO from 04/07/2023 FINDINGS: Ventricles and Extra axial spaces: Normal in size and morphology for the patient's age. Hemorrhage: None. Cerebral parenchyma: No evidence of acute infarct or mass. There is a stable area of encephalomalacia in the right frontal region. Midline shift: None. Brainstem/Cerebellum: Normal. Bones: No skull or facial fractures. Visualized Paranasal sinuses:Mild ethmoid sinus mucosal thickening. Mastoids: Clear. Soft Tissues: Unremarkable. ORBITS: Unremarkable. PITUITARY: Not enlarged. IMPRESSION: No acute intracranial process. The preliminary [facility] report was reviewed. RADIATION DOSE DELIVERED: 940.48mGy.cm Total DLP DATA REPOSITORY: All CT scans at this facility are submitted to the National Radiology Data Registry (NRDR) Dose Index Registry (DIR) with the [employer] (ACR). RADIATION OPTIMIZATION: All CT scans at this facility use at least one of these dose optimization techniques: automated exposure control; mA and/or kV adjustment per patient size (includes targeted exams where dose is matched to clinical indication); or iterative reconstruction.
--- NOTE | 2025-11-04 07:33 | DI.[facility]_ITS ---
PROCEDURE INFORMATION: Exam: CT Head Without Contrast Exam date and time: 11/04/2025 5:45 AM Age: 35 years old Clinical indication: Stroke-like symptoms; Other: Seizure TECHNIQUE: Imaging protocol: Computed tomography of the head without contrast. Other technique: STROKE PROTOCOL was implemented. COMPARISON: MR ANGIO BRAIN WO 04/08/2023 12:13 PM FINDINGS: Brain: Encephalomalacia changes of the right frontal region. No large territorial infarct hemorrhage mass effect or midline shift Cerebral ventricles: No ventriculomegaly. Paranasal sinuses: Visualized sinuses are unremarkable. No fluid levels. Mastoid air cells: Visualized mastoid air cells are well aerated. Bones: Unremarkable. No acute fracture. Soft tissues: Unremarkable. IMPRESSION: Encephalomalacia change in the right frontal region. No acute intracranial abnormality ASSESSMENT: ASPECTS ([place] Stroke Program Early CT Score) is 10. Dictated and Authenticated by: Mariia Burleson MD. Orderin Shun Mojica MD
--- NOTE | 2025-11-04 07:45 | DI.CT_ITS ---
Exam(s) CT CERVICAL SPINE WO EXAM: CT CERVICAL SPINE WO CLINICAL HISTORY: AMS. TECHNIQUE: Imaging Protocol: Axial computed tomography images with coronal and sagittal reformatted images were created and reviewed CONTRAST MATERIAL: Noncontrast COMPARISON: CT CERVICAL SPINE WITH CONTRAST from 06/23/2010 FINDINGS: Bones: No fracture or subluxation is seen. The alignment of the cervical spine is normal including the cervicovertebral junction and cervicothoracic junction. Degenerative disc changes. Soft Tissues: Nasogastric and endotracheal tubes are noted. Some debris in the posterior nasopharynx. No pneumothorax is seen. IMPRESSION: No acute abnormality. RADIATION DOSE DELIVERED: 341.08mGy.cm Total DLP DATA REPOSITORY: All CT scans at this facility are submitted to the National Radiology Data Registry (NRDR) Dose Index Registry (DIR) with the [employer] (ACR). RADIATION OPTIMIZATION: All CT scans at this facility use at least one of these dose optimization techniques: automated exposure control; mA and/or kV adjustment per patient size (includes targeted exams where dose is matched to clinical indication); or iterative reconstruction.
--- NOTE | 2025-11-04 07:45 | DI.CT_ITS ---
Exam(s) CT CHEST/ABD/PEL W EXAM: CT CHEST/ABD/PEL W CLINICAL HISTORY: AMS, seizure, no collateral history. TECHNIQUE: Imaging Protocol: Axial computed tomography images with coronal and sagittal reformatted images were created and reviewed. Computer aided detection (CAD) was utilized. CONTRAST MATERIAL: Intravenous: Omnipaque 350 Contrast volume:100 ml Oral: yes / no COMPARISON: CT CT THORACIC LUMBAR SPINE REC from 04/07/2023 CR,XR XR PORTABLE CHEST AP POST LINE from 11/04/2025 FINDINGS: CHEST: Pulmonary parenchyma: Right upper, middle and lower lobe tree-in-bud opacities consistent with pneumonitis. The left lung appears clear. No consolidation. No dominant measurable mass. Tracheobronchial tree: Endotracheal tube in place. No bronchiectasis. No mucous plugging.No bronchial wall thickening. Pleura: No effusion or pneumothorax. Mediastinum: Within normal limits. Nasogastric tube. Pulmonary arteries: No visible emboli. Cardiovascular: No pericardial effusion. Thoracic aorta non-dilated. Bones: Hardware in right clavicle. No lytic or blastic lesions. No compression fractures. Soft tissues: Unremarkable. ABDOMEN and PELVIS: Mild streak artifact related to patient arm positioning. Liver: Normal density. No suspicious mass. Gallbladder and biliary tract: No evidence of stones or wall thickening. No biliary dilatation. Pancreas: Normal density, no abnormal calcifications or inflammatory process. Spleen: Normal. Kidneys: Normal size, contour and axis. No radiodense stones. No obstructive uropathy. No suspicious masses seen. Adrenal glands: No masses seen. Aorta: Abdominal portion non-dilated. Lymph nodes: Within normal limits. Soft tissues: Unremarkable. Bladder: Decompressed by Lemus catheter. Bowel: A nasogastric tube is positioned within the stomach. The colon is mainly fluid filled. The appendix appears normal. No obstruction or bowel wall thickening. Large quantity of stool noted in the rectum. Peritoneal cavity: No ascites. No focal collection. No mesenteric inflammatory response. No free air. Bones: Unremarkable for age. Reproductive organs: Unremarkable for age. IMPRESSION: Right upper middle and lower lobe pneumonitis. No acute abnormality in the abdomen or pelvis. There is increased stool in the rectum and some fluid in the remaining colon. No wall thickening. RADIATION DOSE DELIVERED: 492.14mGy.cm Total DLP DATA REPOSITORY: All CT scans at this facility are submitted to the National Radiology Data Registry (NRDR) Dose Index Registry (DIR) with the [employer] (ACR). RADIATION OPTIMIZATION: All CT scans at this facility use at least one of these dose optimization techniques: automated exposure control; mA and/or kV adjustment per patient size (includes targeted exams where dose is matched to clinical indication); or iterative reconstruction.
[2025-11-04] MEDS: Sodium Bicarbonate 50 MEQ/50 ML SYR IVP (07:49)
[2025-11-04] MEDS: Succinylcholine 200 MG/10 ML VIAL 120 MG IVP (07:53)
[2025-11-04] MEDS: Midazolam 2 MG/2 ML VIAL 20 MG IVP (08:00)
[2025-11-04 08:01] LABS: BE (Venous) 2 mmol/L (-2-3); HCO3 (Venous) 28 mmol/L (23-28); O2 Sat (Venous) 87 %; TCO2 (Venous) 25 mmol/L (24-29); pCO2 (Venous) 55 mmHg (41-51); pO2 (Venous) 55 mmHg
--- NOTE | 2025-11-04 08:10 | DI.[facility]_ITS ---
PROCEDURE INFORMATION: Exam: XR Chest Exam date and time: 11/04/2025 6:43 AM Age: 35 years old Clinical indication: Device placement; Line placement post intubation TECHNIQUE: Imaging protocol: Radiologic exam of the chest. Views: 1 view. COMPARISON: CR XR CHEST 2V PA LATERAL 01/17/2025 11:58 AM FINDINGS: Tubes, catheters and devices: Patient has been intubated, with tip of the tube approximately 7.4 cm proximal to the arthur, above the level of the clavicular heads. This could be advanced 3-4 cm. Lungs: The pulmonary vasculature appears mildly congested. The lungs are otherwise clear. Pleural spaces: Unremarkable. No pleural effusion. No pneumothorax. Heart/Mediastinum: The cardiomediastinal silhouette is fairly stable in appearance. Bones/joints: There is again hardware in the right clavicle. IMPRESSION: 1. Intubated with tip of the tube approximately 7.4 cm proximal to the arthur, above the level of the clavicular heads. This could be advanced 3-4 cm. 2. Mild pulmonary vascular congestion. Dictated and Authenticated by: Brenton Cheung MD. Orderin Shun Mojica MD
[2025-11-04] MEDS: Normal Saline-STERILE FIELD 0.9% 10 ML SYR (08:14)
--- NOTE | 2025-11-04 08:14 | DI.[facility]_ITS ---
PROCEDURE INFORMATION: Exam: CT Lumbar Spine Without Contrast Exam date and time: 11/04/2025 7:17 AM Age: 35 years old Clinical indication: Other: Seizure TECHNIQUE: Imaging protocol: Computed tomography of the lumbar spine without contrast. COMPARISON: CT CHEST PE ABD PELVIS W 04/07/2023 8:41 PM (report not provided) FINDINGS: Bones/joints: There is mild chronic height loss of the superior L5 endplate. Vertebral body heights are otherwise intact. Spinal alignment is maintained. No pars defect is identified. No acute fracture is identified. There is mild multilevel facet arthrosis, disc space narrowing and marginal osteophyte formation. CT is not optimal for the evaluation of the discs, neural foramina or spinal canal or cord. No significant spinal stenosis is evident. Stomach and bowel: The rectum is distended with stool up to 7.6 cm in caliber. Urinary bladder: The urinary bladder contains a Lemus catheter. Soft tissues: There is no significant paraspinal hematoma. IMPRESSION: 1. No acute fracture or dislocation identified. 2. Mild chronic height loss of the superior L5 endplate. 3. Stool distension of the rectum up to 7.6 cm in caliber. Correlate as to any possible constipation or impaction. Dictated and Authenticated by: Brenton Cheung MD. Orderin Shun Mojica MD
--- NOTE | 2025-11-04 08:26 | ED.PROG_ITS ---
Date of service: 11/04/25 Time of Service: 08:27 Medical Decision Making I received signout from Dr. Hoffmann 35-year-old male history of HIV most recent CD4 count as of August. Was found outside in the weather. Patient was drinking alcohol. I was in touch with [facility] as [facility] had declined patient. Nathanael golden was accepted by Dr. Duenas at [facility]. Discharge Plan Disposition Patient Disposition: Transfer-Acute Inpatient Care Specific Acute Inpt Facility: [facility] Discharge Details Clinical Impression: Seizure, Status epilepticus, Alcohol intoxication Primary Care Provider: Wallace Max ED Provider: Beau Lim Home Meds and New Rx's Prescriptions: No Action albuterol sulfate 90 mcg/actuation HFA aerosol inhaler 1 - 2 puff Inhalation Q6H PRN Qty: 2 6RF Patient Comments: needs new rx methadone 10 MG/5 ML solution 95 - 115 mg PO BID Qty: 0 Patient Comments: 115mg every morning - 95mg in the afternoon Rx Instructions: [facility] RX/ gabapentin 800 mg tablet 1,200 mg PO QID Qty: 135 3RF Rx Instructions: 0.5 tab po qd x TID for 1 week, 1 tab po TID for 1 week, then 1.5 mg po TID famotidine 40 mg tablet 40 mg PO DAILY Qty: 90 0RF Patient Comments: needs new rx doxycycline hyclate 100 mg tablet 100 mg PO BID Qty: 12 0RF Biktarvy 50-200-25 mg tablet 1 tab PO DAILY Discharge Data Discharge Date/Time-TO BE ENTERED AT DEPARTURE: 11/04/25 11:42
[2025-11-04] MEDS: levETIRAcetam 2,000 MG in Normal Saline 100 ML 400 MG IVPB (08:30)
[2025-11-04 08:32] LABS: Cannabinoids THC Positive (Negative)
[2025-11-04 08:42] LABS: Glucose Negative (Negative)
[2025-11-04 08:54] LABS: C & S Indicated? No; WBC 0-2 HPF (0-5)
[2025-11-04 09:03] LABS: Troponin I 5 ng/L (<54)
[2025-11-04] MEDS: Omnipaque 350 MG/ML 100 ML BTL IJ (09:19)
[2025-11-04 10:02] LABS: BE (Venous) 3 mmol/L (-2-3); HCO3 (Venous) 29 mmol/L (23-28); O2 Sat (Venous) 83 %; TCO2 (Venous) 26 mmol/L (24-29); pCO2 (Venous) 52 mmHg (41-51); pO2 (Venous) 48 mmHg
[2025-11-04] MEDS: NORMAL SALINE IVPB (10:07)
[2025-11-04] MEDS: LEVETIRACETAM IVPB (10:07)
[2025-11-04] MEDS: cefTRIAXone 2 GM/50 ML BAG IVPB (10:15)
[2025-11-04] MEDS: Normal Saline 1,000 ML 1000 ML IV (10:18)
[2025-11-04 10:24] LABS: Troponin I 6 ng/L (<54)
[2025-11-04 11:00] LABS: Ammonia 17 umol/L (11-32)
[2025-11-04] MEDS: MULTIVITAMIN 10 ML, THIAMINE 100 MG, FOLIC ACID 1 MG in DEXTROSE 5%-0.45% SALINE 1,000 ML 42 ML IV (11:06)
[2025-11-04 11:24] LABS: COVID-19 PCR Negative (Negative); RSV PCR Negative (Negative)
== END 2025-11-04 11:42 | disposition short-term general hospital (02) ==
PROVIDERS: Student in an Organized Health Care Education/Training Program; Emergency Provider Emergency Medicine; PCP Nurse Practitioner Family
DX: G40.901 Epilepsy, unspecified, not intractable, with status epilepticus (principal); F10.929 Alcohol use, unspecified with intoxication, unspecified
CPT/HCPCS: 00123; 31500; 36415; 36416; 36556; 51702; 71045; 74177; 80053; 80307; 82550; 82805; 82962; 87637; 93005; 96361; 96365; 96366; 96367; 96372; 96375; 99291; 70450; 71260; 72125; 72131; 80320; 81003; 81015; 82140; 83605; 83735; 84443; 84484; 85025; 85610; 85730; 93010; J0330; J0696; J1953; J2060; J2250; J2704; J3360; J3411; J3490